=== PATIENT | male | born 1960 | race Caucasian/White ===

== ENCOUNTER 2020-03-14 10:24 | Emergency (ER) | payer OTHER, SELFPAY ==
[2020-03-14 12:03] VITALS: BP 132/67; PULSE 64; RESP 16; TEMP 36.6; O2SAT 97; BMI 23.5
--- NOTE | 2020-03-14 12:20 | XR_ITS ---
EXAMINATION: XR SHOULDER, LEFT CLINICAL INFORMATION: Shoulder pain COMPARISON: None TECHNIQUE: Left shoulder is imaged in 4 views. FINDINGS: There is no fracture or dislocation or destructive process. The acromioclavicular alignment is normal. The glenohumeral joint is unremarkable. There is borderline spurring at the inferior glenoid rim likely at the origin inferior glenohumeral ligament. There are no visible rotator cuff calcifications. Left lung apex is clear. No apical pneumothorax. XR/XR shoulder LT min 2V IMPRESSION: Unremarkable left shoulder.
--- NOTE | 2020-03-14 12:20 | ECG_ITS ---
Test Reason : LLEFT ARM PAIN Blood Pressure : / mmHG Vent. Rate : 063 BPM Atrial Rate : 063 BPM P-R Int : 158 ms QRS Dur : 090 ms QT Int : 404 ms P-R-T Axes : 000 121 140 degrees QTc Int : 413 ms Normal sinus rhythm Limb lead reversal When compared with ECG of 03-JUN-2019 20:18, Limb lead reversal present mimicking lateral infarct Referred By: Tiffany Aranda Electronically Signed By:Justice De La O
--- NOTE | 2020-03-14 13:28 | ED_ITS ---
HPI - Extremity Problem General Chief complaint: Extremity Injury, Upper Stated complaint: shoulder pain Time Seen by Provider: 03/14/20 12:20 Source: patient Mode of arrival: ambulatory History of Present Illness HPI Narrative: 59-year-old male with a past medical history of DVT on Xarelto presenting to the ED complaining of acute nontraumatic left shoulder pain x4 days. States pain prevents him from sleeping, worse with movement. Denies known injury/trauma, falls, or heavy lifting. Denies numbness, tingling, weakness, chest pain, shortness of breath, neck pain MD Complaint: joint paint Related Data Home Medications Medication Instructions Recorded Confirmed rivaroxaban [Xarelto] 20 mg PO DAILY 02/20/20 02/20/20 Previous Rx's Medication Instructions Recorded acetaminophen [Tylenol Extra 500 mg PO Q6H PRN #20 tab 03/14/20 Strength] cyclobenzaprine 5 mg PO Q8H PRN 5 Days #14 tab 03/14/20 lidocaine [Lidoderm] 1 patch TOPICAL DAILY PRN #30 ea 03/14/20 MDD remove after 12 hours Allergies Allergy/AdvReac Type Severity Reaction Status Date / Time No Known Allergies Allergy Verified 02/20/20 13:38 [No Known Allergies*] Review of Systems Review of Systems: Constitutional: No Weight loss, No Fever, No Chills Cardiovascular: No Chest Pain, No SOB Respiratory: No Cough, No Sputum, No Wheezing Musculoskeletal: + joint pain, No Myalgias, No Joint Swelling Skin: No Skin Lesions, No rash Neuro: No Weakness, No Numbness, No Paresthesias Yes all other systems are reviewed and are negative [facility] [place] Past Medical History Attestation statement: The following information was validated with the patient. Medical History (Updated 03/14/20 @ 13:29 by PACO Youssef) DVT (deep venous thrombosis) IDDM (insulin dependent diabetes mellitus) Poor short term memory Social History Social History Smoked in Last 30 Days: No Use of substances other than those prescribed or required for medical reasons: No Advance Directives: No Advance Directives Information Provided: Yes Physical Exam Vital Signs: Vital Signs: Last Vital Signs Temp 97.8 F 03/14/20 16:30 Pulse 64 03/14/20 16:30 Resp 14 03/14/20 16:30 BP 170/88 H 03/14/20 16:30 Pulse Ox 99 01/07/21 16:30 Body Mass Index 23.5 Const: General: cooperative and healthy appearing Orientation/consciousness: patient oriented x3 Limitations: no limitations HENMT: Head: Yes normal to inspection Ears: hearing grossly normal bilaterally General nose exam: Normal external nose present Face and sinus: Yes normal facial exam Eyes: General: appearance normal, both eyes and all related structures EOM: EOMs intact bilaterally Neck: Other: No midline cervical spinous tenderness Neck: Yes normal visual inspection, Yes full ROM and Yes no meningeal signs Resp: Effort & Inspection: normal respiratory effort Cardio: Rate: regular rate Back/Spine/Pelvis: Other: No midline thoracic/lumbar spinous tenderness Skin: Rashes: no rashes Wounds: no wounds Neuro: General: patient oriented x3 and no meningeal signs Gait exam (Neuro): Normal gait present Extrem: Other: + left-sided trapezius muscle tenderness. Left shoulder nontender, no deformity, full range of motion intact. Sensation intact to light touch. NV intact General: Yes normal to inspection, Yes full ROM and Yes capillary refill normal Left upper extremity: normal to inspection and full ROM; joint enlargement noted Course Course Course Narrative: * Shoulder x-ray unremarkable * 1340-EKG showing inverted T-waves in lead 1, and aVL. New from prior EKG in May, will obtain labs to rule out ACS * 1500-initial troponin 7.6 > will obtain 3 hour repeat * 1645-patient would like to sign out AMA prior to repeat troponin results. He is A&O x3, competent to make his own decisions, discussed risk of which he verbalized understanding and would like to still sign out AMA MDM - Extremity (Nontraumatic) MDM Narrative Medical decision making narrative: 59-year-old male with a past medical history of DVT on Xarelto presenting to the ED complaining of acute nontraumatic left shoulder pain x4 days. On exam VSS, NAD/nontoxic-appearing, left trapezius muscle tenderness elicited, full range of motion shoulder intact. Concern for MSK pain vs ACS Plan: EKG, x-ray, re-evaluate Lab Data Result diagrams: 03/14/20 14:16 03/14/20 14:16 Labs: Lab Results 03/14/20 03/14/20 03/14/20 Range/Units 14:16 14:16 14:16 WBC 6.6 (4.8-10.8) X10*3/uL RBC 4.61 (4.60-5.80) X10*6/uL Hgb 15.0 (14.0-18.0) g/dl Hct 44.0 (42-52) % MCV 95.4 (80-98) fL MCH 32.5 (27.0-33.0) pg MCHC 34.1 (31.0-36.0) g/dl RDW 12.0 (11.0-16.0) % Plt Count 171 (160-400) X10*3/uL MPV 10.7 (9.4-12.4) fL Immature Gran % (Auto) 0.2 (0.0-0.4) % Neut % (Auto) 54.8 (45-73) % Lymph % (Auto) 30.2 (20-40) % [place] % (Auto) 9.6 (2-11) % Eos % (Auto) 4.7 H (0-4) % Baso % (Auto) 0.5 (0-2) % Lymph # (Auto) 2.0 (1.2-4.9) X10*3/uL [place] # (Auto) 0.6 (0.1-1.2) X10*3/uL Eos # (Auto) 0.3 (0.0-0.4) X10*3/uL Baso # (Auto) 0.0 (0.0-0.2) X10*3/uL Abs Immat Gran (auto) 0.01 (0.00-0.03) X10*3/uL Absolute Neuts (auto) 3.6 (2.0-8.3) X10*3/uL Absolute Nucleated RBC 0.000 (0.0-0.012) X10*3/uL Nucleated RBC % (auto) 0.0 (0.0-0.2) /100WBC Hold Blue Top SEE NOTE Sodium 137 (135-145) mmol/L Potassium 4.3 (3.3-5.1) mmol/l Chloride 103 (96-108) mmol/L Carbon Dioxide 28 (22-29) mmol/L Anion Gap 10 L (12-20) BUN 14 (9-16) mg/dL Creatinine 0.66 (0.5-1.4) mg/dL Estim Creat Clear Calc 115.4 Estimated GFR > 60 Random Glucose 270 H (60-115) mg/dL Calcium 9.1 (8.4-10.2) mg/dL Troponin I High Sens (<3.5-35.0) ng/L 03/14/20 Range/Units 14:16 WBC (4.8-10.8) X10*3/uL RBC (4.60-5.80) X10*6/uL Hgb (14.0-18.0) g/dl Hct (42-52) % MCV (80-98) fL MCH (27.0-33.0) pg MCHC (31.0-36.0) g/dl RDW (11.0-16.0) % Plt Count (160-400) X10*3/uL MPV (9.4-12.4) fL Immature Gran % (Auto) (0.0-0.4) % Neut % (Auto) (45-73) % Lymph % (Auto) (20-40) % [place] % (Auto) (2-11) % Eos % (Auto) (0-4) % Baso % (Auto) (0-2) % Lymph # (Auto) (1.2-4.9) X10*3/uL [place] # (Auto) (0.1-1.2) X10*3/uL Eos # (Auto) (0.0-0.4) X10*3/uL Baso # (Auto) (0.0-0.2) X10*3/uL Abs Immat Gran (auto) (0.00-0.03) X10*3/uL Absolute Neuts (auto) (2.0-8.3) X10*3/uL Absolute Nucleated RBC (0.0-0.012) X10*3/uL Nucleated RBC % (auto) (0.0-0.2) /100WBC Hold Blue Top Sodium (135-145) mmol/L Potassium (3.3-5.1) mmol/l Chloride (96-108) mmol/L Carbon Dioxide (22-29) mmol/L Anion Gap (12-20) BUN (9-16) mg/dL Creatinine (0.5-1.4) mg/dL Estim Creat Clear Calc Estimated GFR Random Glucose (60-115) mg/dL Calcium (8.4-10.2) mg/dL Troponin I High Sens 7.6 (<3.5-35.0) ng/L Discharge Plan Discharge Clinical Impression: Acute shoulder pain Qualifiers: Laterality: left Qualified Code(s): M25.512 - Pain in left shoulder Patient Disposition: Left Against Medical Advice Instructions: Musculoskeletal Pain (ED) Additional Instructions: Your pain is likely musculoskeletal Flexeril is a muscle relaxer, take at night as it makes you drowsy, do not drive, drink alcohol, or operate machinery while taking it Lidoderm patches are numbing patches, apply to painful area In addition take Tylenol at home If symptoms persist or worsen, pain becomes unbearable, you developed urinary retention or incontinence, or weakness return to the ED Prescriptions: New acetaminophen [Tylenol Extra Strength] 500 mg tablet 500 mg PO Q6H PRN (Reason: pain or fever) Qty: 20 RF: 0 lidocaine [Lidoderm] 5 % adhesive patch,medicated 1 patch topical DAILY MDD remove after 12 hours PRN (Reason: pain) Qty: 30 RF: 0 cyclobenzaprine 5 mg tablet 5 mg PO Q8H PRN (Reason: pain (scale score 7-10)) 5 Days Qty: 14 RF: 0 No Action Xarelto 20 mg Tablet 20 mg PO DAILY RF: 0 Referrals: Kentrell Kitchen MD [Physician] - 1 week (As needed)
[2020-03-14] MEDS: Acetaminophen 325 MG TABLET 650 MG PO (13:48)
[2020-03-14 14:27] LABS: Basophils Percent Auto 0.5 % (0-2); Eosinophils Absolute Auto 0.3 X10*3/uL (0.0-0.4); Eosinophils Percent Auto 4.7 % (0-4); Imm Gran Abs Auto 0.01 X10*3/uL (0.00-0.03); Imm Gran Pct Auto 0.2 % (0.0-0.4); Lymphocytes Percent Auto 30.2 % (20-40); MANUAL DIFF FLAG NO; Mean Corpuscular HGB Conc 34.1 g/dl (31.0-36.0); Mean Corpuscular Hemoglobin 32.5 pg (27.0-33.0); Mean Corpuscular Volume 95.4 fL (80-98); Mean Platelet Volume 10.7 fL (9.4-12.4); Monocytes Absolute Auto 0.6 X10*3/uL (0.1-1.2); Monocytes Percent Auto 9.6 % (2-11); Neutrophils Absolute Auto 3.6 X10*3/uL (2.0-8.3); Neutrophils Percent Auto 54.8 % (45-73); Platelet Count 171 X10*3/uL (160-400); Red Blood Count 4.61 X10*6/uL (4.60-5.80); White Blood Count 6.6 X10*3/uL (4.8-10.8)
[2020-03-14 14:49] LABS: Anion Gap 10 (12-20); Blood Urea Nitrogen 14 mg/dL (9-16); Calcium 9.1 mg/dL (8.4-10.2); Carbon Dioxide 28 mmol/L (22-29); Chloride 103 mmol/L (96-108); Creatinine Clr Calc Pharmacy 115.4; Estimated Glomerular Filt Rate > 60; Glucose Random 270 mg/dL (60-115); Potassium 4.3 mmol/l (3.3-5.1); Sodium 137 mmol/L (135-145)
[2020-03-14 14:52] LABS: Troponin-I High Sensitivity 7.6 ng/L (<3.5-35.0)
[2020-03-14 15:34] VITALS: BP 147/84; PULSE 65; RESP 16; TEMP 36.6; O2SAT 99
[2020-03-14 16:30] VITALS: BP 170/88; PULSE 64; RESP 14; TEMP 36.6; O2SAT 99
--- NOTE | 2020-03-14 16:47 | PC.NURSE ---
PT REQUESTING DISCHARGE, PACO JUNG UPDATED, PA WILL PREPARE DC
[2020-03-14 17:17] LABS: Troponin-I High Sensitivity 7.2 ng/L (<3.5-35.0)
== END 2020-03-14 16:55 | disposition left against medical advice (07) ==
PROVIDERS: Physician Assistant; Emergency Provider Emergency Medicine Emergency Medical Services; PCP Internal Medicine
DX: M25.512 Pain in left shoulder (principal); Z86.718 Personal history of other venous thrombosis and embolism; Z79.01 Long term (current) use of anticoagulants
CPT/HCPCS: 36415; 73030; 80048; 84484; 85025; 93005; 99283; 99284

== ENCOUNTER 2020-04-30 06:38 | Emergency (ER) | payer OTHER, SELFPAY ==
--- NOTE | ~2020-04-30 | XR_ITS ---
EXAMINATION: XR ELBOW, RIGHT CLINICAL INFORMATION: Fall. Pain at radial head. COMPARISON: None TECHNIQUE: AP, lateral, and oblique views of the right elbow. FINDINGS: There is a moderate joint effusion. Subtle lucency in the radial head, suspicious for an intra-articular fracture. Alignment of the elbow joint is maintained. No additional discrete fracture is identified. XR/XR elbow RT min 3V IMPRESSION: Findings suspicious for an intra-articular undisplaced fracture of the radial head. Moderate joint effusion.
--- NOTE | 2020-04-30 07:14 | ED.FALL ---
HPI - Fall General Chief Complaint: Fall Stated Complaint: Fall Time Seen by Provider: 04/30/20 07:16 Source: patient Mode of arrival: ambulatory Limitations: no limitations History of Present Illness HPI Narrative: 59 yo male with hx of DVT was on xarelto but states he is not anymore, DM slipped and fell yesterday did not strike head has no headache, no LOC landed on his R elbow dom hand and c/o pain at elbow ever since MD complaint: fall Onset (ago): day(s) (1) Fall from: standing Fall witnessed: no Place fall occurred: home Loss of consciousness: none Prolonged down time: no Symptoms prior to fall: none Context: tripped/slipped Location of injury - extremities: right: elbow Severity: mild Quality: aching Associated symptoms (after fall): denies Related Data Home Medications Medication Instructions Recorded Confirmed rivaroxaban [Xarelto] 20 mg PO DAILY 02/20/20 02/20/20 Previous Rx's Medication Instructions Recorded acetaminophen [Tylenol Extra 500 mg PO Q6H PRN #20 tab 03/14/20 Strength] cyclobenzaprine 5 mg PO Q8H PRN 5 Days #14 tab 03/14/20 lidocaine [Lidoderm] 1 patch TOPICAL DAILY PRN #30 ea 03/14/20 MDD remove after 12 hours Allergies Allergy/AdvReac Type Severity Reaction Status Date / Time No Known Allergies Allergy Verified 02/20/20 13:38 [No Known Allergies*] Review of Systems Review of Systems: Constitutional : No Fever, No Chills ENT/Mouth : No Ear Pain, No Hoarseness Eyes: No Eye Pain, No Swelling, No Redness Cardiovascular : No Chest Pain, No SOB Respiratory : No Cough, No Dyspnea Gastrointestinal : No Nausea, No Vomiting, No Diarrhea, No abdominal Pain Genitourinary : No Dysuria, No Hematuria Musculoskeletal : positive joint pain, No Myalgias, No Joint Swelling Skin : No Skin lacerations, No rash Neuro : No Weakness, No Numbness, No Loss of Consciousness, No Dizziness, No Headache Psych : No Anxiety/Panic, No Depression [facility] Past Medical History Attestation statement: The following information was validated with the patient. Medical History DVT (deep venous thrombosis) IDDM (insulin dependent diabetes mellitus) Poor short term memory Social History Social History (Updated 04/30/20 @ 07:17 by Rupa Richmond DO) Smoking Status: Never smoker Advance Directives: No Advance Directives Information Provided: No Physical Exam Vital Signs: Vital Signs: Last Vital Signs Temp 97.8 F 04/30/20 07:18 Pulse 71 04/30/20 07:18 Resp 16 04/30/20 07:18 BP 135/72 04/30/20 07:18 Pulse Ox 100 04/30/20 07:18 Body Mass Index 23.5 Appearance: Alert. Oriented X3. No acute distress. Eyes: Pupils equal, round and reactive to light. ENT: Pharynx normal. no trauma Neck: Normal inspection. Neck supple. CVS: Normal heart rate and rhythm. Pulses normal. Respiratory: No respiratory distress. Breath sounds normal. Abdomen: Soft and nontender. Skin: Skin warm and dry. Normal skin color. Normal skin turgor. Extremities: No lower extremity edema. No calf ttp R elbow some pain at radial head, distal NV intact superficial abrasion at olecranon has no proximal or distal sites of pain Neuro: Oriented X 3. No motor deficit. No sensory deficit. Procedures Orthopedic Splinting/Casting Injury #1: Side: right Upper Extremity Injury Location: elbow Upper Extremity Immobilizer: sling/shoulder immobilizer MDM - Fall MDM Narrative Medical decision making narrative: 59 yo male with DVT and DM - fell yesterday did not strike head no LOC no headaches GCS 15 no vomiting doubt head injury states he is no longer on xarelto - c/o isolated R elbow pain post fall - NV intact some radial head ttp - xray ordered Discharge Plan Discharge Clinical Impression: Closed fracture of radial head Qualifiers: Encounter type: initial encounter Fracture alignment: nondisplaced Laterality: right Qualified Code(s): S52.124A - Nondisplaced fracture of head of right radius, initial encounter for closed fracture Patient Disposition: Home, Self-Care Instructions: Elbow Fracture (ED) Additional Instructions: return to ED for any worsening symptoms or concerns wear sling until released by your doctor or orthopedic doctor (likely next few weeks) Prescriptions: No Action Xarelto 20 mg Tablet 20 mg PO DAILY RF: 0 acetaminophen [Tylenol Extra Strength] 500 mg tablet 500 mg PO Q6H PRN (Reason: pain or fever) Qty: 20 RF: 0 lidocaine [Lidoderm] 5 % adhesive patch,medicated 1 patch topical DAILY MDD remove after 12 hours PRN (Reason: pain) Qty: 30 RF: 0 cyclobenzaprine 5 mg tablet 5 mg PO Q8H PRN (Reason: pain (scale score 7-10)) 5 Days Qty: 14 RF: 0 Referrals: Homer Aleman PA-C [Physician Retail Sales Representative] - 1 week Stand Alone Forms: Work/School Release
[2020-04-30 07:18] VITALS: BP 135/72; PULSE 71; RESP 16; TEMP 36.6; O2SAT 100; BMI 23.5
== END 2020-04-30 09:12 | disposition home or self-care (01) ==
PROVIDERS: Emergency Provider Emergency Medicine; PCP Internal Medicine
DX: S52.124A Nondisplaced fracture of head of right radius, initial encounter for closed fracture (principal); W01.0XXA Fall on same level from slipping, tripping and stumbling without subsequent striking against object, initial encounter; E11.9 Type 2 diabetes mellitus without complications; Z86.718 Personal history of other venous thrombosis and embolism; Z79.4 Long term (current) use of insulin; Z79.01 Long term (current) use of anticoagulants; Y93.9 Activity, unspecified; Y92.019 Unspecified place in single-family (private) house as the place of occurrence of the external cause; Y99.9 Unspecified external cause status
CPT/HCPCS: 73080; 99283

== ENCOUNTER 2020-05-09 07:32 | Outpatient (REF) | payer OTHER, SELFPAY ==
--- NOTE | ~2020-05-09 | XR_ITS ---
EXAMINATION: XR ELBOW, RIGHT CLINICAL INFORMATION: Pain COMPARISON: Previous x-ray April 2020 TECHNIQUE: AP, lateral, and oblique views of the right elbow. FINDINGS: Bone alignment is normal. No fracture or dislocation is seen. There is a small osteophyte projecting off the lateral humeral condyle. There is no joint effusion. There is evidence of atherosclerotic disease. XR/XR elbow RT min 3V IMPRESSION: No fracture seen.
== END 2020-05-09 07:33 | disposition home or self-care (01) ==
LOC: HO.HOSX 07:32
PROVIDERS: Visit Provider Physician Assistant
DX: S42.401D Unspecified fracture of lower end of right humerus, subsequent encounter for fracture with routine healing (principal)
CPT/HCPCS: 73080; 99202

== ENCOUNTER 2020-05-23 12:01 | Outpatient (REF) | payer OTHER, SELFPAY ==
[2020-05-23 13:17] LABS: MANUAL DIFF FLAG NO
[2020-05-23 13:23] LABS: Basophils Percent Auto 0.4 % (0-2); Eosinophils Absolute Auto 0.2 X10*3/uL (0.0-0.4); Eosinophils Percent Auto 2.3 % (0-4); Hematocrit 44.3 % (42-52); Hemoglobin 14.9 g/dl (14.0-18.0); Imm Gran Abs Auto 0.02 X10*3/uL (0.00-0.03); Imm Gran Pct Auto 0.2 % (0.0-0.4); Lymphocytes Absolute Auto 2.4 X10*3/uL (1.2-4.9); Lymphocytes Percent Auto 29.1 % (20-40); Mean Corpuscular HGB Conc 33.6 g/dl (31.0-36.0); Mean Corpuscular Hemoglobin 31.4 pg (27.0-33.0); Mean Corpuscular Volume 93.5 fL (80-98); Mean Platelet Volume 10.8 fL (9.4-12.4); Monocytes Absolute Auto 0.8 X10*3/uL (0.1-1.2); Monocytes Percent Auto 9.9 % (2-11); Neutrophils Absolute Auto 4.8 X10*3/uL (2.0-8.3); Neutrophils Percent Auto 58.1 % (45-73); Platelet Count 282 X10*3/uL (160-400); Red Blood Count 4.74 X10*6/uL (4.60-5.80); Red Cell Distribution Width 12.5 % (11.0-16.0); White Blood Count 8.2 X10*3/uL (4.8-10.8)
[2020-05-23 13:34] LABS: D Dimer < 200 NG/ML
[2020-05-23 13:57] LABS: Alanine Aminotransferase 55 U/L (0-40); Albumin Level 4.2 g/dL (3.5-5.0); Alkaline Phosphatase 114 U/L (39-117); Anion Gap 13 (12-20); Aspartate Amino Transferase 26 U/L (5-37); Bilirubin Total 0.6 mg/dL (0.0-1.0); Blood Urea Nitrogen 25 mg/dL (9-16); Calcium 9.6 mg/dL (8.4-10.2); Carbon Dioxide 29 mmol/L (22-29); Chloride 102 mmol/L (96-108); Estimated Glomerular Filt Rate > 60; Glucose Fasting 284 mg/dL (60-99); Potassium 4.7 mmol/L (3.3-5.1); Sodium 139 mmol/L (135-145)
[2020-05-23 14:06] LABS: Estimated Average Glucose 280 mg/dL; Hemoglobin A1c % 11.4 %
[2020-05-23 14:30] LABS: Microalbum/Creatinine Ratio Ur 8.4 ug/mg cr
[2020-05-23 14:49] LABS: Folate 12.6 ng/mL (> or = 4.0); Vitamin B12 519 pg/mL (200-900)
== END 2020-05-23 12:02 | disposition home or self-care (01) ==
LOC: HO.LAB 12:01
PROVIDERS: PCP Internal Medicine; Visit Provider Nurse Practitioner Family
DX: E11.9 Type 2 diabetes mellitus without complications (principal); I82.409 Acute embolism and thrombosis of unspecified deep veins of unspecified lower extremity
CPT/HCPCS: 36415; 80053; 82043; 82607; 82746; 83036; 85025; 85379

== ENCOUNTER 2020-10-23 09:05 | Outpatient (REF) | payer OTHER, SELFPAY ==
[2020-10-23 10:07] LABS: MANUAL DIFF FLAG NO
[2020-10-23 10:16] LABS: Basophils Percent Auto 0.4 % (0-2); Eosinophils Absolute Auto 0.3 X10*3/uL (0.0-0.4); Eosinophils Percent Auto 4.4 % (0-4); Hematocrit 42.9 % (42-52); Hemoglobin 14.5 g/dl (14.0-18.0); Imm Gran Abs Auto 0.01 X10*3/uL (0.00-0.03); Imm Gran Pct Auto 0.1 % (0.0-0.4); Lymphocytes Absolute Auto 1.8 X10*3/uL (1.2-4.9); Lymphocytes Percent Auto 22.5 % (20-40); Mean Corpuscular HGB Conc 33.8 g/dl (31.0-36.0); Mean Corpuscular Hemoglobin 32.5 pg (27.0-33.0); Mean Corpuscular Volume 96.2 fL (80-98); Mean Platelet Volume 10.9 fL (9.4-12.4); Monocytes Absolute Auto 0.8 X10*3/uL (0.1-1.2); Monocytes Percent Auto 10.7 % (2-11); Neutrophils Absolute Auto 4.8 X10*3/uL (2.0-8.3); Neutrophils Percent Auto 61.9 % (45-73); Platelet Count 202 X10*3/uL (160-400); Red Blood Count 4.46 X10*6/uL (4.60-5.80); Red Cell Distribution Width 12.2 % (11.0-16.0); White Blood Count 7.8 X10*3/uL (4.8-10.8)
[2020-10-23 11:02] LABS: Alanine Aminotransferase 57 U/L (0-40); Alkaline Phosphatase 88 U/L (39-117); Anion Gap 16 (12-20); Aspartate Amino Transferase 25 U/L (5-37); Bilirubin Total 0.5 mg/dL (0.0-1.0); Blood Urea Nitrogen 19 mg/dL (9-16); Calcium 9.6 mg/dL (8.4-10.2); Carbon Dioxide 25 mmol/L (22-29); Chloride 102 mmol/L (96-108); Cholesterol 248 mg/dL; Estimated Glomerular Filt Rate > 60; Glucose Random 300 mg/dL (60-115); HDL Cholesterol 54 mg/dL; LDL Cholesterol Calculated 177 mg/dl; Potassium 5.6 mmol/L (3.3-5.1); Sodium 137 mmol/L (135-145); Total Protein 6.7 g/dL (6.5-8.0); Triglycerides 86 mg/dL
[2020-10-23 11:09] LABS: Folate 12.2 ng/mL (> or = 4.0); Vitamin B12 422 pg/mL (200-900)
[2020-10-23 11:27] LABS: Free T4 (Free Thyroxine) 0.93 ng/dL (0.71-1.85); Thyroid Stimulating Hormone 0.45 uIU/mL (0.32-4.0)
[2020-10-23 12:45] LABS: Creatinine Urine 52.48 mg/dL; Microalbumin Urine < 5.0 mg/L
== END 2020-10-23 09:06 | disposition home or self-care (01) ==
LOC: HO.LAB 09:05
PROVIDERS: PCP Internal Medicine; Visit Provider Internal Medicine
DX: E11.65 Type 2 diabetes mellitus with hyperglycemia (principal); E78.00 Pure hypercholesterolemia, unspecified
CPT/HCPCS: 36415; 80053; 80061; 82043; 82607; 82746; 84439; 84443; 85025

== ENCOUNTER → 2020-11-15 12:02 | Outpatient (BNVA) | payer OTHER, SELFPAY | PROVIDERS: PCP Internal Medicine; Visit Provider Dietitian, Registered | DX: E11.65 Type 2 diabetes mellitus with hyperglycemia (principal) | CPT/HCPCS: 97802 ==

== ENCOUNTER → 2020-12-23 12:09 | Outpatient (BNVA) | payer OTHER, SELFPAY | PROVIDERS: PCP Internal Medicine; Visit Provider Dietitian, Registered | DX: E11.65 Type 2 diabetes mellitus with hyperglycemia (principal) | CPT/HCPCS: 97803 ==

== ENCOUNTER → 2021-02-25 11:34 | Outpatient (BNVA) | payer OTHER, SELFPAY | PROVIDERS: PCP Internal Medicine; Visit Provider Dietitian, Registered | DX: E11.65 Type 2 diabetes mellitus with hyperglycemia (principal) | CPT/HCPCS: 97803 ==

== ENCOUNTER 2021-03-05 08:42 | Outpatient (REF) | payer OTHER, SELFPAY ==
--- NOTE | 2021-03-05 08:45 | EMG_ITS ---
This is a 60-year-old man with a long history of diabetes and traumatic brain injury in 1980, who comes in with a 2 months history of left upper extremity pain and numbness and some pain in the shoulder. He denies any complaints in the right side. Neurological examination is nonfocal. PHYSICAL EXAMINATION: Rule out carpal tunnel syndrome. Rule out cervical radiculopathy. 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 EMG of the left C5-T1 innervated muscles consistent with mild cervical radiculopathy involving C5-C7 roots. MD MARTINEZ Dinh/EMILY / [id number]
== END 2021-03-05 08:43 | disposition home or self-care (01) ==
LOC: HO.NEURO 08:42
PROVIDERS: Visit Provider Internal Medicine
DX: G56.22 Lesion of ulnar nerve, left upper limb (principal)
CPT/HCPCS: 95885; 95911

== ENCOUNTER → 2021-03-11 09:19 | Outpatient (BNVA) | payer OTHER, SELFPAY | PROVIDERS: PCP Internal Medicine; Visit Provider Dietitian, Registered | DX: E11.65 Type 2 diabetes mellitus with hyperglycemia (principal) | CPT/HCPCS: 97803 ==

== ENCOUNTER → 2021-04-09 11:13 | Outpatient (BNVA) | payer OTHER, SELFPAY | PROVIDERS: PCP Internal Medicine; Visit Provider Dietitian, Registered | DX: E11.65 Type 2 diabetes mellitus with hyperglycemia (principal) | CPT/HCPCS: 97803 ==

== ENCOUNTER 2021-04-10 09:39 | Outpatient (REF) | payer OTHER, SELFPAY ==
[2021-04-10 10:34] LABS: Alanine Aminotransferase 33 U/L (0-40); Albumin Level 4.3 g/dL (3.5-5.0); Alkaline Phosphatase 95 U/L (39-117); Anion Gap 15 (12-20); Aspartate Amino Transferase 19 U/L (5-37); Bilirubin Total 0.6 mg/dL (0.0-1.0); Blood Urea Nitrogen 25 mg/dL (9-16); Carbon Dioxide 24 mmol/L (22-29); Chloride 104 mmol/L (96-108); Cholesterol 193 mg/dL; Estimated Glomerular Filt Rate > 60; Glucose Random 242 mg/dL (60-115); HDL Cholesterol 45 mg/dL; LDL Cholesterol Calculated 128 mg/dl; Potassium 5.2 mmol/L (3.3-5.1); Sodium 138 mmol/L (135-145); Total Protein 6.9 g/dL (6.5-8.0); Triglycerides 102 mg/dL
[2021-04-10 10:56] LABS: Prostate Specific Antigen Scr 0.73 ng/mL (<0.05-4.0)
== END 2021-04-10 09:40 | disposition home or self-care (01) ==
LOC: HO.LAB 09:39
PROVIDERS: PCP Internal Medicine; Visit Provider Internal Medicine
DX: Z12.5 Encounter for screening for malignant neoplasm of prostate (principal); E78.00 Pure hypercholesterolemia, unspecified
CPT/HCPCS: 36415; 80053; 80061; 84153

== ENCOUNTER 2021-04-13 08:37 | Emergency (ER) | payer OTHER, SELFPAY ==
--- NOTE | ~2021-04-13 | XR_ITS ---
EXAMINATION: XR KNEE, RIGHT CLINICAL INFORMATION: Right knee pain. COMPARISON: None TECHNIQUE: Two views, 3 images of the right knee. FINDINGS: Contour deformity of the visualized part of the mid right femur is seen, partially included within the [id number] showing features most consistent with old healed fracture. Otherwise, the bony alignments are intact. The cortices are intact. Articular margins, joint space at the right kidney appear unremarkable no evidence of any effusion. Review of the visualized soft tissues shows extensive calcific vasculopathy. XR/XR knee RT 2V IMPRESSION: Radiographically unremarkable right knee. Partially included visualized part of the right mid femur shows features consistent with old healed fracture. Extensive calcific vasculopathy.
[2021-04-13 08:40] VITALS: BP 177/97; PULSE 100; RESP 20; TEMP 36.9; O2SAT 100; BMI 22.8
--- NOTE | 2021-04-13 09:36 | ED_ITS ---
HPI - Extremity Injury (Lower) General Chief Complaint: Extremity Injury, Lower Stated Complaint: fell inj knee Time Seen by Provider: 04/13/21 08:53 Source: patient Mode of arrival: ambulatory Limitations: no limitations History of Present Illness HPI Narrative: 52-year-old male with a history of diabetes, DVT on Xarelto, and poor short-term memory presents with 3 days of right knee pain. He fell onto his right knee 3 days ago when he tripped on a curb. It was a mechanical fall, he was not dizzy, not lightheaded, no shortness of breath, no chest pain. He tripped on the curb and fell directly onto his anterior right knee. He did not hit his head. No headache, no neck pain. No numbness, tingling, or weakness. He has been walking, and is able to weight bear, but is limping. No current chest pain, SOB, abdominal pain, nausea or vomiting, dysuria, fevers. MD complaint: knee injury Onset (ago): day(s) (3) Type of Injury: blunt Place: street/outdoors Severity: moderate Severity scale (1-10): 7 Relieving factors: rest Exacerbating factors: movement and palpation Context: fall Associated symptoms: ambulatory Other symptoms: none Related Data Previous Rx's Medication Instructions Recorded blood sugar diagnostic (Freestyle #100 ea 05/24/20 In[employer] Test Strips) blood-glucose meter (FreeStyle #1 ea 05/24/20 Flash System) lancets 28 gauge (FreeStyle #100 ea 05/24/20 Lancets) flash glucose scanning reader #1 ea 10/14/20 (FreeStyle Brodie 14 Day Hildreth) flash glucose sensor (FreeStyle #6 kit 10/14/20 Brodie 14 Day Sensor) metformin 1,000 mg tablet 1,000 mg PO BID 90 Days #180 tab 10/14/20 atorvastatin 10 mg tablet 10 mg PO BEDTIME 30 Days #30 tab 02/24/21 rivaroxaban 10 mg tablet (Xarelto) 10 mg PO DAILY #90 tab 02/24/21 Allergies Allergy/AdvReac Type Severity Reaction Status Date / Time No Known Allergies Allergy Verified 04/07/21 15:35 [No Known Allergies*] Review of Systems Verdana 4l Constitutional: Verdana 4d Constitutional: Verdana 4d Verdana 4d Denies body ache(s), Denies chills, Denies fatigue, Denies fever(s), Denies headache(s), Denies malaise and Denies weakness Verdana 4l Eyes: Verdana 4d Verdana 4d Eyes: Verdana 4d Denies diplopia Verdana 4l ENT: Verdana 4d Denies vertigo, Denies dizziness, Denies otalgia, Denies headache(s), Denies neck pain and Denies sore throat Verdana 4l Cardiovascular: Verdana 4d Cardiovascular: Verdana 4d Verdana 4d Denies chest pain, Denies syncope, Denies leg edema, Denies lightheadedness, Denies Loss of Consciousness, Denies palpitations and Denies dyspnea Verdana 4l Respiratory: Verdana 4d Verdana 4d Respiratory: Verdana 4d Denies chest congestion, Denies cough and Denies dyspnea Verdana 4l Gastrointestinal: Verdana 4d Gastrointestinal: Verdana 4d Verdana 4d Denies diarrhea, Denies nausea and Denies vomiting Verdana 4l Musculoskeletal: Verdana 4d Musculoskeletal: Verdana 4d Verdana 4d Denies back pain, Denies deformity, Reports arthralgias (right knee), Reports limited range of motion, Denies muscle weakness, Denies neck pain, Denies numbness and Denies tingling Verdana 4l Neurologic: Verdana 4d Denies confusion, Denies vertigo, Denies dizziness, Denies syncope, Denies headache(s), Denies numbness, Denies Sensory deficit (Neuro), Denies tingling and Denies weakness Verdana 4l Psychiatric: Verdana 4d Verdana 4d Psychiatric: Verdana 4d Denies anxiety, Denies confusion and Denies depression Verdana 4l Endocrine: Verdana 4d Verdana 4d Endocrine: Verdana 4d Denies fatigue and Denies palpitations PMFSH Past Medical History Medical History DVT (deep venous thrombosis) Homeless Hypercholesterolemia IDDM (insulin dependent diabetes mellitus) Poor short term memory Presence of IVC filter Thyroid nodule Surgical History Femoral fracture History of vasectomy Mandibular fracture Family History Family History Mother No problems noted. Father Heart problem Social History Social History (Updated 02/20/21 @ 09:22 by Jose Quezada RN) Housing: Apartment Alcohol intake: current Alcohol intake frequency: 0-2 drinks per day Patient Tobacco Use Status: Never used Tobacco e-Cigarette/Vaping Use: Never Used Second Hand Smoke Exposure: No Substance Use Type: Marijuana Advance Directives: No Advance Directives Information Provided: Yes service: No Current occupational status: employed Current occupational exposures/hazards: No Physical Exam Verdana 4l Vital Signs: Verdana 4d Verdana 4d Vital Signs: Verdana 4d Verdana 4Bd Last Vital Signs Verdana 4d Paper Twister New 4d Paper Twister New 4d Temp 98.4 F 04/13/21 08:40 Paper Twister New 4d Pulse 100 04/13/21 08:40 Paper Twister New 4d Resp 20 04/13/21 08:40 BP 177/97 H 04/13/21 08:40 Pulse Ox 100 04/13/21 08:40 BMI result Body Mass Index 22.8 Const: General: well developed, alert and awake; No confusion Nutritional Appearance: well nourished Orientation/consciousness: patient oriented x3 and No confusion Limitations: no limitations HENMT: Head: Yes normocephalic and Yes atraumatic Ears: hearing grossly normal bilaterally General nose exam: Normal external nose present Face and sinus: Yes normal facial exam Eyes: Conjunctivae: conjunctivae normal Pupils: Equal, round and reactive pupils present EOM: EOMs intact bilaterally Neck: Neck: Yes full ROM, Yes no lymphadenopathy and Yes supple Resp: Effort & Inspection: normal respiratory effort and able to speak in complete sentences Auscultation: clear to auscultation bilaterally, no crackles, no rales, no rhonchi and no wheezes Cardio: Rate: regular rate Rhythm: regular rhythm Heart sounds: S1 normal heart sound present and S2 normal heart sound present : General: Yes no CVA tenderness Back/Spine/Pelvis: Back: no CVA tenderness Cervical Spine: cervical ROM normal, No Cervical spine tenderness, No step off deformity and No cervical ROM abnormal Thoracic/Lumbar Spine: No paraspinal muscle tenderness, No thoraco-lumbar spasm, No thoracic spinal tenderness and No lumbar spinal tenderness Skin: General skin exam: no rashes or lesions noted Neuro: General: patient oriented x3 and No confusion Cranial nerves: Yes Equal, round and reactive pupils present Sensory Exam: No Sensory deficit (Neuro) Deep tendon reflexes (DTR's): Right patellar reflex intensity grade: 1+ and Left patellar reflex intensity grade: 1+ Extrem: Right lower extremity: normal to inspection, full ROM, normal capillary refill and knee Details: normal to inspection, tenderness Location: of the patella Details: superiorly, of the lateral joint line and of the pre-patellar area; Negative for not of the tibial tuberosity, not of the popliteal fossa and not of the medial joint line, abnormal ROM Details: pain with active ROM during Details: in flexion; Negative for able to extend lower leg actively, knee ligament exam normal and Whitney's Test Details: negative medially and laterally; Negative for no swelling, no abrasions, no ecchymosis, no crepitus, no deformity and no unusual warmth; No no cyanosis, no edema and joint enlargement noted Psych: Appearance: grossly normal Affect: normal affect Attitude: cooperative Thought process: Normal thought process present Course Course Course Narrative: 60-year-old diabetic male on Xarelto with poor short-term memory presents with 3 days of right knee pain status post mechanical fall. On exam, patient has intact lower extremity sensation, distal pulses, deep tendon reflexes, and motor strength. Patient is able to ambulate although he has a limping gait. Patient is tender along the right lateral joint line, and on the superior aspect of his patella. X-ray is negative. No valgus or varus ligamentous laxity, anterior drawer test is negative. Knee immobilizer, follow up with Orthopedics, crutches as needed, Tylenol instructions given. Rest, ice, compress, elevate instructions given. XR/XR knee RT 2V IMPRESSION: Radiographically unremarkable right knee. Partially included visualized part of the right mid femur shows features consistent with old healed fracture. Extensive calcific vasculopathy. Discharge Plan Discharge Clinical Impression: Contusion of knee, right Patient Disposition: Home, Self-Care Instructions: Crutch Instructions (ED), Contusion in Adults (ED), R.I.C.E. Treatment (ED), Knee Immobilizer (ED) Additional Instructions: Please take tylenol for pain. You can take 1,000 mg every 8 hours, not to exceed 3,000 mg in 24 hours Please use your knee immobilizer and crutches until you are seen by orthopedics. Please rest and ice your knee, and elevate it. Please call orthopedics at [phone]. I have referred you, but they should be also calling you. Please return to the emergency room for any new or concerning symptoms Prescriptions: No Action (DME) Freestyle [employer] Test Strips Strip See Rx Instructions .ROUTE .MEDSUPPLY Qty: 100 0RF Rx Instructions: As directed (DME) blood-glucose meter [FreeStyle Flash System] Kit See Rx Instructions .ROUTE .MEDSUPPLY Qty: 1 0RF Rx Instructions: As directed (DME) lancets [FreeStyle Lancets] 28 gauge misc See Rx Instructions .ROUTE .MEDSUPPLY Qty: 100 0RF Rx Instructions: As directed metformin 1,000 mg tablet 1,000 mg PO BID 90 Days Qty: 180 1RF (DME) FreeStyle Brodie 14 Day Sensor Kit See Rx Instructions .ROUTE .MEDSUPPLY Qty: 6 3RF Rx Instructions: As directed (DME) FreeStyle Brodie 14 Day Hildreth Misc See Rx Instructions .ROUTE .MEDSUPPLY Qty: 1 0RF Rx Instructions: As directed atorvastatin 10 mg tablet 10 mg PO BEDTIME 30 Days Qty: 30 5RF Xarelto 10 mg tablet 10 mg PO DAILY Qty: 90 4RF Referrals: Matt Way MD [Physician] - 2 days
== END 2021-04-13 10:08 | disposition home or self-care (01) ==
PROVIDERS: Emergency Provider Emergency Medicine; PCP Internal Medicine
DX: S80.01XA Contusion of right knee, initial encounter (principal); M25.561 Pain in right knee; F12.90 Cannabis use, unspecified, uncomplicated; E11.9 Type 2 diabetes mellitus without complications; W01.0XXA Fall on same level from slipping, tripping and stumbling without subsequent striking against object, initial encounter; Y93.9 Activity, unspecified; Y92.410 Unspecified street and highway as the place of occurrence of the external cause; Y99.9 Unspecified external cause status; Z79.01 Long term (current) use of anticoagulants; Z86.718 Personal history of other venous thrombosis and embolism; Z79.899 Other long term (current) 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; Z79.4 Long term (current) use of insulin
CPT/HCPCS: 73560; 99283

== ENCOUNTER → 2021-04-23 13:07 | Outpatient (BNVA) | payer OTHER, SELFPAY | PROVIDERS: PCP Internal Medicine; Visit Provider Dietitian, Registered | DX: E11.65 Type 2 diabetes mellitus with hyperglycemia (principal) | CPT/HCPCS: 97803 ==

== ENCOUNTER 2021-05-13 07:55 | Day surgery (SDC) | payer OTHER, SELFPAY ==
[2021-05-07 15:04] VITALS: BMI 24.0
[2021-05-13 08:22] VITALS: BP 153/85; PULSE 84; RESP 16; TEMP 36.4; O2SAT 99
[2021-05-13 08:36] LABS: Glucose, Whole Blood 243 mg/dL (60-115)
--- NOTE | 2021-05-13 09:04 | MHC.SHP ---
Pre-Procedural Eval Section A Date of Service: 05/13/21 The patient is an INPATIENT: No Changes since office visit: No Cold of Flu in the past 2 weeks, No New Medical Problems, No Changes in Medication and No Patient answered all questions The History & Physical has been completed within 30 days and I have reviewed it.: Yes Section B Chief Complaint: screening Allergies: Allergies Allergy/AdvReac Type Severity Reaction Status Date / Time No Known Allergies Allergy Verified 05/13/21 08:34 [No Known Allergies*] Plan I have reviewed the history and physical and performed a pertinent physical examination on my patient. No changes have occurred unless specified.
--- NOTE | 2021-05-13 09:10 | HO.ANESPROP2 ---
HPI - Anesthesia Eval Consult details Narrative: 60 yo male patient for colonoscopy PMF Active Problems Active Problems: All Active Problems (Updated 05/12/21 @ 12:58 by Jazz Lomas RN) DVT (deep venous thrombosis) (Acute). On xarelto. Last dose 05/09/21 Contusion of right elbow (Acute) Occult fracture of right elbow (Acute) Type 2 diabetes mellitus with hyperglycemia (Acute) Hyperkalemia (Acute) Ulnar neuropathy at elbow of left upper extremity (Acute) Tubular adenoma of colon (Acute) Frequency of micturition (Acute) Cervical radiculopathy (Acute) Hypercholesterolemia (Acute) ? h/o closed head injury?? No documentation available in chart. Problems with short term memory Past Medical History Medical History DVT (deep venous thrombosis) History of non-insulin dependent diabetes mellitus Hypercholesterolemia IDDM (insulin dependent diabetes mellitus) Poor short term memory Presence of IVC filter Thyroid nodule Family History Family History Mother No problems noted. Father Heart problem Family history of problems with anesthesia: No Surgical History Surgical History Femoral fracture History of vasectomy Hx of colonoscopy Mandibular fracture History of Problems with Anesthesia: No Social History Social History Housing: Apartment Are you a primary chiropractic care to a significant other at home: No Do you presently have visiting nurse or other home services: No Alcohol intake: current Alcohol intake frequency: 0-2 drinks per day Patient Tobacco Use Status: Never used Tobacco e-Cigarette/Vaping Use: Never Used Second Hand Smoke Exposure: No Use of substances other than those prescribed or required for medical reasons: Yes Substance Use Type: Marijuana Substance Use Frequency: Daily Have you been hit, kicked, punched, or otherwise hurt by someone within the past year? If so, by whom?: No Are you DNR?: No Advance Directives: No Advance Directives Information Provided: No Advance Directives on File: No Recently lost weight without trying: No Eating poorly because of decreased appetite: No Nutrition Risks: No Nutritional Risk service: No Current occupational status: employed Current occupational exposures/hazards: No Meds Allergies Allergy/AdvReac Type Severity Reaction Status Date / Time No Known Allergies Allergy Verified 05/13/21 08:34 [No Known Allergies*] Exam Exam Date and Time: May 13, 2021 0910 Height,Weight and Vital Signs: Height 5 ft 4.75 in Weight 64.864 kg Last Vital Signs Temp 97.5 F 05/13/21 08:22 Pulse 84 05/13/21 08:22 Resp 16 05/13/21 08:22 BP 153/85 H 05/13/21 08:22 Pulse Ox 99 05/13/21 08:22 Pertinent Lab Results Pertinent Lab Results: Laboratory Tests 05/13/21 08:31 POC Glucose 243 H Airway Mallampati Class: II TM Dist: >3cm Neck ROM: Full Partial: Upper Heart: RRR Lungs: CTAB Assessment and Plan Assessment Anesthesia Assessment: Anesthesia Plan Discussed and Chart Reviewed Final Anesthetic Review Family History of Problems with Anesthesia: No History of Problems with Anesthesia: No NPO: Yes ASA Class: III Final Preanesthetic Review: No Changes in Pt Med Stat, Meds/Allgs Chart Reviewed, Consent Obtained/Reviewed and Anes Risks/Benef Reviewed Patient Risk: Low Procedure Risk: Low Assessment/Block/Sedation in SS: Assess/Block/Sedation-SS Anesthetic Plan Anesthetic Plan: MAC: Disposition: Standard PACU
--- NOTE | 2021-05-13 09:46 | P.BOP_ITS ---
Brief Operative Note Date of Service: 05/13/21 Pre-op diagnosis: screening Post-op diagnosis: same (colon polyps) Procedure: colonoscopy Surgeon: Gee Loya Anesthesia: MAC Was an Business Education Teacher used for this Procedure?: No Estimated blood loss (mL): 2 Pathology: other (rectal polyps) Condition: stable Disposition: PACU
[2021-05-13 09:49] VITALS: BP 116/60; PULSE 61; RESP 16; TEMP 36.6; O2SAT 98
--- NOTE | 2021-05-13 10:03 | OP_ITS ---
SURGEON: Gee Loya MD INDICATIONS: Colon cancer screening and prior history of adenomatous colon polyps. PREOPERATIVE DIAGNOSIS: POSTOPERATIVE DIAGNOSIS: PROCEDURE PERFORMED: ESTIMATED BLOOD LOSS: COMPLICATIONS: ANESTHESIA: ASSISTANTS: SPECIMENS: PROCEDURE: Colonoscopy to the terminal ileum with biopsy. MEDICATIONS: Monitored anesthesia care. DESCRIPTION OF PROCEDURE: History and physical performed. The risks and benefits of the procedure were explained to the patient. Informed consent was obtained. The patient was placed in the left lateral decubitus position. A digital rectal exam was performed and was found to be normal. The Olympus pediatric videocolonoscope was introduced into the rectum and advanced to the cecum without difficulty. The cecum was identified by transillumination, palpation, and identification of ileocecal valve. Examination was performed. The scope was removed. He tolerated the procedure well and was taken to Recovery in stable condition. FINDINGS: The terminal ileum was normal. The visualized colonic mucosa was normal. There was a 20-mm lipoma involving the ileocecal valve, which was biopsied. This showed a pillow sign and a fatty change on biopsy. In the rectum were 2 hyperplastic-appearing polyps, which were biopsied. A third possible adenomatous polyp measuring less than 5 mm was removed with biopsy forceps. There was scattered diverticulosis in the colon. There was some liquid stool coating the mucosa, which was washed and suctioned as best possible. IMPRESSION: Colon polyps. RECOMMENDATION: Follow up the biopsy results. MD TASHIA Ferguson/EMILY / [id number]
[2021-05-13 10:05] VITALS: BP 138/78; PULSE 61; RESP 17; TEMP 37.1; O2SAT 100
== END 2021-05-13 11:03 | disposition home or self-care (01) ==
PROVIDERS: PCP Internal Medicine; Visit Provider Internal Medicine Gastroenterology
PROC: 0DJD8ZZ Inspection of Lower Intestinal Tract, Via Natural or Artificial Opening Endoscopic (ICD-10-PCS; CPT 45378; principal; 2021-05-13 09:10)
DX: Z12.11 Encounter for screening for malignant neoplasm of colon (principal); Z86.010 Personal history of colon polyps; K62.1 Rectal polyp; K57.30 Diverticulosis of large intestine without perforation or abscess without bleeding; E78.00 Pure hypercholesterolemia, unspecified; R41.3 Other amnesia; E11.9 Type 2 diabetes mellitus without complications; Z79.84 Long term (current) use of oral hypoglycemic drugs; Z86.718 Personal history of other venous thrombosis and embolism; Z95.828 Presence of other vascular implants and grafts
CPT/HCPCS: 45380; 82947; 88305

== ENCOUNTER 2021-06-02 19:55 | Inpatient (IN) | payer OTHER, SELFPAY ==
--- NOTE | ~2021-06-02 | CT_ITS ---
EXAMINATION: CT ABDOMEN AND PELVIS WITHOUT CONTRAST CLINICAL INFORMATION: Rule out perforation or rectal foreign body COMPARISON: None TECHNIQUE: Multidetector volumetric imaging was performed from the superior aspect of the liver through the pubic symphysis. Sagittal and coronal reformatted images were obtained on the technologist's workstation. This CT examination was performed using dose optimization techniques as appropriate, variously including the following: *Automated exposure control *Adjustment of mA and/or kV according to patient size (this includes techniques or standardized protocols for targeted exams where dose is matched to indication/reason for exam; i.e. extremities or head) *Use of iterative reconstruction technique DLP: 398 mGy-cm FINDINGS: LUNG BASES: The visualized lung bases are unremarkable. PERITONEUM: Free intraperitoneal air is present beneath the right hemidiaphragm as well as in the mesentery and pelvis. No free intraperitoneal fluid is seen. LIVER, GALLBLADDER, AND BILIARY TREE: The liver is normal in size, shape, and attenuation. No focal hepatic lesion or biliary ductal dilatation is present. The gallbladder is unremarkable with no evidence of radiopaque gallstones, gallbladder wall thickening, or obvious pericholecystic inflammatory changes. PANCREAS: Unremarkable. SPLEEN: Unremarkable. ADRENAL GLANDS: Unremarkable. KIDNEYS AND URETERS: The kidneys are normal in size, shape, and attenuation. No hydronephrosis, hydroureter, or calculi seen. No perinephric stranding. BLADDER: The heart is type diverticulum is present on the right. The bladder is otherwise unremarkable. GASTROINTESTINAL TRACT: A small hiatal hernia is present. There is thickening of the rectum. A linear collection of air bubbles can be seen extending through the rectal wall with gas extraluminal at 11:00 (see viramontes imaging). The remainder of the colon appears unremarkable. The small bowel is unremarkable. The appendix is unremarkable. ABDOMINAL WALL: No significant hernia is appreciated. Small right inguinal hernia seen containing only fat. LYMPH NODES: No retroperitoneal lymphadenopathy. VASCULAR: A Reuben Nitinol filter is in the IVC just below the level of the renal veins. Calcified atherosclerotic changes present in the aorta and iliofemoral vessels without aneurysm. PELVIC VISCERA: There is mild BPH. OSSEOUS STRUCTURES: Degenerative changes are present most prominent at L5-S1. Some subchondral cysts are present in the femoral heads. Osseous fragments noted in the region just above the right hip, probably secondary to remote trauma. CT/CT abdomen pelvis wo con IMPRESSION: Probable rectal perforation with free intraperitoneal air . This critical result was discussed with Dr Martin at 10:15 PM on the day of the exam and it was ascertained that the content and urgency of the report was understood at the time of direct communication. Fleischner guidelines were followed.
[2021-06-02 20:35] VITALS: BP 122/75; PULSE 112; RESP 18; TEMP 37.4; O2SAT 97; BMI 21.1
--- NOTE | 2021-06-02 22:20 | ED_ITS ---
HPI - General Adult General Chief complaint: Abdominal Pain Stated complaint: fell down abd and back pain Time Seen by Provider: 06/02/21 21:31 Source: patient and old records reviewed Mode of arrival: ambulatory Limitations: no limitations History of Present Illness HPI narrative: 60-year-old male came in for evaluation of rectal/abdominal pain after he fell yesterday. Patient fell backward yesterday on a long paper towel spindle which lined into his rectum, patient was able to remove it with her hand, been having severe rectal and abdominal pain since yesterday. Patient come to the ED for increase diffuse abdominal pain. No fever, no chills, no nausea, no vomiting. Severe rectal pain with bright red blood per rectum. Past medical history is significant for hypertension, type 2 diabetes, high ch olesterol, blood clots with Damion filter. Reviewing patient's chart patient had colonoscopy 10 days ago but no abdominal pain after the fluoroscopy. Related Data Previous Rx's Medication Instructions Recorded lancets 28 gauge (FreeStyle #100 ea 05/24/20 Lancets) flash glucose scanning reader #1 ea 10/14/20 (FreeStyle Brodie 14 Day S[place]ord) flash glucose sensor (FreeStyle #6 kit 10/14/20 Brodie 14 Day Sensor) metformin 1,000 mg tablet 1,000 mg PO BID 90 Days #180 tab 10/14/20 rivaroxaban 10 mg tablet (Xarelto) 10 mg PO DAILY #90 tab 02/24/21 blood-glucose meter (FreeStyle #1 ea 04/15/21 Flash System) blood sugar diagnostic (Freestyle #100 ea 04/17/21 [employer] Test Strips) atorvastatin 20 mg tablet 20 mg PO BEDTIME 30 Days #30 tab 05/09/21 pioglitazone 15 mg tablet 15 mg PO DAILY 30 Days #30 tab 05/09/21 Allergies Allergy/AdvReac Type Severity Reaction Status Date / Time No Known Allergies Allergy Verified 05/13/21 08:34 [No Known Allergies*] Review of Systems Review of Systems: All other systems are reviewed and are negative Constitutional: Reports as per HPI and Reports no additional constitutional complaints Eyes: Reports as per HPI and Reports no additional eye complaints Reports system reviewed and no additional complaints, except as documented Cardiovascular: Reports as per HPI and Reports no additional cardiovascular complaints Respiratory: Reports as per HPI and Reports no additional respiratory complaints Gastrointestinal: Reports as per HPI and Reports no additional gastrointestinal complaints Genitourinary: Reports no additional female genitourinary complaints Musculoskeletal: Reports no additional musculoskeletal complaints Skin/Breast: Reports system reviewed and no additional complaints, except as docu Psychiatric: Reports no additional psychiatric complaints Endocrine: Reports no additional endocrine complaints Hematologic/Lymphatic: Reports no additional hematologic/lymphatic complaints Allergic/Immunologic: Reports no additional allergic/immunologic complaints Reports system reviewed and no additional complaints, except as documented and Reports Abnormal speech present [facility] Past Medical History Medical History (Updated 06/02/21 @ 23:11 by Cristian Kendrick MD) DVT (deep venous thrombosis) History of non-insulin dependent diabetes mellitus Hypercholesterolemia IDDM (insulin dependent diabetes mellitus) Poor short term memory Presence of IVC filter Rectal perforation Thyroid nodule Surgical History Femoral fracture History of vasectomy Hx of colonoscopy Mandibular fracture Family History Family History Mother No problems noted. Father Heart problem Social History Social History Housing: Apartment Are you a primary emergency care attendant to a significant other at home: No Do you presently have visiting nurse or other home services: No Alcohol intake: current Alcohol intake frequency: 0-2 drinks per day Patient Tobacco Use Status: Never used Tobacco e-Cigarette/Vaping Use: Never Used Second Hand Smoke Exposure: No Substance Use Type: Marijuana Advance Directives: No Advance Directives Information Provided: No service: No Current occupational status: employed Current occupational exposures/hazards: No Physical Exam ED Vital Signs: Vital Signs - 24 hr 06/02/21 20:35 Temperature 99.4 F Pulse Rate 112 H Respiratory Rate 18 Blood Pressure 122/75 Pulse Oximetry 97 BMI result Body Mass Index 21.1 vital signs have been reviewed as appeared to be correct. Blood pressure normal. Heart rate Elevated. Respiration rate normal. Temperature normal. Oxygen saturation normal. Appearance: Alert. Oriented X3. No acute distress. Head: Normal external exam. Normocephalic. Atraumatic. No Lawrence signs noted. No raccoon eyes noted Eyes: PERRLA. EOMI. Conjunctiva and sclera normal. Eyelids normal. ENT: TM's Normal. Pharynx normal. Uvula midline. Moist mucous membranes. No trismus noted. No drooling noted. No muffled voice noted. Neck: Normal inspection. Neck supple. FROM. No adenopathy. Thyroid Normal. No meningeal signs. No neck mass noted. CVS: Normal heart rate and rhythm. Heart sound normal. No murmurs noted. Pulses normal throughout. Respiratory: No respiratory distress. Painless inspiration. Breath sounds normal. No wheezes/rales/rhonchi noted. Chest nontender. No accessory muscle usage noted or decreased air movement noted. Abdomen: diffuse abdominal tenderness, with rebound tenderness, involuntary guarding. Bowel sounds normal in all 4 quadrants. No distention noted. No organomegaly noted. No visible injury noted. rectal exam: Diffuse tenderness, no blood to a saleem, no mass, no blood in the vault , no active bleeding. Back: No CVA tenderness. Full range of motion noted. Skin: Skin warm and dry. Normal skin color. Normal skin turgor. No rashes/lesions/lacerations noted. Extremities: No lower extremity edema. Extremities exhibit normal range of motion. Extremities nontender. Neuro: Oriented X 3. Cranial nerve exam: II-XII are grossly intact No motor deficit. No sensory deficit. Reflexes normal. Course Course Course Narrative: Assessment and plan. 60-year-old male who fell yesterday on a sharp paper towel casper , patient self removed it from his rectum, returned today for increased abdominal and rectal tenderness. Physical exam/ CT of the abdomen show free air in abdomen with evidence of perforated rectum. Case discussed with Dr. Kendrick at 22:20 who instructed to keep the patient NPO, get him ready for the OR tonight, no antibiotic until before the OR. However because the patient met SIRS criteria will start with IV fluids and Zosyn IV. Medical Decision Making Lab Data Lab results reviewed: Yes I reviewed the patient's lab results. Result diagrams: 06/02/21 23:01 06/02/21 23:01 Labs: Lab Results 06/02/21 06/02/21 06/02/21 Range/Units 23:01 23:01 23: WBC 20.9 H (4.8-10.8) X10*3/uL RBC 4.97 (4.60-5.80) X10*6/uL Hgb 15.8 (14.0-18.0) g/dl Hct 45.8 (42.0-52.0) % MCV 92.2 (80.0-98.0) fL MCH 31.8 (27.0-33.0) pg MCHC 34.5 (31.0-36.0) g/dl RDW 12.5 (11.0-16.0) % Plt Count 205 (160-400) X10*3/uL MPV 10.4 (9.4-12.4) fL Immature Gran % (Auto) 0.3 (0.0-0.4) % Neut % (Auto) 90.5 H (45-73) % Lymph % (Auto) 4.2 L (20-40) % Salem % (Auto) 4.9 (2-11) % Eos % (Auto) 0.0 (0-4) % Baso % (Auto) 0.1 (0-2) % Lymph # (Auto) 0.9 L (1.2-4.9) X10*3/uL Salem # (Auto) 1.0 (0.1-1.2) X10*3/uL Eos # (Auto) 0.0 (0.0-0.4) X10*3/uL Baso # (Auto) 0.0 (0.0-0.2) X10*3/uL Abs Immat Gran (auto) 0.07 H (0.00-0.03) X10*3/uL Absolute Neuts (auto) 18.9 H (2.0-8.3) x10*3/uL Absolute Nucleated RBC 0.000 (0.0-0.012) X10*3/uL Nucleated RBC % (auto) 0.0 (0.0-0.2) /100WBC Smear Tech's Comments VERIFIED PT (9.9-13.0) SEC INR (0.9-1.1) APTT (24.1-38.0) SEC Sodium 137 (135-145) mmol/L Potassium 4.2 (3.3-5.1) mmol/L Chloride 101 (96-108) mmol/L Carbon Dioxide 23 (22-29) mmol/L Anion Gap 17 (12-20) BUN 16 (9-16) mg/dL Creatinine 0.75 (0.5-1.4) mg/dL Estim Creat Clear Calc 92.7 Estimated GFR > 60 Random Glucose 287 H (60-115) mg/dL Lactic Acid (0.5-2.0) mmol/L Calcium 10.1 (8.4-10.2) mg/dL Total Bilirubin 1.0 (0.0-1.0) mg/dL Direct Bilirubin 0.4 (0.0-0.5) mg/dL AST 20 (5-37) U/L ALT 41 H (0-40) U/L Alkaline Phosphatase 96 (39-117) U/L Troponin I High Sens 9.8 (<3.5-35.0) ng/L Total Protein 7.3 (6.5-8.0) g/dL Albumin 4.5 (3.5-5.0) g/dL Lipase 4 L (8-78) U/L COVID-19 (CATY) (Negative) COVID-19 Clin Com 06/02/21 06/02/21 06/02/21 Range/Units 23:01 23:01 23:01 WBC (4.8-10.8) X10*3/uL RBC (4.60-5.80) X10*6/uL Hgb (14.0-18.0) g/dl Hct (42.0-52.0) % MCV (80.0-98.0) fL MCH (27.0-33.0) pg MCHC (31.0-36.0) g/dl RDW (11.0-16.0) % Plt Count (160-400) X10*3/uL MPV (9.4-12.4) fL Immature Gran % (Auto) (0.0-0.4) % Neut % (Auto) (45-73) % Lymph % (Auto) (20-40) % [place] % (Auto) (2-11) % Eos % (Auto) (0-4) % Baso % (Auto) (0-2) % Lymph # (Auto) (1.2-4.9) X10*3/uL Salem # (Auto) (0.1-1.2) X10*3/uL Eos # (Auto) (0.0-0.4) X10*3/uL Baso # (Auto) (0.0-0.2) X10*3/uL Abs Immat Gran (auto) (0.00-0.03) X10*3/uL Absolute Neuts (auto) (2.0-8.3) x10*3/uL Absolute Nucleated RBC (0.0-0.012) X10*3/uL Nucleated RBC % (auto) (0.0-0.2) /100WBC Smear Tech's Comments PT 12.7 (9.9-13.0) SEC INR 1.1 (0.9-1.1) APTT 36.8 (24.1-38.0) SEC Sodium (135-145) mmol/L Potassium (3.3-5.1) mmol/L Chloride (96-108) mmol/L Carbon Dioxide (22-29) mmol/L Anion Gap (12-20) BUN (9-16) mg/dL Creatinine (0.5-1.4) mg/dL Estim Creat Clear Calc Estimated GFR Random Glucose (60-115) mg/dL Lactic Acid 1.3 (0.5-2.0) mmol/L Calcium (8.4-10.2) mg/dL Total Bilirubin (0.0-1.0) mg/dL Direct Bilirubin (0.0-0.5) mg/dL AST (5-37) U/L ALT (0-40) U/L Alkaline Phosphatase (39-117) U/L Troponin I High Sens (<3.5-35.0) ng/L Total Protein (6.5-8.0) g/dL Albumin (3.5-5.0) g/dL Lipase (8-78) U/L COVID-19 (CATY) Negative (Negative) COVID-19 Clin Com See Note Imaging Data CT scan - abdomen: Attestation: I personally reviewed and interpreted this imaging study as follows: Radiologist's impression: free air in the abdomen with the Rectal perforation Discharge Plan Discharge Clinical Impression: Perforated abdominal viscus Patient Disposition: Admitted As Inpatient
--- NOTE | 2021-06-02 23:05 | PM.HPGS ---
History of Present Illness History of Present Illness Date of Service: 06/06/21 Chief complaint: rectal perforation Narrative: Jerry Zayas is a 60 year old male who came to the ED tonight for lower abdominal pain. He says he had fallen on a paper towel spindle yesterday and this had entered his rectum. He says he pulled this out without difficulty. However, he started to have lower abdominal pain all night last night, and this abdominal pain persisted throughout the day. He describes seeing small amounts of blood per rectum last night, but says he did not notice any today. He describes some nausea but no vomitting. He has a hx of a DVT and takes Xarelto. He is not certain whether he last took Xarelto yesterday or 2 days ago. The patient does not seem to be a very good historian. Review of Systems Constitutional: Constitutional: Denies chills and Denies fever(s) Cardiovascular: Cardiovascular: Denies chest pain, Denies dyspnea and Denies dyspnea on exertion Respiratory: Respiratory: Denies cough, Denies dyspnea and Denies dyspnea on exertion Gastrointestinal: Gastrointestinal: Denies hematochezia and Denies change in bowel habits Genitourinary: Genitourinary: Denies hematuria and Denies difficulty urinating Musculoskeletal: Musculoskeletal: Denies back pain and Denies limited range of motion Neurologic: Denies focal weakness and Denies convulsions Psychiatric: Psychiatric: Denies depression and Denies mood swings PMF Past Medical History Medical History (Updated 06/02/21 @ 23:11 by Cristian Kendrick MD) DVT (deep venous thrombosis) History of non-insulin dependent diabetes mellitus Hypercholesterolemia IDDM (insulin dependent diabetes mellitus) Poor short term memory Presence of IVC filter Rectal perforation Thyroid nodule Family History Family History Mother No problems noted. Father Heart problem Surgical History Surgical History Femoral fracture History of vasectomy Hx of colonoscopy Mandibular fracture Social History Social History Household Members: Significant Other Housing: Apartment Are you a primary health care aide to a significant other at home: No Do you presently have visiting nurse or other home services: No Alcohol intake: current Alcohol intake frequency: 0-2 drinks per day Patient Tobacco Use Status: Never used Tobacco e-Cigarette/Vaping Use: Never Used Second Hand Smoke Exposure: No Substance Use Type: Marijuana service: No Current occupational status: employed Current occupational exposures/hazards: No Meds Allergies Allergy/AdvReac Type Severity Reaction Status Date / Time No Known Allergies Allergy Verified 05/13/21 08:34 [No Known Allergies*] Active Medications: Current Medications Sodium Chloride (Ns) 1,000 mls @ 999 mls/hr IV .Q1H1M ONE Stop: 06/02/21 23:09 Home Medications Medication Instructions Recorded Confirmed Last Taken Type multivitamin 1 tab PO DAILY 06/03/21 06/03/21 06/01/21 History Physical Exam Vital Signs: Vital Signs: Last Vital Signs Temp 99.4 F 06/02/21 20:35 Pulse 112 H 06/02/21 20:35 Resp 18 06/02/21 20:35 BP 122/75 06/02/21 20:35 Pulse Ox 97 06/02/21 20:35 BMI result Body Mass Index 21.1 Const: General: comfortable and no acute distress Orientation/consciousness: patient oriented x3 Neck: Neck: Yes no lymphadenopathy Resp: Auscultation: clear to auscultation bilaterally Cardio: Rhythm: regular rhythm GI: Other: rectal exam - no obvious iinjury in the perianal area, no blood Palpation (GI): Soft to palpation, nontender and no guarding Neuro: General: patient oriented x3 Results Results Abdomen CT scan report/results: report reviewed and image reviewed CT scan - pelvis: report reviewed and image reviewed Assessment and Plan (1) Rectal perforation: Status: Acute He says a piece of paper towel spindle accidentally got into his rectum yesterday. He denied any problems yesterday but complained of lower abdominal pain all day. I have reviewed his CT scan and he does have some free air in the peritoneum, with thickening of his rectum consistent with a rectal perforation from instrumentation. I therefore explained to him the need to bring him to the OR for ex lap, repair of the perforation, colostomy and possible resection. I explained the risks including but not limioted to bleeding, infections, abscess formation, inherent risks of anesthesia, blood clots, as well as the benefits and alternatives. He is on Xarelto for a history fo DVTs but says his last dose may have been 2 days ago. He understands the risks of perioperative bleeding, but unfortunately, he has emergent indications in view of his free air and abdominal pain. He understands the risks of blood clots as well as we have to hold his Xarelto temporarily. Quality Stroke Does the patient have a stroke diagnosis?: No VTE Prior VTE?: No VTE Risk Level:: Medical - moderate - high VTE Device Contraindication: N/A - Device Ordered VTE Drug Contraindication: Treatment Not Indicated Procedures Date of Service Date of Service: 06/02/21
[2021-06-02 23:09] LABS: Basophils Percent Auto 0.1 % (0-2); Hematocrit 45.8 % (42.0-52.0); Hemoglobin 15.8 g/dl (14.0-18.0); Imm Gran Abs Auto 0.07 X10*3/uL (0.00-0.03); Imm Gran Pct Auto 0.3 % (0.0-0.4); Lymphocytes Absolute Auto 0.9 X10*3/uL (1.2-4.9); Lymphocytes Percent Auto 4.2 % (20-40); MANUAL DIFF FLAG SCAN; Mean Corpuscular HGB Conc 34.5 g/dl (31.0-36.0); Mean Corpuscular Hemoglobin 31.8 pg (27.0-33.0); Mean Corpuscular Volume 92.2 fL (80.0-98.0); Mean Platelet Volume 10.4 fL (9.4-12.4); Monocytes Percent Auto 4.9 % (2-11); Neutrophils Absolute Auto 18.9 x10*3/uL (2.0-8.3); Neutrophils Percent Auto 90.5 % (45-73); Platelet Count 205 X10*3/uL (160-400); Red Blood Count 4.97 X10*6/uL (4.60-5.80); Red Cell Distribution Width 12.5 % (11.0-16.0); SCAN SMEAR FLAG 1; White Blood Count 20.9 X10*3/uL (4.8-10.8)
[2021-06-02 23:10] LABS: SLIDE REVIEW VERIFIED
[2021-06-02 23:17] LABS: INTERNATIONAL NORM RATIO 1.1 (0.9-1.1); Prothrombin Time 12.7 SEC (9.9-13.0)
[2021-06-02 23:19] LABS: Partial Thromboplastin Time 36.8 SEC (24.1-38.0)
[2021-06-02 23:21] LABS: Lactic Acid 1.3 mmol/L (0.5-2.0)
[2021-06-02 23:26] LABS: COVID-19 Test Negative (Negative)
[2021-06-02 23:27] VITALS: BP 155/79; PULSE 105; RESP 24; TEMP 37.2; O2SAT 99
[2021-06-02 23:27] LABS: Alanine Aminotransferase 41 U/L (0-40); Albumin Level 4.5 g/dL (3.5-5.0); Alkaline Phosphatase 96 U/L (39-117); Anion Gap 17 (12-20); Aspartate Amino Transferase 20 U/L (5-37); Bilirubin Direct 0.4 mg/dL (0.0-0.5); Blood Urea Nitrogen 16 mg/dL (9-16); Calcium 10.1 mg/dL (8.4-10.2); Carbon Dioxide 23 mmol/L (22-29); Chloride 101 mmol/L (96-108); Creatinine Clr Calc Pharmacy 92.7; Estimated Glomerular Filt Rate > 60; Glucose Random 287 mg/dL (60-115); Lipase 4 U/L (8-78); Potassium 4.2 mmol/L (3.3-5.1); Sodium 137 mmol/L (135-145); Total Protein 7.3 g/dL (6.5-8.0)
[2021-06-02] MEDS: 0.9 % Sodium Chloride 1,000 ML 999 ML IV (23:27)
[2021-06-02 23:30] LABS: Troponin-I High Sensitivity 9.8 ng/L (<3.5-35.0)
[2021-06-02] MEDS: Piperacillin Sodium/Tazobactam 3.375 GM in 0.9 % Sodium Chloride 50 ML IV (23:40)
[2021-06-03] VITALS (17 sets, daily range): BP systolic 130–194; BP diastolic 47–99; PULSE 78–97; RESP 15–20; TEMP 36.8–37.9; O2SAT 94–99; BMI 21.6
--- NOTE | 2021-06-03 00:02 | HO.ANESPROP2 ---
HPI - Anesthesia Eval Consult details Narrative: perforated rectum PMFSH Active Problems Active Problems: All Active Problems (Updated 06/02/21 @ 23:11 by Cristian Kendrick MD) Rectal perforation (Acute) DVT (deep venous thrombosis) (Acute) Contusion of right elbow (Acute) Occult fracture of right elbow (Acute) Type 2 diabetes mellitus with hyperglycemia (Acute) Hyperkalemia (Acute) Ulnar neuropathy at elbow of left upper extremity (Acute) Tubular adenoma of colon (Acute) Frequency of micturition (Acute) Cervical radiculopathy (Acute) Perforated abdominal viscus (Acute) Hypercholesterolemia (Acute) Past Medical History Medical History (Updated 06/02/21 @ 23:11 by Cristian Kendrick MD) DVT (deep venous thrombosis) History of non-insulin dependent diabetes mellitus Hypercholesterolemia IDDM (insulin dependent diabetes mellitus) Poor short term memory Presence of IVC filter Rectal perforation Thyroid nodule Family History Family History Mother No problems noted. Father Heart problem Family history of problems with anesthesia: No Surgical History Surgical History Femoral fracture History of vasectomy Hx of colonoscopy Mandibular fracture History of Problems with Anesthesia: No Social History Social History Housing: Apartment Are you a primary rn critical care to a significant other at home: No Do you presently have visiting nurse or other home services: No Alcohol intake: current Alcohol intake frequency: 0-2 drinks per day Patient Tobacco Use Status: Never used Tobacco e-Cigarette/Vaping Use: Never Used Second Hand Smoke Exposure: No Substance Use Type: Marijuana Advance Directives: No Advance Directives Information Provided: No service: No Current occupational status: employed Current occupational exposures/hazards: No Meds Allergies Allergy/AdvReac Type Severity Reaction Status Date / Time No Known Allergies Allergy Verified 05/13/21 08:34 [No Known Allergies*] Active Medications: Current Medications Sodium Chloride (Ns) 1,833 mls @ 1,833 mls/hr 30 ml/kg infuse over 1 hr (1833 ml) IV .Q1H STA Stop: 06/03/21 00:20 Sodium Chloride (0.9 % Sodium Chloride Flush 3 Ml Syringe) [address] [facility] Exam Exam Date and Time: June 03, 2021 0002 Height,Weight and Vital Signs: Height 5 ft 7 in Weight 61.1 kg Last Vital Signs Temp 99.0 F 06/02/21 23:27 Pulse 105 H 06/02/21 23:27 Resp 24 H 06/02/21 23:27 BP 155/79 H 06/02/21 23:27 Pulse Ox 99 06/02/21 23:27 Pertinent Lab Results Pertinent Lab Results: Laboratory Tests 06/02/21 06/02/21 06/02/21 23:01 23:01 23:01 WBC 20.9 H RBC 4.97 Hgb 15.8 Hct 45.8 MCV 92.2 MCH 31.8 MCHC 34.5 RDW 12.5 Plt Count 205 MPV 10.4 Immature Gran % (Auto) 0.3 Neut % (Auto) 90.5 H Lymph % (Auto) 4.2 L Kaufman % (Auto) 4.9 Eos % (Auto) 0.0 Baso % (Auto) 0.1 Lymph # (Auto) 0.9 L [place] # (Auto) 1.0 Eos # (Auto) 0.0 Baso # (Auto) 0.0 Abs Immat Gran (auto) 0.07 H Absolute Neuts (auto) 18.9 H Absolute Nucleated RBC 0.000 Nucleated RBC % (auto) 0.0 Smear Tech's Comments VERIFIED PT INR APTT Sodium 137 Potassium 4.2 Chloride 101 Carbon Dioxide 23 Anion Gap 17 BUN 16 Creatinine 0.75 Estim Creat Clear Calc 92.7 Estimated GFR > 60 Random Glucose 287 H Lactic Acid Calcium 10.1 Total Bilirubin 1.0 Direct Bilirubin 0.4 AST 20 ALT 41 H Alkaline Phosphatase 96 Troponin I High Sens 9.8 Total Protein 7.3 Albumin 4.5 Lipase 4 L COVID-19 (CATY) COVID-19 Clin Com Blood Type Antibody Screen 06/02/21 06/02/21 06/02/21 23:01 23:01 23:01 WBC RBC Hgb Hct MCV MCH MCHC RDW Plt Count MPV Immature Gran % (Auto) Neut % (Auto) Lymph % (Auto) [place] % (Auto) Eos % (Auto) Baso % (Auto) Lymph # (Auto) [place] # (Auto) Eos # (Auto) Baso # (Auto) Abs Immat Gran (auto) Absolute Neuts (auto) Absolute Nucleated RBC Nucleated RBC % (auto) Smear Tech's Comments PT 12.7 INR 1.1 APTT 36.8 Sodium Potassium Chloride Carbon Dioxide Anion Gap BUN Creatinine Estim Creat Clear Calc Estimated GFR Random Glucose Lactic Acid 1.3 Calcium Total Bilirubin Direct Bilirubin AST ALT Alkaline Phosphatase Troponin I High Sens Total Protein Albumin Lipase COVID-19 (CATY) Negative COVID-19 Clin Com See Note Blood Type Antibody Screen 06/02/21 23:10 WBC RBC Hgb Hct MCV MCH MCHC RDW Plt Count MPV Immature Gran % (Auto) Neut % (Auto) Lymph % (Auto) [place] % (Auto) Eos % (Auto) Baso % (Auto) Lymph # (Auto) [place] # (Auto) Eos # (Auto) Baso # (Auto) Abs Immat Gran (auto) Absolute Neuts (auto) Absolute Nucleated RBC Nucleated RBC % (auto) Smear Tech's Comments PT INR APTT Sodium Potassium Chloride Carbon Dioxide Anion Gap BUN Creatinine Estim Creat Clear Calc Estimated GFR Random Glucose Lactic Acid Calcium Total Bilirubin Direct Bilirubin AST ALT Alkaline Phosphatase Troponin I High Sens Total Protein Albumin Lipase COVID-19 (CATY) COVID-19 Clin Com Blood Type A Positive Antibody Screen POSITIVE Airway Mallampati Class: II TM Dist: >3cm Neck ROM: Full Heart: RRR Lungs: CTA Assessment and Plan Final Anesthetic Review Family History of Problems with Anesthesia: No History of Problems with Anesthesia: No ASA Class: II and Emergency Final Preanesthetic Review: No Changes in Pt Med Stat, Consent Obtained/Reviewed and Anes Risks/Benef Reviewed Patient Risk: Intermediate Procedure Risk: High Anesthetic Plan Anesthetic Plan: GA Disposition: Standard PACU
[2021-06-03] MEDS: SODIUM CHLORIDE 1833 ML IV (00:29)
[2021-06-03 00:57] LABS: Glucose, Whole Blood 244 mg/dL (60-115)
[2021-06-03] MEDS: cefoTEtan disodium 2 GM in 0.9 % Sodium Chloride 50 ML IV (01:10)
--- NOTE | 2021-06-03 03:01 | W.PM.OPN ---
Operative Note Operative Note Date of Service: 06/03/21 Narrative: Preop diagnosis: Rectal perforation, with pneumoperitoneum Postop diagnosis: The same Procedure: Laparotomy, repair of of rectal perforation, diverting loop sigmoid colostomy Surgeon: Cristian Kendrick MD The patient is a 60-year-old male who came to the emergency room earlier tonight because of lower abdominal pain for about 24 hours. He says this started after he had a paper towel spindle accidentally getting into his rectum. He had a CAT scan showing free air in the peritoneum, as well as rectal thickening consistent with rectal perforation. In view of this, I had recommended proceeding with laparotomy, repair of the perforation, and colostomy. He understood the technique of the procedure. He was aware of the risks, benefits, and alternatives. This was also discussed with his significant other the phone. He was placed in modified lithotomy position under general anesthesia via endotracheal tube. Examination of the anal orifice was done. There was no significant bleeding seen. There was no induration or any cellulitic changes. The abdomen and perineum were prepped and draped in the usual sterile fashion. A surgical time-out was done. The patient received Cefotan 2 g IV preoperatively. I made a low midline incision using blade 10. This was carried down with electrocautery through the full-thickness of the skin and subcutaneous fat down to the fascia. The fascia was incised. The peritoneum was entered. I then applied Bookwalter retractors to retract the abdominal wall. The patient was placed in a head-down position to reflect the bowel loops away from the pelvis. There was no fecal spillage noted. There is no significant free fluid. I proceeded to define the sigmoid. This was markedly adherent to the pelvic sidewall. I had to mobilize this by dividing the attachments of the sigmoid to the pelvic sidewall using Metzenbaum scissors as well as electrocautery. Eventually I was able to release the sigmoid from the sidewall. I was able to clearly define the sigmoid and followed this all the way to the rectum. I examined the rectum and initially, I did not identify any perforation. There was no evidence of any fecal spillage. I retracted the cul-de-sac with a narrow malleable to expose this and I was able to see a tear in the peritoneum just to the right of the rectum near the cul-de-sac that represented the rectal perforation. This was above 1.5 cm long, and was clean with healthy edges. I closed this with a running Dexon 3-0 stitch. I copiously irrigated. There was really no significant bleeding a this area nor any fecal spillage There were no other evidence of any injury. There is no induration, bleeding or any other pathology. I then proceeded to continue to mobilize the sigmoid by dividing the ligamentous attachments along the white line of Toldt all the way to the left colon with electrocautery and Metzenbaum scissors. I then tested this for length and this seemed to reach past the abdominal wall on the left side. I created a mesenteric defect and passed a Paco drain through this defect I then excised a discoid piece of skin on the left lower quadrant medial to the edge of the rectus. This was done using blade 10. I cauterized the subcutaneous layer down to the anterior rectus and incised the right anterior rectus. I did muscle-splitting of the rectus muscle and carried down the incision through the posterior rectus sheath. I enlarged this stoma opening with 3 of my fingers. I was able to pull up the loop of sigmoid easily using the Dorena drain. I applied a stoma bridge through the mesenteric defect and removed the Dorena drain I then proceeded to copiously irrigate the pelvis. I examined the rest of the distal sigmoid and rectum and there was no other there injury noted. There was note of some oozing on the raw areas of the opened retroperitoneum on the left side and the pelvis but there was no brisk bleeding. I observed for hemostasis. Once hemostasis was ensured, I proceeded to then position a VNINY drain at the pelvis alongside the rectal perforation. This was brought out through an exit site on the right lower quadrant. This VINNY drain was secured to skin with nylon 3-0 stitch. I closed the fascia with a running Maxon 1 stitch. Skin closure was achieved with skin omar. I matured the stoma by incising the anterior wall. I secured the edge of the bowel wall to the subdermal layer with a circumferential row of Dexon 3-0 sutures. I infiltrated all incisions with an 0.5% for postop analgesia. The stoma appliance was placed. Dressings were applied. The procedure was then completed The patient tolerated procedure well. There were no complication noted. Initial and final counts of sponges and instruments were correct. Estimated blood loss about 75 cc . The patient was extubated without difficulty and transferred to the recovery room with stable vital signs.
[2021-06-03] MEDS: HYDROmorphone HCl 0.5 MG/0.5 ML SYRINGE IVPUSH ×2 (03:15→06:17)
[2021-06-03 03:30] LABS: Glucose, Whole Blood 216 mg/dL (60-115)
[2021-06-03] MEDS: Lactated Ringers 1,000 ML 100 ML IVCONT ×3 (04:00→20:22)
[2021-06-03] MEDS: Piperacillin Sodium/Tazobactam 3.375 GM in 0.9 % Sodium Chloride 50 ML IV ×3 (06:17→17:35)
--- NOTE | 2021-06-03 07:57 | MHC.CM.PN ---
PATIENT IS SOUND ASLEEP AND DOES NOT AWAKE TO VERBAL ATTEMPTS. PER REVIEW OF EXPANSE, HCP IS ON FILE AND VERIFIED. PATIENT LIVES WITH HCP/SIGNIFICANT OTHER HE AMBULATES INDEPENDENTLY AND IS COVID (MODERNA) VACCINATED. CASE MANAGEMENT NAME WRITTEN ON WHITE BOARD AND CONTACT CARD LEFT BEDSIDE FOR ANY DISCHARGE NEEDS
--- NOTE | 2021-06-03 08:43 | PHA.MEDREC ---
Pharmacy Consult ? Medication Reconciliation Pharmacy has completed the medication reconciliation. Spoke to Elzbieta who confirmed med list, stated it's been about two days since pt last took meds. Marcy Gamino, VaughnD
[2021-06-03 09:06] LABS: Hematocrit 41.1 % (42.0-52.0); Hemoglobin 14.1 g/dl (14.0-18.0); Mean Corpuscular HGB Conc 34.3 g/dl (31.0-36.0); Mean Corpuscular Hemoglobin 32.9 pg (27.0-33.0); Mean Corpuscular Volume 95.8 fL (80.0-98.0); Mean Platelet Volume 10.7 fL (9.4-12.4); Platelet Count 186 X10*3/uL (160-400); Red Blood Count 4.29 X10*6/uL (4.60-5.80); Red Cell Distribution Width 12.9 % (11.0-16.0); White Blood Count 19.5 X10*3/uL (4.8-10.8)
[2021-06-03 09:22] LABS: Anion Gap 13 (12-20); Blood Urea Nitrogen 12 mg/dL (9-16); Calcium 8.8 mg/dL (8.4-10.2); Carbon Dioxide 25 mmol/L (22-29); Chloride 104 mmol/L (96-108); Creatinine Clr Calc Pharmacy 93.9; Estimated Glomerular Filt Rate > 60; Glucose Random 237 mg/dL (60-115); Potassium 4.2 mmol/L (3.3-5.1); Sodium 138 mmol/L (135-145)
--- NOTE | 2021-06-03 09:58 | HO.PM.IMPN ---
Subjective Subjective Date of Service: 06/03/21 Review of Systems Follow up consultation rectal perforation pain is controlled at this time resting in bed Physical Exam Vital Signs: Vital Signs: Last Vital Signs Temp 98.4 F 06/03/21 07:15 Pulse 78 06/03/21 07:15 Resp 17 06/03/21 07:15 BP 153/68 H 06/03/21 07:15 Pulse Ox 99 06/03/21 07:15 BMI result Body Mass Index 21.6 Appearing in no acute distress lung sounds are clear to auscultation heart regular rate rhythm, clear S1, S2 positive bowel sounds, abdomen is soft, nontender neuro patient is alert x3, no focal deficits Objective Data Active Medications Fentanyl (Fentanyl Citrate/Pf 100 Mcg/2 Ml Vial) 50 mcg IVPUSH Q5M PRN; Protocol PRN Reason: Pain, Severe (Pain Scale 7-10) Hydromorphone HCl (Hydromorphone Hcl 0.5 Mg/0.5 Ml Syringe) 0.5 mg IVPUSH Q5M PRN; Protocol PRN Reason: Pain, Severe (Pain Scale 7-10) Last Admin: 06/03/21 06:17 Dose: 0.5 mg Documented by: CHRISTIANO Lactated Ringer's (Lr) 1,000 mls @ 100 mls/hr IVCONT .Q10H [facility] Last Admin: 06/03/21 04:00 Dose: 100 mls/hr Documented by: CHRISTIANO Promethazine HCl 12.5 mg/ (Sodium Chloride) 50.5 mls @ 202 mls/hr IV ONCE PRN PRN Reason: Nausea and Vomiting Acetaminophen (Ofirmev) 1,000 mg in 100 mls @ 400 mls/hr IV Q6H [facility] Last Infusion: 06/03/21 09:10 Dose: 0 mls/hr Documented by: RUBY Piperacillin Sod/Tazobactam (Sod 3.375 gm/ Sodium Chloride) 50 mls @ 100 mls/hr IV Q6H [facility] Last Infusion: 06/03/21 06:55 Dose: 0 mls/hr Documented by: CHRISTIANO Morphine Sulfate (Morphine Sulfate 4 Mg/Ml Cartridge) 3 mg IVPUSH Q3H PRN; Protocol PRN Reason: Pain, Severe (Pain Scale 7-10) Ondansetron HCl (Ondansetron Hcl 4 Mg/2 Ml Vial) 4 mg IVPUSH ONCE PRN PRN Reason: Nausea and Vomiting Ondansetron HCl (Ondansetron Hcl 4 Mg/2 Ml Vial) 4 mg IVPUSH Q8H PRN PRN Reason: Nausea Oxycodone HCl (Oxycodone Hcl Immed Release 5 Mg Tablet) 10 mg PO ONCE PRN PRN Reason: Pain, Severe (Pain Scale 7-10) Oxycodone HCl (Oxycodone Hcl Immed Release 5 Mg Tablet) 10 mg PO Q4H PRN PRN Reason: Pain, Moderate (Pain Scale 4-6 Pharmacy Consult (Consult Rx Perform Med Rec) 1 each MISCELLANE ONCE PRN PRN Reason: Consult order Sodium Chloride (0.9 % Sodium Chloride Flush 3 Ml Syringe) 3 ml IVFLUSH QSHIFT [facility] Last Admin: 06/03/21 08:50 Dose: Not Given Documented by: RUBY Non-Admin Reason: IV Running Labs CBC & Chem 7: 06/03/21 08:43 06/03/21 08:43 Labs: Laboratory Results - last 24 hr 06/02/21 06/02/21 06/02/21 23:01 23:01 23:01 MCV 92.2 MCH 31.8 MCHC 34.5 RDW 12.5 Plt Count 205 MPV 10.4 Immature Gran % (Auto) 0.3 Neut % (Auto) 90.5 H Lymph % (Auto) 4.2 L [place] % (Auto) 4.9 Eos % (Auto) 0.0 Baso % (Auto) 0.1 Lymph # (Auto) 0.9 L [place] # (Auto) 1.0 Eos # (Auto) 0.0 Baso # (Auto) 0.0 Abs Immat Gran (auto) 0.07 H Absolute Neuts (auto) 18.9 H Absolute Nucleated RBC 0.000 Nucleated RBC % (auto) 0.0 Smear Tech's Comments VERIFIED PT INR APTT Anion Gap 17 Estim Creat Clear Calc 92.7 Estimated GFR > 60 POC Glucose Random Glucose 287 H Lactic Acid Calcium 10.1 Total Bilirubin 1.0 Direct Bilirubin 0.4 AST 20 ALT 41 H Alkaline Phosphatase 96 Troponin I High Sens 9.8 Total Protein 7.3 Albumin 4.5 Lipase 4 L COVID-19 ([facility]) COVID-19 Clin Com Blood Type Antibody Screen Antibody Identification Antigen Identification Crossmatch Crossmatch ([facility]) 06/02/21 06/02/21 06/02/21 23:01 23:01 23:01 MCV MCH MCHC RDW Plt Count MPV Immature Gran % (Auto) Neut % (Auto) Lymph % (Auto) [place] % (Auto) Eos % (Auto) Baso % (Auto) Lymph # (Auto) [place] # (Auto) Eos # (Auto) Baso # (Auto) Abs Immat Gran (auto) Absolute Neuts (auto) Absolute Nucleated RBC Nucleated RBC % (auto) Smear Tech's Comments PT 12.7 INR 1.1 APTT 36.8 Anion Gap Estim Creat Clear Calc Estimated GFR POC Glucose Random Glucose Lactic Acid 1.3 Calcium Total Bilirubin Direct Bilirubin AST ALT Alkaline Phosphatase Troponin I High Sens Total Protein Albumin Lipase COVID-19 ([facility]) Negative COVID-19 Clin Com See Note Blood Type Antibody Screen Antibody Identification Antigen Identification Crossmatch Crossmatch ([facility]) 06/02/21 06/03/21 06/03/21 23:10 00:53 03:20 MCV MCH MCHC RDW Plt Count MPV Immature Gran % (Auto) Neut % (Auto) Lymph % (Auto) [place] % (Auto) Eos % (Auto) Baso % (Auto) Lymph # (Auto) [place] # (Auto) Eos # (Auto) Baso # (Auto) Abs Immat Gran (auto) Absolute Neuts (auto) Absolute Nucleated RBC Nucleated RBC % (auto) Smear Tech's Comments PT INR APTT Anion Gap Estim Creat Clear Calc Estimated GFR POC Glucose 244 H 216 H Random Glucose Lactic Acid Calcium Total Bilirubin Direct Bilirubin AST ALT Alkaline Phosphatase Troponin I High Sens Total Protein Albumin Lipase COVID-19 ([facility]) COVID-19 Clin Com Blood Type A Positive Antibody Screen POSITIVE Antibody Identification Anti-K Antigen Identification K Antigen - NEGATIVE Crossmatch See Detail Crossmatch ([facility]) See Detail 06/03/21 06/03/21 08:43 08:43 MCV 95.8 MCH 32.9 MCHC 34.3 RDW 12.9 Plt Count 186 MPV 10.7 Immature Gran % (Auto) Neut % (Auto) Lymph % (Auto) [place] % (Auto) Eos % (Auto) Baso % (Auto) Lymph # (Auto) [place] # (Auto) Eos # (Auto) Baso # (Auto) Abs Immat Gran (auto) Absolute Neuts (auto) Absolute Nucleated RBC 0.000 Nucleated RBC % (auto) 0.0 Smear Tech's Comments PT INR APTT Anion Gap 13 Estim Creat Clear Calc 93.9 Estimated GFR > 60 POC Glucose Random Glucose 237 H Lactic Acid Calcium 8.8 D Total Bilirubin Direct Bilirubin AST ALT Alkaline Phosphatase Troponin I High Sens Total Protein Albumin Lipase COVID-19 ([facility]) COVID-19 Clin Com Blood Type Antibody Screen Antibody Identification Antigen Identification Crossmatch Crossmatch ([facility]) Assessment and Plan (1) Rectal perforation: Status: Acute Plan 60 year old man admitted by general surgery team and is s/p laparotomy with diverting loop colostomy rectal perforation s/p laparotomy and colostomy management as per surgical team pain managament Leukocytosis Postoperative Follow On Zosyn History DVT On Xarelto, held as patient is postoperative Diabetes mellitus Sliding scale Dr. Burgess DVT prophylaxis as per surgical team Quality Stroke Does the patient have a stroke diagnosis?: No VTE Prior VTE?: No VTE Risk Level:: Medical - moderate - high VTE Device Contraindication: N/A - Device Ordered VTE Drug Contraindication: Treatment Not Indicated
[2021-06-03] MEDS: oxyCODONE HCl Immed Release 5 MG TABLET 10 MG PO ×3 (11:24→20:21)
[2021-06-03] MEDS: Morphine Sulfate 4 MG/ML CARTRIDGE 3 MG IVPUSH (13:40)
--- NOTE | 2021-06-03 14:12 | MHC.MBSS ---
pal to stay in today per Dr. Kendrick,dr. Kendrick will decide tommorrow
--- NOTE | 2021-06-03 14:41 | PM.PNGS ---
Subjective Subjective Date of Service: 06/03/21 Interval history: Sore on incision Pain seems better control than earlier Able to take naps Physical Exam Vital Signs: Vital Signs: Last Vital Signs Temp 99.2 F 06/03/21 10:59 Pulse 93 06/03/21 13:46 Resp 17 06/03/21 10:59 BP 167/79 H 06/03/21 13:46 Pulse Ox 98 06/03/21 10:59 BMI result Body Mass Index 21.6 Const: General: comfortable and no acute distress Resp: Effort & Inspection: normal respiratory effort Cardio: Rate: regular rate GI: Other: Stoma viable, no significant output yet, dressings dry, VINNY drain serosanguineous, scanty Palpation (GI): Soft to palpation : Other: Good urine output Objective Data Active Medications Fentanyl (Fentanyl Citrate/Pf 100 Mcg/2 Ml Vial) 50 mcg IVPUSH Q5M PRN; Protocol PRN Reason: Pain, Severe (Pain Scale 7-10) Hydromorphone HCl (Hydromorphone Hcl 0.5 Mg/0.5 Ml Syringe) 0.5 mg IVPUSH Q5M PRN; Protocol PRN Reason: Pain, Severe (Pain Scale 7-10) Last Admin: 06/03/21 06:17 Dose: 0.5 mg Documented by: CHRISTIANO Lactated Ringer's (Lr) 1,000 mls @ 100 mls/hr IVCONT .Q10H [facility] Last Admin: 06/03/21 11:29 Dose: 100 mls/hr Documented by: VIKA Promethazine HCl 12.5 mg/ (Sodium Chloride) 50.5 mls @ 202 mls/hr IV ONCE PRN PRN Reason: Nausea and Vomiting Acetaminophen (Ofirmev) 1,000 mg in 100 mls @ 400 mls/hr IV Q6H [facility] Last Infusion: 06/03/21 09:10 Dose: 0 mls/hr Documented by: RUBY Piperacillin Sod/Tazobactam (Sod 3.375 gm/ Sodium Chloride) 50 mls @ 100 mls/hr IV Q6H [facility] Last Infusion: 06/03/21 11:47 Dose: 0 mls/hr Documented by: VIKA Morphine Sulfate (Morphine Sulfate 4 Mg/Ml Cartridge) 3 mg IVPUSH Q3H PRN; Protocol PRN Reason: Pain, Severe (Pain Scale 7-10) Last Admin: 06/03/21 13:40 Dose: 3 mg Documented by: VIKA Ondansetron HCl (Ondansetron Hcl 4 Mg/2 Ml Vial) 4 mg IVPUSH ONCE PRN PRN Reason: Nausea and Vomiting Ondansetron HCl (Ondansetron Hcl 4 Mg/2 Ml Vial) 4 mg IVPUSH Q8H PRN PRN Reason: Nausea Oxycodone HCl (Oxycodone Hcl Immed Release 5 Mg Tablet) 10 mg PO ONCE PRN PRN Reason: Pain, Severe (Pain Scale 7-10) Oxycodone HCl (Oxycodone Hcl Immed Release 5 Mg Tablet) 10 mg PO Q4H PRN PRN Reason: Pain, Moderate (Pain Scale 4-6 Last Admin: 06/03/21 11:24 Dose: 10 mg Documented by: VIKA Pharmacy Consult (Consult Rx Perform Med Rec) 1 each MISCELLANE ONCE PRN PRN Reason: Consult order Sodium Chloride (0.9 % Sodium Chloride Flush 3 Ml Syringe) [facility] Last Admin: 06/03/21 08:50 Dose: Not Given Documented by: RUBY Non-Admin Reason: IV Running Labs CBC & Chem 7: 06/03/21 08:43 06/03/21 08:43 Labs: Laboratory Results - last 24 hr 06/02/21 06/02/21 06/02/21 23:01 23:01 23:01 MCV 92.2 MCH 31.8 MCHC 34.5 RDW 12.5 Plt Count 205 MPV 10.4 Immature Gran % (Auto) 0.3 Neut % (Auto) 90.5 H Lymph % (Auto) 4.2 L [place] % (Auto) 4.9 Eos % (Auto) 0.0 Baso % (Auto) 0.1 Lymph # (Auto) 0.9 L [place] # (Auto) 1.0 Eos # (Auto) 0.0 Baso # (Auto) 0.0 Abs Immat Gran (auto) 0.07 H Absolute Neuts (auto) 18.9 H Absolute Nucleated RBC 0.000 Nucleated RBC % (auto) 0.0 Smear Tech's Comments VERIFIED PT INR APTT Anion Gap 17 Estim Creat Clear Calc 92.7 Estimated GFR > 60 POC Glucose Random Glucose 287 H Lactic Acid Calcium 10.1 Total Bilirubin 1.0 Direct Bilirubin 0.4 AST 20 ALT 41 H Alkaline Phosphatase 96 Troponin I High Sens 9.8 Total Protein 7.3 Albumin 4.5 Lipase 4 L COVID-19 ([facility]) COVID-19 Clin Com Blood Type Antibody Screen Antibody Identification Antigen Identification Crossmatch Crossmatch ([facility]) 06/02/21 06/02/21 06/02/21 23:01 23:01 23:01 MCV MCH MCHC RDW Plt Count MPV Immature Gran % (Auto) Neut % (Auto) Lymph % (Auto) [place] % (Auto) Eos % (Auto) Baso % (Auto) Lymph # (Auto) [place] # (Auto) Eos # (Auto) Baso # (Auto) Abs Immat Gran (auto) Absolute Neuts (auto) Absolute Nucleated RBC Nucleated RBC % (auto) Smear Tech's Comments PT 12.7 INR 1.1 APTT 36.8 Anion Gap Estim Creat Clear Calc Estimated GFR POC Glucose Random Glucose Lactic Acid 1.3 Calcium Total Bilirubin Direct Bilirubin AST ALT Alkaline Phosphatase Troponin I High Sens Total Protein Albumin Lipase COVID-19 ([facility]) Negative COVID-[employer] Clin Com See Note Blood Type Antibody Screen Antibody Identification Antigen Identification Crossmatch Crossmatch ([facility]) 06/02/21 06/03/21 06/03/21 23:10 00:53 03:20 MCV MCH MCHC RDW Plt Count MPV Immature Gran % (Auto) Neut % (Auto) Lymph % (Auto) [place] % (Auto) Eos % (Auto) Baso % (Auto) Lymph # (Auto) [place] # (Auto) Eos # (Auto) Baso # (Auto) Abs Immat Gran (auto) Absolute Neuts (auto) Absolute Nucleated RBC Nucleated RBC % (auto) Smear Tech's Comments PT INR APTT Anion Gap Estim Creat Clear Calc Estimated GFR POC Glucose 244 H 216 H Random Glucose Lactic Acid Calcium Total Bilirubin Direct Bilirubin AST ALT Alkaline Phosphatase Troponin I High Sens Total Protein Albumin Lipase COVID-19 ([facility]) COVID-[employer] Clin Com Blood Type A Positive Antibody Screen POSITIVE Antibody Identification Anti-K Antigen Identification K Antigen - NEGATIVE Crossmatch See Detail Crossmatch ([facility]) See Detail 06/03/21 06/03/21 08:43 08:43 MCV 95.8 MCH 32.9 MCHC 34.3 RDW 12.9 Plt Count 186 MPV 10.7 Immature Gran % (Auto) Neut % (Auto) Lymph % (Auto) [place] % (Auto) Eos % (Auto) Baso % (Auto) Lymph # (Auto) [place] # (Auto) Eos # (Auto) Baso # (Auto) Abs Immat Gran (auto) Absolute Neuts (auto) Absolute Nucleated RBC 0.000 Nucleated RBC % (auto) 0.0 Smear Tech's Comments PT INR APTT Anion Gap 13 Estim Creat Clear Calc 93.9 Estimated GFR > 60 POC Glucose Random Glucose 237 H Lactic Acid Calcium 8.8 D Total Bilirubin Direct Bilirubin AST ALT Alkaline Phosphatase Troponin I High Sens Total Protein Albumin Lipase COVID-19 ([facility]) COVID-19 Clin Com Blood Type Antibody Screen Antibody Identification Antigen Identification Crossmatch Crossmatch ([facility]) Procedures Date of Service Date of Service: 06/03/21 Progress Note: A&P Assessment and plan (1) Rectal perforation: Status: Acute Assessment and Plan: Status post repair, with diverting loop colostomy Pain management Await stoma function Pain management Out of bed Incentive spirometry Hospitalist follow-up Plan to start heparin subcu tomorrow Significant other Elzbieta was with him in room Fall Risk Details Current Medications: Current Medications Fentanyl (Fentanyl Citrate/Pf 100 Mcg/2 Ml Vial) 50 mcg IVPUSH Q5M PRN; Protocol PRN Reason: Pain, Severe (Pain Scale 7-10) Hydromorphone HCl (Hydromorphone Hcl 0.5 Mg/0.5 Ml Syringe) 0.5 mg IVPUSH Q5M PRN; Protocol PRN Reason: Pain, Severe (Pain Scale 7-10) Last Admin: 06/03/21 06:17 Dose: 0.5 mg Documented by: Lactated Ringer's (Lr) 1,000 mls @ 100 mls/hr IVCONT .Q10H [facility] Last Admin: 06/03/21 11:29 Dose: 100 mls/hr Documented by: Promethazine HCl 12.5 mg/ (Sodium Chloride) 50.5 mls @ 202 mls/hr IV ONCE PRN PRN Reason: Nausea and Vomiting Acetaminophen (Ofirmev) 1,000 mg in 100 mls @ 400 mls/hr IV Q6H [facility] Last Infusion: 06/03/21 09:10 Dose: Infused Documented by: Piperacillin Sod/Tazobactam (Sod 3.375 gm/ Sodium Chloride) 50 mls @ 100 mls/hr IV Q6H [facility] Last Infusion: 06/03/21 11:47 Dose: Infused Documented by: Morphine Sulfate (Morphine Sulfate 4 Mg/Ml Cartridge) 3 mg IVPUSH Q3H PRN; Protocol PRN Reason: Pain, Severe (Pain Scale 7-10) Last Admin: 06/03/21 13:40 Dose: 3 mg Documented by: Ondansetron HCl (Ondansetron Hcl 4 Mg/2 Ml Vial) 4 mg IVPUSH ONCE PRN PRN Reason: Nausea and Vomiting Ondansetron HCl (Ondansetron Hcl 4 Mg/2 Ml Vial) 4 mg IVPUSH Q8H PRN PRN Reason: Nausea Oxycodone HCl (Oxycodone Hcl Immed Release 5 Mg Tablet) 10 mg PO ONCE PRN PRN Reason: Pain, Severe (Pain Scale 7-10) Oxycodone HCl (Oxycodone Hcl Immed Release 5 Mg Tablet) 10 mg PO Q4H PRN PRN Reason: Pain, Moderate (Pain Scale 4-6 Last Admin: 06/03/21 11:24 Dose: 10 mg Documented by: Pharmacy Consult (Consult Rx Perform Med Rec) 1 each MISCELLANE ONCE PRN PRN Reason: Consult order Sodium Chloride (0.9 % Sodium Chloride Flush 3 Ml Syringe) 3 ml IVFLUSH QSHIFT [facility] Last Admin: 06/03/21 08:50 Dose: Not Given Documented by: Time Spent With Patient Time: Total time spent is greater than 50% in coordination of care (as documented) at patient's floor/unit and/or counseling patient: Quality Stroke Does the patient have a stroke diagnosis?: No VTE Prior VTE?: No VTE Risk Level:: Medical - moderate - high VTE Device Contraindication: N/A - Device Ordered VTE Drug Contraindication: Treatment Not Indicated
[2021-06-03] MEDS: 0.9 % Sodium Chloride Flush 3 ML SYRINGE IVFLUSH (15:55)
[2021-06-04] VITALS (8 sets, daily range): BP systolic 155–171; BP diastolic 76–89; PULSE 78–112; RESP 16–20; TEMP 36.7–37.5; O2SAT 95–98
[2021-06-04] MEDS: 0.9 % Sodium Chloride Flush 3 ML SYRINGE IVFLUSH (00:03)
[2021-06-04] MEDS: Piperacillin Sodium/Tazobactam 3.375 GM in 0.9 % Sodium Chloride 50 ML IV ×4 (00:03→19:53)
[2021-06-04] MEDS: HYDROmorphone HCl 0.5 MG/0.5 ML SYRINGE IVPUSH (00:16)
[2021-06-04] MEDS: Lactated Ringers 1,000 ML 100 ML IVCONT (06:15)
--- NOTE | 2021-06-04 07:47 | PC.NURSE ---
Dr. Kendrick notified of BP 155/81. No new orders.
[2021-06-04] MEDS: Morphine Sulfate 4 MG/ML CARTRIDGE 3 MG IVPUSH (07:59)
--- NOTE | 2021-06-04 10:52 | HO.PM.IMPN ---
Subjective Subjective Date of Service: 06/04/21 Review of Systems Follow up consultation rectal perforation pain is worse to incision site and abdomen resting in bed Physical Exam Vital Signs: Vital Signs: Last Vital Signs Temp 98.4 F 06/04/21 07:24 Pulse 94 06/04/21 07:24 Resp 18 06/04/21 07:24 BP 155/81 H 06/04/21 07:24 Pulse Ox 98 06/04/21 07:24 BMI result Body Mass Index 21.6 Appearing in no acute distress lung sounds are clear to auscultation heart regular rate rhythm, clear S1, S2 positive bowel sounds, abdomen is soft, nontender, beefy red stoma neuro patient is alert x3, no focal deficits Objective Data Active Medications Fentanyl (Fentanyl Citrate/Pf 100 Mcg/2 Ml Vial) 50 mcg IVPUSH Q5M PRN; Protocol PRN Reason: Pain, Severe (Pain Scale 7-10) Hydromorphone HCl (Hydromorphone Hcl 0.5 Mg/0.5 Ml Syringe) 0.5 mg IVPUSH Q5M PRN; Protocol PRN Reason: Pain, Severe (Pain Scale 7-10) Last Admin: 06/04/21 00:16 Dose: 0.5 mg Documented by: CHRISTIANO Lactated Ringer's (Lr) 1,000 mls @ 100 mls/hr IVCONT .Q10H [facility] Last Admin: 06/04/21 06:15 Dose: 100 mls/hr Documented by: CHRISTIANO Promethazine HCl 12.5 mg/ (Sodium Chloride) 50.5 mls @ 202 mls/hr IV ONCE PRN PRN Reason: Nausea and Vomiting Acetaminophen (Ofirmev) 1,000 mg in 100 mls @ 400 mls/hr IV Q6H [facility] Last Infusion: 06/04/21 03:47 Dose: 0 mls/hr Documented by: CHRISTIANO Piperacillin Sod/Tazobactam (Sod 3.375 gm/ Sodium Chloride) 50 mls @ 100 mls/hr IV Q6H [facility] Last Infusion: 06/04/21 06:11 Dose: 0 mls/hr Documented by: CHRISTIANO Morphine Sulfate (Morphine Sulfate 4 Mg/Ml Cartridge) 3 mg IVPUSH Q3H PRN; Protocol PRN Reason: Pain, Severe (Pain Scale 7-10) Last Admin: 06/04/21 07:59 Dose: 3 mg Documented by: ROSA Ondansetron HCl (Ondansetron Hcl 4 Mg/2 Ml Vial) 4 mg IVPUSH ONCE PRN PRN Reason: Nausea and Vomiting Ondansetron HCl (Ondansetron Hcl 4 Mg/2 Ml Vial) 4 mg IVPUSH Q8H PRN PRN Reason: Nausea Oxycodone HCl (Oxycodone Hcl Immed Release 5 Mg Tablet) 10 mg PO ONCE PRN PRN Reason: Pain, Severe (Pain Scale 7-10) Oxycodone HCl (Oxycodone Hcl Immed Release 5 Mg Tablet) 10 mg PO Q4H PRN PRN Reason: Pain, Moderate (Pain Scale 4-6 Last Admin: 06/03/21 20:21 Dose: 10 mg Documented by: VIKA Pharmacy Consult (Consult Rx Perform Med Rec) 1 each MISCELLANE ONCE PRN PRN Reason: Consult order Sodium Chloride (0.9 % Sodium Chloride Flush 3 Ml Syringe) [facility] Last Admin: 06/04/21 10:35 Dose: Not Given Documented by: ROSA Non-Admin Reason: IV Running Labs CBC & Chem 7: 06/03/21 08:43 06/03/21 08:43 Microbiology Microbiology Results: Microbiology 06/02/21 23:10 Blood Culture - Preliminary Blood - Venous No growth after 24 hours. 06/02/21 23:01 Blood Culture - Preliminary Blood - Venous No growth after 24 hours. Assessment and Plan (1) Rectal perforation: Status: Acute Plan 60 year old man admitted by general surgery team and is s/p laparotomy with diverting loop colostomy rectal perforation s/p laparotomy and colostomy management as per surgical team pain managment Leukocytosis Postoperative Follow On Zosyn History DVT On Xarelto, held as patient is postoperative Diabetes mellitus Sliding scale Dr. Burgess DVT prophylaxis as per surgical team Quality Stroke Does the patient have a stroke diagnosis?: No VTE Prior VTE?: No VTE Risk Level:: Medical - moderate - high VTE Device Contraindication: N/A - Device Ordered VTE Drug Contraindication: Treatment Not Indicated
--- NOTE | 2021-06-04 11:20 | PM.PNGS ---
Subjective Subjective Date of Service: 06/05/21 Physical Exam Vital Signs: Vital Signs: Last Vital Signs Temp 99.5 F 06/04/21 11:06 Pulse 112 H 06/04/21 11:06 Resp 20 06/04/21 11:06 BP 170/89 H 06/04/21 11:06 Pulse Ox 98 06/04/21 11:06 BMI result Body Mass Index 21.6 Objective Data Active Medications Fentanyl (Fentanyl Citrate/Pf 100 Mcg/2 Ml Vial) 50 mcg IVPUSH Q5M PRN; Protocol PRN Reason: Pain, Severe (Pain Scale 7-10) Hydromorphone HCl (Hydromorphone Hcl 0.5 Mg/0.5 Ml Syringe) 0.5 mg IVPUSH Q5M PRN; Protocol PRN Reason: Pain, Severe (Pain Scale 7-10) Last Admin: 06/04/21 00:16 Dose: 0.5 mg Documented by: CHRISTIANO Lactated Ringer's (Lr) 1,000 mls @ 100 mls/hr IVCONT .Q10H [facility] Last Admin: 06/04/21 06:15 Dose: 100 mls/hr Documented by: CHRISTIANO Promethazine HCl 12.5 mg/ (Sodium Chloride) 50.5 mls @ 202 mls/hr IV ONCE PRN PRN Reason: Nausea and Vomiting Acetaminophen (Ofirmev) 1,000 mg in 100 mls @ 400 mls/hr IV Q6H [facility] Last Admin: 06/04/21 11:16 Dose: 400 mls/hr Documented by: ROSA Piperacillin Sod/Tazobactam (Sod 3.375 gm/ Sodium Chloride) 50 mls @ 100 mls/hr IV Q6H [facility] Last Admin: 06/04/21 11:17 Dose: 100 mls/hr Documented by: ROSA Morphine Sulfate (Morphine Sulfate 4 Mg/Ml Cartridge) 3 mg IVPUSH Q3H PRN; Protocol PRN Reason: Pain, Severe (Pain Scale 7-10) Last Admin: 06/04/21 07:59 Dose: 3 mg Documented by: ROSA Ondansetron HCl (Ondansetron Hcl 4 Mg/2 Ml Vial) 4 mg IVPUSH ONCE PRN PRN Reason: Nausea and Vomiting Ondansetron HCl (Ondansetron Hcl 4 Mg/2 Ml Vial) 4 mg IVPUSH Q8H PRN PRN Reason: Nausea Oxycodone HCl (Oxycodone Hcl Immed Release 5 Mg Tablet) 10 mg PO ONCE PRN PRN Reason: Pain, Severe (Pain Scale 7-10) Oxycodone HCl (Oxycodone Hcl Immed Release 5 Mg Tablet) 10 mg PO Q4H PRN PRN Reason: Pain, Moderate (Pain Scale 4-6 Last Admin: 06/03/21 20:21 Dose: 10 mg Documented by: VIKA Pharmacy Consult (Consult Rx Perform Med Rec) 1 each MISCELLANE ONCE PRN PRN Reason: Consult order Sodium Chloride (0.9 % Sodium Chloride Flush 3 Ml Syringe) 3 ml IVFLUSH QSHIFT [facility] Last Admin: 06/04/21 10:35 Dose: Not Given Documented by: ROSA Non-Admin Reason: IV Running Labs CBC & Chem 7: 06/05/21 05:27 06/03/21 08:43 Microbiology Microbiology Results: Microbiology 06/02/21 23:10 Blood Culture - Preliminary Blood - Venous No growth after 24 hours. 06/02/21 23:01 Blood Culture - Preliminary Blood - Venous No growth after 24 hours. Progress Note: A&P Fall Risk Details Current Medications: Current Medications Fentanyl (Fentanyl Citrate/Pf 100 Mcg/2 Ml Vial) 50 mcg IVPUSH Q5M PRN; Protocol PRN Reason: Pain, Severe (Pain Scale 7-10) Hydromorphone HCl (Hydromorphone Hcl 0.5 Mg/0.5 Ml Syringe) 0.5 mg IVPUSH Q5M PRN; Protocol PRN Reason: Pain, Severe (Pain Scale 7-10) Last Admin: 06/04/21 00:16 Dose: 0.5 mg Documented by: Lactated Ringer's (Lr) 1,000 mls @ 100 mls/hr IVCONT .Q10H [facility] Last Admin: 06/04/21 06:15 Dose: 100 mls/hr Documented by: Promethazine HCl 12.5 mg/ (Sodium Chloride) 50.5 mls @ 202 mls/hr IV ONCE PRN PRN Reason: Nausea and Vomiting Acetaminophen (Ofirmev) 1,000 mg in 100 mls @ 400 mls/hr IV Q6H [facility] Last Admin: 06/04/21 11:16 Dose: 400 mls/hr Documented by: Piperacillin Sod/Tazobactam (Sod 3.375 gm/ Sodium Chloride) 50 mls @ 100 mls/hr IV Q6H [facility] Last Admin: 06/04/21 11:17 Dose: 100 mls/hr Documented by: Morphine Sulfate (Morphine Sulfate 4 Mg/Ml Cartridge) 3 mg IVPUSH Q3H PRN; Protocol PRN Reason: Pain, Severe (Pain Scale 7-10) Last Admin: 06/04/21 07:59 Dose: 3 mg Documented by: Ondansetron HCl (Ondansetron Hcl 4 Mg/2 Ml Vial) 4 mg IVPUSH ONCE PRN PRN Reason: Nausea and Vomiting Ondansetron HCl (Ondansetron Hcl 4 Mg/2 Ml Vial) 4 mg IVPUSH Q8H PRN PRN Reason: Nausea Oxycodone HCl (Oxycodone Hcl Immed Release 5 Mg Tablet) 10 mg PO ONCE PRN PRN Reason: Pain, Severe (Pain Scale 7-10) Oxycodone HCl (Oxycodone Hcl Immed Release 5 Mg Tablet) 10 mg PO Q4H PRN PRN Reason: Pain, Moderate (Pain Scale 4-6 Last Admin: 06/03/21 20:21 Dose: 10 mg Documented by: Pharmacy Consult (Consult Rx Perform Med Rec) 1 each MISCELLANE ONCE PRN PRN Reason: Consult order Sodium Chloride (0.9 % Sodium Chloride Flush 3 Ml Syringe) 3 ml IVFLUSH QSHIFT [facility] Last Admin: 06/04/21 10:35 Dose: Not Given Documented by: Time Spent With Patient Time: Total time spent is greater than 50% in coordination of care (as documented) at patient's floor/unit and/or counseling patient: Quality Stroke Does the patient have a stroke diagnosis?: No VTE Prior VTE?: No VTE Risk Level:: Medical - moderate - high VTE Device Contraindication: N/A - Device Ordered VTE Drug Contraindication: Treatment Not Indicated
--- NOTE | 2021-06-04 11:44 | PM.PNGS ---
Subjective Subjective Date of Service: 06/04/21 <Charlotte Paige PA-C - Last Filed: 06/04/21 11:50> 06/04/21 <Cristian Kendrick MD - Last Filed: 06/04/21 13:15> Interval history: Apparently was yelling fire and throwing tray around this morning due to pain. Sleeping in bed when food writer entered room. Reports severe pain at incision and back. Denies nausea. <Charlotte Paige PA-C - Last Filed: 06/04/21 11:50> Physical Exam Vital Signs: Vital Signs: Last Vital Signs Temp 99.5 F 06/04/21 11:06 Pulse 112 H 06/04/21 11:06 Resp 20 06/04/21 11:06 BP 170/89 H 06/04/21 11:06 Pulse Ox 98 06/04/21 11:06 BMI result Body Mass Index 21.6 <Charlotte Paige PA-C - Last Filed: 06/04/21 11:50> Const: General: comfortable, no acute distress and alert <Charlotte Paige PA-C - Last Filed: 06/04/21 11:50> Orientation/consciousness: patient oriented x3 <Charlotte Paige PA-C - Last Filed: 06/04/21 11:50> Resp: Effort & Inspection: normal respiratory effort <Charlotte Paige PA-C - Last Filed: 06/04/21 11:50> GI: Other: ostomy edematous, no gas or output in appliance, bridge in place <Charlotte Paige PA-C - Last Filed: 06/04/21 11:50> Inspection: No distended and Yes incision (dressing clean) <Charlotte Paige PA-C - Last Filed: 06/04/21 11:50> Palpation (GI): Soft to palpation, Tenderness to palpation present (GI) (incisional), no guarding and not rigid <KAEL Blanco Last Filed: 06/04/21 11:50> Percussion: Yes normal to percussion <KAEL Blanco Last Filed: 06/04/21 11:50> Skin: General skin exam: no rashes or lesions noted <Charlotte Paige PA-C - Last Filed: 06/04/21 11:50> Neuro: General: patient oriented x3 <Charlotte Paige PA-C - Last Filed: 06/04/21 11:50> Extrem: General: Yes no clubbing, cyanosis or edema <Charlotte Paige PA-C - Last Filed: 06/04/21 11:50> Objective Data Active Medications Lactated Ringer's (Lr) 1,000 mls @ 100 mls/hr IVCONT .Q10H [facility] Last Admin: 06/04/21 06:15 Dose: 100 mls/hr Documented by: CHRISTIANO Acetaminophen (Ofirmev) 1,000 mg in 100 mls @ 400 mls/hr IV Q6H [facility] Last Admin: 06/04/21 11:16 Dose: 400 mls/hr Documented by: ROSA Piperacillin Sod/Tazobactam (Sod 3.375 gm/ Sodium Chloride) 50 mls @ 100 mls/hr IV Q6H [facility] Last Admin: 06/04/21 11:17 Dose: 100 mls/hr Documented by: ROSA Ketorolac Tromethamine (Ketorolac Tromethamine 30 Mg/Ml Vial) 30 mg IVPUSH Q6H [facility] Morphine Sulfate (Morphine Sulfate 4 Mg/Ml Cartridge) 4 mg IVPUSH Q3H PRN; Protocol PRN Reason: Pain, Severe (Pain Scale 7-10) Ondansetron HCl (Ondansetron Hcl 4 Mg/2 Ml Vial) 4 mg IVPUSH ONCE PRN PRN Reason: Nausea and Vomiting Ondansetron HCl (Ondansetron Hcl 4 Mg/2 Ml Vial) 4 mg IVPUSH Q8H PRN PRN Reason: Nausea Oxycodone HCl (Oxycodone Hcl Immed Release 5 Mg Tablet) 10 mg PO Q4H PRN PRN Reason: Pain, Moderate (Pain Scale 4-6 Last Admin: 06/03/21 20:21 Dose: 10 mg Documented by: VIKA Pharmacy Consult (Consult Rx Perform Med Rec) 1 each MISCELLANE ONCE PRN PRN Reason: Consult order Sodium Chloride (0.9 % Sodium Chloride Flush 3 Ml Syringe) 3 ml IVFLUSH QSHIFT [facility] Last Admin: 06/04/21 10:35 Dose: Not Given Documented by: ROSA Non-Admin Reason: IV Running <Charlotte Paige PA-C - Last Filed: 06/04/21 11:50> Labs CBC & Chem 7: : 06/03/21 08:43 06/03/21 08:43 <Charlotte Paige PA-C - Last Filed: 06/04/21 11:50> Microbiology Microbiology Results: Microbiology 06/02/21 23:10 Blood Culture - Preliminary Blood - Venous No growth after 24 hours. 06/02/21 23:01 Blood Culture - Preliminary Blood - Venous No growth after 24 hours. <Charlotte Paige PA-C - Last Filed: 06/04/21 11:50> Procedures Date of Service Date of Service: 06/04/21 <Charlotte Paige PA-C - Last Filed: 06/04/21 11:50> Progress Note: A&P Assessment and plan (1) Rectal perforation: Status: Acute <Charlotte Paige PA-C - Last Filed: 06/04/21 11:50> Assessment and Plan: Patient was complaining of severe incisional pain earlier Re-examined now - says he feels much better, pain well controlled Looks comfortable Good urine output keep on clear liquids Abdomen soft, VINNY scanty Encouraged to get out of bed Incentive spirometry Seen and examined independently <Cristian Kendrick MD - Last Filed: 06/04/21 13:15> Plan 60 year old male who presented with rectal perforation now POD #1 s/p laparotomy, repair of of rectal perforation, diverting loop sigmoid colostomy. C/o severe pain at incision and back but was sleeping upon entering room. Denies nausea. VSS. Abd exam benign with appropriate post op tenderness. Dressing intact. Ostomy without any output but viable appearing. Will continue clear liquids until evidence of ostomy function. Added ketorolac and increased morphine to 4mg IV. ?Tachy due to pain. Repeat CBC tomorrow as WBC still high. D/c aguillon. Kpad for back pain. Encouraged OOB/ambulation and IS use. <Charlotte Paige PA-C - Last Filed: 06/04/21 11:50> Fall Risk Details Current Medications: Current Medications Lactated Ringer's (Lr) 1,000 mls @ 100 mls/hr IVCONT .Q10H [facility] Last Admin: 06/04/21 06:15 Dose: 100 mls/hr Documented by: Acetaminophen (Ofirmev) 1,000 mg in 100 mls @ 400 mls/hr IV Q6H [facility] Last Admin: 06/04/21 11:16 Dose: 400 mls/hr Documented by: Piperacillin Sod/Tazobactam (Sod 3.375 gm/ Sodium Chloride) 50 mls @ 100 mls/hr IV Q6H [facility] Last Admin: 06/04/21 11:17 Dose: 100 mls/hr Documented by: Ketorolac Tromethamine (Ketorolac Tromethamine 30 Mg/Ml Vial) 30 mg IVPUSH Q6H [facility] Morphine Sulfate (Morphine Sulfate 4 Mg/Ml Cartridge) 4 mg IVPUSH Q3H PRN; Protocol PRN Reason: Pain, Severe (Pain Scale 7-10) Ondansetron HCl (Ondansetron Hcl 4 Mg/2 Ml Vial) 4 mg IVPUSH ONCE PRN PRN Reason: Nausea and Vomiting Ondansetron HCl (Ondansetron Hcl 4 Mg/2 Ml Vial) 4 mg IVPUSH Q8H PRN PRN Reason: Nausea Oxycodone HCl (Oxycodone Hcl Immed Release 5 Mg Tablet) 10 mg PO Q4H PRN PRN Reason: Pain, Moderate (Pain Scale 4-6 Last Admin: 06/03/21 20:21 Dose: 10 mg Documented by: Pharmacy Consult (Consult Rx Perform Med Rec) 1 each MISCELLANE ONCE PRN PRN Reason: Consult order Sodium Chloride (0.9 % Sodium Chloride Flush 3 Ml Syringe) 3 ml IVFLUSH QSHIFT [facility] Last Admin: 06/04/21 10:35 Dose: Not Given Documented by: <Charlotte Paige PA-C - Last Filed: 06/04/21 11:50> Time Spent With Patient Time: Total time spent is greater than 50% in coordination of care (as documented) at patient's floor/unit and/or counseling patient: <Charlotte Paige PA-C - Last Filed: 06/04/21 11:50> Quality Stroke Does the patient have a stroke diagnosis?: No <Charlotte Paige PA-C - Last Filed: 06/04/21 11:50> VTE Prior VTE?: No <Charlotte Paige PA-C - Last Filed: 06/04/21 11:50> VTE Risk Level:: Medical - moderate - high <Charlotte Paige PA-C - Last Filed: 06/04/21 11:50> VTE Device Contraindication: N/A - Device Ordered <Charlotte Paige PA-C - Last Filed: 06/04/21 11:50> VTE Drug Contraindication: Treatment Not Indicated <Charlotte Paige PA-C - Last Filed: 06/04/21 11:50>
--- NOTE | 2021-06-04 13:05 | HO.POSTANES ---
Post Anesthesia Evaluation Post Anesthesia Evaluation Vital Signs: Vital Signs Temp Pulse Resp BP Pulse Ox 06/04/21 11:06 99.5 F 112 H 20 170/89 H 98 06/04/21 07:24 98.4 F 94 18 155/81 H 98 06/04/21 03:42 98.8 F 93 18 171/84 H 97 06/04/21 01:19 18 Anesthesia: General Endotracheal-GETA Mental Status: Awake Pain Control: Satisfactory Nausea/Vomiting: None Hydration: Adequate Anesthesia-Related Issues: No Anes. Related Issues
--- NOTE | 2021-06-04 15:20 | MHC.CM.PN ---
NEW OSTOMY PLACED PLAN IS 1-2 MORE DAYS IF STAY REFERRAL TO [facility] FOR NEW OSTOMOY CARE, TEACH, AND MONITORING
[2021-06-04 16:43] LABS: Glucose, Whole Blood 163 mg/dL (60-115)
[2021-06-04] MEDS: oxyCODONE HCl Immed Release 5 MG TABLET 10 MG PO ×2 (17:11→17:21)
[2021-06-04] MEDS: Ketorolac Tromethamine 30 MG/ML VIAL IVPUSH (17:11)
[2021-06-04 20:10] LABS: Glucose, Whole Blood 193 mg/dL (60-115)
[2021-06-04] MEDS: Insulin Lispro 100 UNIT/ML 3 ML VIAL SUBCUT (21:00)
[2021-06-05] VITALS (7 sets, daily range): BP systolic 152–163; BP diastolic 81–90; PULSE 74–104; RESP 17–18; TEMP 36–37.3; O2SAT 91–96
[2021-06-05] MEDS: Ketorolac Tromethamine 30 MG/ML VIAL IVPUSH ×5 (00:28→23:57)
[2021-06-05] MEDS: Lactated Ringers 1,000 ML 100 ML IVCONT ×3 (00:28→20:59)
[2021-06-05] MEDS: Piperacillin Sodium/Tazobactam 3.375 GM in 0.9 % Sodium Chloride 50 ML IV ×5 (00:29→23:57)
[2021-06-05] MEDS: 0.9 % Sodium Chloride Flush 3 ML SYRINGE IVFLUSH ×3 (00:34→23:58)
[2021-06-05 06:07] LABS: MANUAL DIFF FLAG NO
[2021-06-05 06:14] LABS: Basophils Percent Auto 0.2 % (0-2); Eosinophils Absolute Auto 0.5 X10*3/uL (0.0-0.4); Eosinophils Percent Auto 4.8 % (0-4); Hemoglobin 12.8 g/dl (14.0-18.0); Imm Gran Abs Auto 0.04 X10*3/uL (0.00-0.03); Imm Gran Pct Auto 0.4 % (0.0-0.4); Lymphocytes Percent Auto 10.6 % (20-40); Mean Corpuscular HGB Conc 34.6 g/dl (31.0-36.0); Mean Corpuscular Hemoglobin 32.4 pg (27.0-33.0); Mean Corpuscular Volume 93.7 fL (80.0-98.0); Mean Platelet Volume 10.5 fL (9.4-12.4); Monocytes Absolute Auto 0.9 X10*3/uL (0.1-1.2); Monocytes Percent Auto 8.7 % (2-11); Neutrophils Absolute Auto 7.4 x10*3/uL (2.0-8.3); Neutrophils Percent Auto 75.3 % (45-73); Platelet Count 172 X10*3/uL (160-400); Red Blood Count 3.95 X10*6/uL (4.60-5.80); Red Cell Distribution Width 12.5 % (11.0-16.0); White Blood Count 9.9 X10*3/uL (4.8-10.8)
[2021-06-05 07:12] LABS: Glucose, Whole Blood 193 mg/dL (60-115)
[2021-06-05] MEDS: Insulin Lispro 100 UNIT/ML 3 ML VIAL SUBCUT ×4 (08:27→20:58)
--- NOTE | 2021-06-05 11:16 | PM.PNGS ---
Subjective Subjective Date of Service: 06/05/21 <Charlotte Paige PA-C - Last Filed: 06/05/21 11:22> 06/05/21 <Cristian Kendrick MD - Last Filed: 06/05/21 11:54> Interval history: Feels better today. Pain still present but improved and in better spirits today . Passing flatus from stoma. Wants to eat. <Charlotte Paige PA-C - Last Filed: 06/05/21 11:22> Physical Exam Vital Signs: Vital Signs: Last Vital Signs Temp 96.8 F 06/05/21 11:03 Pulse 104 H 06/05/21 06:52 Resp 18 06/05/21 11:03 BP 158/82 H 06/05/21 11:03 Pulse Ox 96 06/05/21 11:03 BMI result Body Mass Index 21.6 <Charlotte Paige PA-C - Last Filed: 06/05/21 11:22> Const: General: comfortable, no acute distress and alert <Charlotte Paige PA-C - Last Filed: 06/05/21 11:22> Orientation/consciousness: patient oriented x3 <Charlotte Paige PA-C - Last Filed: 06/05/21 11:22> Resp: Effort & Inspection: normal respiratory effort <Charlotte Paige PA-C - Last Filed: 06/05/21 11:22> GI: Other: stoma edematous, slightly dusky but pink centrally, gas in appliance, bridge in place VINNY with scanty serosanguineous <Charlotte Paige PA-C - Last Filed: 06/05/21 11:22> Inspection: Yes incision (clean, no erythema) <KAEL Blanco Last Filed: 06/05/21 11:22> Palpation (GI): Soft to palpation, Tenderness to palpation present (GI) (mild, incisional), no guarding and not rigid <KAEL Blanco Last Filed: 06/05/21 11:22> Skin: General skin exam: no rashes or lesions noted <Charlotte Paige PA-C - Last Filed: 06/05/21 11:22> Neuro: General: patient oriented x3 <Charlotte Paige PA-C - Last Filed: 06/05/21 11:22> Extrem: General: Yes no clubbing, cyanosis or edema <Charlotte Paige PA-C - Last Filed: 06/05/21 11:22> Objective Data Active Medications Lactated Ringer's (Lr) 1,000 mls @ 100 mls/hr IVCONT .Q10H [facility] Last Infusion: 06/05/21 06:32 Dose: 100 mls/hr Documented by: CHRISTIANO Acetaminophen (Ofirmev) 1,000 mg in 100 mls @ 400 mls/hr IV Q6H [facility] Last Infusion: 06/05/21 05:32 Dose: 0 mls/hr Documented by: CHRISTIANO Piperacillin Sod/Tazobactam (Sod 3.375 gm/ Sodium Chloride) 50 mls @ 100 mls/hr IV Q6H [facility] Last Infusion: 06/05/21 06:32 Dose: 0 mls/hr Documented by: CHRISTIANO Insulin Human Lispro (Insulin Lispro 100 Unit/Ml 3 Ml Vial) 0 unit SUBCUT QIDACHS [facility]; Protocol Last Admin: 06/05/21 08:27 Dose: 2 unit Documented by: CLARISSA Ketorolac Tromethamine (Ketorolac Tromethamine 30 Mg/Ml Vial) 30 mg IVPUSH Q6H [facility] Last Admin: 06/05/21 05:54 Dose: 30 mg Documented by: CHRISTIANO Morphine Sulfate (Morphine Sulfate 4 Mg/Ml Cartridge) 4 mg IVPUSH Q3H PRN; Protocol PRN Reason: Pain, Severe (Pain Scale 7-10) Ondansetron HCl (Ondansetron Hcl 4 Mg/2 Ml Vial) 4 mg IVPUSH ONCE PRN PRN Reason: Nausea and Vomiting Ondansetron HCl (Ondansetron Hcl 4 Mg/2 Ml Vial) 4 mg IVPUSH Q8H PRN PRN Reason: Nausea Oxycodone HCl (Oxycodone Hcl Immed Release 5 Mg Tablet) 10 mg PO Q4H PRN PRN Reason: Pain, Moderate (Pain Scale 4-6 Last Admin: 06/04/21 17:21 Dose: 5 mg Documented by: MORALES Pharmacy Consult (Consult Rx Perform Med Rec) 1 each MISCELLANE ONCE PRN PRN Reason: Consult order Sodium Chloride (0.9 % Sodium Chloride Flush 3 Ml Syringe) [facility] Last Admin: 06/05/21 08:27 Dose: 3 ml Documented by: CLARISSA <Charlotte Paige PA-C - Last Filed: 06/05/21 11:22> Labs CBC & Chem 7: : 06/05/21 05:27 06/03/21 08:43 <Charlotte Paige PA-C - Last Filed: 06/05/21 11:22> Labs: Laboratory Results - last 24 hr 06/04/21 06/04/21 06/05/21 16:39 19:48 05:27 MCV 93.7 MCH 32.4 MCHC 34.6 RDW 12.5 Plt Count 172 MPV 10.5 Immature Gran % (Auto) 0.4 Neut % (Auto) 75.3 H Lymph % (Auto) 10.6 L [place] % (Auto) 8.7 Eos % (Auto) 4.8 H Baso % (Auto) 0.2 Lymph # (Auto) 1.0 L [place] # (Auto) 0.9 Eos # (Auto) 0.5 H Baso # (Auto) 0.0 Abs Immat Gran (auto) 0.04 H Absolute Neuts (auto) 7.4 Absolute Nucleated RBC 0.000 Nucleated RBC % (auto) 0.0 POC Glucose 163 H 193 H 06/05/21 07:08 MCV MCH MCHC RDW Plt Count MPV Immature Gran % (Auto) Neut % (Auto) Lymph % (Auto) [place] % (Auto) Eos % (Auto) Baso % (Auto) Lymph # (Auto) [place] # (Auto) Eos # (Auto) Baso # (Auto) Abs Immat Gran (auto) Absolute Neuts (auto) Absolute Nucleated RBC Nucleated RBC % (auto) POC Glucose 193 H <Charlotte Paige PA-C - Last Filed: 06/05/21 11:22> Microbiology Microbiology Results: Microbiology 06/02/21 23:10 Blood Culture - Preliminary Blood - Venous No growth after 48 hours. 06/02/21 23:01 Blood Culture - Preliminary Blood - Venous No growth after 48 hours. <Charlotte Paige PA-C - Last Filed: 06/05/21 11:22> Procedures Date of Service Date of Service: 06/05/21 <Charlotte Paige PA-C - Last Filed: 06/05/21 11:22> Progress Note: A&P Assessment and plan (1) Rectal perforation: Status: Acute <Charlotte Paige PA-C - Last Filed: 06/05/21 11:22> Assessment and Plan: Pain much better controlled Looks well Abdomen soft Stoma with output Voiding freely Pain control Advance diet Seen and examined independently - agree with PACO Paige <Cristian Kendrick MD - Last Filed: 06/05/21 11:54> Plan 60 year old male who presented with rectal perforation now POD #2 s/p laparotomy, repair of of rectal perforation, diverting loop sigmoid colostomy. More comfortable this morning. Ostomy passing flatus. VSS. Abd- incision clean, ostomy with gas in appliance, viable appearing. WBC normal. Doing well. Will advance to solid diet. Encouraged OOB/ambulation and IS use. Cont IV zosyn. Begin ostomy educAtion. <Charlotte Paige PA-C - Last Filed: 06/05/21 11:22> Fall Risk Details Current Medications: Current Medications Lactated Ringer's (Lr) 1,000 mls @ 100 mls/hr IVCONT .Q10H [facility] Last Infusion: 06/05/21 06:32 Dose: 100 mls/hr Documented by: Acetaminophen (Ofirmev) 1,000 mg in 100 mls @ 400 mls/hr IV Q6H [facility] Last Infusion: 06/05/21 05:32 Dose: Infused Documented by: Piperacillin Sod/Tazobactam (Sod 3.375 gm/ Sodium Chloride) 50 mls @ 100 mls/hr IV Q6H [facility] Last Infusion: 06/05/21 06:32 Dose: Infused Documented by: Insulin Human Lispro (Insulin Lispro 100 Unit/Ml 3 Ml Vial) 0 unit SUBCUT QIDACHS [facility]; Protocol Last Admin: 06/05/21 08:27 Dose: 2 unit Documented by: Ketorolac Tromethamine (Ketorolac Tromethamine 30 Mg/Ml Vial) 30 mg IVPUSH Q6H [facility] Last Admin: 06/05/21 05:54 Dose: 30 mg Documented by: Morphine Sulfate (Morphine Sulfate 4 Mg/Ml Cartridge) 4 mg IVPUSH Q3H PRN; Protocol PRN Reason: Pain, Severe (Pain Scale 7-10) Ondansetron HCl (Ondansetron Hcl 4 Mg/2 Ml Vial) 4 mg IVPUSH ONCE PRN PRN Reason: Nausea and Vomiting Ondansetron HCl (Ondansetron Hcl 4 Mg/2 Ml Vial) 4 mg IVPUSH Q8H PRN PRN Reason: Nausea Oxycodone HCl (Oxycodone Hcl Immed Release 5 Mg Tablet) 10 mg PO Q4H PRN PRN Reason: Pain, Moderate (Pain Scale 4-6 Last Admin: 06/04/21 17:21 Dose: 5 mg Documented by: Pharmacy Consult (Consult Rx Perform Med Rec) 1 each MISCELLANE ONCE PRN PRN Reason: Consult order Sodium Chloride (0.9 % Sodium Chloride Flush 3 Ml Syringe) [facility] Last Admin: 06/05/21 08:27 Dose: 3 ml Documented by: <Charlotte Paige PA-C - Last Filed: 06/05/21 11:22> Time Spent With Patient Time: Total time spent is greater than 50% in coordination of care (as documented) at patient's floor/unit and/or counseling patient: <Charlotte Paige PA-C - Last Filed: 06/05/21 11:22> Quality Stroke Does the patient have a stroke diagnosis?: No <Charlotte Paige PA-C - Last Filed: 06/05/21 11:22> VTE Prior VTE?: No <Charlotte Paige PA-C - Last Filed: 06/05/21 11:22> VTE Risk Level:: Medical - moderate - high <Charlotte Paige PA-C - Last Filed: 06/05/21 11:22> VTE Device Contraindication: N/A - Device Ordered <Charlotte Paige PA-C - Last Filed: 06/05/21 11:22> VTE Drug Contraindication: Treatment Not Indicated <Charlotte Paige PA-C - Last Filed: 06/05/21 11:22>
[2021-06-05 11:17] LABS: Glucose, Whole Blood 228 mg/dL (60-115)
[2021-06-05] MEDS: oxyCODONE HCl Immed Release 5 MG TABLET 10 MG PO (12:23)
--- NOTE | 2021-06-05 15:37 | MHC.CM.PN ---
nurse ed case manager note electronic medical record reviewed along with case disucssed with staff nurse and hospitlasit , met with patient he is anticip[ating to be discharged in a few days and understands he will need vna for j-p drain and ostomy teaching , requesting nursing to start this now, s/p rectal perforation-- s/p laarotomy, repair of a rectal perforation , divertimng loop sigmoid colostomy, presently advancimng diet , transitioning margo oral analgeics, encouraging oob and ambulation, iv abx discharge plan home with daughter hvna for nrusing for ostomy reinforcement teaching and post op asessement and diagnosis sign stymptom management transportation family pcp dr connor thompson follow up with surgeons per discharge instructiokns staff nurses to provide ostomy reaching
[2021-06-05 15:52] LABS: Glucose, Whole Blood 245 mg/dL (60-115)
[2021-06-05 19:54] LABS: Glucose, Whole Blood 246 mg/dL (60-115)
[2021-06-06 04:00] VITALS: BP 165/82; PULSE 72; RESP 16; TEMP 36; O2SAT 96
[2021-06-06] MEDS: Piperacillin Sodium/Tazobactam 3.375 GM in 0.9 % Sodium Chloride 50 ML IV ×4 (05:56→23:34)
[2021-06-06] MEDS: Ketorolac Tromethamine 30 MG/ML VIAL IVPUSH ×4 (05:56→23:34)
[2021-06-06 06:58] VITALS: BP 156/79; PULSE 76; RESP 19; TEMP 36.1; O2SAT 95
[2021-06-06 07:04] VITALS: O2SAT 98
[2021-06-06 07:05] LABS: Glucose, Whole Blood 229 mg/dL (60-115)
[2021-06-06] MEDS: Insulin Lispro 100 UNIT/ML 3 ML VIAL SUBCUT ×4 (07:44→20:34)
--- NOTE | 2021-06-06 10:36 | PM.PNGS ---
Subjective Subjective Date of Service: 06/06/21 Interval history: Says he feels well Incisional pain much improved Stoma functioning well No events reported Physical Exam Vital Signs: Vital Signs: Last Vital Signs Temp 97 F 06/06/21 06:58 Pulse 76 06/06/21 06:58 Resp 19 06/06/21 06:58 BP 156/79 H 06/06/21 06:58 Pulse Ox 98 06/06/21 07:04 BMI result Body Mass Index 21.6 Const: General: comfortable and no acute distress Resp: Effort & Inspection: normal respiratory effort GI: Other: Soft, and distended, stoma functioning well, incision clean Objective Data Active Medications Piperacillin Sod/Tazobactam (Sod 3.375 gm/ Sodium Chloride) 50 mls @ 100 mls/hr IV Q6H [facility] Last Infusion: 06/06/21 06:32 Dose: 0 mls/hr Documented by: CHRISTIANO Insulin Human Lispro (Insulin Lispro 100 Unit/Ml 3 Ml Vial) 0 unit SUBCUT QIDACHS [facility]; Protocol Last Admin: 06/06/21 07:44 Dose: 4 unit Documented by: CLARISSA Ketorolac Tromethamine (Ketorolac Tromethamine 30 Mg/Ml Vial) 30 mg IVPUSH Q6H [facility] Last Admin: 06/06/21 05:56 Dose: 30 mg Documented by: CHRISTIANO Morphine Sulfate (Morphine Sulfate 4 Mg/Ml Cartridge) 4 mg IVPUSH Q3H PRN; Protocol PRN Reason: Pain, Severe (Pain Scale 7-10) Ondansetron HCl (Ondansetron Hcl 4 Mg/2 Ml Vial) 4 mg IVPUSH ONCE PRN PRN Reason: Nausea and Vomiting Ondansetron HCl (Ondansetron Hcl 4 Mg/2 Ml Vial) 4 mg IVPUSH Q8H PRN PRN Reason: Nausea Oxycodone HCl (Oxycodone Hcl Immed Release 5 Mg Tablet) 10 mg PO Q4H PRN PRN Reason: Pain, Moderate (Pain Scale 4-6 Last Admin: 06/05/21 12:23 Dose: 10 mg Documented by: CLARISSA Pharmacy Consult (Consult Rx Perform Med Rec) 1 each MISCELLANE ONCE PRN PRN Reason: Consult order Sodium Chloride (0.9 % Sodium Chloride Flush 3 Ml Syringe) 3 ml IVFLUSH QSHIFT [facility] Last Admin: 06/06/21 07:52 Dose: Not Given Documented by: CLARISSA Non-Admin Reason: IV Running Labs CBC & Chem 7: 06/05/21 05:27 06/03/21 08:43 Labs: Laboratory Results - last 24 hr 06/05/21 06/05/21 06/05/21 11:14 15:31 19:33 POC Glucose 228 H 245 H 246 H 06/06/21 06:58 POC Glucose 229 H Procedures Date of Service Date of Service: 06/06/21 Progress Note: A&P Assessment and plan (1) Rectal perforation: Status: Acute Plan Status post repair perforation, with diverting loop colostomy from the sigmoid Good pain control Diet as tolerated Possible DC home tomorrow Remove stoma bridge today Will piano case maker see patient Fall Risk Details Current Medications: Current Medications Piperacillin Sod/Tazobactam (Sod 3.375 gm/ Sodium Chloride) 50 mls @ 100 mls/hr IV Q6H [facility] Last Infusion: 06/06/21 06:32 Dose: Infused Documented by: Insulin Human Lispro (Insulin Lispro 100 Unit/Ml 3 Ml Vial) 0 unit SUBCUT QIDACHS [facility]; Protocol Last Admin: 06/06/21 07:44 Dose: 4 unit Documented by: Ketorolac Tromethamine (Ketorolac Tromethamine 30 Mg/Ml Vial) 30 mg IVPUSH Q6H [facility] Last Admin: 06/06/21 05:56 Dose: 30 mg Documented by: Morphine Sulfate (Morphine Sulfate 4 Mg/Ml Cartridge) 4 mg IVPUSH Q3H PRN; Protocol PRN Reason: Pain, Severe (Pain Scale 7-10) Ondansetron HCl (Ondansetron Hcl 4 Mg/2 Ml Vial) 4 mg IVPUSH ONCE PRN PRN Reason: Nausea and Vomiting Ondansetron HCl (Ondansetron Hcl 4 Mg/2 Ml Vial) 4 mg IVPUSH Q8H PRN PRN Reason: Nausea Oxycodone HCl (Oxycodone Hcl Immed Release 5 Mg Tablet) 10 mg PO Q4H PRN PRN Reason: Pain, Moderate (Pain Scale 4-6 Last Admin: 06/05/21 12:23 Dose: 10 mg Documented by: Pharmacy Consult (Consult Rx Perform Med Rec) 1 each MISCELLANE ONCE PRN PRN Reason: Consult order Sodium Chloride (0.9 % Sodium Chloride Flush 3 Ml Syringe) 3 ml IVFLUSH QSHIFT [facility] Last Admin: 06/06/21 07:52 Dose: Not Given Documented by: Time Spent With Patient Time: Total time spent is greater than 50% in coordination of care (as documented) at patient's floor/unit and/or counseling patient: Quality Stroke Does the patient have a stroke diagnosis?: No VTE Prior VTE?: No VTE Risk Level:: Medical - moderate - high VTE Device Contraindication: N/A - Device Ordered VTE Drug Contraindication: Treatment Not Indicated
[2021-06-06 11:21] VITALS: BP 168/82; PULSE 82; RESP 18; TEMP 36.1; O2SAT 96
[2021-06-06 11:26] LABS: Glucose, Whole Blood 293 mg/dL (60-115)
--- NOTE | 2021-06-06 12:40 | MHC.CM.PN ---
PATIENT TO RETURN HOME TODAY WITH [facility] FOR OSTOMY CARE AND TEACH. SUPPLIES REQUESTED FOR START OF CARE RX TO GO WITH PATIENT, WELL. RN AWARE OF PLAN
--- NOTE | 2021-06-06 13:18 | W.MHC.F2F ---
Service Date Service Date: 06/06/21 Encounter Date of encounter: 06/06/21 Reasons for Services Signs and symptoms assessed: Has colostomy after rectal perforation Overseeing Care: Cristian Kendrick Homebound: Leaving the home is medically contraindicated at this time without the asist of a device and/or another person due th the listed conditions above and below. Reason homebound: pain with transfers Homebound supporting statement: postop from laparotomy, sigmoid colostomy Certification: Based on the above findings, I certify that this patient is confined to the home and needs intermittent custodial care, physical therapy and/or speech therapy, or continues to need occupational therapy. The patient is under my care, and I have initiated the establishment of the plan of care. The patient will be followed by a physician who will periodically review the plan of care.
[2021-06-06 15:22] VITALS: BP 177/89; PULSE 96; RESP 18; TEMP 37.1; O2SAT 99
[2021-06-06] MEDS: 0.9 % Sodium Chloride Flush 3 ML SYRINGE IVFLUSH ×2 (16:03→23:34)
[2021-06-06 16:38] LABS: Glucose, Whole Blood 251 mg/dL (60-115)
[2021-06-06 19:16] VITALS: BP 176/72; PULSE 92; RESP 18; TEMP 36.9; O2SAT 94
[2021-06-06 20:27] LABS: Glucose, Whole Blood 236 mg/dL (60-115)
[2021-06-07] VITALS: BP 153/85; PULSE 77; RESP 18; TEMP 36.8; O2SAT 96
[2021-06-07 03:44] VITALS: BP 134/67; PULSE 70; RESP 18; TEMP 37.1; O2SAT 97
[2021-06-07] MEDS: Piperacillin Sodium/Tazobactam 3.375 GM in 0.9 % Sodium Chloride 50 ML IV ×2 (05:37→13:14)
[2021-06-07] MEDS: Ketorolac Tromethamine 30 MG/ML VIAL IVPUSH ×2 (05:38→13:13)
[2021-06-07 07:53] VITALS: BP 172/90; PULSE 90; RESP 18; TEMP 37.2; O2SAT 99
[2021-06-07 09:19] LABS: Glucose, Whole Blood 337 mg/dL (60-115)
[2021-06-07] MEDS: Insulin Lispro 100 UNIT/ML 3 ML VIAL SUBCUT ×2 (09:28→12:41)
[2021-06-07] MEDS: 0.9 % Sodium Chloride Flush 3 ML SYRINGE IVFLUSH (09:29)
--- NOTE | 2021-06-07 10:07 | PM.PNGS ---
Subjective Subjective Date of Service: 06/07/21 Interval history: good oral intake feels well no complaints Physical Exam Vital Signs: Vital Signs: Last Vital Signs Temp 98.9 F 06/07/21 07:53 Pulse 90 06/07/21 07:53 Resp 18 06/07/21 07:53 BP 172/90 H 06/07/21 07:53 Pulse Ox 99 06/07/21 07:53 BMI result Body Mass Index 21.6 Const: General: comfortable and no acute distress Resp: Effort & Inspection: normal respiratory effort Cardio: Rate: regular rate GI: Other: soft, incision clean and dry, stoma functioning well Objective Data Active Medications Piperacillin Sod/Tazobactam (Sod 3.375 gm/ Sodium Chloride) 50 mls @ 100 mls/hr IV Q6H [facility] Last Infusion: 06/07/21 06:13 Dose: 0 mls/hr Documented by: ROSALBA Insulin Human Lispro (Insulin Lispro 100 Unit/Ml 3 Ml Vial) 0 unit SUBCUT QIDACHS [facility]; Protocol Last Admin: 06/07/21 09:28 Dose: 8 unit Documented by: TIFFANY Ketorolac Tromethamine (Ketorolac Tromethamine 30 Mg/Ml Vial) 30 mg IVPUSH Q6H [facility] Last Admin: 06/07/21 05:38 Dose: 30 mg Documented by: ROSALBA Morphine Sulfate (Morphine Sulfate 4 Mg/Ml Cartridge) 4 mg IVPUSH Q3H PRN; Protocol PRN Reason: Pain, Severe (Pain Scale 7-10) Ondansetron HCl (Ondansetron Hcl 4 Mg/2 Ml Vial) 4 mg IVPUSH ONCE PRN PRN Reason: Nausea and Vomiting Ondansetron HCl (Ondansetron Hcl 4 Mg/2 Ml Vial) 4 mg IVPUSH Q8H PRN PRN Reason: Nausea Oxycodone HCl (Oxycodone Hcl Immed Release 5 Mg Tablet) 10 mg PO Q4H PRN PRN Reason: Pain, Moderate (Pain Scale 4-6 Last Admin: 06/05/21 12:23 Dose: 10 mg Documented by: CLARISSA Pharmacy Consult (Consult Rx Perform Med Rec) 1 each MISCELLANE ONCE PRN PRN Reason: Consult order Sodium Chloride (0.9 % Sodium Chloride Flush 3 Ml Syringe) 3 ml IVFLUSH QSHIFT [facility] Last Admin: 06/07/21 09:29 Dose: 3 ml Documented by: TIFFANY Labs CBC & Chem 7: 06/05/21 05:27 06/03/21 08:43 Labs: Laboratory Results - last 24 hr 06/06/21 06/06/21 06/06/21 11:21 16:33 19:18 POC Glucose 293 H 251 H 236 H 06/07/21 09:10 POC Glucose 337 H Procedures Date of Service Date of Service: 06/07/21 Progress Note: A&P Assessment and plan (1) Rectal perforation: Status: Acute Assessment and Plan: doing well postop good stoma function looks well ok to dc home ffup in office to remove omar [facility]NA arranged Fall Risk Details Current Medications: Current Medications Piperacillin Sod/Tazobactam (Sod 3.375 gm/ Sodium Chloride) 50 mls @ 100 mls/hr IV Q6H [facility] Last Infusion: 06/07/21 06:13 Dose: Infused Documented by: Insulin Human Lispro (Insulin Lispro 100 Unit/Ml 3 Ml Vial) 0 unit SUBCUT QIDACHS [facility]; Protocol Last Admin: 06/07/21 09:28 Dose: 8 unit Documented by: Ketorolac Tromethamine (Ketorolac Tromethamine 30 Mg/Ml Vial) 30 mg IVPUSH Q6H [facility] Last Admin: 06/07/21 05:38 Dose: 30 mg Documented by: Morphine Sulfate (Morphine Sulfate 4 Mg/Ml Cartridge) 4 mg IVPUSH Q3H PRN; Protocol PRN Reason: Pain, Severe (Pain Scale 7-10) Ondansetron HCl (Ondansetron Hcl 4 Mg/2 Ml Vial) 4 mg IVPUSH ONCE PRN PRN Reason: Nausea and Vomiting Ondansetron HCl (Ondansetron Hcl 4 Mg/2 Ml Vial) 4 mg IVPUSH Q8H PRN PRN Reason: Nausea Oxycodone HCl (Oxycodone Hcl Immed Release 5 Mg Tablet) 10 mg PO Q4H PRN PRN Reason: Pain, Moderate (Pain Scale 4-6 Last Admin: 06/05/21 12:23 Dose: 10 mg Documented by: Pharmacy Consult (Consult Rx Perform Med Rec) 1 each MISCELLANE ONCE PRN PRN Reason: Consult order Sodium Chloride (0.9 % Sodium Chloride Flush 3 Ml Syringe) 3 ml IVFLUSH QSHIFT [facility] Last Admin: 06/07/21 09:29 Dose: 3 ml Documented by: Time Spent With Patient Time: Total time spent is greater than 50% in coordination of care (as documented) at patient's floor/unit and/or counseling patient: Quality Stroke Does the patient have a stroke diagnosis?: No VTE Prior VTE?: No VTE Risk Level:: Medical - moderate - high VTE Device Contraindication: N/A - Device Ordered VTE Drug Contraindication: Treatment Not Indicated
[2021-06-07 12:00] VITALS: BP 147/95; PULSE 92; RESP 18; TEMP 36.8; O2SAT 98
[2021-06-07 12:27] LABS: Glucose, Whole Blood 247 mg/dL (60-115)
--- NOTE | 2021-06-07 13:08 | HE.PHANOTE ---
Mian Pt to be discharged today
--- NOTE | 2021-06-07 14:19 | P.DS_ITS ---
DS: Providers Provider Date of Service: 06/07/21 Date of admission: 06/02/21 23:03 Primary care physician: Bri Roger MD Attending physician on admission: Cristian Kendrick Consults: 06/03/21 03:00 Consult to Hospitalist Routine Consulting Provider: Hospitalist Reason For Exam: DM, on anticoagulant for hx of DVTs Attending physician on discharge: Cristian Kendrick DS: Diagnosis Discharge Diagnosis (1) Rectal perforation: Status: Acute DS: Summary Hospital Course Hospital Course: BRIEF HPI: Jerry Zayas is a 60 year old male who came to the ED tonight for lower abdominal pain. He says he had fallen on a paper towel spindle yesterday and this had entered his rectum. He says he pulled this out without difficulty. However, he started to have lower abdominal pain all night last night, and this abdominal pain persisted throughout the day. He describes seeing small amounts of blood per rectum last night, but says he did not notice any today. He describes some nausea but no vomiting. He has a hx of a DVT and takes Xarelto. He is not certain whether he last took Xarelto yesterday or [address] scan showed some free air in the peritoneum, with thickening of his rectum consistent with a rectal perforation from instrumentation. HOSPITAL COURSE: It was recommended to proceed to OR for ex lap, repair of the perforation, colostomy and possible resection. He is on Xarelto for a history fo DVTs but says his last dose may have been 2 days ago. He understood the risks of perioperative bleeding given his xarelto use, but unfortunately, he had emergent indications in view of his free air and abdominal pain. He was added on emergently to the operating room schedule. On 06/03/21, a laparotomy, repair of of rectal perforation, diverting loop sigmoid colostomy was performed by Dr. Kendrick without complication. The patient tolerated the procedure well and was admitted to the medical/surgical floor for observation. A hospitalist consult was obtained given his prior DVT and diabetes mellitus. He was kept on IV zosyn, IVF, and clear liquids. The patient had an uncomplicated recovery course. He initially struggled with in cisional pain post operatively but this improved with adjustment in analgesics. His aguillon was discontinued on POD #1. He was ambulated. He was kept on clear liquids until his ostomy began passing flatus on POD #2. He was then advanced to a solid, diabetic diet. His ostomy began to have stool output. The colostomy bridge was removed on POD #3 and colostomy education was performed. His VINNY drain had scanty serosanguineous output and was removed. On POD #4, he felt well and was tolerating a solid diet. His pain was well controlled. His ostomy had good output. His abdomen was benign with clean incision. He felt ready for discharge. He was discharged to home on 4// with VNA services. All of his home medications were resumed upon discharge, including xarelto. He is to follow up with Dr. Kendrick in office in 2 weeks. Status at Discharge Functional status at discharge: independent ambulation Overall status at discharge: patient is progressing back to baseline Time Spent with Patient Time attestation: Total time spent providing and/or coordinating discharge services: Discharge coordination time: Greater than 30 minutes Quality: Safe Use of Opioids Does Pt have an Active Cancer Diagnosis on the Problem List?: No Quality: Stroke Does the patient have a stroke diagnosis?: No Physical Exam Vital Signs: Vital Signs: Last Vital Signs Temp 98.3 F 04/02/ 12:00 Pulse 92 04/02/ 12:00 Resp 18 06/07/ 12:00 BP 147/95 H 06/07/ 12:00 Pulse Ox 98 // 12:00 BMI result Body Mass Index 21.6 Const: General: comfortable, no acute distress and alert Orientation/consciousness: patient oriented x3 Resp: Effort & Inspection: normal respiratory effort GI: Other: ostomy pink, edematous, stool in appliance Inspection: No distended and Yes incision (clean) Palpation (GI): Soft to palpation, Tenderness to palpation present (GI) (mild, incisional), no guarding and not rigid Neuro: General: patient oriented x3 Extrem: General: Yes no clubbing, cyanosis or edema Discharge Plan Discharge Patient Disposition: Home Health Service Discharge Diagnosis: rectal perforation s/p repair with diverting loop sigmoid colostomy Referrals: Reilly GUALLPAA [Outside] - 1 Week Cristian Kendrick MD [Physician] - 2 Weeks Po,Bri Turner MD [Primary Care Provider] - 1 Week Discharge Medications: New oxycodone-acetaminophen [Percocet] 5-325 mg tablet 1 tab PO Q4-6H PRN (Reason: pain, severe) Qty: 30 0RF Continued (DME) lancets [FreeStyle Lancets] 28 gauge misc See Rx Instructions .ROUTE .MEDSUPPLY Qty: 100 0RF Rx Instructions: As directed (DME) blood-glucose meter [FreeStyle Flash System] Kit See Rx Instructions .ROUTE .MEDSUPPLY Qty: 1 0RF Rx Instructions: As directed (DME) Freestyle InsuLinx Test Strips Strip See Rx Instructions .ROUTE .MEDSUPPLY Qty: 100 3RF Rx Instructions: As directed multivitamin Tablet 1 tab PO DAILY 0RF metformin 1,000 mg tablet 1,000 mg PO BID 90 Days Qty: 180 1RF (DME) FreeStyle Brodie 14 Day Sensor Kit See Rx Instructions .ROUTE .MEDSUPPLY Qty: 6 3RF Rx Instructions: As directed (DME) FreeStyle Brodie 14 Day Haugen Misc See Rx Instructions .ROUTE .MEDSUPPLY Qty: 1 0RF Rx Instructions: As directed Xarelto 10 mg tablet 10 mg PO DAILY Qty: 90 4RF atorvastatin 20 mg tablet 20 mg PO BEDTIME 30 Days Qty: 30 5RF Discharge Orders: Discharge Order (Routine); Ordered 06/07/21 Ordered By: Cristian Kendrick Diet: advance to usual diet and diabetic diet Activity on Discharge: No heavy lifting Stand Alone Forms: Patient Portal Discharge page Activity Restrictions/Additional Instructions: If the incision area is tender, you may apply an ice pack for short intervals (No more than 20 minutes on, followed by at least 20 minutes off). Do not apply heat. Do not use creams, lotions, or topical antibiotics unless instructed to do so by your surgeon. These can cause infection or allergic reaction. Ok to shower. You have omar closing your incision and these will be removed approximately 10-14 days after surgery. NO HEAVY LIFTING (>10lbs) or strenuous activity. COLOSTOMY: Coloplast #[id number], apply to colostomy q3-4 days and PRN. Follow up in office with Dr. Kendrick. ([phone]) Call Your Doctor If: -Your temperature exceeds 101.5? F -You experience excessive pain or swelling -You have an unexpected reaction to medication -You have excessive bleeding -You experience continued vomiting/nausea -Your incision begins to separate -Your incision shows signs of infection such as increased redness, swelling, excessive pain, drainage (light blood or clear fluid is normal) or heat Care Plan Goals: Return to baseline health and gradual return to activity following recovery period. Eventual colostomy reversal. Health Concerns: rectal perforation Plan of Treatment: S/p repair of rectal perforation, diverting loop sigmoid colostomy F/u in office Assessment: Doing well post op. Discharge Date/Time: 06/07/21 15:00
== END 2021-06-07 15:00 | disposition home health service (06) | DRG 231 ==
LOC: HO.ED 22:34 → HO.EDOVER 23:32 → HO.S3 06-03 00:25
PROVIDERS: Physician Assistant Surgical; Admitting Provider Surgery; Emergency Provider Emergency Medicine; PCP Internal Medicine; Visit Provider Surgery
PROC: 0D1N0Z4 Bypass Sigmoid Colon to Cutaneous, Open Approach (ICD-10-PCS; CPT 49000; principal; 2021-06-03)
DX: S36.63XA Laceration of rectum, initial encounter (principal); K66.8 Other specified disorders of peritoneum; D72.829 Elevated white blood cell count, unspecified; E11.9 Type 2 diabetes mellitus without complications; I10 Essential (primary) hypertension; E78.00 Pure hypercholesterolemia, unspecified; Z20.822 Contact with and (suspected) exposure to COVID-19; X58.XXXA Exposure to other specified factors, initial encounter; Z95.828 Presence of other vascular implants and grafts; Z79.01 Long term (current) use of anticoagulants; Z79.84 Long term (current) use of oral hypoglycemic drugs; Z79.899 Other long term (current) 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
CPT/HCPCS: 36415; 36430; 74176; 80048; 80076; 82947; 83605; 83690; 84484; 85025; 85027; 85610; 85730; 86850; 86870; 86900; 86901; 86902; 86905; 86920; 86922; 87040; 87635; 96361; 96374; 99024; 99285; C1758; J0131; J1170; J1885; J2270; J2405; J2543; J3010

== ENCOUNTER → 2021-06-18 13:51 | Outpatient (BNVA) | payer OTHER, SELFPAY | PROVIDERS: PCP Internal Medicine; Referring Provider Internal Medicine; Visit Provider Surgery | DX: Z48.815 Encounter for surgical aftercare following surgery on the digestive system (principal); Z93.3 Colostomy status | CPT/HCPCS: 99212 ==

== ENCOUNTER 2021-06-30 06:07 | Outpatient (REF) | payer OTHER, SELFPAY ==
[2021-06-30 06:32] LABS: MANUAL DIFF FLAG NO
[2021-06-30 07:55] LABS: Basophils Percent Auto 0.4 % (0-2); Eosinophils Absolute Auto 0.9 X10*3/uL (0.0-0.4); Eosinophils Percent Auto 9.2 % (0-4); Hematocrit 40.9 % (42.0-52.0); Imm Gran Abs Auto 0.03 X10*3/uL (0.00-0.03); Imm Gran Pct Auto 0.3 % (0.0-0.4); Immature Retic Fraction 10.9 % (2.3-13.4); Lymphocytes Absolute Auto 2.8 X10*3/uL (1.2-4.9); Lymphocytes Percent Auto 26.9 % (20-40); Mean Corpuscular HGB Conc 34.2 g/dl (31.0-36.0); Mean Corpuscular Hemoglobin 32.2 pg (27.0-33.0); Mean Platelet Volume 11.4 fL (9.4-12.4); Monocytes Absolute Auto 1.1 X10*3/uL (0.1-1.2); Monocytes Percent Auto 10.4 % (2-11); Neutrophils Absolute Auto 5.4 x10*3/uL (2.0-8.3); Neutrophils Percent Auto 52.8 % (45-73); Platelet Count 223 X10*3/uL (160-400); Red Blood Count 4.35 X10*6/uL (4.60-5.80); Red Cell Distribution Width 12.1 % (11.0-16.0); Retic HGB Equivalent 35.9 pg (30.0-35.0); Reticulocyte Percent 1.2 % (0.5-1.8); Reticulocytes Absolute 0.054 X10*6/uL (0.026-0.095); White Blood Count 10.2 X10*3/uL (4.8-10.8)
[2021-06-30 08:06] LABS: Alanine Aminotransferase 21 U/L (0-40); Albumin Level 4.4 g/dL (3.5-5.0); Alkaline Phosphatase 84 U/L (39-117); Anion Gap 13 (12-20); Aspartate Amino Transferase 18 U/L (5-37); Bilirubin Total 0.6 mg/dL (0.0-1.0); Blood Urea Nitrogen 20 mg/dL (9-16); Calcium 10.3 mg/dL (8.4-10.2); Carbon Dioxide 27 mmol/L (22-29); Chloride 100 mmol/L (96-108); Cholesterol 156 mg/dL; Estimated Glomerular Filt Rate > 60; Glucose Random 304 mg/dL (60-115); HDL Cholesterol 46 mg/dL; Iron 95 mcg/dL (45-160); LDL Cholesterol Calculated 78 mg/dl; Percent Iron Saturation 22 % (15-50); Potassium 4.3 mmol/L (3.3-5.1); Sodium 136 mmol/L (135-145); Total Iron Binding Capacity 424 mcg/dL (228-428); Total Protein 7.4 g/dL (6.5-8.0); Triglycerides 163 mg/dL; Unsaturated Iron Binding 329 ug/dL
[2021-06-30 08:28] LABS: Ferritin 259 ng/mL (20-250)
[2021-06-30 08:39] LABS: Folate 14.3 ng/mL (> or = 4.0); Vitamin B12 385 pg/mL (200-900)
[2021-06-30 09:01] LABS: Appearance Urine CLEAR; Color Urine YELLOW; Glucose Urine UA 500 MG/DL (NEG); Leukocyte Esterase Urine NEG (NEG); Nitrite Urine NEG (NEG); Specific Gravity - Urine 1.015 (1.005-1.025); Urine Blood NEG (NEG); Urine Ketones NEG (NEG); Urine Protein NEG (NEG-TRACE)
[2021-06-30 09:26] LABS: Creatinine Urine 39.62 mg/dL
== END 2021-06-30 06:08 | disposition home or self-care (01) ==
LOC: HO.LAB 06:07
PROVIDERS: PCP Internal Medicine; Visit Provider Internal Medicine
DX: E11.65 Type 2 diabetes mellitus with hyperglycemia (principal); R30.0 Dysuria; E78.00 Pure hypercholesterolemia, unspecified
CPT/HCPCS: 36415; 80053; 80061; 81003; 82607; 82728; 82746; 83540; 85025; 85045

== ENCOUNTER → 2021-07-08 09:59 | Outpatient (BNVA) | payer OTHER, SELFPAY | PROVIDERS: PCP Internal Medicine; Referring Provider Internal Medicine; Visit Provider Surgery | DX: Z93.2 Ileostomy status (principal) | CPT/HCPCS: 99211 ==

== ENCOUNTER 2021-07-10 10:28 | Outpatient (REF) | payer OTHER, SELFPAY ==
--- NOTE | ~2021-07-10 | XR_ITS ---
EXAMINATION: XR KNEE, RIGHT CLINICAL INFORMATION: Right knee pain status post fall one week ago. COMPARISON: None TECHNIQUE: Four views of the right knee. FINDINGS: No significant tricompartmental degenerative joint changes are seen. There is no acute fracture or dislocation. There is no overt joint effusion. Moderate prepatellar soft tissue swelling is seen. Moderate to severe atherosclerosis is seen. XR/XR knee RT 4V IMPRESSION: 1. No acute fracture or significant degenerative changes. 2. Moderate prepatellar swelling in the posttraumatic or secondary to bursal enlargement. Correlate with physical exam.
== END 2021-07-10 10:29 | disposition home or self-care (01) ==
LOC: HO.XRAY 10:28
PROVIDERS: PCP Internal Medicine; Visit Provider Nurse Practitioner Family
DX: M25.461 Effusion, right knee (principal); M25.462 Effusion, left knee
CPT/HCPCS: 73564

== ENCOUNTER → 2021-07-16 14:53 | Outpatient (BNVA) | payer OTHER, SELFPAY | PROVIDERS: PCP Internal Medicine; Referring Provider Internal Medicine; Visit Provider Surgery | DX: K63.1 Perforation of intestine (nontraumatic) (principal) | CPT/HCPCS: 99212 ==

== ENCOUNTER → 2021-07-18 12:34 | Outpatient (BNVA) | payer OTHER, SELFPAY | PROVIDERS: PCP Internal Medicine; Visit Provider Dietitian, Registered | DX: E11.65 Type 2 diabetes mellitus with hyperglycemia (principal) | CPT/HCPCS: 97803 ==

== ENCOUNTER 2021-08-14 07:21 | Outpatient (REF) | payer OTHER, SELFPAY ==
--- NOTE | ~2021-08-14 | XR_ITS ---
EXAMINATION: XR KNEE AP STANDING CLINICAL INFORMATION: Pain COMPARISON: 07/10/2021 TECHNIQUE: AP bilateral standing view of the knees was obtained. FINDINGS: Right knee: No fracture or subluxation. Medial and lateral compartmental joint spaces are maintained. Vascular calcifications noted. Soft tissues are otherwise unremarkable. Left knee: No fracture or subluxation. Medial and lateral compartmental joint spaces are maintained. Vascular calcifications noted. Soft tissues are otherwise unremarkable. XR/XR knee standing BI IMPRESSION: No suspicious osseous finding of either knee on this single view.
== END 2021-08-14 07:22 | disposition home or self-care (01) ==
LOC: HO.HOSX 07:21
PROVIDERS: Visit Provider Physician Assistant
DX: M25.561 Pain in right knee (principal); M25.461 Effusion, right knee; S80.01XA Contusion of right knee, initial encounter; X58.XXXA Exposure to other specified factors, initial encounter; Y93.9 Activity, unspecified; Y92.9 Unspecified place or not applicable; Y99.9 Unspecified external cause status
CPT/HCPCS: 73565; 99202

== ENCOUNTER → 2021-09-04 09:09 | Outpatient (BNVA) | payer OTHER, SELFPAY | PROVIDERS: PCP Internal Medicine; Visit Provider Surgery | DX: Z93.3 Colostomy status (principal) | CPT/HCPCS: 99211 ==

== ENCOUNTER 2021-09-09 10:25 | Outpatient (REF) | payer OTHER, SELFPAY ==
--- NOTE | ~2021-09-09 | FL_ITS ---
EXAMINATION: XR BARIUM ENEMA CLINICAL INFORMATION: Perforation of intestine post colostomy COMPARISON: Previous CT of the abdomen and pelvis May 2021 TECHNIQUE: Initially limited single contrast barium enema was performed via the rectum. Subsequently, using a Tavarez catheter, the remainder of the colon was filled with barium and single contrast enema completed. FINDINGS: No perforation or leak is seen. There is mild diverticulosis of the colon. There is a left lower quadrant distal left colon colostomy. The rectum is normal. The appendix is normal. FLUOROSCOPY TIME: 2 minutes DOSE AREA PRODUCT: 18 CGY per centimeter squared. 31 fluoroscopic images and 8 overhead images. FL/FL barium enema IMPRESSION: No perforation/leak seen.
== END 2021-09-09 10:26 | disposition home or self-care (01) ==
LOC: HO.XRAY 10:25
PROVIDERS: PCP Internal Medicine; Visit Provider Surgery
DX: K63.1 Perforation of intestine (nontraumatic) (principal)
CPT/HCPCS: 74270

== ENCOUNTER 2021-09-10 11:01 | Outpatient (REF) | payer OTHER, SELFPAY ==
--- NOTE | ~2021-09-10 | MR_ITS ---
EXAMINATION: MRI BRAIN WITHOUT CONTRAST. CLINICAL INFORMATION: 61-year-old with hemiparesis; self-reported unsteady gait. COMPARISON: 02/26/2018 CT brain. TECHNIQUE: Multiplanar multisequence MR imaging of the brain was done without IV contrast. FINDINGS: BRAIN VOLUME: There is moderate diffuse, generalized brain parenchymal volume loss, which appears somewhat progressed from the previous exam within the limitations of the comparison. STRUCTURAL: No malformations. BRAIN AND MENINGES: DWI sequence demonstrates no restricted diffusion to suggest acute or subacute cerebral ischemia. There are confluent zones of FLAIR/T2 signal hyperintensity within the subcortical white matter and deeper periventricular white matter of both cerebral hemispheres, extending into the temporal lobe white matter on the right which are nonspecific findings and are somewhat T1 hypointense likely reflecting chronic ischemic microangiopathy. There is a right parietal chronic cortical infarct with focal parenchymal gliosis and volume loss. Note is made of a 3.8 x 2.0 cm extra-axial soft tissue mass overlying the anterior right frontal convexity. On retrospective review of the previous study, the mass is relatively inconspicuous and measured 1.8 cm on the prior exam. This would be consistent with an increase in size. There are some foci of susceptibility-weighted signal loss within this mass suggesting some dystrophic calcification on current study. This most likely represents a meningioma resulting in mild indentation of the right superior frontal gyrus without adjacent brain edema. Recommend follow up study with contrast material to further assess. Some patchy T2 hyperintensity in the olesya to the right of midline likely reflects chronic ischemic microangiopathy. VENTRICLES AND SUBARACHNOID SPACES: The ventricular system is diffusely dilated. The 3rd ventricle measures 1.3 cm maximum cross-sectional diameter which is stable. The 4th ventricle is also dilated similar to the previous study and there is dilatation of the lateral ventricles, perhaps slightly increased in size from the previous CT. ORBITAL STRUCTURES: The visualized orbital structures are grossly unremarkable within the limitations of the study. VASCULAR: Signal voids are noted in the visualized major intracranial vessels. OSSEOUS STRUCTURES, SINUSES/MASTOIDS, EXTRACRANIAL SOFT TISSUES: Minor mucosal thickening in the ethmoid complex and maxillary sinuses is noted, with anterior nasal septal deviation to the left. Bony structures appear grossly intact. MR/MR head/brain wo con IMPRESSION: 1. Probable chronic ischemic microangiopathy in the white matter of both cerebral hemispheres and chronic ischemic microangiopathy in the olesya. There is also evidence of a remote right parietal cortical infarct with adjacent parenchymal gliosis and volume loss. 2. 3.8 cm extra-axial mass overlying the anterior right frontal convexity increased in size from previous CT, likely reflecting a meningioma. Recommend follow up study with contrast to further assess. 3. Diffuse ventriculomegaly possibly mildly progressed, involving the lateral ventricles as described above. This could be secondary to volume loss, but it would be difficult to exclude a component of hydrocephalus. 4. Moderate diffuse generalized brain parenchymal volume loss somewhat progressed from previous study, within the limitations of the comparison with midbrain, pontine and a cerebellar volume loss as well. The [facility] staff will call to confirm receipt of this report with acknowledgement of the findings and any recommendations.
== END 2021-09-10 11:02 | disposition home or self-care (01) ==
LOC: HO.MRI 11:01
PROVIDERS: Visit Provider Psychiatry & Neurology Neurology
DX: G81.90 Hemiplegia, unspecified affecting unspecified side (principal)
CPT/HCPCS: 70551

== ENCOUNTER → 2021-09-18 10:52 | Outpatient (BNVA) | payer OTHER, SELFPAY | PROVIDERS: PCP Internal Medicine; Visit Provider Surgery | DX: Z93.3 Colostomy status (principal) | CPT/HCPCS: 99212 ==

== ENCOUNTER → 2021-09-19 11:22 | Outpatient (BNVA) | payer OTHER, SELFPAY | PROVIDERS: PCP Internal Medicine; Visit Provider Dietitian, Registered | DX: E11.65 Type 2 diabetes mellitus with hyperglycemia (principal); Z79.4 Long term (current) use of insulin; Z71.3 Dietary counseling and surveillance | CPT/HCPCS: 97803 ==

== ENCOUNTER 2021-10-02 07:52 | Outpatient (REF) | payer OTHER, SELFPAY ==
--- NOTE | 2021-10-02 07:54 | EMG_ITS ---
Left median and ulnar motor and sensory studies were performed. Left radial sensory study was performed and paraspinal muscles were tested with a needle. IMPRESSION: 1. [id number] left median neuropathy across carpal tunnel. 2. Underlying axonal sensory motor peripheral neuropathy. MD MARISELA Shafer/EMILY / [id number]
== END 2021-10-02 07:53 | disposition home or self-care (01) ==
LOC: HO.NEURO 07:52
PROVIDERS: Visit Provider Internal Medicine
DX: R20.0 Anesthesia of skin (principal)
CPT/HCPCS: 95886; 95909

== ENCOUNTER 2021-10-17 06:18 | Day surgery (SDC) | payer OTHER, SELFPAY ==
--- NOTE | 2021-10-16 08:37 | HO.ANESPROP2 ---
Documented by User: Clover Ni NP 10/16/21 08:42 HPI - Anesthesia Eval Consult details Narrative: 61yo M for Colonoscopy with Poss Polypectomy via Stoma and Rectum s/p ex lap/colostomy 05/2021 with GA-ETT 7.5 Xarelto for DVT, IVC filter in situ Dementia/meningioma/chronic infarct [facility] Active Problems Active Problems: All Active Problems (Updated 10/10/21 @ 10:00 by Bri Roger MD) DVT (deep venous thrombosis) (Acute) Contusion of right elbow (Acute) Occult fracture of right elbow (Acute) Type 2 diabetes mellitus with hyperglycemia (Acute) Hyperkalemia (Acute) Ulnar neuropathy at elbow of left upper extremity (Acute) Tubular adenoma of colon (Acute) Frequency of micturition (Acute) Cervical radiculopathy (Acute) Post-operative pain (Acute) Insomnia (Acute) Gait instability (Acute) Dysuria (Acute) Swelling of left knee joint (Acute) Swelling of right knee joint (Acute) Impacted cerumen of both ears (Acute) Impacted cerumen of both ears (Acute) Contusion of right knee (Acute) Carpal tunnel syndrome, left (Acute) Peripheral neuropathy (Acute) Urine incontinence (Acute) Cognitive and behavioral changes (Acute) Colostomy in place (Acute) Rectal perforation (Acute) Hypercholesterolemia (Acute) Past Medical History Medical History (Updated 10/10/21 @ 10:00 by Bri Roger MD) Colostomy in place DVT (deep venous thrombosis) History of non-insulin dependent diabetes mellitus Hypercholesterolemia IDDM (insulin dependent diabetes mellitus) Poor short term memory Presence of IVC filter Rectal perforation Thyroid nodule Family History Family History Mother No problems noted. Father Heart problem Family history of problems with anesthesia: No Surgical History Surgical History (Updated 10/10/21 @ 12:02 by Michelle Wood RN) Femoral fracture History of laparotomy History of vasectomy Hx of colonoscopy Mandibular fracture History of Problems with Anesthesia: No Social History Social History Household Members: Significant Other Housing: Apartment Are you a primary healthcare market consultant to a significant other at home: No Do you presently have visiting nurse or other home services: No Alcohol intake: current Alcohol intake frequency: a few times a week Patient Tobacco Use Status: Never used Tobacco e-Cigarette/Vaping Use: Never Used Second Hand Smoke Exposure: No Substance Use Type: Marijuana service: No Current occupational status: employed Current occupational exposures/hazards: No Cognitive needs: No Hearing needs: No Vision needs: No Meds Allergies Allergy/AdvReac Type Severity Reaction Status Date / Time NSAIDS (Non-Steroidal AdvReac Intermediate Gastrointestinal Verified 10/10/21 09:10 Anti-Inflamma Upset Home Medications Medication Instructions Recorded Confirmed Last Taken Type multivitamin 1 tab PO DAILY 06/03/21 10/10/21 06/01/21 History Exam Exam Date and Time: October 16, 2021 0837 Pertinent Lab Results Pertinent Lab Results: Laboratory Tests 06/30/21 06/30/21 06:30 06:30 WBC 10.2 Hgb 14.0 Hct 40.9 L Plt Count 223 D Sodium 136 Potassium 4.3 Chloride 100 Carbon Dioxide 27 BUN 20 H D Creatinine 0.70 Assessment and Plan Assessment Anesthesia Assessment: Chart Reviewed Final Anesthetic Review Family History of Problems with Anesthesia: No History of Problems with Anesthesia: No Documented by User: Watson Delgado MD 10/17/21 12:30 [facility] Past Medical History Medical History (Updated 10/10/21 @ 10:00 by Bri Roger MD) Colostomy in place DVT (deep venous thrombosis) History of non-insulin dependent diabetes mellitus Hypercholesterolemia IDDM (insulin dependent diabetes mellitus) Poor short term memory Presence of IVC filter Rectal perforation Thyroid nodule Family History Family History Mother No problems noted. Father Heart problem Surgical History Surgical History (Updated 10/10/21 @ 12:02 by Michelle Wood RN) Femoral fracture History of laparotomy History of vasectomy Hx of colonoscopy Mandibular fracture Social History Social History Household Members: Significant Other Housing: Apartment Are you a primary healthcare market consultant to a significant other at home: No Do you presently have visiting nurse or other home services: No Alcohol intake: current Alcohol intake frequency: a few times a week Patient Tobacco Use Status: Never used Tobacco e-Cigarette/Vaping Use: Never Used Second Hand Smoke Exposure: No Substance Use Type: Marijuana service: No Current occupational status: employed Current occupational exposures/hazards: No Cognitive needs: No Hearing needs: No Vision needs: No Meds Allergies Allergy/AdvReac Type Severity Reaction Status Date / Time NSAIDS (Non-Steroidal AdvReac Intermediate Gastrointestinal Verified 10/10/21 09:10 Anti-Inflamma Upset Home Medications Medication Instructions Recorded Confirmed Last Taken Type multivitamin 1 tab PO DAILY 06/03/21 10/10/21 06/01/21 History Exam Airway Mallampati Class: III TM Dist: >3cm Neck ROM: Full Partial: Upper Loose/Missing/Broken Teeth: Yes Heart: S1,S2 Lungs: b/l breath sounds Assessment and Plan Assessment Anesthesia Assessment: Anesthesia Plan Discussed Final Anesthetic Review NPO: Yes ASA Class: III Final Preanesthetic Review: Meds/Allgs Chart Reviewed, Consent Obtained/Reviewed and Anes Risks/Benef Reviewed Patient Risk: Intermediate Procedure Risk: Intermediate Anesthetic Plan Anesthetic Plan: MAC: Disposition: Standard PACU
[2021-10-17 06:32] VITALS: BMI 21.7
[2021-10-17 06:35] VITALS: BP 162/85; PULSE 68; RESP 16; TEMP 36.2; O2SAT 100
[2021-10-17] MEDS: Lactated Ringers 1,000 ML 100 ML IVCONT (06:53)
[2021-10-17 06:56] LABS: Glucose, Whole Blood 198 mg/dL (60-115)
--- NOTE | 2021-10-17 07:54 | P.OP_ITS ---
Operative Note Operative Note Date of Service: 10/17/21 Narrative: Preop diagnosis: loop colostomy in place, awaiting reversal Postop diagnosis: Occasional diverticuli in the transverse colon otherwise normal colonoscopy findings Procedure: colonoscopy via the rectum and the stoma Surgeon: Cristian Kendrick MD The patient is a 61-year-old male had undergone repair of rectal perforation along with diverting loop sigmoid colostomy and is here for colonoscopy via the stoma and rectum prior to bursal. He understood the technique of the procedure. He was aware of the risks, benefits, and alternatives. He was brought to the operating room. He was placed in left lateral decubitus position under monitored anesthesia care. A surgical time-out was done. A full digital rectal exam was done. There were no palpable anal canal lesions. The tip of the Olympus colonoscope was gently introduced through the anal orifice and advanced with insufflation until we reached the distal stomal opening. We proceeded to withdraw the scope with careful examination of the entire distal sigmoid and rectal mucosa done with scope withdrawal. I did not see any lesions. I did not see any residual perforation. There was no obvious leak. The distal limb was at least 30 cm long. The anal canal and the anal shelf were unremarkable. The scope was then withdrawn completely . We then turned the patient supine. I intubated the proximal stoma opening. I advanced the scope gently with insufflation until I reached the cecum. The cecum was intubated. The cecum was identified via visualization of the ileocecal valve as well as the appendiceal orifice. The cecal mucosa was unre markable. Scope was then gradually withdrawn with careful examination of the colonic mucosa being done with scope withdrawal. Patient had good prep so it was unlikely that any lesion may have been missed. There was note of occasional diverticuli in the transverse colon and the left colon. The scope was then withdrawn completely with desufflation. The patient tolerated the procedure well. There were no complications noted. He will be seen in the office for follow-up and to schedule for reversal.
[2021-10-17 08:01] VITALS: BP 94/54; PULSE 63; RESP 15; TEMP 36.3; O2SAT 100
--- NOTE | 2021-10-17 08:01 | P.HPSUR_ITS ---
Pre-Procedural Eval Section A Date of Service: 10/17/21 Section B Chief Complaint: Colostomy status Details of Present Illness: has history of repair of rectal perforation and diverting loop colostomy, Relevant Family History (Specify if Yes): No Relevant Social History: None Present Medications: see Short Stay Collaborative assessment Medical History: Significant History ( diverting loop colostomy, repair of rectal perforation; has dementia, gait instability) History of Previous Operations: Relevant previous surgery/procedure and date(s) ( diverting loop colostomy and repair of rectal perforation) Allergies: Allergies Allergy/AdvReac Type Severity Reaction Status Date / Time NSAIDS (Non-Steroidal AdvReac Intermediate Gastrointestinal Verified 10/10/21 09:10 Anti-Inflamma Upset Review of Systems Sugical H&P ROS: Negative: Constitution, Cardiovascular, Respiratory, Neurological, Psychiatric, Hem-Onc, Allergic/Immunologic, Gastrointestinal, Genitourinary, Musculoskeletal, Integumentary, Endocrine and Eyes/Ears/Nose/Th roat Exam Surgical H&P Exam: Normal: HEENT, Normal: Heart, Normal: Lungs, Normal: Extremities, Normal: Skin and Normal: Neurological and Significant Findings: Abdomen ( colostomy in place) Plan Diagnosis/Plan: Unchanged I have reviewed the history and physical and performed a pertinent physical examination on my patient. No changes have occurred unless specified.
[2021-10-17 08:16] VITALS: BP 128/72; PULSE 67; RESP 17; TEMP 36.3; O2SAT 100
== END 2021-10-17 08:53 | disposition home or self-care (01) ==
PROVIDERS: PCP Internal Medicine; Visit Provider Surgery
PROC: 0DBE8ZZ Excision of Large Intestine, Via Natural or Artificial Opening Endoscopic (ICD-10-PCS; CPT 45330; principal; 2021-10-17 07:30)
DX: Z93.3 Colostomy status (principal); K57.30 Diverticulosis of large intestine without perforation or abscess without bleeding; F03.90 Unspecified dementia, unspecified severity, without behavioral disturbance, psychotic disturbance, mood disturbance, and anxiety; R41.3 Other amnesia; R26.89 Other abnormalities of gait and mobility; E78.00 Pure hypercholesterolemia, unspecified; E11.9 Type 2 diabetes mellitus without complications; Z79.84 Long term (current) use of oral hypoglycemic drugs; Z86.718 Personal history of other venous thrombosis and embolism; Z79.02 Long term (current) use of antithrombotics/antiplatelets; Z79.899 Other long term (current) 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; Z88.8 Allergy status to other drugs, medicaments and biological substances; Z95.828 Presence of other vascular implants and grafts; Z98.52 Vasectomy status; F12.90 Cannabis use, unspecified, uncomplicated
CPT/HCPCS: 45330; 44388; 82947

== ENCOUNTER 2021-10-20 09:00 | Outpatient (RCR) | payer OTHER, SELFPAY ==
--- NOTE | 2021-10-20 09:50 | MHC.PT.DC ---
[facility] [place] Office [place] Office [place] Office [address] Frankie Dietrich [address] [phone] F: [phone] F: [phone] F: [phone] F: [phone] Physical Therapy Discharge Report Diagnosis: unsteadiness of gait. Date of Surgery: Date of Evaluation: 09/11/21 Date of Discharge: 10/20/21 Treatments to Date: 11 Cancellations to Date: No Shows to Date: Discharge Status: Achieved Goals Improved Function Independent with HEP Discharge Summary: Jerry has been an active participant in his therapy in the clinic with inconsistent home program compliance. He has met his therapeutic goals, is improved of his function and has a home program he is familiar with. Electronically signed by: Ag Pena PT. Please sign and return to therapist. Thank you for your referral.
== END 2021-10-20 09:48 | disposition home or self-care (01) ==
LOC: HO.PTCHIC 09:00
PROVIDERS: PCP Internal Medicine; Visit Provider Internal Medicine
DX: R26.81 Unsteadiness on feet (principal)
CPT/HCPCS: 97110; 97112; 97162

== ENCOUNTER → 2021-10-30 10:09 | Outpatient (BNVA) | payer OTHER, SELFPAY | PROVIDERS: PCP Internal Medicine; Visit Provider Surgery | DX: Z93.3 Colostomy status (principal); Z98.890 Other specified postprocedural states | CPT/HCPCS: 99212 ==

== ENCOUNTER 2021-11-26 09:55 | Outpatient (REF) | payer OTHER, SELFPAY ==
[2021-11-26 10:13] LABS: MANUAL DIFF FLAG NO
[2021-11-26 10:53] LABS: Basophils Percent Auto 0.4 % (0-2); Eosinophils Absolute Auto 0.3 X10*3/uL (0.0-0.4); Eosinophils Percent Auto 4.1 % (0-4); Hematocrit 46.8 % (42.0-52.0); Imm Gran Abs Auto 0.03 X10*3/uL (0.00-0.03); Imm Gran Pct Auto 0.4 % (0.0-0.4); Lymphocytes Absolute Auto 2.5 X10*3/uL (1.2-4.9); Lymphocytes Percent Auto 29.3 % (20-40); Mean Corpuscular HGB Conc 34.2 g/dl (31.0-36.0); Mean Corpuscular Hemoglobin 31.9 pg (27.0-33.0); Mean Corpuscular Volume 93.4 fL (80.0-98.0); Mean Platelet Volume 11.5 fL (9.4-12.4); Monocytes Absolute Auto 0.8 X10*3/uL (0.1-1.2); Monocytes Percent Auto 9.8 % (2-11); Neutrophils Absolute Auto 4.7 x10*3/uL (2.0-8.3); Platelet Count 180 X10*3/uL (160-400); Red Blood Count 5.01 X10*6/uL (4.60-5.80); Red Cell Distribution Width 12.6 % (11.0-16.0); White Blood Count 8.4 X10*3/uL (4.8-10.8)
[2021-11-26 11:29] LABS: Alanine Aminotransferase 36 U/L (0-40); Albumin Level 4.6 g/dL (3.5-5.0); Alkaline Phosphatase 85 U/L (39-117); Anion Gap 18 (12-20); Aspartate Amino Transferase 25 U/L (5-37); Bilirubin Total 0.8 mg/dL (0.0-1.0); Blood Urea Nitrogen 22 mg/dL (9-16); Calcium 10.2 mg/dL (8.4-10.2); Carbon Dioxide 22 mmol/L (22-29); Chloride 102 mmol/L (96-108); Estimated Glomerular Filt Rate > 60; Glucose Random 296 mg/dL (60-115); Magnesium 1.6 mg/dL (1.6-2.6); Phosphorus 3.2 mg/dL (2.7-4.5); Sodium 138 mmol/L (135-145); Total Protein 7.3 g/dL (6.5-8.0)
[2021-11-26 11:34] LABS: Free T4 (Free Thyroxine) 1.23 ng/dL (0.71-1.85); Thyroid Stimulating Hormone 0.76 uIU/mL (0.32-4.0)
[2021-11-26 19:45] LABS: Appearance Urine Hazy; Color Urine Yellow; Glucose Urine UA 500 mg/dL (Negative); Leukocyte Esterase Urine Negative (Negative); Nitrite Urine Negative (Negative); PH 5.5 (5.0-9.0); Urine Blood Negative (Negative); Urine Ketones Trace mg/dL (Negative); Urine Protein Negative (Neg-Trace)
[2021-11-26 20:04] LABS: Bacteria Urine None Seen (None Seen); Calcium Oxalate Crystals Urine Present; Hyaline Casts Urine 0-2 /LPF (0-2); RBC Urine 0-2 /HPF (0-2); Squamous Epithelial Cell Urine 0-2 /HPF (0-2); WBC Urine 0-5 /HPF (0-5)
== END 2021-11-26 09:56 | disposition home or self-care (01) ==
LOC: HO.LAB 09:55
PROVIDERS: PCP Internal Medicine; Visit Provider Internal Medicine
DX: R26.81 Unsteadiness on feet (principal); R42 Dizziness and giddiness
CPT/HCPCS: 36415; 80053; 81001; 83735; 84100; 84439; 84443; 85025

== ENCOUNTER 2021-11-27 04:53 | Emergency (ER) | payer OTHER, SELFPAY ==
--- NOTE | ~2021-11-27 | CT_ITS ---
EXAMINATION: CT CHEST WITHOUT CONTRAST CLINICAL INFORMATION: Fall with left posterior rib pain. COMPARISON: 11/02/2013 TECHNIQUE: Multidetector volumetric CT imaging of the chest was done. Axial MIP volume rendering provided. Sagittal and coronal reformatted images were obtained. This CT examination was performed using dose optimization techniques as appropriate, variously including the following: *Automated exposure control *Adjustment of mA and/or kV according to patient size (this includes techniques or standardized protocols for targeted exams where dose is matched to indication/reason for exam; i.e. extremities or head) *Use of iterative reconstruction technique DLP: 357 mGy-cm FINDINGS: GRANULATING MACHINE OPERATOR: Unremarkable. LUNGS: Secretions noted in the right mainstem bronchus. Bibasilar atelectasis. No consolidation. No pneumothorax. MEDIASTINUM: Normal heart size. No pericardial effusion. No mediastinal lymphadenopathy. Aortic calcification. CORONARY ARTERY CALCIFICATION: Moderate coronary artery calcification . PLEURA: There is no pleural effusion. No pleural mass or thickening. AXILLA: No lymphadenopathy. UPPER ABDOMEN: No acute abnormality. IVC filter noted. OSSEOUS STRUCTURES: Vertebral body height and alignment maintained. Mild degenerative change throughout the spine with endplate osteophytes. The sternum is intact. The ribs are intact. CT/CT chest wo IV con IMPRESSION: No acute traumatic finding. The ribs are intact. Fleischner guidelines were followed.
--- NOTE | ~2021-11-27 | CT_ITS ---
EXAMINATION: HEAD CT WITHOUT CONTRAST CERVICAL SPINE CT WITHOUT CONTRAST CLINICAL INFORMATION: Fall. Injury. COMPARISON: CT dated 02/26/2018. MRI brain dated 09/10/2021 TECHNIQUE: Contiguous axial imaging of the head was performed without the administration of IV contrast. Axial multidetector volumetric images were also performed through the cervical spine without intravenous contrast. Multiplanar reconstructed images in coronal and sagittal orientations were submitted. This CT examination was performed using dose optimization techniques as appropriate, variously including the following: *Automated exposure control *Adjustment of mA and/or kV according to patient size (this includes techniques or standardized protocols for targeted exams where dose is matched to indication/reason for exam; i.e. extremities or head) *Use of iterative reconstruction technique DOSE: 1253 mGy-cm FINDINGS: HEAD: There is no evidence of acute intracranial hemorrhage or territorial infarction. No midline shift. The 3.9 cm extra-axial lesion along the inner table of the right posterior frontal calvarium produces mild mass effect upon the underlying frontal lobe and is unchanged as compared to prior. No additional mass effect. No extra-axial fluid collections. Jones to white matter differentiation is well preserved. Focal encephalomalacia is again seen in the right parietal region. Mild to moderate diffuse ventriculomegaly appears unchanged as compared to the prior MRI. This appears slightly disproportionate relative to the extra-axial CSF spaces. The callosal angle measures 90 degrees, within normal limits. Calcific atherosclerosis is present within the cavernous segments of the internal carotid arteries. A few foci of hypoattenuation in the subcortical and periventricular white matter are most consistent with chronic microangiopathic changes. Relative atrophy of the olesya and midbrain are again noted. The soft tissues and osseous structures are normal. The sinuses and mastoid air cells are clear. CERVICAL SPINE: Vertebral body heights are normal. No fractures of the vertebral bodies or posterior elements. Vertebral alignment is normal. No subluxation. The craniocervical and atlantoaxial articulations are normal. Focal degenerative disc disease at C5-C6 is moderate to severe with marked loss of intervertebral disc height, endplate osteophytes, supplemented cystic change, and uncovertebral osteophytes. More minimal degenerative disc disease is present at other levels. Multilevel facet arthropathy is most notable on the left at C2-C3 and C7-T1. More mild to moderate facet arthropathy on the right at C3-C4 and C4-C5. Mild central canal narrowing at C5-C6 due to posterior disc osteophyte complex. Mild multilevel neural foraminal narrowing, most notably at C5-C6 due to uncovertebral osteophytes. No significant paravertebral soft tissue swelling. Atherosclerotic calcifications are present in the carotid arteries. A 1.5 cm hypoattenuating left thyroid nodule is noted. Imaged portions of the lung apices are clear. CT/CT cervical spine wo IV con IMPRESSION: HEAD CT: 1. No acute intracranial abnormality. 2. Unchanged 3.9 cm extra-axial lesion along the inner table of the right posterior frontal calvarium, likely a meningioma. 3. Unchanged mild to moderate diffuse ventriculomegaly that is slightly disproportionate relative to the extra-axial CSF spaces. This may be secondary to central atrophy versus normal pressure hydrocephalus. 4. Unchanged focal encephalomalacia in the right parietal region, likely from prior infarct. CERVICAL SPINE: 1. No acute cervical spine fracture or subluxation. 2. Moderate to severe focal degenerative disc disease at C5-C6. A 1.5 cm hypoattenuating left thyroid nodule. Based on the recommendations of the ACR Incidental Thyroid Findings Committee (JACR 2015 Apr; 12(2):143-50), further evaluation by thyroid ultrasound is recommended for solitary incidental thyroid nodules greater than or equal to 1.5 cm in largest axial dimension in patients age 35 years and older who do not have limited life expectancy or significant morbidities, unless clinically warranted.
[2021-11-27 05:15] VITALS: BP 155/83; PULSE 99; RESP 13; TEMP 37; O2SAT 99; BMI 21.9
[2021-11-27 05:24] VITALS: BP 139/74; PULSE 84; RESP 14; TEMP 37.1; O2SAT 95
[2021-11-27 05:25] VITALS: BP 159/83; PULSE 86; O2SAT 99
[2021-11-27 05:26] LABS: Basophils Percent Auto 0.4 % (0-2); Eosinophils Absolute Auto 0.4 X10*3/uL (0.0-0.4); Eosinophils Percent Auto 3.8 % (0-4); Hematocrit 44.4 % (42.0-52.0); Hemoglobin 15.3 g/dl (14.0-18.0); Imm Gran Abs Auto 0.03 X10*3/uL (0.00-0.03); Imm Gran Pct Auto 0.3 % (0.0-0.4); Lymphocytes Absolute Auto 2.5 X10*3/uL (1.2-4.9); MANUAL DIFF FLAG NO; Mean Corpuscular HGB Conc 34.5 g/dl (31.0-36.0); Mean Corpuscular Hemoglobin 31.8 pg (27.0-33.0); Mean Corpuscular Volume 92.3 fL (80.0-98.0); Mean Platelet Volume 10.5 fL (9.4-12.4); Monocytes Absolute Auto 0.9 X10*3/uL (0.1-1.2); Monocytes Percent Auto 8.9 % (2-11); Neutrophils Absolute Auto 6.4 x10*3/uL (2.0-8.3); Neutrophils Percent Auto 62.6 % (45-73); Platelet Count 213 X10*3/uL (160-400); Red Blood Count 4.81 X10*6/uL (4.60-5.80); Red Cell Distribution Width 12.5 % (11.0-16.0); White Blood Count 10.3 X10*3/uL (4.8-10.8)
[2021-11-27 05:32] LABS: Prothrombin Time 10.9 SEC (10.0-13.1)
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
[2021-11-27 05:47] LABS: Anion Gap 16 (12-20); Blood Urea Nitrogen 27 mg/dL (9-16); Calcium 10.4 mg/dL (8.4-10.2); Carbon Dioxide 25 mmol/L (22-29); Chloride 100 mmol/L (96-108); Creatinine Clr Calc Pharmacy 75.2; Estimated Glomerular Filt Rate > 60; Glucose Random 265 mg/dL (60-115); Sodium 136 mmol/L (135-145)
== END 2021-11-27 07:13 | disposition home or self-care (01) ==
PROVIDERS: Emergency Provider Emergency Medicine Emergency Medical Services; PCP Internal Medicine
DX: S20.213A Contusion of bilateral front wall of thorax, initial encounter (principal); R51.9 Headache, unspecified; M54.2 Cervicalgia; M54.6 Pain in thoracic spine; W01.0XXA Fall on same level from slipping, tripping and stumbling without subsequent striking against object, initial encounter; Y93.9 Activity, unspecified; Y92.9 Unspecified place or not applicable; Y99.9 Unspecified external cause status; Z79.01 Long term (current) use of anticoagulants; Z79.899 Other long term (current) 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; Z86.718 Personal history of other venous thrombosis and embolism
CPT/HCPCS: 36415; 70450; 71250; 72125; 80048; 85025; 85610; 99284

== ENCOUNTER 2021-12-05 13:53 | Inpatient (IN) | payer OTHER, SELFPAY ==
[2021-11-19 10:30] VITALS: BMI 20.3
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
[2021-12-05] VITALS (28 sets, daily range): BP systolic 114–182; BP diastolic 64–96; PULSE 76–109; RESP 8–20; TEMP 36.7–37.2; O2SAT 94–99
[2021-12-05] MEDS: Lactated Ringers 1,000 ML 100 ML IVCONT (07:49)
[2021-12-05 07:50] LABS: COVID-19 Test Negative (Negative); IDNOW Serial# 16C4AD1C
--- NOTE | 2021-12-05 09:46 | P.HPSUR_ITS ---
Pre-Procedural Eval Section A Date of Service: 12/05/21 Section B Chief Complaint: colostomy status Details of Present Illness: had perforation of rectum from foreign body (paper towel casper) last May 2021, requiring laparotomy, repair of perforation, diverting loop colostomy BE study reviewed with radiologist - no leak, colonoscopy shows no obvious perf Relevant Family History (Specify if Yes): No Relevant Social History: None Present Medications: see Short Stay Collaborative assessment Medical History: Significant History (early dementia, DM, hx of DVT) Allergies: Allergies Allergy/AdvReac Type Severity Reaction Status Date / Time NSAIDS (Non-Steroidal AdvReac Intermediate Gastrointestinal Verified 11/26/21 0 8:45 Anti-Inflamma Upset Review of Systems Sugical H&P ROS: Negative: Constitution, Cardiovascular, Respiratory, Neurological, Psychiatric, Hem-Onc, Allergic/Immunologic, Gastrointestinal, Genitourinary, Musculoskeletal, Integumentary, Endocrine and Eyes/Ears/Nose/Throat Exam Surgical H&P Exam: Normal: HEENT, Normal: Heart, Normal: Lungs, Normal: Extremities, Normal: Skin and Normal: Neurological and Significant Findings: Abdomen (loop colostomy) Plan Diagnosis/Plan: Unchanged I have reviewed the history and physical and performed a pertinent physical examination on my patient. No changes have occurred unless specified.
--- NOTE | 2021-12-05 13:59 | W.PM.OPN ---
Operative Note Operative Note Date of Service: 12/05/21 Narrative: Preop diagnosis: Status post diverting loop colostomy the sigmoid, for rectal perforation Postop diagnosis: the same Procedure: Hand assisted laparoscopic reversal of a sigmoid loop colostomy, with extensive lysis of adhesions, intraop flexible sigmoidoscopy Surgeon: Cristian Kendrick MD Auto Body Technician: PACO Joyner student The patient is a 61-year-old male, who had gone emergency repair of rectal perforation and sigmoid loop colostomy last May,. He is here for reversal of his loop colostomy. He has had workup including colonoscopy as well as barium enema test showing no residual perforation in the rectum. He was brought to the operating room. Was placed in modified lithotomy position under general anesthesia via endotracheal tube. A Tavarez catheter was inserted. The colostomy was closed with a running 2-0 stitch to prevent leakage during the procedure . The abdomen and the perianal area were prepped and draped in the usual sterile fashion. A surgical time-out was done. The patient received Cefotan 2 g IV preoperatively. I made an elliptical incision on the skin around the colostomy using blade 15. And this was carried down with electrocautery through the full-thickness of the skin and subcutaneous fat. I continued to dissect down to the fascia. I look for the interface between the fascia and the bowel with careful dissection with Metzenbaum scissors. I then proceeded to do sharp dissection to open up the peritoneum along this interface. I followed this interface and carefully divided the peritoneal attachments of the colostomy to the fascia. This part of the procedure took an extended period of time because of extensive adhesions in areas of the colostomy. We had to proceed slowly avoid any injury to the mesentery as well as the bowel loop itself. Eventually I was able to completely free up the adhesions surrounding the stoma and tethering this with the fascial edge and I was able to reduce this through the stoma opening. There was note of foreshortening of both efferent and afferent limbs and I felt that we had to do a lot of mobilization to allow me to do a toyh-[id number]-cmdc anastomosis. This would have been impossible through the very small colostomy opening. I therefore proceeded to make a short midline incision along the previous incision using blade 15 and this was carried down through the full-thickness of the skin and subcutaneous fat. I opened up the fascia. I entered the peritoneum. There was note of adhesions on the left side and the pelvis. I had to do a lot of careful dissection with Metzenbaum scissors as well as electrocautery to divide adherent omentum as well as bowel loops until this was carefully released. This allowed us to position the Georges wound retractor. Attached the GelPort to the wound retractor. I used a 5/12 mm port through the GelPort to proceed with insufflation. We were using a 30 degree 10 mm scope at this point. With insufflation I was able to visualize the epigastric area well. I made a short incision in this area and proceeded to insert the 5/12 mm port. I removed the port from the GelPort and used the gastric port for our camera. With laparoscopic visualization, I proceeded to then placed my hand through the GelPort. The patient was placed in a steep head-down [id number]-wr position. I placed a 5 mm port in the right lower quadrant through a small stab incision. I then proceeded to reflect the sigmoid from the left side. I then continued to mobilize this along the left colon by dividing the peritoneal attachments along the white line of Toldt with the LigaSure. This allowed me more length on this limb. There was note of a lot of adhesions on the distal sigmoid tethering this to the pelvis on the left side. We therefore had to proceed with a lot of extensive lysis of these adhesions carefully dividing this with the LigaSure to make sure we were able to achieve more length in the distal limb. This part of this procedure took an extended period time as well Eventually, I felt that we had enough length to do a side to side anastomosis through the midline incision. I then proceeded to desufflate. I removed the GelPort. I pulled up both limbs into the field. I dissected both limbs to create a mesenteric window. I used the RADHA 60 mm stapler on both limbs to transect this stoma. I used the LigaSure to divide the remaining mesenteric attachments I then proceeded to clear up the different and febrile limbs in preparation for a xxga-di-crwm anastomosis. I removed a lot of appendices epiploicae .. I opened up the apex of each staple line to enter the lumen. I positioned each arm of the RADHA 60 mm stapler into the lumen at the anti mesenteric border. This together and made sure that there was no bowel loop caught between the omar. The stapler was fired to create our dour-yo-sxen anastomosis. I removed the omar and examined the lumen. The staple line appeared intact from within the lumen. I aligned the enterotomy and closed this with a TA 60 mm stapler. I examined all staple lines and this appeared to be intact. I however reinforced the staple lines with Dexon 3-0 seromuscular Lembert-type sutures. I then proceeded to a flexible sigmoidoscopy. I went down to the perineum. I advanced the colonoscope through the anal orifice and advanced this gently with insufflation past the anastomotic line. The anastomotic line was examined and this appeared to be intact. This was immersed in irrigation fluid within the peritoneal cavity. There was no bubbling seen. I then proceeded to withdraw the scope completely with desufflation. I then further irrigated the peritoneal cavity and suctioned out the irrigant fluid. I closed the fascial incisions Maxon 1 running sutures. I reexamined the closure with the laparoscope at the end and both fascial closures appeared to be intact and there was no bowel caught by the sutures . I desufflated and removed the the epigastric port as well as the right lower quadrant port. All skin incisions were closed with skin omar. I positioned iodophorm packings in the colostomy incision. I infiltrated all incisions with Marcaine 0.5% for postop analgesia. Dressings were applied. The procedure was then completed. The patient tolerated the procedure well. There were no immediate complications. Initial and final counts of sponges and instruments were correct. Estimated blood loss was about 200 cc. The patient was extubated without difficulty and transferred to the recovery room with stable vital signs.
[2021-12-05 14:04] LABS: Glucose, Whole Blood 233 mg/dL (60-115)
[2021-12-05 14:18] LABS: Glucose, Whole Blood 298 mg/dL (60-115)
[2021-12-05] MEDS: HYDROmorphone HCl 0.5 MG/0.5 ML SYRINGE 0.25 MG IVPUSH ×4 (14:22→14:52)
[2021-12-05] MEDS: Insulin Lispro 100 UNIT/ML 3 ML VIAL 8 UNIT SUBCUT (15:01)
[2021-12-05] MEDS: oxyCODONE HCl Immed Release 5 MG TABLET 10 MG PO ×2 (15:10→21:26)
--- NOTE | 2021-12-05 15:43 | PM.EVENT ---
Event Note Date of Service: 12/05/21 Event Note: Seen postop Underwent reversal of loop colostomy from the sigmoid, extensive lysis of adhesions Complains of incisional pain Stable vital signs Good urine output Pain management On clear liquids Ordered to restart Eliquis on Wednesday subq heparin starting tomorrow Hospitalist consult Yessica javier, brought in to see patient at bedside
[2021-12-05] MEDS: fentaNYL citrate/PF 100 MCG/2 ML VIAL 25 MCG IVPUSH ×2 (16:38→16:50)
[2021-12-05 17:02] LABS: Glucose, Whole Blood 232 mg/dL (60-115)
[2021-12-05] MEDS: Lactated Ringers 1,000 ML 80 ML IVCONT (17:32)
[2021-12-05] MEDS: Morphine Sulfate 4 MG/ML CARTRIDGE 3 MG IVPUSH ×2 (18:49→22:40)
[2021-12-05 21:56] LABS: Glucose, Whole Blood 152 mg/dL (60-115)
[2021-12-06 01:52] VITALS: BMI 20.3
[2021-12-06] MEDS: Morphine Sulfate 4 MG/ML CARTRIDGE 3 MG IVPUSH (03:38)
[2021-12-06 03:41] VITALS: BP 161/85; PULSE 87; RESP 17; TEMP 36; O2SAT 100
[2021-12-06] MEDS: Lactated Ringers 1,000 ML 80 ML IVCONT ×2 (03:44→15:55)
[2021-12-06 05:52] LABS: Hemoglobin 12.1 g/dl (14.0-18.0); Mean Corpuscular HGB Conc 33.6 g/dl (31.0-36.0); Mean Corpuscular Hemoglobin 31.8 pg (27.0-33.0); Mean Corpuscular Volume 94.7 fL (80.0-98.0); Mean Platelet Volume 10.4 fL (9.4-12.4); Platelet Count 182 X10*3/uL (160-400); Red Cell Distribution Width 13.1 % (11.0-16.0); White Blood Count 8.4 X10*3/uL (4.8-10.8)
[2021-12-06 06:10] LABS: Anion Gap 11 (12-20); Blood Urea Nitrogen 10 mg/dL (9-16); Calcium 8.4 mg/dL (8.4-10.2); Carbon Dioxide 26 mmol/L (22-29); Chloride 104 mmol/L (96-108); Creatinine Clr Calc Pharmacy 103.6; Estimated Glomerular Filt Rate > 60; Glucose Random 203 mg/dL (60-115); Sodium 137 mmol/L (135-145)
[2021-12-06 07:31] VITALS: BP 139/71; PULSE 77; RESP 18; TEMP 37.1; O2SAT 97
[2021-12-06 07:43] LABS: Glucose, Whole Blood 182 mg/dL (60-115)
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
[2021-12-06] MEDS: Insulin Lispro 100 UNIT/ML 3 ML VIAL SUBCUT ×3 (09:00→20:26)
[2021-12-06] MEDS: Multivitamin TABLET 1 TAB PO (09:01)
[2021-12-06] MEDS: oxyCODONE HCl Immed Release 5 MG TABLET 10 MG PO ×3 (09:02→20:25)
--- NOTE | 2021-12-06 09:31 | P.PNGS_ITS ---
Subjective Subjective Date of Service: 12/06/21 Interval history: Patient reports incisional pain otherwise feels well. Denies nausea or vomiting. Has not started clear liquids yet. Physical Exam Vital Signs: Vital Signs: Last Vital Signs Temp 98.8 F 12/06/21 07:31 Pulse 77 12/06/21 07:31 Resp 18 12/06/21 07:31 BP 139/71 12/06/21 07:31 Pulse Ox 97 12/06/21 07:31 O2 Del Method 12/06/21 07:31 O2 Flow Rate 2 12/06/21 03:41 BMI result Body Mass Index 20.3 Const: General: no acute distress Nutritional Appearance: well nourished Orientation/consciousness: patient oriented x3 Limitations: no limitations HEENT: Teeth and gingiva: poor dentition Resp: Effort & Inspection: normal respiratory effort, no audible wheezes, no cough and no respiratory distress GI: Inspection: Yes normal to inspection and Yes incision (Hand port, ostomy and trocar incisions are clean. Dressings changed) Palpation (GI): Soft to palpation and Tenderness to palpation present (GI) Skin: Other: Warm, dry, no rash Neuro: General: patient oriented x3 Extrem: Other: No edema Objective Data Active Medications Atorvastatin Calcium (Atorvastatin Calcium 20 Mg Tablet) 20 mg PO BEDTIME [facility] Dextrose (Dextrose 50 % 25 Gm/50 Ml Syringe) 25 gm IVPUSH Q15M PRN; Protocol PRN Reason: per Hypoglycemia Standing Ord. Fentanyl (Fentanyl Citrate/Pf 100 Mcg/2 Ml Vial) 25 mcg IVPUSH Q5M PRN; Protocol PRN Reason: Pain, Moderate (Pain Scale 4-6 Last Admin: 12/05/21 16:50 Dose: 25 mcg Documented By: JH Glucose (Glucose Gel 15 Gm Gel..Gram.) 15 gm PO Q15M PRN; Protocol PRN Reason: per Hypoglycemia Standing Ord. Lactated Ringer's (Lr) 1,000 mls @ 80 mls/hr IVCONT .[id number] [facility] Last Admin: 12/06/21 03:44 Dose: 80 mls/hr Documented By: ANGELO Acetaminophen (Ofirmev) 1,000 mg in 100 mls @ 400 mls/hr IV Q6H [facility] Last Admin: 12/06/21 09:00 Dose: 400 mls/hr Documented By: KERVIN Insulin Human Lispro (Insulin Lispro 100 Unit/Ml 3 Ml Vial) 0 unit SUBCUT QIDACHS [facility]; Protocol Last Admin: 12/06/21 09:00 Dose: 2 unit Documented By: KERVIN Mirtazapine (Mirtazapine 7.5 Mg Tablet) 7.5 mg PO BEDTIME [facility] Morphine Sulfate (Morphine Sulfate 4 Mg/Ml Cartridge) 3 mg IVPUSH Q3H PRN; Protocol PRN Reason: Pain, Severe (Pain Scale 7-10) Last Admin: 12/06/21 03:38 Dose: 3 mg Documented By: ANGELO Multivitamins/Vitamin C (Multivitamin Tablet) 1 tab PO DAILY [facility] Last Admin: 12/06/21 09:01 Dose: 1 tab Documented By: KERVIN Ondansetron HCl (Ondansetron Hcl 4 Mg/2 Ml Vial) 4 mg IVPUSH ONCE PRN PRN Reason: Nausea and Vomiting Ondansetron HCl (Ondansetron Hcl 4 Mg/2 Ml Vial) 4 mg IVPUSH Q8H PRN PRN Reason: Nausea Oxycodone HCl (Oxycodone Hcl Immed Release 5 Mg Tablet) 10 mg PO Q4H PRN PRN Reason: Pain, Moderate (Pain Scale 4-6 Last Admin: 12/06/21 09:02 Dose: 10 mg Documented By: KERVIN Rivaroxaban (Rivaroxaban 10 Mg Tablet) 10 mg PO DAILY [facility] Sodium Chloride (0.9 % Sodium Chloride Flush 3 Ml Syringe) 3 ml IVFLUSH QSHIFT [facility] Last Admin: 12/06/21 09:01 Dose: Not Given Documented By: KERVIN Non-Admin Reason: IV Running Labs CBC & Chem 7: 12/06/21 05:08 12/06/21 05:08 Labs: Laboratory Results - last 24 hr 12/05/21 12/05/21 12/05/21 07:39 14:13 16:34 MCV MCH MCHC RDW Plt Count MPV Absolute Nucleated RBC Nucleated RBC % (auto) Anion Gap Estim Creat Clear Calc Estimated GFR POC Glucose 233 H 298 H 232 H Random Glucose Calcium 12/05/21 12/06/21 12/06/21 21:51 05:08 05:08 MCV 94.7 MCH 31.8 MCHC 33.6 RDW 13.1 Plt Count 182 MPV 10.4 Absolute Nucleated RBC 0.000 Nucleated RBC % (auto) 0.0 Anion Gap 11 L Estim Creat Clear Calc 103.6 Estimated GFR > 60 POC Glucose 152 H Random Glucose 203 H Calcium 8.4 D 12/06/21 07:37 MCV MCH MCHC RDW Plt Count MPV Absolute Nucleated RBC Nucleated RBC % (auto) Anion Gap Estim Creat Clear Calc Estimated GFR POC Glucose 182 H Random Glucose Calcium Procedures Date of Service Date of Service: 12/06/21 Progress Note: A&P Assessment and plan (1) Colostomy in place: Status: Acute Plan Pod 1 following reversal of colostomy. Wounds are clean and intact. Patient will start clear liquids today. Encouraged out of bed and ambulation. Tavarez catheter out today. Time Spent With Patient Time: Total time spent is greater than 50% in coordination of care (as documented) at patient's floor/unit and/or counseling patient: Quality Stroke Does the patient have a stroke diagnosis?: No VTE Prior VTE?: No VTE Risk Level:: Medical - moderate - high VTE Device Contraindication: N/A - Device Ordered VTE Drug Contraindication: N/A - Med Ordered
[2021-12-06 11:09] VITALS: BP 125/71; PULSE 86; RESP 18; TEMP 36.8; O2SAT 96
[2021-12-06 11:17] LABS: Glucose, Whole Blood 143 mg/dL (60-115)
[2021-12-06 15:07] VITALS: BP 151/69; PULSE 88; RESP 18; TEMP 37; O2SAT 96
[2021-12-06 15:32] LABS: Glucose, Whole Blood 166 mg/dL (60-115)
[2021-12-06 19:37] VITALS: BP 135/78; PULSE 112; RESP 18; TEMP 36.9; O2SAT 95
--- NOTE | 2021-12-06 19:47 | PC.NURSE ---
Aguillon catheter removed at 1200 per MD. Patient due to void at 1800. Bladder scan at 1730 revealed 247ml in bladder. Small void in toilet, partially unmeasurable, at least 60ml at 1730. MD aware, gave some additional time. Pt voided again at 1630, again partially unmeasurable but at least 60ml. Pt voided again in urinal about 100ml at 1900. Per MD no aguillon.
[2021-12-06 19:48] LABS: Glucose, Whole Blood 177 mg/dL (60-115)
[2021-12-06] MEDS: Mirtazapine 7.5 MG TABLET PO (20:25)
[2021-12-06] MEDS: Atorvastatin Calcium 20 MG TABLET PO (20:26)
--- NOTE | 2021-12-06 23:56 | PC.NURSE ---
pt F/C removed by morning shift.
[2021-12-07] VITALS: BP 135/75; PULSE 94; RESP 17; TEMP 36.6; O2SAT 96
[2021-12-07] MEDS: 0.9 % Sodium Chloride Flush 3 ML SYRINGE IVFLUSH ×2 (01:22→20:37)
[2021-12-07 04:00] VITALS: BP 133/74; PULSE 95; RESP 17; TEMP 36.3; O2SAT 95
[2021-12-07] MEDS: Lactated Ringers 1,000 ML 80 ML IVCONT ×2 (05:46→16:14)
[2021-12-07 07:41] VITALS: BP 112/68; PULSE 100; RESP 18; TEMP 36.9; O2SAT 98
[2021-12-07] MEDS: Multivitamin TABLET 1 TAB PO (07:50)
[2021-12-07] MEDS: Insulin Lispro 100 UNIT/ML 3 ML VIAL SUBCUT ×4 (07:50→20:37)
[2021-12-07 08:12] LABS: Glucose, Whole Blood 177 mg/dL (60-115)
--- NOTE | 2021-12-07 08:39 | P.PNIM_ITS ---
Subjective Subjective Date of Service: 12/07/21 Interval History: cc: elective ostomy reversal interval history: surgical site pain manageable Cardiovascular Cardiovascular: Reports no additional cardiovascular complaints Gastrointestinal Gastrointestinal: Reports no additional gastrointestinal complaints Physical Exam Vital Signs: Vital Signs: Last Vital Signs Temp 98.5 F 12/07/21 07:41 Pulse 100 12/07/21 07:41 Resp 18 12/07/21 07:41 BP 112/68 12/07/21 07:41 Pulse Ox 98 12/07/21 07:41 O2 Del Method 12/07/21 07:41 O2 Flow Rate 2 12/06/21 03:41 BMI result Body Mass Index 20.3 General: AO X 3, no acute distress Resp: CTA bilateral, no accessory muscles used CVS: S1,S2,RRR Neuro: motor grossly intact, alert Psych: appropriate affect, appropriate insight Objective Data Active Medications Atorvastatin Calcium (Atorvastatin Calcium 20 Mg Tablet) 20 mg PO BEDTIME [facility] Last Admin: 12/06/21 20:26 Dose: 20 mg Documented By: ANGELO Dextrose (Dextrose 50 % 25 Gm/50 Ml Syringe) 25 gm IVPUSH Q15M PRN; Protocol PRN Reason: per Hypoglycemia Standing Ord. Fentanyl (Fentanyl Citrate/Pf 100 Mcg/2 Ml Vial) 25 mcg IVPUSH Q5M PRN; Protocol PRN Reason: Pain, Moderate (Pain Scale 4-6 Last Admin: 12/05/21 16:50 Dose: 25 mcg Documented By: JH Glucose (Glucose Gel 15 Gm Gel..Gram.) 15 gm PO Q15M PRN; Protocol PRN Reason: per Hypoglycemia Standing Ord. Lactated Ringer's (Lr) 1,000 mls @ 80 mls/hr IVCONT .[id number] [facility] Last Admin: 12/07/21 05:46 Dose: 80 mls/hr Documented By: ANGELO Acetaminophen (Ofirmev) 1,000 mg in 100 mls @ 400 mls/hr IV Q6H [facility] Last Infusion: 12/07/21 06:42 Dose: 0 mls/hr Documented By: ANGELO Insulin Human Lispro (Insulin Lispro 100 Unit/Ml 3 Ml Vial) 0 unit SUBCUT QIDACHS [facility]; Protocol Last Admin: 12/07/21 07:50 Dose: 2 unit Documented By: COOPER Mirtazapine (Mirtazapine 7.5 Mg Tablet) 7.5 mg PO BEDTIME [facility] Last Admin: 12/06/21 20:25 Dose: 7.5 mg Documented By: ANGELO Morphine Sulfate (Morphine Sulfate 4 Mg/Ml Cartridge) 3 mg IVPUSH Q3H PRN; Protocol PRN Reason: Pain, Severe (Pain Scale 7-10) Last Admin: 12/06/21 03:38 Dose: 3 mg Documented By: ANGELO Multivitamins/Vitamin C (Multivitamin Tablet) 1 tab PO DAILY [facility] Last Admin: 12/07/21 07:50 Dose: 1 tab Documented By: COOPER Ondansetron HCl (Ondansetron Hcl 4 Mg/2 Ml Vial) 4 mg IVPUSH ONCE PRN PRN Reason: Nausea and Vomiting Ondansetron HCl (Ondansetron Hcl 4 Mg/2 Ml Vial) 4 mg IVPUSH Q8H PRN PRN Reason: Nausea Oxycodone HCl (Oxycodone Hcl Immed Release 5 Mg Tablet) 10 mg PO Q4H PRN PRN Reason: Pain, Moderate (Pain Scale 4-6 Last Admin: 12/06/21 20:25 Dose: 10 mg Documented By: ANGELO Rivaroxaban (Rivaroxaban 10 Mg Tablet) 10 mg PO DAILY [facility] Sodium Chloride (0.9 % Sodium Chloride Flush 3 Ml Syringe) 3 ml IVFLUSH QSHIFT [facility] Last Admin: 12/07/21 07:53 Dose: Not Given Documented By: COOPER Non-Admin Reason: IV Running Labs CBC & Chem 7: 12/06/21 05:08 12/06/21 05:08 Labs: Laboratory Results - last 24 hr 12/06/21 12/06/21 12/06/21 11:11 15:11 19:40 POC Glucose 143 H 166 H 177 H 12/07/21 07:44 POC Glucose 177 H Assessment and Plan (1) DVT (deep venous thrombosis): Status: Acute Plan 61M PMH HLD, DM, DVT admitted for reversal of ostomy DM holding orals covering with insulin sliding scale, monitor poc - well controlled hld statin history of DVT continue prophylactic xarelto 10mg daily will sign off for now, please recall if needed Quality Stroke Does the patient have a stroke diagnosis?: No VTE Prior VTE?: No VTE Risk Level:: Medical - moderate - high VTE Device Contraindication: N/A - Device Ordered VTE Drug Contraindication: N/A - Med Ordered
--- NOTE | 2021-12-07 09:28 | P.PNGS_ITS ---
Subjective Subjective Date of Service: 12/07/21 Interval history: Patient feels much improved today and was able to void. Denies any flatus or BM yet. Abdominal pain much improved however. Physical Exam Vital Signs: Vital Signs: Last Vital Signs Temp 98.5 F 12/07/21 07:41 Pulse 100 12/07/21 07:41 Resp 18 12/07/21 07:41 BP 112/68 12/07/21 07:41 Pulse Ox 98 12/07/21 07:41 O2 Del Method 12/07/21 07:41 O2 Flow Rate 2 12/06/21 03:41 BMI result Body Mass Index 20.3 Const: General: no acute distress Nutritional Appearance: well nourished Orientation/consciousness: patient oriented x3 Limitations: no limitations HEENT: Teeth and gingiva: poor dentition Resp: Effort & Inspection: normal respiratory effort, no audible wheezes, no cough and no respiratory distress GI: Inspection: Yes normal to inspection and Yes incision (Wounds clean, dress ings changed, damon advanced.) Palpation (GI): Soft to palpation and Tend erness to palpation present (GI) Skin: Other: Warm, dry, no rash Neuro: General: patient oriented x3 Extrem: Other: No edema Objective Data Active Medications Atorvastatin Calcium (Atorvastatin Calcium 20 Mg Tablet) 20 mg PO BEDTIME [facility] Last Admin: 12/06/21 20:26 Dose: 20 mg Documented By: ANGELO Dextrose (Dextrose 50 % 25 Gm/50 Ml Syringe) 25 gm IVPUSH Q15M PRN; Protocol PRN Reason: per Hypoglycemia Standing Ord. Fentanyl (Fentanyl Citrate/Pf 100 Mcg/2 Ml Vial) 25 mcg IVPUSH Q5M PRN; Yoanna col PRN Reason: Pain, Moderate (Pain Scale 4-6 Last Admin: 12/05/21 16:50 Dose: 25 mcg Documented By: SHELBYILM Glucose (Glucose Gel 15 Gm Gel..Gram.) 15 gm PO Q15M PRN; Protocol PRN Reason: per Hypoglycemia Standing Ord. Lactated Ringer's (Lr) 1,000 mls @ 80 mls/hr IVCONT .[id number] [facility] Last Admin: 12/07/21 05:46 Dose: 80 mls/hr Documented By: ANGELO Acetaminophen (Ofirmev) 1,000 mg in 100 mls @ 400 mls/hr IV Q6H [facility] Last Infusion: 12/07/21 06:42 Dose: 0 mls/hr Documented By: ANGELO Insulin Human Lispro (Insulin Lispro 100 Unit/Ml 3 Ml Vial) 0 unit SUBCUT QIDACHS [facility]; Protocol Last Admin: 12/07/21 07:50 Dose: 2 unit Documented By: COOPER Mirtazapine (Mirtazapine 7.5 Mg Tablet) 7.5 mg PO BEDTIME [facility] Last Admin: 12/06/21 20:25 Dose: 7.5 mg Documented By: ANGELO Morphine Sulfate (Morphine Sulfate 4 Mg/Ml Cartridge) 3 mg IVPUSH Q3H PRN; Protocol PRN Reason: Pain, Severe (Pain Scale 7-10) Last Admin: 12/06/21 03:38 Dose: 3 mg Documented By: ANGELO Multivitamins/Vitamin C (Multivitamin Tablet) 1 tab PO DAILY [facility] Last Admin: 12/07/21 07:50 Dose: 1 tab Documented By: COOPER Ondansetron HCl (Ondansetron Hcl 4 Mg/2 Ml Vial) 4 mg IVPUSH ONCE PRN PRN Reason: Nausea and Vomiting Ondansetron HCl (Ondansetron Hcl 4 Mg/2 Ml Vial) 4 mg IVPUSH Q8H PRN PRN Reason: Nausea Oxycodone HCl (Oxycodone Hcl Immed Release 5 Mg Tablet) 10 mg PO Q4H PRN PRN Reason: Pain, Moderate (Pain Scale 4-6 Last Admin: 12/06/21 20:25 Dose: 10 mg Documented By: ANGELO Rivaroxaban (Rivaroxaban 10 Mg Tablet) 10 mg PO DAILY [facility] Sodium Chloride (0.9 % Sodium Chloride Flush 3 Ml Syringe) 3 ml IVFLUSH QSHIFT [facility] Last Admin: 12/07/21 07:53 Dose: Not Given Documented By: COOPER Non-Admin Reason: IV Running Labs CBC & Chem 7: 12/06/21 05:08 12/06/21 05:08 Labs: Laboratory Results - last 24 hr 12/06/21 12/06/21 12/06/21 11:11 15:11 19:40 POC Glucose 143 H 166 H 177 H 12/07/21 07:44 POC Glucose 177 H Procedures Date of Service Date of Service: 12/07/21 Progress Note: A&P Assessment and plan (1) Colostomy in place: Status: Acute Plan POD#2 following reversal of colostomy. Wounds are clean and intact. Small amount of serous discharge from damon. Tolerated clear liquids, will advance to regular soft diet. Encouraged out of bed and ambulation, incentive spirometry. Time Spent With Patient Time: Total time spent is greater than 50% in coordination of care (as documented) at patient's floor/unit and/or counseling patient: Quality Stroke Does the patient have a stroke diagnosis?: No VTE Prior VTE?: No VTE Risk Level:: Medical - moderate - high VTE Device Contraindication: N/A - Device Ordered VTE Drug Contraindication: N/A - Med Ordered
[2021-12-07] MEDS: Rivaroxaban 10 MG TABLET PO (10:01)
[2021-12-07 11:28] VITALS: BP 134/80; PULSE 93; RESP 18; TEMP 36.8; O2SAT 99
--- NOTE | 2021-12-07 11:28 | HO.POSTANES ---
Post Anesthesia Evaluation Post Anesthesia Evaluation Vital Signs: Vital Signs Temp Pulse Resp BP Pulse Ox O2 Del Method 12/07/21 07:41 98.5 F 100 18 112/68 98 Room Air 12/07/21 04:00 97.3 F 95 17 133/74 95 Room Air 12/07/21 00:00 97.8 F 94 17 135/75 96 Room Air Anesthesia: General Endotracheal-GETA Mental Status: Awake Pain Control: Satisfactory Nausea/Vomiting: None Hydration: Adequate Anesthesia-Related Issues: No Anes. Related Issues
--- NOTE | 2021-12-07 11:35 | MHC.CM.PN ---
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
[2021-12-07 12:00] LABS: Glucose, Whole Blood 154 mg/dL (60-115)
[2021-12-07] MEDS: Mirtazapine 7.5 MG TABLET PO ×2 (14:02→20:35)
[2021-12-07 16:00] VITALS: BP 135/71; PULSE 97; RESP 16; TEMP 36.9; O2SAT 95
[2021-12-07 16:05] LABS: Glucose, Whole Blood 242 mg/dL (60-115)
[2021-12-07 19:56] LABS: Glucose, Whole Blood 289 mg/dL (60-115)
[2021-12-07 19:58] VITALS: BP 146/71; PULSE 102; RESP 15; TEMP 36.8; O2SAT 94
[2021-12-07] MEDS: Atorvastatin Calcium 20 MG TABLET PO (20:35)
[2021-12-07] MEDS: oxyCODONE HCl Immed Release 5 MG TABLET 10 MG PO (20:36)
[2021-12-08] VITALS: BP 133/76; PULSE 95; RESP 16; TEMP 37.1; O2SAT 97
[2021-12-08 03:34] VITALS: BP 134/79; PULSE 88; RESP 16; TEMP 36.8; O2SAT 96
[2021-12-08] MEDS: Lactated Ringers 1,000 ML 80 ML IVCONT ×2 (05:01→21:18)
[2021-12-08 07:33] VITALS: BP 172/81; PULSE 101; RESP 18; TEMP 36.8; O2SAT 94
[2021-12-08 07:35] LABS: Glucose, Whole Blood 215 mg/dL (60-115)
[2021-12-08] MEDS: Mirtazapine 7.5 MG TABLET PO ×2 (07:48→20:06)
[2021-12-08] MEDS: Morphine Sulfate 4 MG/ML CARTRIDGE 3 MG IVPUSH ×2 (07:48→20:11)
[2021-12-08] MEDS: Rivaroxaban 10 MG TABLET PO (07:49)
[2021-12-08] MEDS: Multivitamin TABLET 1 TAB PO (07:49)
--- NOTE | 2021-12-08 07:58 | PM.PNGS ---
Subjective Subjective Date of Service: 12/09/21 Interval history: says he is ok passing flatus on regular diet incisional pain, appropriate to postop Physical Exam Vital Signs: Vital Signs: Last Vital Signs Temp 98.2 F 12/08/21 07:33 Pulse 101 H 12/08/21 07:33 Resp 18 12/08/21 07:33 BP 172/81 H 12/08/21 07:33 Pulse Ox 94 12/08/21 07:33 O2 Del Method 12/08/21 07:33 O2 Flow Rate 2 12/06/21 03:41 BMI result Body Mass Index 20.3 Const: General: comfortable and no acute distress Resp: Effort & Inspection: normal respiratory effort Cardio: Rate: regular rate GI: Other: soft, incisions clean, no pus, iodophorm packing in place Objective Data Active Medications Atorvastatin Calcium (Atorvastatin Calcium 20 Mg Tablet) 20 mg PO BEDTIME [facility] Last Admin: 12/07/21 20:35 Dose: 20 mg Documented By: JAMES Dextrose (Dextrose 50 % 25 Gm/50 Ml Syringe) 25 gm IVPUSH Q15M PRN; Protocol PRN Reason: per Hypoglycemia Standing Ord. Fentanyl (Fentanyl Citrate/Pf 100 Mcg/2 Ml Vial) 25 mcg IVPUSH Q5M PRN; Protocol PRN Reason: Pain, Moderate (Pain Scale 4-6 Last Admin: 12/05/21 16:50 Dose: 25 mcg Documented By: JH Glucose (Glucose Gel 15 Gm Gel..Gram.) 15 gm PO Q15M PRN; Protocol PRN Reason: per Hypoglycemia Standing Ord. Lactated Ringer's (Lr) 1,000 mls @ 80 mls/hr IVCONT .[id number] [facility] Last Admin: 12/08/21 05:01 Dose: 80 mls/hr Documented By: JAMES Acetaminophen (Ofirmev) 1,000 mg in 100 mls @ 400 mls/hr IV Q6H [facility] Last Infusion: 12/08/21 06:19 Dose: 0 mls/hr Documented By: JAMES Insulin Human Lispro (Insulin Lispro 100 Unit/Ml 3 Ml Vial) 0 unit SUBCUT QIDACHS [facility]; Protocol Last Admin: 12/07/21 20:37 Dose: 6 unit Documented By: JAMES Mirtazapine (Mirtazapine 7.5 Mg Tablet) 7.5 mg PO BID [facility] Last Admin: 12/08/21 07:48 Dose: 7.5 mg Documented By: TOVA Morphine Sulfate (Morphine Sulfate 4 Mg/Ml Cartridge) 3 mg IVPUSH Q3H PRN; Protocol PRN Reason: Pain, Severe (Pain Scale 7-10) Last Admin: 12/08/21 07:48 Dose: 3 mg Documented By: TOVA Multivitamins/Vitamin C (Multivitamin Tablet) 1 tab PO DAILY [facility] Last Admin: 12/08/21 07:49 Dose: 1 tab Documented By: TOVA Ondansetron HCl (Ondansetron Hcl 4 Mg/2 Ml Vial) 4 mg IVPUSH ONCE PRN PRN Reason: Nausea and Vomiting Ondansetron HCl (Ondansetron Hcl 4 Mg/2 Ml Vial) 4 mg IVPUSH Q8H PRN PRN Reason: Nausea Oxycodone HCl (Oxycodone Hcl Immed Release 5 Mg Tablet) 10 mg PO Q4H PRN PRN Reason: Pain, Moderate (Pain Scale 4-6 Last Admin: 12/07/21 20:36 Dose: 10 mg Documented By: JAMES Rivaroxaban (Rivaroxaban 10 Mg Tablet) 10 mg PO DAILY [facility] Last Admin: 12/08/21 07:49 Dose: 10 mg Documented By: TOVA Sodium Chloride (0.9 % Sodium Chloride Flush 3 Ml Syringe) 3 ml IVFLUSH QSHIFT [facility] Last Admin: 12/08/21 07:49 Dose: Not Given Documented By: TOVA Non-Admin Reason: IV Running Labs CBC & Chem 7: 12/06/21 05:08 12/06/21 05:08 Labs: Laboratory Results - last 24 hr 12/07/21 12/07/21 12/07/21 07:44 11:35 15:36 POC Glucose 177 H 154 H 242 H 12/07/21 12/08/21 19:29 07:31 POC Glucose 289 H 215 H Procedures Date of Service Date of Service: 12/08/21 Progress Note: A&P Assessment and plan (1) Colostomy in place: Status: Acute Assessment and Plan: s/p reversal of colostomy seems to have good GI function out of bed on diet will start discharge planning packings removed Time Spent With Patient Time: Total time spent is greater than 50% in coordination of care (as documented) at patient's floor/unit and/or counseling patient: Quality Stroke Does the patient have a stroke diagnosis?: No VTE Prior VTE?: No VTE Risk Level:: Medical - moderate - high VTE Device Contraindication: N/A - Device Ordered VTE Drug Contraindication: N/A - Med Ordered
[2021-12-08] MEDS: Insulin Lispro 100 UNIT/ML 3 ML VIAL SUBCUT ×4 (08:44→20:05)
[2021-12-08 11:06] VITALS: BP 114/69; PULSE 90; RESP 15; TEMP 36.4; O2SAT 94
[2021-12-08 11:21] VITALS: BMI 20.3
[2021-12-08 11:22] LABS: Glucose, Whole Blood 291 mg/dL (60-115)
--- NOTE | 2021-12-08 12:18 | MHC.CM.PN ---
Home is the goal for dc. POC Glucose at 291. CM will follow for dc planning.
--- NOTE | 2021-12-08 13:16 | P.DS_ITS ---
DS: Providers Provider Date of Service: 12/10/21 Date of admission: 12/05/21 13:53 Primary care physician: Bri Roger MD Attending physician on admission: Cristian Kendrick Consults: 12/05/21 13:57 Consult to Hospitalist Routine Consulting Provider: Hospitalist Reason For Exam: DM, hx of DVT Attending physician on discharge: Cristian Kendrick DS: Diagnosis Discharge Diagnosis (1) Colostomy in place: Status: Acute DS: Summary Hospital Course Hospital Course: BRIEF HPI: The patient is a 61-year-old male, who had gone emergency repair of rectal perforation and sigmoid loop colostomy May 2021. He is here for reversal of his loop colostomy. He had workup including colonoscopy as well as barium enema test showing no residual perforation in the rectum. HOSPITAL COURSE: On 12/05/21, a hand assisted laparoscopic reversal of a sigmoid loop colostomy, with extensive lysis of adhesions, intraop flexible sigmoidoscopy was performed by Dr. Kendrick without complication. The patient tolerated the procedure well and was admitted post operatively for observation. A hospitalist consult was obtained for management of the patient's diabetes me llitus and hx of DVT. The patient had an uncomplicated recovery course. He was started on clear liquids post op. On POD #1, he was doing well with adequate pain control. His abdomen was benign. His aguillon was removed. He was ambulated. He was tolerating clear liquids and was started on a low residue diet on POD #2. His xarelto was restarted. He began to pass flatus on POD #3. His wound damon were removed. Over the next two post operative days, he was tolerating a solid diet and felt overall improved. He was started on a bowel regimen of colace and miralax. His abdomen remained benign with clean incisions. He had not had a BM but was passing continuous flatus. He was discharged to home on 12/10/21 in stable condition with VNA services. Status at Discharge Functional status at discharge: independent ambulation Time Spent with Patient Time attestation: Total time spent providing and/or coordinating discharge services: Discharge coordination time: Greater than 30 minutes Quality: Safe Use of Opioids Does Pt have an Active Cancer Diagnosis on the Problem List?: No Quality: Stroke Does the patient have a stroke diagnosis?: No Physical Exam Vital Signs: Vital Signs: Last Vital Signs Temp 97.6 F 12/08/21 11:06 Pulse 90 12/08/21 11:06 Resp 15 12/08/21 11:06 BP 114/69 12/08/21 11:06 Pulse Ox 94 12/08/21 11:06 O2 Del Method 12/08/21 11:06 O2 Flow Rate 2 12/06/21 03:41 BMI result Body Mass Index 20.3 Const: Orientation/consciousness: patient oriented x3 Resp: Effort & Inspection: normal respiratory effort GI: Inspection: No distended and Yes incision (clean) Palpation (GI): Soft to palpation, nontender, no guarding and not rigid Skin: General skin exam: no rashes or lesions noted Neuro: General: patient oriented x3 DS: Data Data Completed and Pending Completed studies during hospitalization [Text1]: Procedures Bypass Sigmoid Colon to Cutaneous, Open Approach (06/02/21) Repair Rectum, Open Approach (06/02/21) Pending studies at discharge: Pending at discharge 12/05/21 12:48 Surgical [PTH] Routine Labs on day of discharge: Laboratory Results - last 24 hr 12/07/21 12/07/21 12/08/21 15:36 19:29 07:31 POC Glucose 242 H 289 H 215 H 12/08/21 11:09 POC Glucose 291 H Discharge Plan Discharge Anticipated Discharge Date/Time: 12/09/21 08:01 Patient Disposition: Home Health Service Discharge Diagnosis: reversal of colostomy Referrals: [facility] RE[facility] [Outside] - 1 Week Cristian Knedrick MD [Physician] - 1 Week Po,Bri Turner MD [Primary Care Provider] - 1 Week Discharge Medications: New oxycodone 5 mg tablet 5 mg PO Q4H PRN (Reason: pain) Qty: 30 0RF Rx Instructions: Partial Fill upon patient request. docusate sodium [Colace] 100 mg capsule 100 mg PO BID PRN (Reason: constipation) Qty: 30 0RF Continued (DME) lancets [FreeStyle Lancets] 28 gauge misc See Rx Instructions .ROUTE .MEDSUPPLY Qty: 100 0RF Rx Instructions: As directed (DME) blood-glucose meter [FreeStyle Flash System] Kit See Rx Instructions .ROUTE .MEDSUPPLY Qty: 1 0RF Rx Instructions: As directed (DME) Freestyle [employer] Test Strips Strip See Rx Instructions .ROUTE .MEDSUPPLY Qty: 100 3RF Rx Instructions: As directed (DME) Shower Chair Misc See Rx Instructions .Route Qty: 1 0RF Rx Instructions: As directed 5' 7 , 129 lb pioglitazone 30 mg tablet 30 mg PO DAILY Qty: 90 3RF metformin 1,000 mg tablet 1,000 mg PO BID 90 Days Qty: 180 2RF acetaminophen 500 mg tablet 500 mg PO Q4H PRN (Reason: pain) Qty: 60 2RF atorvastatin 20 mg tablet 1 tab PO BEDTIME Xarelto 10 mg tablet 10 mg PO DAILY Qty: 90 4RF (DME) DEPENDS BRIEFS SMALL See Rx Instructions .Route .MEDSUPPLY Qty: 180 11RF Rx Instructions: As directed mirtazapine 15 mg tablet 7.5 mg PO BEDTIME Farxiga 5 mg tablet 5 mg PO DAILY Qty: 90 1RF multivitamin Tablet 1 tab PO DAILY Qty: 90 1RF Discharge Orders: Discharge Order (Routine); Ordered 12/10/21 Ordered By: Charlotte Paige Diet: Diabetic diet Activity on Discharge: No heavy lifting Stand Alone Forms: Patient Portal Discharge page Activity Restrictions/Additional Instructions: If the incision area is tender, you may apply an ice pack for short intervals (No more than 20 minutes on, followed by at least 20 minutes off). Do not apply heat. Do not use creams, lotions, or topical antibiotics unless instructed to do so by your surgeon. These can cause infection or allergic reaction. OK to shower No lifting more than 20 lbs No strenuous activities Call the office for follow-up in 2 weeks - with Dr. Kendrick Call Your Doctor If: -Your temperature exceeds 101.5? F -You experience excessive pain or swelling -You have an unexpected reaction to medication -You have excessive bleeding -You experience continued vomiting/nausea -Your incision begins to separate -Your incision shows signs of infection such as increased redness, swelling, excessive pain, drainage (light blood or clear fluid is normal) or heat Care Plan Goals: control pain monitor cognitive decline Health Concerns: dementia pain postop Plan of Treatment: oral pain meds office ffup Assessment: doing well
[2021-12-08 15:27] VITALS: BP 124/74; PULSE 84; RESP 18; TEMP 37.2; O2SAT 97
[2021-12-08 15:35] LABS: Glucose, Whole Blood 181 mg/dL (60-115)
[2021-12-08 19:32] VITALS: BP 132/80; PULSE 93; RESP 18; TEMP 37.2; O2SAT 96
[2021-12-08 19:58] LABS: Glucose, Whole Blood 259 mg/dL (60-115)
[2021-12-08] MEDS: Atorvastatin Calcium 20 MG TABLET PO (20:06)
[2021-12-09] VITALS (8 sets, daily range): BP systolic 116–170; BP diastolic 67–88; PULSE 73–101; RESP 14–17; TEMP 36.2–37.1; O2SAT 93–97
[2021-12-09 07:26] LABS: Glucose, Whole Blood 227 mg/dL (60-115)
[2021-12-09] MEDS: Mirtazapine 7.5 MG TABLET PO ×2 (08:19→21:30)
[2021-12-09] MEDS: Rivaroxaban 10 MG TABLET PO (08:19)
[2021-12-09] MEDS: Multivitamin TABLET 1 TAB PO (08:19)
[2021-12-09] MEDS: Insulin Lispro 100 UNIT/ML 3 ML VIAL SUBCUT ×4 (08:19→21:29)
[2021-12-09] MEDS: oxyCODONE HCl Immed Release 5 MG TABLET 10 MG PO (08:23)
--- NOTE | 2021-12-09 08:33 | PM.PNGS ---
Subjective Subjective Date of Service: 12/10/21 Interval history: feels well had a good night passing a lot of flatus tolerating diet Physical Exam Vital Signs: Vital Signs: Last Vital Signs Temp 97.2 F 12/09/21 07:20 Pulse 80 12/09/21 07:20 Resp 16 12/09/21 07:20 BP 137/81 12/09/21 07:20 Pulse Ox 95 12/09/21 07:20 O2 Del Method 12/09/21 07:20 O2 Flow Rate 2 12/06/21 03:41 BMI result Body Mass Index 20.3 Const: General: comfortable and no acute distress Resp: Effort & Inspection: normal respiratory effort Cardio: Rate: regular rate GI: Other: soft, incisions clean and dry, no guarding or rebound, tenderness appropriate to postop Objective Data Active Medications Atorvastatin Calcium (Atorvastatin Calcium 20 Mg Tablet) 20 mg PO BEDTIME [facility] Last Admin: 12/08/21 20:06 Dose: 20 mg Documented By: ROSALBA Dextrose (Dextrose 50 % 25 Gm/50 Ml Syringe) 25 gm IVPUSH Q15M PRN; Protocol PRN Reason: per Hypoglycemia Standing Ord. Fentanyl (Fentanyl Citrate/Pf 100 Mcg/2 Ml Vial) 25 mcg IVPUSH Q5M PRN; Protocol PRN Reason: Pain, Moderate (Pain Scale 4-6 Last Admin: 12/05/21 16:50 Dose: 25 mcg Documented By: JH Glucose (Glucose Gel 15 Gm Gel..Gram.) 15 gm PO Q15M PRN; Protocol PRN Reason: per Hypoglycemia Standing Ord. Lactated Ringer's (Lr) 1,000 mls @ 80 mls/hr IVCONT .[id number] [facility] Last Admin: 12/09/21 08:20 Dose: Not Given Documented By: CLARISSA Non-Admin Reason: Medication Discontinued Acetaminophen (Ofirmev) 1,000 mg in 100 mls @ 400 mls/hr IV Q6H [facility] Last Infusion: 12/09/21 04:09 Dose: 400 mls/hr Documented By: LEEANNE Insulin Human Lispro (Insulin Lispro 100 Unit/Ml 3 Ml Vial) 0 unit SUBCUT QIDACHS [facility]; Protocol Last Admin: 12/09/21 08:19 Dose: 4 unit Documented By: CLARISSA Mirtazapine (Mirtazapine 7.5 Mg Tablet) 7.5 mg PO BID [facility] Last Admin: 12/09/21 08:19 Dose: 7.5 mg Documented By: CLARISSA Morphine Sulfate (Morphine Sulfate 4 Mg/Ml Cartridge) 3 mg IVPUSH Q3H PRN; Protocol PRN Reason: Pain, Severe (Pain Scale 7-10) Last Admin: 12/08/21 20:11 Dose: 3 mg Documented By: ROSALBA Multivitamins/Vitamin C (Multivitamin Tablet) 1 tab PO DAILY [facility] Last Admin: 12/09/21 08:19 Dose: 1 tab Documented By: CLARISSA Ondansetron HCl (Ondansetron Hcl 4 Mg/2 Ml Vial) 4 mg IVPUSH ONCE PRN PRN Reason: Nausea and Vomiting Ondansetron HCl (Ondansetron Hcl 4 Mg/2 Ml Vial) 4 mg IVPUSH Q8H PRN PRN Reason: Nausea Oxycodone HCl (Oxycodone Hcl Immed Release 5 Mg Tablet) 10 mg PO Q4H PRN PRN Reason: Pain, Moderate (Pain Scale 4-6 Last Admin: 12/09/21 08:23 Dose: 10 mg Documented By: CLARISSA Rivaroxaban (Rivaroxaban 10 Mg Tablet) 10 mg PO DAILY [facility] Last Admin: 12/09/21 08:19 Dose: 10 mg Documented By: CLARISSA Sodium Chloride (0.9 % Sodium Chloride Flush 3 Ml Syringe) 3 ml IVFLUSH QSHIFT [facility] Last Admin: 12/09/21 08:20 Dose: Not Given Documented By: CLARISSA Non-Admin Reason: IV Running Labs CBC & Chem 7: 12/06/21 05:08 12/06/21 05:08 Labs: Laboratory Results - last 24 hr 12/08/21 12/08/21 12/08/21 11:09 15:31 19:35 POC Glucose 291 H 181 H 259 H 12/09/21 06:58 POC Glucose 227 H Procedures Date of Service Date of Service: 12/09/21 Progress Note: A&P Assessment and plan (1) Colostomy in place: Status: Acute Assessment and Plan: s/p reversal doing well good flatus denies BMs looks well lkely home later today Time Spent With Patient Time: Total time spent is greater than 50% in coordination of care (as documented) at patient's floor/unit and/or counseling patient: Quality Stroke Does the patient have a stroke diagnosis?: No VTE Prior VTE?: No VTE Risk Level:: Medical - moderate - high VTE Device Contraindication: N/A - Device Ordered VTE Drug Contraindication: N/A - Med Ordered
--- NOTE | 2021-12-09 08:48 | P.PNGS_ITS ---
Subjective Subjective Date of Service: 12/09/21 <Charlotte Paige PA-C - Last Filed: 12/09/21 08:52> 12/09/21 <Cristian Kendrick MD - Last Filed: 12/09/21 15:09> Interval history: Feeling much better. Passing flatus but still no BM. Feels as if he has to go. Pain is tolerable. OOB and ambulating in halls. Wants to go home. Would like VNA to check incisions at home. <Charlotte Paige PA-C - Last Filed: 12/09/21 08:52> Physical Exam Vital Signs: Vital Signs: Last Vital Signs Temp 97.2 F 12/09/21 07:20 Pulse 80 12/09/21 07:20 Resp 16 12/09/21 07:20 BP 137/81 12/09/21 07:20 Pulse Ox 95 12/09/21 07:20 O2 Del Method 12/09/21 07:20 O2 Flow Rate 2 12/06/21 03:41 BMI result Body Mass Index 20.3 <Charlotte Paige PA-C - Last Filed: 12/09/21 08:52> Const: General: comfortable, no acute distress and alert <KAEL Blanco Last Filed: 12/09/21 08:52> Resp: Effort & Inspection: normal respiratory effort <Charlotte Paige PA-C - Last Filed: 12/09/21 08:52> GI: Inspection: Yes distended and Yes incision (clean, some erythema surrounding omar, serous drainage at old colostomy ) <Charlotte Paige PA-C - Last Filed: 12/09/21 08:52> Palpation (GI): Soft to palpation, nontender, no guarding and not rigid <KAEL lBanco Last Filed: 12/09/21 08:52> Skin: General skin exam: no rashes or lesions noted <KAEL Blanco Last Filed: 12/09/21 08:52> Extrem: General: Yes no clubbing, cyanosis or edema <KAEL Blanco Last Filed: 12/09/21 08:52> Objective Data Active Medications Atorvastatin Calcium (Atorvastatin Calcium 20 Mg Tablet) 20 mg PO BEDTIME [facility] Last Admin: 12/08/21 20:06 Dose: 20 mg Documented By: ROSALBA Dextrose (Dextrose 50 % 25 Gm/50 Ml Syringe) 25 gm IVPUSH Q15M PRN; Protocol PRN Reason: per Hypoglycemia Standing Ord. Fentanyl (Fentanyl Citrate/Pf 100 Mcg/2 Ml Vial) 25 mcg IVPUSH Q5M PRN; Protocol PRN Reason: Pain, Moderate (Pain Scale 4-6 Last Admin: 12/05/21 16:50 Dose: 25 mcg Documented By: JH Glucose (Glucose Gel 15 Gm Gel..Gram.) 15 gm PO Q15M PRN; Protocol PRN Reason: per Hypoglycemia Standing Ord. Lactated Ringer's (Lr) 1,000 mls @ 80 mls/hr IVCONT .[id number] [facility] Last Admin: 12/09/21 08:20 Dose: Not Given Documented By: CLARISSA Non-Admin Reason: Medication Discontinued Acetaminophen (Ofirmev) 1,000 mg in 100 mls @ 400 mls/hr IV Q6H [facility] Last Infusion: 12/09/21 04:09 Dose: 400 mls/hr Documented By: LEEANNE Insulin Human Lispro (Insulin Lispro 100 Unit/Ml 3 Ml Vial) 0 unit SUBCUT QIDACHS [facility]; Protocol Last Admin: 12/09/21 08:19 Dose: 4 unit Documented By: CLARISSA Mirtazapine (Mirtazapine 7.5 Mg Tablet) 7.5 mg PO BID [facility] Last Admin: 12/09/21 08:19 Dose: 7.5 mg Documented By: CLARISSA Morphine Sulfate (Morphine Sulfate 4 Mg/Ml Cartridge) 3 mg IVPUSH Q3H PRN; Protocol PRN Reason: Pain, Severe (Pain Scale 7-10) Last Admin: 12/08/21 20:11 Dose: 3 mg Documented By: ROSALBA Multivitamins/Vitamin C (Multivitamin Tablet) 1 tab PO DAILY [facility] Last Admin: 12/09/21 08:19 Dose: 1 tab Documented By: CLARISSA Ondansetron HCl (Ondansetron Hcl 4 Mg/2 Ml Vial) 4 mg IVPUSH ONCE PRN PRN Reason: Nausea and Vomiting Ondansetron HCl (Ondansetron Hcl 4 Mg/2 Ml Vial) 4 mg IVPUSH Q8H PRN PRN Reason: Nausea Oxycodone HCl (Oxycodone Hcl Immed Release 5 Mg Tablet) 10 mg PO Q4H PRN PRN Reason: Pain, Moderate (Pain Scale 4-6 Last Admin: 12/09/21 08:23 Dose: 10 mg Documented By: CLARISSA Rivaroxaban (Rivaroxaban 10 Mg Tablet) 10 mg PO DAILY [facility] Last Admin: 12/09/21 08:19 Dose: 10 mg Documented By: CLARISSA Sodium Chloride (0.9 % Sodium Chloride Flush 3 Ml Syringe) 3 ml IVFLUSH QSHIFT [facility] Last Admin: 12/09/21 08:20 Dose: Not Given Documented By: CLARISSA Non-Admin Reason: IV Running <Charlotte Paige PA-C - Last Filed: 12/09/21 08:52> Labs CBC & Chem 7: : 12/06/21 05:08 12/06/21 05:08 <Charlotte Paige PA-C - Last Filed: 12/09/21 08:52> Labs: Laboratory Results - last 24 hr 12/08/21 12/08/21 12/08/21 11:09 15:31 19:35 POC Glucose 291 H 181 H 259 H 12/09/21 06:58 POC Glucose 227 H <Charlotte aPige PA-C - Last Filed: 12/09/21 08:52> Procedures Date of Service Date of Service: 12/09/21 <Charlotte Paige PA-C - Last Filed: 12/09/21 08:52> Progress Note: A&P Assessment and plan (1) History of colostomy reversal: Status: Acute <KAEL Blanco Last Filed: 12/09/21 08:52> Assessment and Plan: 61 year old male with hx of rectal perforation requiring diverting loop colostomy now s/p DINA colostomy reversal. He is doing well post operatively and is awaiting bowel movement. VSS. Abd exam benign but is slightly distended. Will add colace, miralax. Will reassess later today, if continues to do well, stable for discharge to home. Requesting VNA for home. Will discuss with case management. <KAEL Blanco Last Manny ed: 12/09/21 08:52> Time Spent With Patient Time: Total time spent is greater than 50% in coordination of care (as documented) at patient's floor/unit and/or counseling patient: <Charlotte Paige PA-C - Last Filed: 12/09/21 08:52> Quality Stroke Does the patient have a stroke diagnosis?: No <Charlotte Paige PA-C - Last Filed: 12/09/21 08:52> VTE Prior VTE?: No <Charlotte Paige PA-C - Last Filed: 12/09/21 08:52> VTE Risk Level:: Medical - moderate - high <Charlotte Paige PA-C - Last Filed: 12/09/21 08:52> VTE Device Contraindication: N/A - Device Ordered <KAEL Blanco Last Filed: 12/09/21 08:52> VTE Drug Contraindication: N/A - Med Ordered <Charlotte Paige PA-C - Last Filed: 12/09/21 08:52>
[2021-12-09] MEDS: polyethylene glycoL 3350 17 GM POWD.PACK PO (10:44)
[2021-12-09] MEDS: Docusate Sodium 100 MG CAPSULE PO ×2 (10:44→21:30)
[2021-12-09 12:05] LABS: Glucose, Whole Blood 280 mg/dL (60-115)
--- NOTE | 2021-12-09 15:09 | PM.EVENT ---
Event Note Date of Service: 12/09/21 Event Note: continues to feel well good flatus has been ambulating looks comfortable abdomen soft he has not passed movement he is anxious about going home without a bowel movement will keep overnight Colace started looks good clinically
[2021-12-09 15:49] LABS: Glucose, Whole Blood 286 mg/dL (60-115)
[2021-12-09] MEDS: 0.9 % Sodium Chloride Flush 3 ML SYRINGE IVFLUSH (16:55)
[2021-12-09] MEDS: Lactated Ringers 1,000 ML 80 ML IVCONT (19:43)
[2021-12-09 20:02] LABS: Glucose, Whole Blood 261 mg/dL (60-115)
[2021-12-09] MEDS: Atorvastatin Calcium 20 MG TABLET PO (21:30)
[2021-12-10] MEDS: Morphine Sulfate 4 MG/ML CARTRIDGE 3 MG IVPUSH (03:49)
[2021-12-10 03:51] VITALS: BP 168/90; PULSE 91; RESP 16; TEMP 36.6; O2SAT 96
[2021-12-10] MEDS: Lactated Ringers 1,000 ML 80 ML IVCONT (06:01)
[2021-12-10 07:24] LABS: Glucose, Whole Blood 227 mg/dL (60-115)
[2021-12-10 07:44] VITALS: BP 184/59; PULSE 80; RESP 14; TEMP 35.7; O2SAT 97
[2021-12-10] MEDS: Insulin Lispro 100 UNIT/ML 3 ML VIAL SUBCUT ×2 (07:58→12:14)
--- NOTE | 2021-12-10 08:42 | PM.PNGS ---
Subjective Subjective Date of Service: 12/10/21 <Charlotte Paige PA-C - Last Filed: 12/10/21 08:50> 12/10/21 <Cristian Kendrick MD - Last Filed: 12/10/21 09:37> Interval history: Feeling well this morning. No BM yet but passing continuous flatus. More mobile and has been ambulating the halls. <Charlotte Paige PA-C - Last Filed: 12/10/21 08:50> Physical Exam Vital Signs: Vital Signs: Last Vital Signs Temp 96.3 F L 12/10/21 07:44 Pulse 80 12/10/21 07:44 Resp 14 12/10/21 07:44 BP 184/59 H 12/10/21 07:44 Pulse Ox 97 12/10/21 07:44 O2 Del Method 12/10/21 07:44 O2 Flow Rate 2 12/06/21 03:41 BMI result Body Mass Index 20.3 <KAEL Blanco Last Filed: 12/10/21 08:50> Const: General: comfortable, no acute distress and alert <Charlotte Paige PA-C - Last Filed: 12/10/21 08:50> Resp: Effort & Inspection: normal respiratory effort <KAEL Blanco Last Filed: 12/10/21 08:50> GI: Inspection: Yes distended (slightly) <Charlotte Paige PA-C - Last Filed: 12/10/21 08:50> Palpation (GI): Soft to palpation, nontender, no guarding and not rigid <Charlotte Paige PA-C - Last Filed: 12/10/21 08:50> Percussion: Yes normal to percussion <KAEL Blanco Last Filed: 12/10/21 08:50> Skin: General skin exam: no rashes or lesions noted <KAEL Blanco Last Filed: 12/10/21 08:50> Extrem: General: Yes no clubbing, cyanosis or edema <KAEL Blanco Last Filed: 12/10/21 08:50> Objective Data Active Medications Atorvastatin Calcium (Atorvastatin Calcium 20 Mg Tablet) 20 mg PO BEDTIME [facility] Last Admin: 12/09/21 21:30 Dose: 20 mg Documented By: TOM Dextrose (Dextrose 50 % 25 Gm/50 Ml Syringe) 25 gm IVPUSH Q15M PRN; Protocol PRN Reason: per Hypoglycemia Standing Ord. Docusate Sodium (Docusate Sodium 100 Mg Capsule) 100 mg PO BID [facility] Last Admin: 12/09/21 21:30 Dose: 100 mg Documented By: TOM Fentanyl (Fentanyl Citrate/Pf 100 Mcg/2 Ml Vial) 25 mcg IVPUSH Q5M PRN; Protocol PRN Reason: Pain, Moderate (Pain Scale 4-6 Last Admin: 12/05/21 16:50 Dose: 25 mcg Documented By: JH Glucose (Glucose Gel 15 Gm Gel..Gram.) 15 gm PO Q15M PRN; Protocol PRN Reason: per Hypoglycemia Standing Ord. Lactated Ringer's (Lr) 1,000 mls @ 80 mls/hr IVCONT .[id number] [facility] Last Admin: 12/10/21 06:01 Dose: 80 mls/hr Documented By: JAMIE Acetaminophen (Ofirmev) 1,000 mg in 100 mls @ 400 mls/hr IV Q6H [facility] Last Infusion: 12/10/21 04:21 Dose: 0 mls/hr Documented By: JAMIE Insulin Human Lispro (Insulin Lispro 100 Unit/Ml 3 Ml Vial) 0 unit SUBCUT QIDACHS [facility]; Protocol Last Admin: 12/10/21 07:58 Dose: 4 unit Documented By: EDGAR Mirtazapine (Mirtazapine 7.5 Mg Tablet) 7.5 mg PO BID [facility] Last Admin: 12/09/21 21:30 Dose: 7.5 mg Documented By: TOM Morphine Sulfate (Morphine Sulfate 4 Mg/Ml Cartridge) 3 mg IVPUSH Q3H PRN; Protocol PRN Reason: Pain, Severe (Pain Scale 7-10) Last Admin: 12/10/21 03:49 Dose: 3 mg Documented By: JAMIE Multivitamins/Vitamin C (Multivitamin Tablet) 1 tab PO DAILY [facility] Last Admin: 12/09/21 08:19 Dose: 1 tab Documented By: CLARISSA Ondansetron HCl (Ondansetron Hcl 4 Mg/2 Ml Vial) 4 mg IVPUSH ONCE PRN PRN Reason: Nausea and Vomiting Ondansetron HCl (Ondansetron Hcl 4 Mg/2 Ml Vial) 4 mg IVPUSH Q8H PRN PRN Reason: Nausea Oxycodone HCl (Oxycodone Hcl Immed Release 5 Mg Tablet) 10 mg PO Q4H PRN PRN Reason: Pain, Moderate (Pain Scale 4-6 Last Admin: 12/09/21 08:23 Dose: 10 mg Documented By: CLARISSA Rivaroxaban (Rivaroxaban 10 Mg Tablet) 10 mg PO DAILY [facility] Last Admin: 12/09/21 08:19 Dose: 10 mg Documented By: CLARISSA Sodium Chloride (0.9 % Sodium Chloride Flush 3 Ml Syringe) 3 ml IVFLUSH QSHIFT [facility] Last Admin: 12/10/21 07:59 Dose: Not Given Documented By: EDGAR Non-Admin Reason: IV Running <Charlotte Paige PA-C - Last Filed: 12/10/21 08:50> Labs CBC & Chem 7: : 12/06/21 05:08 12/06/21 05:08 <Charlotte Paige PA-C - Last Filed: 12/10/21 08:50> Labs: Laboratory Results - last 24 hr 12/09/21 12/09/21 12/09/21 12:00 15:28 19:45 POC Glucose 280 H 286 H 261 H 12/10/21 07:19 POC Glucose 227 H <Charlotte Paige PA-C - Last Filed: 12/10/21 08:50> Procedures Date of Service Date of Service: 12/10/21 <KAEL Blanco Last Filed: 12/10/21 08:50> Progress Note: A&P Assessment and plan (1) History of colostomy reversal: Status: Acute <KAEL Blanco Last Filed: 12/10/21 08:50> Assessment and Plan: Passing good flatus consistently No stools Abdomen remained soft nondistended He has had good oral intake Good pain control Looks well Okay to DC home with stool softeners Follow-up in the office Seen and examined independently - agree with PACO Paige <Cristian Kendrick MD - Last Filed: 12/10/21 09:37> Assessment and Plan: 61 year old male with hx of rectal perforation requiring diverting loop colostomy now s/p DINA colostomy reversal. Doing well post op. Feels well and wants to go home. Incisions clean. No BM yet but passing continuous flatus and is on bowel regimen. Will d/c on colace BID as well. Stable for discharge to home today with VNA services. F/u in office with Dr. Kendrick. <Charlotte Paige PA-C - Last Filed: 12/10/21 08:50> Time Spent With Patient Time: Total time spent is greater than 50% in coordination of care (as documented) at patient's floor/unit and/or counseling patient: <Charlotte Paige PA-C - Last Filed: 12/10/21 08:50> Quality Stroke Does the patient have a stroke diagnosis?: No <Charlotte Paige PA-C - Last Filed: 12/10/21 08:50> VTE Prior VTE?: No <Charlotte Paige PA-C - Last Filed: 12/10/21 08:50> VTE Risk Level:: Medical - moderate - high <KAEL Blanco Last Filed: 12/10/21 08:50> VTE Device Contraindication: N/A - Device Ordered <KAEL Blanco Last Filed: 12/10/21 08:50> VTE Drug Contraindication: N/A - Med Ordered <KAEL Blanco Last Filed: 12/10/21 08:50>
--- NOTE | 2021-12-10 09:38 | P.F2F_ITS ---
Service Date Service Date: 12/10/21 Encounter Date of encounter: 12/10/21 Reasons for Services Signs and symptoms assessed: Abdominal pain, GI function, incision appearance Reason for prison: wound care and postoperative assessment and/or care Homebound: Leaving the home is medically contraindicated at this time without the asist of a device and/or another person due th the listed conditions above and below. Reason homebound: weakness related to hospital stay and unable to drive (while on narcotics) Homebound supporting statement: Mr. Zayas is s/p colostomy reversal. He will need VNA services for wound checks and post op assessment. Certification: Based on the above findings, I certify that this patient is confined to the home and needs intermittent prison care, physical therapy and/or speech therapy, or continues to need occupational therapy. The patient is under my care, and I have initiated the establishment of the plan of care. The patient will be followed by a physician who will periodically review the plan of care.
[2021-12-10] MEDS: Rivaroxaban 10 MG TABLET PO (10:17)
[2021-12-10] MEDS: Mirtazapine 7.5 MG TABLET PO (10:17)
[2021-12-10] MEDS: Docusate Sodium 100 MG CAPSULE PO (10:17)
[2021-12-10] MEDS: Multivitamin TABLET 1 TAB PO (10:17)
[2021-12-10 11:13] VITALS: BP 147/83; PULSE 92; RESP 17; TEMP 36.3; O2SAT 96
[2021-12-10 11:20] LABS: Glucose, Whole Blood 223 mg/dL (60-115)
--- NOTE | 2021-12-10 12:11 | MHC.CM.PN ---
[facility] TO TRANSCRIPT CLERK AWARE OF PLAN
[2021-12-10 15:06] VITALS: BP 172/92; PULSE 93; RESP 18; TEMP 36.6; O2SAT 96
== END 2021-12-10 16:20 | disposition home health service (06) | DRG 223 ==
LOC: HO.SSSA 14:20 → HO.S3 15:44
PROVIDERS: Admitting Provider Surgery; PCP Internal Medicine; Visit Provider Surgery
PROC: 0DBE4ZZ Excision of Large Intestine, Percutaneous Endoscopic Approach (ICD-10-PCS; CPT 44227; principal; 2021-12-05 09:10)
DX: Z43.3 Encounter for attention to colostomy (principal); E11.9 Type 2 diabetes mellitus without complications; E78.5 Hyperlipidemia, unspecified; K66.0 Peritoneal adhesions (postprocedural) (postinfection); Z20.822 Contact with and (suspected) exposure to COVID-19; Z79.01 Long term (current) use of anticoagulants; Z86.718 Personal history of other venous thrombosis and embolism; Z79.84 Long term (current) use of oral hypoglycemic drugs; Z79.899 Other long term (current) 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
CPT/HCPCS: 36415; 80048; 82947; 85027; 86850; 86870; 86900; 86901; 86902; 86920; 86922; 87635; 88304; C1758; J0131; J1170; J2250; J2270; J2370; J2405; J2795; J3010

== ENCOUNTER → 2022-01-06 15:00 | Outpatient (BNVA) | payer OTHER, SELFPAY | PROVIDERS: PCP Internal Medicine; Visit Provider Orthopaedic Surgery | DX: G56.02 Carpal tunnel syndrome, left upper limb (principal); R29.898 Other symptoms and signs involving the musculoskeletal system | CPT/HCPCS: 99202 ==

== ENCOUNTER 2022-02-02 08:05 | Outpatient (REF) | payer OTHER, SELFPAY ==
[2022-02-03 08:18] LABS: Appearance Urine Clear; Color Urine Yellow; Glucose Urine UA >=1000 mg/dL (Negative); Leukocyte Esterase Urine Negative (Negative); Nitrite Urine Negative (Negative); Specific Gravity - Urine >= 1.030 (1.005-1.025); UMIC TRIGGER UA YES; Urine Blood Negative (Negative); Urine Ketones Negative (Negative); Urine Protein Negative (Neg-Trace)
[2022-02-03 08:25] LABS: Bacteria Urine None Seen (None Seen); Hyaline Casts Urine 0-2 /LPF (0-2); RBC Urine 0-2 /HPF (0-2); Squamous Epithelial Cell Urine 0-2 /HPF (0-2); WBC Urine 0-5 /HPF (0-5)
== END 2022-02-02 08:06 | disposition home or self-care (01) ==
LOC: HO.LNP 08:05
PROVIDERS: Visit Provider Internal Medicine
DX: R35.0 Frequency of micturition (principal)
CPT/HCPCS: 81001

== ENCOUNTER 2022-02-02 14:20 | Outpatient (REF) | payer OTHER, SELFPAY ==
--- NOTE | ~2022-02-02 | US_ITS ---
EXAMINATION: US THYROID CLINICAL INFORMATION: Nontoxic single thyroid nodule. COMPARISON: None TECHNIQUE: Linear transducer grayscale and color Doppler examination with attention to the region of the thyroid. FINDINGS: SIZE: Measurements of the thyroid lobes and nodules are given in sagittal, anteroposterior and transverse dimensions respectively. Right Thyroid Lobe: 5.2 x 1.3 x 2.0 cm, volume 7.1 mL. Parenchyma: The gland echotexture is heterogeneous. Thyroid vascularity is normal. Left Thyroid Lobe: 4.2 x 1.4 x 1.6 cm, volume 4.9 mL. Parenchyma: The gland echotexture is heterogeneous. Thyroid vascularity is normal. Isthmus: 0.4 cm in maximum AP dimension. Estimated total number of nodules greater than or equal to 1 cm: 2. [employer] nodules are described as follows: 1. Location: Right lower pole. Size: 0.5 x 0.4 x 0.7 cm, volume 0.07 mL. Nodule characteristics: Composition: Solid (2). Echogenicity: Isoechoic (1). Shape: Not taller than wide (0). Margins: Smooth (0). Echogenic Foci: None (0). ACR TI-RADS total points: 3 ACR TI-RADS category: 3 2. Location: Right lower pole. Size: 0.5 x 0.3 x 0.6 cm, volume 0.04 mL. Nodule characteristics: Composition: Mixed cystic and solid (1). Echogenicity: Cannot be determined (1). Shape: Not taller than wide (0). Margins: Smooth (0). Echogenic Foci: None (0). ACR TI-RADS total points: 2 ACR TI-RADS category: 2 3. Location: Left mid pole. Size: 0.3 x 0.4 x 0.3 cm, volume 0.02 mL. Nodule characteristics: Composition: Solid (2). Echogenicity: Isoechoic (1). Shape: Taller than wide (3). Margins: Ill-defined (0). Echogenic Foci: Macrocalcifications (1). ACR TI-RADS total points: 7 ACR TI-RADS category: 5 4. Location: Left lower pole. Size: 1.1 x 0.4 x 1.0 cm, volume 0.2 mL. Nodule characteristics: Composition: Solid (2). Echogenicity: Hypoechoic (2). Shape: Not taller than wide (0). Margins: Ill-defined (0). Echogenic Foci: None (0). ACR TI-RADS total points: 4 ACR TI-RADS category: 4 5. Location: Left lower pole. Size: 2.0 x 1.2 x 1.8 cm, volume 2.2 mL. Nodule characteristics: Composition: Solid/almost completely solid (2). Echogenicity: Isoechoic (1). Shape: Not taller than wide (0). Margins: Smooth (0). Echogenic Foci: None (0). ACR TI-RADS total points: 3 ACR TI-RADS category: 3 NODES: No lymphadenopathy is seen in the tissue surrounding the thyroid gland. US/US thyroid IMPRESSION: Heterogeneous thyroid gland. Bilateral thyroid nodules. Ultrasound follow-up recommended according to TI RADS criteria at one, 2, 3 and 5 years as described below. ACR TI-RADS RECOMMENDATION REFERENCE: Ultrasound-guided fine-needle aspiration, followup ultrasound, no further follow up. * TR1 (0 point) and TR 2 (2 points): No FNA or follow up. * TR3 (3 points): FNA if more than or equal to 2.5 cm in maximum dimension, followup ultrasound in 1, 3 and 5 years if 1.5 to 2.4 cm in maximum dimension. * TR4 (4-6 points): FNA if more than or equal to 1.5 cm in maximum dimension, followup ultrasound in 1, 2, 3 and 5 years if 1 to 1.4 cm in maximum dimension. * TR5 (more than or equal to 7 points): FNA if more than or equal to 1 cm in maximum dimension, followup ultrasound every year for 5 years if 0.5 to 0.9 cm in maximum dimension. * TR3, TR4 or TR5 nodules that are below the size threshold for followup receive no follow up.
[2022-02-05 01:19] LABS: TS Negative Control Passed; TS Panel A 0; TS Panel B 0; TS Positive Control Passed; TSpotTB Negative (Negative)
== END 2022-02-02 14:21 | disposition home or self-care (01) ==
LOC: HO.US 14:20
PROVIDERS: Visit Provider Internal Medicine
DX: E04.1 Nontoxic single thyroid nodule (principal); R42 Dizziness and giddiness
CPT/HCPCS: 36415; 76536; 86481

== ENCOUNTER 2022-04-11 19:52 | Emergency (ER) | payer OTHER, SELFPAY ==
--- NOTE | ~2022-04-11 | XR_ITS ---
EXAMINATION: XR TIBIA AND FIBULA, RIGHT CLINICAL INFORMATION: Wound. COMPARISON: Right knee radiographs dated 07/10/2021. TECHNIQUE: AP and lateral views of the right tibia and fibula were obtained. FINDINGS: No acute fracture or dislocation. No periosteal reaction or cortical erosion. Atherosclerotic calcifications. No radiopaque foreign body. XR/XR tibia fibula RT 2V IMPRESSION: 1. No acute osseous abnormality. 2. No radiopaque foreign body.
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
[2022-04-11 20:40] VITALS: BP 132/76; PULSE 84; O2SAT 97; BMI 23.5
[2022-04-11 20:44] VITALS: BP 125/74; PULSE 78; RESP 18; TEMP 36.6; O2SAT 96
--- NOTE | 2022-04-11 20:54 | PC.NURSE ---
pt med list xarelto farxiga atorvastatin plogitazone daily multivitamin metformin mirtazapine
[2022-04-11 21:37] LABS: Basophils Percent Auto 0.4 % (0-2); Eosinophils Absolute Auto 0.4 X10*3/uL (0.0-0.4); Eosinophils Percent Auto 4.3 % (0-4); Hematocrit 42.4 % (42.0-52.0); Hemoglobin 14.3 g/dl (14.0-18.0); Imm Gran Abs Auto 0.02 X10*3/uL (0.00-0.03); Imm Gran Pct Auto 0.2 % (0.0-0.4); Lymphocytes Absolute Auto 2.4 X10*3/uL (1.2-4.9); Lymphocytes Percent Auto 28.5 % (20-40); MANUAL DIFF FLAG NO; Mean Corpuscular HGB Conc 33.7 g/dl (31.0-36.0); Mean Corpuscular Hemoglobin 31.2 pg (27.0-33.0); Mean Corpuscular Volume 92.4 fL (80.0-98.0); Monocytes Absolute Auto 0.9 X10*3/uL (0.1-1.2); Monocytes Percent Auto 10.2 % (2-11); Neutrophils Absolute Auto 4.7 x10*3/uL (2.0-8.3); Neutrophils Percent Auto 56.4 % (45-73); Platelet Count 178 X10*3/uL (160-400); Red Blood Count 4.59 X10*6/uL (4.60-5.80); Red Cell Distribution Width 12.7 % (11.0-16.0); White Blood Count 8.4 X10*3/uL (4.8-10.8)
--- NOTE | 2022-04-11 21:41 | PC.NURSE ---
pt arrived via EMS, visitor at bedside
[2022-04-11 21:52] LABS: Glucose, Whole Blood 186 mg/dL (60-115)
[2022-04-11 21:58] LABS: Anion Gap 13 (12-20); Blood Urea Nitrogen 22 mg/dL (9-16); Calcium 9.2 mg/dL (8.4-10.2); Carbon Dioxide 27 mmol/L (22-29); Chloride 104 mmol/L (96-108); Creatinine Clr Calc Pharmacy 96.5; Estimated Glomerular Filt Rate > 60; Glucose Random 205 mg/dL (60-115); Potassium 4.1 mmol/L (3.3-5.1); Sodium 140 mmol/L (135-145)
[2022-04-11] MEDS: cefTRIAXone sodium 1 GM in 0.9 % Sodium Chloride 50 ML IV (22:20)
[2022-04-11] MEDS: 0.9 % Sodium Chloride 1,000 ML 999 ML IVCONT (22:28)
[2022-04-11] MEDS: Doxycycline Monohydrate 100 MG CAPSULE PO (23:13)
--- NOTE | 2022-04-11 23:52 | PC.NURSE ---
discharge instructions given/explained, steady gait, no apparent distress, all questions answered, pt left with visitor, IV cath tip intact upon removal
== END 2022-04-11 23:54 | disposition home or self-care (01) ==
PROVIDERS: Nurse Practitioner Family; Emergency Provider Internal Medicine; PCP Internal Medicine
DX: L02.415 Cutaneous abscess of right lower limb (principal); I10 Essential (primary) hypertension; E11.9 Type 2 diabetes mellitus without complications; E78.00 Pure hypercholesterolemia, unspecified; F12.90 Cannabis use, unspecified, uncomplicated; Z79.02 Long term (current) use of antithrombotics/antiplatelets; Z79.84 Long term (current) use of oral hypoglycemic drugs
CPT/HCPCS: 36415; 73590; 80048; 82947; 85025; 96374; 99284; J0696

== ENCOUNTER 2022-06-03 16:32 | Outpatient (REF) | payer OTHER, SELFPAY ==
--- NOTE | ~2022-06-03 | XR_ITS ---
EXAMINATION: XR ANKLE, LEFT CLINICAL INFORMATION: Left ankle pain and swelling. COMPARISON: None available. TECHNIQUE: AP, lateral, and mortise views of the left ankle. FINDINGS: The bones and soft tissues are normal. No fracture. Alignment is anatomic. Joint spaces are maintained. No joint effusion. Moderate to severe small vessel arteriosclerosis. XR/XR ankle LT 2V IMPRESSION: Unremarkable left ankle.
== END 2022-06-03 16:33 | disposition home or self-care (01) ==
LOC: HO.HMGCX 16:32
PROVIDERS: Visit Provider Internal Medicine
DX: M25.572 Pain in left ankle and joints of left foot (principal)
CPT/HCPCS: 73600

== ENCOUNTER 2022-06-03 19:12 | Emergency (ER) | payer OTHER, SELFPAY ==
--- NOTE | ~2022-06-03 | CT_ITS ---
EXAMINATION: CT HEAD WITHOUT CONTRAST CLINICAL INFORMATION: Trauma COMPARISON: 11/27/2021 TECHNIQUE: Contiguous axial imaging was performed from the skull base to vertex without intravenous contrast. This CT examination was performed using dose optimization techniques as appropriate, variously including the following: * Automated exposure control * Adjustment of mA and/or kV according to patient size (this includes techniques or standardized protocols for targeted exams where dose is matched to indication/reason for exam; i.e. extremities or head) Use of iterative reconstruction technique DLP: 764 mGy-cm. FINDINGS: Redemonstration of the extra-axial mass along the anterior right frontal inner table measuring 2.9 x 1.6 cm on coronal imaging. This is similar to prior. There is no evidence of acute intracranial hemorrhage or territorial infarction. No abnormal mass effect or midline shift is seen. Jones to white matter differentiation is well preserved. No extra-axial fluid collections are identified. No hydrocephalus. Proportional prominence of the ventricles and sulcal spaces is consistent with moderate volume loss. Patchy periventricular and deep white matter hypoattenuation is consistent with mild small vessel ischemic changes. The osseous structures and soft tissues are normal. The mastoid air cells and visualized portions of the paranasal sinuses are well aerated. CT/CT head/brain wo IV con IMPRESSION: 1. No acute intracranial pathology. Chronic volume loss with small vessel ischemic change. 2. Redemonstration of the extra-axial mass along the anterior right frontal inner table, likely representing a meningioma.
[2022-06-03 19:22] VITALS: BP 143/80; BP 155/89; PULSE 71; PULSE 76; RESP 18; TEMP 36.6; O2SAT 96; O2SAT 99; BMI 21.9
[2022-06-03 19:38] LABS: MANUAL DIFF FLAG NO
[2022-06-03 19:40] LABS: Basophils Percent Auto 0.5 % (0-2); Eosinophils Absolute Auto 0.5 X10*3/uL (0.0-0.4); Eosinophils Percent Auto 6.1 % (0-4); Hematocrit 45.6 % (42.0-52.0); Hemoglobin 15.4 g/dl (14.0-18.0); Imm Gran Abs Auto 0.02 X10*3/uL (0.00-0.03); Imm Gran Pct Auto 0.2 % (0.0-0.4); Lymphocytes Percent Auto 36.2 % (20-40); Mean Corpuscular HGB Conc 33.8 g/dl (31.0-36.0); Mean Corpuscular Hemoglobin 31.5 pg (27.0-33.0); Mean Corpuscular Volume 93.3 fL (80.0-98.0); Mean Platelet Volume 10.2 fL (9.4-12.4); Monocytes Absolute Auto 0.9 X10*3/uL (0.1-1.2); Monocytes Percent Auto 11.4 % (2-11); Neutrophils Absolute Auto 3.7 x10*3/uL (2.0-8.3); Neutrophils Percent Auto 45.6 % (45-73); Platelet Count 210 X10*3/uL (160-400); Red Blood Count 4.89 X10*6/uL (4.60-5.80); Red Cell Distribution Width 13.6 % (11.0-16.0); White Blood Count 8.2 X10*3/uL (4.8-10.8)
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
[2022-06-03 19:45] LABS: INTERNATIONAL NORM RATIO 1.1 (0.9-1.1); Prothrombin Time 12.2 SEC (10.0-13.1)
[2022-06-03 20:00] VITALS: BP 119/64; PULSE 72; RESP 16; TEMP 36.4; O2SAT 97
[2022-06-03 20:06] LABS: Alanine Aminotransferase 33 U/L (0-40); Albumin Level 4.2 g/dL (3.5-5.0); Alkaline Phosphatase 83 U/L (39-117); Anion Gap 19 (12-20); Aspartate Amino Transferase 37 U/L (5-37); Bilirubin Total 0.5 mg/dL (0.0-1.0); Blood Urea Nitrogen 21 mg/dL (9-16); Calcium 9.8 mg/dL (8.4-10.2); Carbon Dioxide 21 mmol/L (22-29); Chloride 103 mmol/L (96-108); Creatinine Clr Calc Pharmacy 103.5; Estimated Glomerular Filt Rate > 60; Glucose Random 130 mg/dL (60-115); Potassium 4.8 mmol/L (3.3-5.1); Sodium 138 mmol/L (135-145); Total Protein 7.1 g/dL (6.5-8.0)
[2022-06-03] MEDS: Lidocaine HCl 1 % MPF 5 ML VIAL 10 ML INFILTRATI (20:38)
== END 2022-06-03 21:11 | disposition home or self-care (01) ==
PROVIDERS: Emergency Provider Emergency Medicine; PCP Internal Medicine
DX: S01.112A Laceration without foreign body of left eyelid and periocular area, initial encounter (principal); R51.9 Headache, unspecified; W01.0XXA Fall on same level from slipping, tripping and stumbling without subsequent striking against object, initial encounter; Y93.9 Activity, unspecified; Y92.480 Sidewalk as the place of occurrence of the external cause; Y99.9 Unspecified external cause status; Z79.899 Other long term (current) 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
CPT/HCPCS: 12051; 36415; 70450; 80053; 85025; 85610; 99283; 99284

== ENCOUNTER 2022-07-04 09:19 | Outpatient (REF) | payer OTHER, SELFPAY ==
[2022-07-04 09:29] LABS: MANUAL DIFF FLAG NO
[2022-07-04 09:33] LABS: Basophils Percent Auto 0.3 % (0-2); Eosinophils Absolute Auto 0.4 X10*3/uL (0.0-0.4); Eosinophils Percent Auto 2.9 % (0-4); Hematocrit 47.2 % (42.0-52.0); Hemoglobin 15.8 g/dl (14.0-18.0); Imm Gran Abs Auto 0.07 X10*3/uL (0.00-0.03); Imm Gran Pct Auto 0.6 % (0.0-0.4); Lymphocytes Absolute Auto 2.9 X10*3/uL (1.2-4.9); Mean Corpuscular HGB Conc 33.5 g/dl (31.0-36.0); Mean Corpuscular Hemoglobin 32.1 pg (27.0-33.0); Mean Corpuscular Volume 95.9 fL (80.0-98.0); Mean Platelet Volume 10.3 fL (9.4-12.4); Monocytes Absolute Auto 1.1 X10*3/uL (0.1-1.2); Monocytes Percent Auto 9.3 % (2-11); Neutrophils Absolute Auto 7.7 x10*3/uL (2.0-8.3); Neutrophils Percent Auto 62.9 % (45-73); Platelet Count 194 X10*3/uL (160-400); Red Blood Count 4.92 X10*6/uL (4.60-5.80); Red Cell Distribution Width 13.8 % (11.0-16.0); White Blood Count 12.2 X10*3/uL (4.8-10.8)
[2022-07-04 10:34] LABS: Alanine Aminotransferase 27 U/L (0-40); Albumin Level 4.3 g/dL (3.5-5.0); Alkaline Phosphatase 89 U/L (39-117); Anion Gap 14 (12-20); Aspartate Amino Transferase 19 U/L (5-37); Bilirubin Total 0.7 mg/dL (0.0-1.0); Blood Urea Nitrogen 21 mg/dL (9-16); Calcium 9.8 mg/dL (8.4-10.2); Carbon Dioxide 25 mmol/L (22-29); Chloride 102 mmol/L (96-108); Cholesterol 166 mg/dL; Estimated Glomerular Filt Rate > 60; Glucose Random 170 mg/dL (60-115); HDL Cholesterol 37 mg/dL; LDL Cholesterol Calculated 101 mg/dl; Potassium 4.1 mmol/L (3.3-5.1); Sodium 137 mmol/L (135-145); Total Protein 6.7 g/dL (6.5-8.0); Triglycerides 141 mg/dL
[2022-07-04 11:02] LABS: Folate 15.4 ng/mL (> or = 4.0); Free T4 (Free Thyroxine) 1.03 ng/dL (0.71-1.85); Prostate Specific Antigen Scr 1.07 ng/mL (<0.05-4.0); Thyroid Stimulating Hormone 1.05 uIU/mL (0.32-4.0); Vitamin B12 265 pg/mL (200-900)
== END 2022-07-04 09:20 | disposition home or self-care (01) ==
LOC: HO.LAB 09:19
PROVIDERS: PCP Internal Medicine; Visit Provider Internal Medicine
DX: Z12.5 Encounter for screening for malignant neoplasm of prostate (principal); E11.65 Type 2 diabetes mellitus with hyperglycemia; E78.00 Pure hypercholesterolemia, unspecified
CPT/HCPCS: 36415; 80053; 80061; 82607; 82746; 84153; 84439; 84443; 85025

== ENCOUNTER → 2022-07-16 13:49 | Outpatient (BNVA) | payer OTHER, SELFPAY | PROVIDERS: PCP Internal Medicine; Visit Provider Dietitian, Registered | DX: E11.65 Type 2 diabetes mellitus with hyperglycemia (principal); E04.1 Nontoxic single thyroid nodule; E78.00 Pure hypercholesterolemia, unspecified; Z93.3 Colostomy status; Z95.828 Presence of other vascular implants and grafts; Z71.3 Dietary counseling and surveillance | CPT/HCPCS: 97803 ==

== ENCOUNTER → 2022-09-07 15:35 | Outpatient (REF) | payer OTHER, SELFPAY | LOC: HO.CARD 15:35 | PROVIDERS: PCP Internal Medicine; Visit Provider Internal Medicine | DX: Z01.818 Encounter for other preprocedural examination (principal) | CPT/HCPCS: 36415; 80048; 83036; 85025; 93005 ==

== ENCOUNTER 2022-11-18 07:15 | Outpatient (AMB) | payer OTHER, SELFPAY ==
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
== END 2022-11-18 07:34 | disposition home or self-care (01) ==
LOC: HO.HMGH 07:15
PROVIDERS: PCP Internal Medicine; Visit Provider Nurse Practitioner Family
DX: R51.9 Headache, unspecified (principal)
CPT/HCPCS: 99213

== ENCOUNTER 2022-12-09 14:43 | Outpatient (AMB) | payer OTHER, SELFPAY ==
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
[2022-12-09 15:05] VITALS: BP 116/70; PULSE 82; O2SAT 97
== END 2022-12-09 15:39 | disposition home or self-care (01) ==
PROVIDERS: PCP Internal Medicine; Visit Provider Physician Assistant
DX: H61.23 Impacted cerumen, bilateral (principal)
CPT/HCPCS: 99213

== ENCOUNTER 2022-12-24 14:11 | Outpatient (AMB) | payer OTHER, SELFPAY ==
[2022-12-24 14:15] VITALS: BP 134/68; PULSE 85; O2SAT 97; BMI 23.3
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
== END 2022-12-24 14:56 | disposition home or self-care (01) ==
PROVIDERS: PCP Internal Medicine; Visit Provider Internal Medicine
DX: E11.65 Type 2 diabetes mellitus with hyperglycemia (principal); E78.00 Pure hypercholesterolemia, unspecified; R41.89 Other symptoms and signs involving cognitive functions and awareness; R46.89 Other symptoms and signs involving appearance and behavior; G62.9 Polyneuropathy, unspecified; R26.81 Unsteadiness on feet; Z23 Encounter for immunization; R30.0 Dysuria; R35.0 Frequency of micturition; Z86.010 Personal history of colon polyps
CPT/HCPCS: 83036; 90471; 90686; 99214

== ENCOUNTER 2023-01-01 15:51 | Outpatient (AMB) | payer OTHER, SELFPAY ==
--- NOTE | 2023-01-01 15:54 | AM.OFFVISNUR ---
Intake Intake Visit Reasons: Trulicity teaching Allergies NSAIDS (Non-Steroidal Anti-Inflamma Adverse Reaction (Intermediate, Verified 12/24/22 14:15) Gastrointestinal Upset Office Meds Trulicity 0.75 mg/0.5 mL subcutaneous pen injector Performing Provider: Bri Roger MD Performing Location: [facility] Administered by: Cheryl Hernandez RN on 01/01/23 16:00 Dose Route Admin Location Dispensed Lot Number Expiration Date [employer] 0.75 mg subcut 0.5 mL [id number] 07/31/24 [id number] [employer] Coding Assessment & Plan Assessment & Plan Orders: Orders AMB Dulaglutide Injection Patient Supplied Today E11.65 - Type 2 diabetes mellitus with hyperglycemia Medications: Discontinued blood-glucose meter (FreeStyle Flash System kit) Discontinued Reason: No Longer Medically Relevant As directed 1 ea 0RF blood sugar diagnostic (FreeStyle Lite Strips) Discontinued Reason: Duplicate As directed check the BS TID 300 ea 3RF E11.65 - Type 2 diabetes mellitus with hyperglycemia, E11.9 - Type 2 diabetes mellitus without complications
== END 2023-01-01 16:03 | disposition home or self-care (01) ==
PROVIDERS: PCP Internal Medicine; Visit Provider Internal Medicine
DX: E11.65 Type 2 diabetes mellitus with hyperglycemia (principal)
CPT/HCPCS: 96372; J3590

== ENCOUNTER 2023-01-14 15:14 | Outpatient (REF) | payer OTHER, SELFPAY ==
--- NOTE | ~2023-01-14 | US_ITS ---
EXAMINATION: US PELVIS LIMITED (BLADDER) CLINICAL INFORMATION: Frequency of micturition. COMPARISON: CT abdomen and pelvis 06/02/2021. TECHNIQUE: Real-time imaging of the bladder. FINDINGS: BLADDER: Partially distended, limiting evaluation. Diffuse thickening, irregularity and trabeculation of the bladder wall. Bilateral ureteral jets are demonstrated. Prevoid bladder volume is 151 mL. Postvoid bladder volume is 48 mL. Prostate volume 24 mL. Echogenic foci within the prostate are characteristic of coarse calcifications. US/US bladder IMPRESSION: Bladder is partially distended, limiting evaluation. Diffuse thickening, irregularity and trabeculation of the bladder wall. Prostate volume 24 mL. Postvoid bladder volume is 48 mL.
== END 2023-01-14 15:15 | disposition home or self-care (01) ==
LOC: HO.HMGCX 15:14
PROVIDERS: PCP Internal Medicine; Visit Provider Internal Medicine
DX: R35.0 Frequency of micturition (principal)
CPT/HCPCS: 76857

== ENCOUNTER 2023-02-08 16:53 | Outpatient (REF) | payer OTHER, SELFPAY ==
[2023-02-08 18:13] LABS: Cholesterol 165 mg/dL (<200); HDL Cholesterol 40 mg/dL (>40); LDL Cholesterol Calculated 100 mg/dL (<100); Triglycerides 125 mg/dL (<150)
[2023-02-08 18:27] LABS: Thyroid Stimulating Hormone 1.94 uIU/mL (0.32-4.0)
[2023-02-08 18:38] LABS: Folate 9.1 ng/mL (> or = 4.0); Prostate Specific Antigen Scr 0.93 ng/mL (<0.05-4.0); Vitamin B12 453 pg/mL (200-900)
[2023-02-09 10:52] LABS: Creatinine Urine 59.46 mg/dL; Microalbum/Creatinine Ratio Ur 23.5 ug/mg cr (<30)
== END 2023-02-08 16:54 | disposition home or self-care (01) ==
LOC: HO.LAB 16:53
PROVIDERS: PCP Internal Medicine; Visit Provider Internal Medicine
DX: E11.65 Type 2 diabetes mellitus with hyperglycemia (principal); E78.00 Pure hypercholesterolemia, unspecified
CPT/HCPCS: 36415; 80061; 82043; 82570; 82607; 82746; 84153; 84439; 84443

== ENCOUNTER 2023-03-02 15:00 | Outpatient (RCR) | payer OTHER, SELFPAY ==
--- NOTE | 2023-01-13 13:57 | MHC.PT.EP ---
[facility] [place] Office [place] Office [place] Office [address] Zhanna Dietrich [address] [phone] F: [phone] F: [phone] F: [phone] F: [phone] Physical Therapy Plan of Care Date of Evaluation: 01/13/23 Date of Surgery: n/a Diagnosis: unsteadiness on feet Assessment: Patient is a 62 year old male presenting to PT with complaints of unsteadiness on feet. Pt reports issues have been ongoing due to multiple comorbidities including stroke, dementia. He presents today with impairments in LE strength, balance, gait mechanics. Pt's current occupation is disabled, with baseline physical activities including ambulating, ADLs, stair negotiation. 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 Clinical presentation today is most consistent with signs and sx associated with unsteadiness on feet and pt will benefit from skilled PT 2 week x 4 weeks to address the following problems and impairments noted upon evaluation: LE strength, balance, gait mechanics. These problems limit the patient with the following functional activities: ambulating, ADLs, stair negotiation. The prescribed treatment plan of care is medically necessary. Co-morbidities of [place], dementia, IVC filter, hx DVT, meningioma were identified and taken into considerations of plan of care. Pt was educated on HEP, role of PT, prognosis, POC. Frequency and Duration: The patient will be seen 2 x week x 4 weeks Short Term Goals: Pt will demonstrate ability to perform tandem stance x 30 sec with min sway in 2 weeks. Pt will demonstrate improved LE strength by 1/3 grade in 2 weeks. 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 Pt will demonstrate improved TUG score by 3 seconds in 4 weeks for decreased risk of falls. Treatment Plan: Modalities to reduce pain, spasms and effusion. Manual therapy to restore motion and function. Therapeutic exercise to improve strength and flexibility. Neuromuscular re-education for posture and balance. Therapeutic activities to return to functional activities of daily living. Electronically signed by: Gardenia Hamm, PT, DPT, ATC Please sign and return to therapist. Thank you for your referral.
--- NOTE | 2023-03-02 15:53 | MHC.PT.DC ---
[facility] [place] Office [place] Office [place] Office [address] Frankie Dietrich [address] [phone] F: [phone] F: [phone] F: [phone] F: [phone] Physical Therapy Discharge Report Diagnosis: unsteadiness on feet Date of Surgery: n/a Date of Evaluation: 01/13/23 Date of Discharge: 03/02/23 Treatments to Date: 5 Cancellations to Date: 0 No Shows to Date: 0 Discharge Status: Discharge Summary: 03/02/2023: Pt has made little to no progress since start of care. He continues to have severely dysfunctional gait and severe unsteadiness. He also continues to experience frequent falls. Highly recommend he stops doing activities that put him at risk of falling. At this point his current functional status is likely his new baseline and therefore it is not appropriate to continue with skilled PT. Pt to be d/c at this time and encouraged him to continue his strengthening at home. Electronically signed by: Gardenia Hamm, PT, DPT, ATC Please sign and return to therapist. Thank you for your referral.
== END 2023-03-02 15:54 | disposition home or self-care (01) ==
LOC: HO.PTCHIC 15:00
PROVIDERS: PCP Internal Medicine; Visit Provider Internal Medicine
DX: R26.81 Unsteadiness on feet (principal)
CPT/HCPCS: 97110; 97112; 97162

== ENCOUNTER 2023-03-18 14:22 | Outpatient (AMB) | payer OTHER, SELFPAY ==
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
== END 2023-03-18 15:13 | disposition home or self-care (01) ==
PROVIDERS: PCP Internal Medicine; Visit Provider Urology
DX: R35.0 Frequency of micturition (principal); N31.8 Other neuromuscular dysfunction of bladder; Z86.73 Personal history of transient ischemic attack (TIA), and cerebral infarction without residual deficits; E11.9 Type 2 diabetes mellitus without complications; Z13.9 Encounter for screening, unspecified
CPT/HCPCS: 99204

== ENCOUNTER → 2023-03-18 14:22 | Outpatient (BNVA) | payer OTHER, SELFPAY | PROVIDERS: PCP Internal Medicine; Visit Provider Urology | DX: R35.0 Frequency of micturition (principal); N31.8 Other neuromuscular dysfunction of bladder; E11.9 Type 2 diabetes mellitus without complications; Z86.73 Personal history of transient ischemic attack (TIA), and cerebral infarction without residual deficits | CPT/HCPCS: 51798; 81003; 99202 ==

== ENCOUNTER 2023-04-15 13:53 | Outpatient (REF) | payer OTHER, SELFPAY ==
--- NOTE | ~2023-04-15 | US_ITS ---
EXAMINATION: US RETROPERITONEAL COMPLETE (RENAL) CLINICAL INFORMATION: Frequency of micturition. COMPARISON: Ultrasound bladder 01/14/2023. CT abdomen and pelvis 06/02/2021. TECHNIQUE: Real-time imaging of the kidneys and bladder. FINDINGS: RIGHT KIDNEY: 10.3 x 5.3 x 5.9 cm (SAG x AP x TRV). The kidney is normal in size, contour, and echogenicity. Renal cortical thickness is normal. No calculi or focal parenchymal lesions. No hydronephrosis. LEFT KIDNEY: 11.0 x 4.9 x 4.2 cm (SAG x AP x TRV). The kidney is normal in size, contour, and echogenicity. Renal cortical thickness is normal. No calculi or focal parenchymal lesions. No hydronephrosis. BLADDER: Well-distended with a 2.7 cm left posterior diverticulum and mild diffuse wall thickening with trabeculations. Bilateral ureteral jets are demonstrated. Prevoid bladder volume is 164 mL. Postvoid bladder volume is 34 mL. ADDITIONAL FINDINGS: Prostatic volume is 22 mL with nonspecific central coarse calcifications. US/US retroperitoneal comp IMPRESSION: 1. No nephrolithiasis or hydronephrosis. 2. Increased post void bladder volume with a left posterior diverticulum and mild diffuse wall thickening with trabeculations suggesting chronic outlet obstruction.
== END 2023-04-15 13:54 | disposition home or self-care (01) ==
LOC: HO.HMGCX 13:53
PROVIDERS: PCP Internal Medicine; Visit Provider Urology
DX: R35.0 Frequency of micturition (principal)
CPT/HCPCS: 76770

== ENCOUNTER 2023-04-21 19:09 | Emergency (ER) | payer OTHER, SELFPAY ==
--- NOTE | ~2023-04-21 | CT_ITS ---
EXAMINATION: CT HEAD WITHOUT CONTRAST CLINICAL INFORMATION: Fall. COMPARISON: Head CT dated 06/03/2022. TECHNIQUE: Contiguous axial imaging was performed from the skullbase to vertex without intravenous administration of contrast. This CT examination was performed using dose optimization techniques as appropriate, variously including the following: *Automated exposure control *Adjustment of mA and/or kV according to patient size (this includes techniques or standardized protocols for targeted exams where dose is matched to indication/reason for exam; i.e. extremities or head) *Use of iterative reconstruction technique DLP: 831 mGy-cm. FINDINGS: A previously described high right frontal convexity mass suspected to represent a meningioma has further increase in size, now measuring 2.4 x 2.2 x 5 cm, previously measuring 2 x 1.9 x 4.5 cm. No edema is seen in the underlying parenchyma. There is no midline shift of structures. There is no evidence of acute intracranial hemorrhage or territorial infarction. Encephalomalacia again visible in the high right parietal lobe. Moderate chronic white matter microangiopathy is stable. No extra-axial fluid collections are identified. Small chronic-appearing lacunar infarct noted in the right internal capsule. Significant ventriculomegaly again evident with thinning and superior bowing of the corpus callosum. There is stable narrowing of the medial frontoparietal sulci superior to the lateral ventricles along the interhemispheric fissure. The osseous structures and soft tissues are normal. The mastoid air cells are well aerated. Mild ethmoid sinus mucosal thickening visible. CT/CT head/brain wo IV con IMPRESSION: Mild further interval increase in size of a known high right frontal extra-axial mass suspected to represent a meningioma, measuring 2.4 x 2.2 x 5 cm. No new parenchymal edema or midline shift of structures. No acute intracranial hemorrhage or territorial infarction. Chronic encephalomalacia in the high right parietal lobe and moderate chronic white matter microangiopathy with diffuse brain parenchymal volume loss. Significant ventriculomegaly, as seen on prior imaging, which may signify underlying normal pressure hydrocephalus; clinically correlate.
[2023-04-21 19:31] VITALS: BP 140/82; BP 177/84; PULSE 76; PULSE 82; RESP 16; TEMP 36.6; O2SAT 90; O2SAT 96; BMI 22.4
--- NOTE | 2023-04-21 19:52 | ECG_ITS ---
Test Reason : FALL Blood Pressure : / mmHG Vent. Rate : 072 BPM Atrial Rate : 072 BPM P-R Int : 190 ms QRS Dur : 096 ms QT Int : 404 ms P-R-T Axes : 063 041 060 degrees QTc Int : 442 ms Normal sinus rhythm Normal ECG When compared with ECG of 07-SEP-2022 15:39, No significant change was found Referred By: Jesi Richmond Electronically Signed By:Justice De La O
[2023-04-21 20:11] LABS: MANUAL DIFF FLAG NO
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
[2023-04-21 20:13] LABS: Basophils Percent Auto 0.5 % (0-2); Eosinophils Absolute Auto 0.3 X10*3/uL (0.0-0.4); Eosinophils Percent Auto 4.3 % (0-4); Hematocrit 39.2 % (42.0-52.0); Hemoglobin 13.5 g/dl (14.0-18.0); Imm Gran Abs Auto 0.01 X10*3/uL (0.00-0.03); Imm Gran Pct Auto 0.2 % (0.0-0.4); Lymphocytes Absolute Auto 1.5 X10*3/uL (1.2-4.9); Lymphocytes Percent Auto 23.3 % (20-40); Mean Corpuscular HGB Conc 34.4 g/dl (31.0-36.0); Mean Corpuscular Hemoglobin 32.6 pg (27.0-33.0); Mean Corpuscular Volume 94.7 fL (80.0-98.0); Mean Platelet Volume 10.3 fL (9.4-12.4); Monocytes Absolute Auto 0.6 X10*3/uL (0.1-1.2); Neutrophils Absolute Auto 3.8 x10*3/uL (2.0-8.3); Neutrophils Percent Auto 61.7 % (45-73); Platelet Count 147 X10*3/uL (160-400); Red Blood Count 4.14 X10*6/uL (4.60-5.80); Red Cell Distribution Width 13.3 % (11.0-16.0); White Blood Count 6.2 X10*3/uL (4.8-10.8)
[2023-04-21 20:26] LABS: Alanine Aminotransferase 25 U/L (0-40); Albumin Level 3.8 g/dL (3.5-5.0); Alkaline Phosphatase 77 U/L (39-117); Anion Gap 10 (12-20); Aspartate Amino Transferase 18 U/L (5-37); Bilirubin Direct 0.2 mg/dL (0.0-0.5); Bilirubin Total 0.4 mg/dL (0.0-1.0); Blood Urea Nitrogen 31 mg/dL (9-16); Calcium 9.4 mg/dL (8.4-10.2); Carbon Dioxide 23 mmol/L (22-29); Chloride 109 mmol/L (96-108); Creatinine Clr Calc Pharmacy 97.4; Estimated Glomerular Filt Rate > 60; Glucose Random 120 mg/dL (60-115); Magnesium 1.7 mg/dL (1.6-2.6); Potassium 3.7 mmol/L (3.3-5.1); Sodium 138 mmol/L (135-145); Total Protein 6.3 g/dL (6.5-8.0)
[2023-04-21 20:38] LABS: COVID-19 Test Negative (Negative); IDNOW Serial# 6674DD1D
--- NOTE | 2023-04-21 22:31 | PC.NURSE ---
Pt ambulated in hallway with walker. Shuffled walk but steady on with walker. at pt side. Discussed comfort with taking him home with how he ambulates and ability to go upstairs. reports she feels ok taking him home. Pt
== END 2023-04-21 22:55 | disposition home or self-care (01) ==
PROVIDERS: Emergency Provider Emergency Medicine; PCP Internal Medicine
DX: R29.6 Repeated falls (principal); Z91.81 History of falling; R26.89 Other abnormalities of gait and mobility; E11.9 Type 2 diabetes mellitus without complications; E78.00 Pure hypercholesterolemia, unspecified; I69.354 Hemiplegia and hemiparesis following cerebral infarction affecting left non-dominant side; F03.90 Unspecified dementia, unspecified severity, without behavioral disturbance, psychotic disturbance, mood disturbance, and anxiety; Z86.718 Personal history of other venous thrombosis and embolism; Z79.01 Long term (current) use of anticoagulants
CPT/HCPCS: 70450; 80048; 80076; 83735; 85025; 87635; 93005; 99284

== ENCOUNTER → 2023-04-21 19:52 | Outpatient (BNV) | payer OTHER, SELFPAY | PROVIDERS: Emergency Provider Emergency Medicine; PCP Internal Medicine; Visit Provider Internal Medicine Cardiovascular Disease | DX: R27.0 Ataxia, unspecified (principal) | CPT/HCPCS: 93010 ==

== ENCOUNTER 2023-04-30 08:35 | Outpatient (AMB) | payer OTHER, SELFPAY ==
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
== END 2023-04-30 10:16 | disposition home or self-care (01) ==
PROVIDERS: PCP Internal Medicine; Visit Provider Urology
DX: R35.0 Frequency of micturition (principal); N31.8 Other neuromuscular dysfunction of bladder; Z86.73 Personal history of transient ischemic attack (TIA), and cerebral infarction without residual deficits; E11.9 Type 2 diabetes mellitus without complications
CPT/HCPCS: 52000; 99214

== ENCOUNTER → 2023-04-30 08:35 | Outpatient (BNVA) | payer OTHER, SELFPAY | PROVIDERS: PCP Internal Medicine; Visit Provider Urology | DX: R35.0 Frequency of micturition (principal); N31.8 Other neuromuscular dysfunction of bladder; E11.9 Type 2 diabetes mellitus without complications; Z86.73 Personal history of transient ischemic attack (TIA), and cerebral infarction without residual deficits | CPT/HCPCS: 51798; 52000; 81003; 99212 ==

== ENCOUNTER 2023-05-27 16:01 | Emergency (ER) | payer OTHER, SELFPAY ==
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
--- NOTE | ~2023-05-27 | XR_ITS ---
EXAMINATION: XR RIBS, LEFT CLINICAL INFORMATION: Left anterior rib pain, status post fall. Pain.. COMPARISON: None available. TECHNIQUE: 3 views of the left ribs were obtained. FINDINGS: Lungs are clear. No consolidation, pneumothorax, or pleural effusion. The cardiomediastinal silhouette and pulmonary vasculature are normal. Multiple views of left ribs reveal there is a minimally displaced left lateral fifth and nondisplaced left lateral third and fourth rib fractures. No gross bony abnormality seen. The soft tissues are normal. XR/XR ribs LT min 3V w CXR1V IMPRESSION: Minimally displaced left lateral fifth and nondisplaced left lateral third and fourth rib fractures. The lungs are clear. There is no visible pneumothorax.
--- NOTE | 2023-05-27 16:52 | PC.NURSE ---
Called to triage, in Xray at this time.
[2023-05-27 17:00] VITALS: BP 135/77; PULSE 85; RESP 16; TEMP 37.2; O2SAT 98; BMI 23.2
--- NOTE | 2023-05-27 18:59 | ECG_ITS ---
Test Reason : FALL Blood Pressure : / mmHG Vent. Rate : 077 BPM Atrial Rate : 077 BPM P-R Int : 170 ms QRS Dur : 086 ms QT Int : 398 ms P-R-T Axes : 056 046 068 degrees QTc Int : 450 ms Normal sinus rhythm Normal ECG When compared with ECG of 21-APR-2023 20:25, No significant change was found Referred By: Ryan Sparks Electronically Signed By:RASHEL TRACY
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
[2023-05-27] MEDS: oxyCODONE HCl Immed Release 5 MG TABLET PO (19:29)
[2023-05-27 20:06] LABS: MANUAL DIFF FLAG NO
[2023-05-27 20:09] LABS: Basophils Percent Auto 0.4 % (0-2); Eosinophils Absolute Auto 0.4 X10*3/uL (0.0-0.4); Eosinophils Percent Auto 4.8 % (0-4); Hematocrit 44.2 % (42.0-52.0); Hemoglobin 14.6 g/dl (14.0-18.0); Imm Gran Abs Auto 0.01 X10*3/uL (0.00-0.03); Imm Gran Pct Auto 0.1 % (0.0-0.4); Lymphocytes Absolute Auto 1.8 X10*3/uL (1.2-4.9); Lymphocytes Percent Auto 23.5 % (20-40); Mean Corpuscular Hemoglobin 31.8 pg (27.0-33.0); Mean Corpuscular Volume 96.3 fL (80.0-98.0); Mean Platelet Volume 10.2 fL (9.4-12.4); Monocytes Absolute Auto 0.7 X10*3/uL (0.1-1.2); Monocytes Percent Auto 9.3 % (2-11); Neutrophils Absolute Auto 4.6 x10*3/uL (2.0-8.3); Neutrophils Percent Auto 61.9 % (45-73); Platelet Count 192 X10*3/uL (160-400); Red Blood Count 4.59 X10*6/uL (4.60-5.80); Red Cell Distribution Width 13.7 % (11.0-16.0); White Blood Count 7.5 X10*3/uL (4.8-10.8)
[2023-05-27 20:22] LABS: Alanine Aminotransferase 23 U/L (0-40); Albumin Level 4.2 g/dL (3.5-5.0); Alkaline Phosphatase 96 U/L (39-117); Anion Gap 14 (12-20); Aspartate Amino Transferase 17 U/L (5-37); Bilirubin Total 0.3 mg/dL (0.0-1.0); Blood Urea Nitrogen 33 mg/dL (9-16); Calcium 10.1 mg/dL (8.4-10.2); Carbon Dioxide 25 mmol/L (22-29); Chloride 108 mmol/L (96-108); Creatinine Clr Calc Pharmacy 103.4; Estimated Glomerular Filt Rate > 60; Glucose Random 161 mg/dL (60-115); Potassium 4.3 mmol/L (3.3-5.1); Sodium 143 mmol/L (135-145); Total Protein 7.4 g/dL (6.5-8.0)
[2023-05-27] MEDS: iohexoL 350 MG/ML 100 ML INFUS..BTL 65 ML IV (20:45)
[2023-05-27 21:25] VITALS: BP 121/74; PULSE 74; RESP 18; TEMP 36.8; O2SAT 97
[2023-05-27 23:25] VITALS: BP 112/72; PULSE 76; RESP 18; TEMP 36.6; O2SAT 98
== END 2023-05-27 23:26 | disposition home or self-care (01) ==
PROVIDERS: Physician Assistant; Emergency Provider Internal Medicine; PCP Internal Medicine
DX: S22.42XA Multiple fractures of ribs, left side, initial encounter for closed fracture (principal); R07.81 Pleurodynia; R07.89 Other chest pain; M54.6 Pain in thoracic spine; W01.10XA Fall on same level from slipping, tripping and stumbling with subsequent striking against unspecified object, initial encounter; Y93.9 Activity, unspecified; Y92.9 Unspecified place or not applicable; Y99.8 Other external cause status
CPT/HCPCS: 36415; 71101; 71260; 80053; 85025; 93005; 99284; Q9967

== ENCOUNTER → 2023-05-27 18:59 | Outpatient (BNV) | payer OTHER, SELFPAY | PROVIDERS: Emergency Provider Internal Medicine; PCP Internal Medicine; Visit Provider Internal Medicine | DX: R94.31 Abnormal electrocardiogram [ECG] [EKG] (principal) | CPT/HCPCS: 93010 ==

== ENCOUNTER 2023-05-31 23:20 | Emergency (ER) | payer OTHER, SELFPAY ==
--- NOTE | ~2023-05-31 | CT_ITS ---
EXAMINATION: CT ABDOMEN AND PELVIS WITHOUT CONTRAST CLINICAL INFORMATION: Vomiting, abdominal distention, question partial small bowel obstruction COMPARISON: 06/02/2021 TECHNIQUE: Multidetector volumetric imaging was performed from the superior aspect of the liver through the pubic symphysis. Sagittal and coronal reformatted images were obtained on the technologist's workstation. This CT examination was performed using dose optimization techniques as appropriate, variously including the following: *Automated exposure control *Adjustment of mA and/or kV according to patient size (this includes techniques or standardized protocols for targeted exams where dose is matched to indication/reason for exam; i.e. extremities or head) *Use of iterative reconstruction technique DLP: 499 mGy-cm FINDINGS: LUNG BASES: Mild bibasilar atelectasis. Trace left pleural effusion. Coronary artery calcifications are present. LIVER, GALLBLADDER, AND BILIARY TREE: The liver is normal in size, shape, and attenuation. No focal hepatic lesion or biliary ductal dilatation is identified on this noncontrast exam. The gallbladder is unremarkable. PANCREAS: Unremarkable. SPLEEN: Unremarkable. ADRENAL GLANDS: Unremarkable. KIDNEYS AND URETERS: No hydronephrosis or obstructing calculus bilaterally. Mild nonspecific bilateral perinephric stranding. BLADDER: Partially distended and grossly unremarkable. GASTROINTESTINAL TRACT: There is prominent distention of the stomach with gas and debris. Small bowel is nondilated, without evidence for obstruction. There is moderate stool throughout the colon without significant wall thickening. The appendix is unremarkable. No free fluid or free air is seen. ABDOMINAL WALL: Small fat-containing left inguinal hernia. LYMPH NODES: Normal. VASCULAR: Infrarenal IVC filter is present. There is atherosclerotic calcification along the aorta and iliac arteries. PELVIC VISCERA: Unremarkable. OSSEOUS STRUCTURES: Degenerative changes are noted in the spine. CT/CT abdomen pelvis wo IV con IMPRESSION: 1. No evidence of small bowel obstruction. Prominent distention of the stomach with gas and debris; a degree of gastric outlet obstruction cannot be excluded. 2. Trace left pleural effusion. 3. Coronary artery calcifications. Correlation with cardiac risk factors is recommended.
[2023-05-31 23:39] VITALS: BP 136/85; BP 158/92; PULSE 94; PULSE 96; RESP 16; TEMP 36.9; O2SAT 94; O2SAT 97; BMI 23.0
[2023-05-31 23:49] LABS: Glucose, Whole Blood 167 mg/dL (60-115)
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
[2023-06-01 00:33] LABS: MANUAL DIFF FLAG NO
[2023-06-01 00:34] LABS: Basophils Percent Auto 0.2 % (0-2); Eosinophils Absolute Auto 0.3 X10*3/uL (0.0-0.4); Eosinophils Percent Auto 2.8 % (0-4); Hematocrit 41.8 % (42.0-52.0); Hemoglobin 13.7 g/dl (14.0-18.0); Imm Gran Abs Auto 0.02 X10*3/uL (0.00-0.03); Imm Gran Pct Auto 0.2 % (0.0-0.4); Lymphocytes Absolute Auto 1.3 X10*3/uL (1.2-4.9); Mean Corpuscular HGB Conc 32.8 g/dl (31.0-36.0); Mean Corpuscular Volume 97.7 fL (80.0-98.0); Mean Platelet Volume 10.3 fL (9.4-12.4); Monocytes Absolute Auto 0.6 X10*3/uL (0.1-1.2); Neutrophils Absolute Auto 7.3 x10*3/uL (2.0-8.3); Neutrophils Percent Auto 76.8 % (45-73); Platelet Count 193 X10*3/uL (160-400); Red Blood Count 4.28 X10*6/uL (4.60-5.80); Red Cell Distribution Width 13.5 % (11.0-16.0); White Blood Count 9.5 X10*3/uL (4.8-10.8)
[2023-06-01 01:12] LABS: Alanine Aminotransferase 10 U/L (0-40); Albumin Level 3.9 g/dL (3.5-5.0); Alkaline Phosphatase 103 U/L (39-117); Anion Gap 15 (12-20); Aspartate Amino Transferase 15 U/L (5-37); Bilirubin Total 0.2 mg/dL (0.0-1.0); Blood Urea Nitrogen 36 mg/dL (9-16); Calcium 9.7 mg/dL (8.4-10.2); Carbon Dioxide 22 mmol/L (22-29); Chloride 109 mmol/L (96-108); Creatinine Clr Calc Pharmacy 90.6; Estimated Glomerular Filt Rate > 60; Glucose Random 166 mg/dL (60-115); Lipase 18 U/L (8-78); Potassium 4.7 mmol/L (3.3-5.1); Sodium 141 mmol/L (135-145); Total Protein 6.7 g/dL (6.5-8.0)
[2023-06-01 02:45] VITALS: BP 119/70; PULSE 80; RESP 16; TEMP 36.9; O2SAT 96
[2023-06-01] MEDS: Milk of Magnesia 30 ML ORAL.SUSP PO (02:45)
[2023-06-01 02:46] VITALS: BP 119/70; PULSE 80; RESP 16; TEMP 36.9; O2SAT 96
== END 2023-06-01 02:58 | disposition home or self-care (01) ==
PROVIDERS: Emergency Provider Internal Medicine
DX: R11.10 Vomiting, unspecified (principal); K59.00 Constipation, unspecified; E11.9 Type 2 diabetes mellitus without complications; G31.09 Other frontotemporal neurocognitive disorder; F02.80 Dementia in other diseases classified elsewhere, unspecified severity, without behavioral disturbance, psychotic disturbance, mood disturbance, and anxiety; Z86.718 Personal history of other venous thrombosis and embolism; Z79.01 Long term (current) use of anticoagulants
CPT/HCPCS: 36415; 74176; 80053; 82947; 83690; 85025; 99284

== ENCOUNTER 2023-06-21 15:17 | Outpatient (AMB) | payer OTHER, SELFPAY ==
[2023-06-21 15:25] VITALS: BP 118/66; PULSE 112; O2SAT 95; BMI 22.8
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
== END 2023-06-21 16:37 | disposition home or self-care (01) ==
PROVIDERS: PCP Internal Medicine; Visit Provider Internal Medicine
DX: E11.65 Type 2 diabetes mellitus with hyperglycemia (principal); I82.409 Acute embolism and thrombosis of unspecified deep veins of unspecified lower extremity; E78.00 Pure hypercholesterolemia, unspecified; S22.42XA Multiple fractures of ribs, left side, initial encounter for closed fracture; R27.0 Ataxia, unspecified
CPT/HCPCS: 83036; 99214

== ENCOUNTER 2023-07-15 11:32 | Emergency (ER) | payer OTHER, SELFPAY ==
--- NOTE | ~2023-07-15 | CT_ITS ---
EXAMINATION: CT HEAD WITHOUT CONTRAST CLINICAL INFORMATION: Vomiting. Question mass or seizure. COMPARISON: 06/03/2022 TECHNIQUE: Contiguous axial imaging was performed from the skull base to vertex without intravenous administration of contrast. This CT examination was performed using dose optimization techniques as appropriate, variously including the following: *Automated exposure control *Adjustment of mA and/or kV according to patient size (this includes techniques or standardized protocols for targeted exams where dose is matched to indication/reason for exam; i.e. extremities or head) *Use of iterative reconstruction technique DLP: 687 mGy-cm FINDINGS: Redemonstrated is an extra-axial mass along the anterior right frontal inner table, which measures approximately 27 x 15 mm best seen on coronal imaging. This is unchanged. There is prominence to the sulci and ventricles with periventricular gliosis noted. No intra-axial mass and no hemorrhage, or mass effect or change from the prior study. Calvarium is intact. CT/CT head/brain wo IV con IMPRESSION: No acute intracranial pathology. Chronic volume loss. Stable right frontal extra-axial mass likely meningioma.
--- NOTE | ~2023-07-15 | CT_ITS ---
EXAMINATION: CT CHEST, ABDOMEN AND PELVIS withCONTRAST CLINICAL INFORMATION: Aspiration pneumonia. Vomiting. Diarrhea. COMPARISON: CT of chest abdomen pelvis May 27, 2023, June 01, 2023 TECHNIQUE: Multidetector volumetric CT imaging of the chest, abdomen and pelvis was obtained . 85 mL of Omnipaque 350 injected intravenously. Coronal, Sagittal reformatted images preformed at the CT scanner. [This CT examination was performed using dose optimization techniques as appropriate, variously including the following: *Automated exposure control *Adjustment of mA and/or kV according to patient size (this includes techniques or standardized protocols for targeted exams where dose is matched to indication/reason for exam; i.e. extremities or head) *Use of iterative reconstruction technique] DLP: 206.03+360.41+7.31+7.31 mGy-cm. FINDINGS: CT CHEST: Lungs: The lungs are clear with no evidence of inflammation or nodules. Mediastinum: Heart size is normal. No pericardial effusion. No mediastinal mass or significant lymphadenopathy. No aneurysm of aorta. Small volume of calcifications of thoracic aortic arch. Coronary arteries: Moderate volume of coronary calcification. Pleura: There is no pleural effusion. No pleural mass or thickening. Axilla: No lymphadenopathy. CT ABDOMEN AND PELVIS: Liver, Gallbladder and Biliary Tree: The liver is normal in size, shape, and attenuation. No focal hepatic lesion or biliary ductal dilatation is present. The gallbladder is unremarkable with no evidence of radiopaque gallstones, gallbladder wall thickening, or obvious pericholecystic inflammatory changes. Pancreas: No acute change of the pancreas. No mass. No pancreatic duct dilatation. Spleen: Spleen normal in size and contour. No focal lesion. Adrenal Glands: Adrenal glands are normal in size. No focal mass. Kidneys and Ureters: The kidneys are normal in size, shape, and attenuation. No hydronephrosis, hydroureter, or calculi seen. No perinephric stranding. Bladder: Posterior lateral bladder diverticulum measuring 2.5 cm. Mild diffuse thickening of the wall of bladder possibly due to underdistention. No bladder calculus. No edema around the bladder. Gastrointestinal Tract: Status post partial sigmoid resection. Anastomosis at the descending colon and sigmoid is intact. There are scattered diverticula of the descending colon and residual sigmoid colon . No evidence of acute diverticulitis. Moderate volume of stool in the colon. Very little stool seen in the residual sigmoid colon which are slightly thickened probably due to underdistention. No surrounding inflammation. The appendix is normal. Small bowel loops and stomach are unremarkable. Mesentery: No focal inflammation. No free fluid. No free air. Abdominal Wall: No ventral wall hernia. Small fat-containing right inguinal hernia. Lymph Nodes: Normal. Vascular: Vascular wall calcifications of aorta and iliac arteries. No aneurysm. IVC filter present. Pelvic Viscera: Unremarkable. Osseous Structures: Multilevel sided rib fractures: Left third rib: There are 3 healing fractures. These fractures have ossified callus. There is a fracture anteriorly , anterior mid and a posterior lateral rib fracture. Posterior lateral rib fracture is mildly displaced. Left fourth rib: There are 3 healing fractures. These fractures have ossified callus. There is an anterior fracture, and anterior mid fracture and a posterior lateral rib fracture. Left fifth rib: There are 3 healing fractures. These fractures have ossified callus. There is anterior fracture, a lateral rib fracture and the posterior rib fracture. Left sixth rib: There is a healing fracture of the lateral sixth rib with ossified callus. Left seventh rib. Nondisplaced subtle cortical fracture of the anterior left seventh rib There are no acute rib fractures. Multilevel degenerative spondylosis spine. CT/CT abdomen pelvis w IV con IMPRESSION: 1. No acute abnormality of the chest abdomen or pelvis. 2. Multiple healing left-sided rib fractures. No acute rib fractures. 3. Status post partial sigmoid resection. Diverticulosis of colon. No acute abnormality of the bowel. 4. Bladder diverticulum. Mild diffuse thickening of the wall of bladder possibly due to underdistention. No edema around the bladder. 5. IVC filter present.
[2023-07-15 11:34] VITALS: BP 106/67; PULSE 90; RESP 19; TEMP 36.6; O2SAT 98; BMI 22.2
--- NOTE | 2023-07-15 11:41 | ECG_ITS ---
Test Reason : VOMIT Blood Pressure : / mmHG Vent. Rate : 078 BPM Atrial Rate : 078 BPM P-R Int : 166 ms QRS Dur : 080 ms QT Int : 376 ms P-R-T Axes : 052 032 051 degrees QTc Int : 428 ms Normal sinus rhythm Possible Left atrial enlargement T wave abnormality, consider lateral ischemia Abnormal ECG When compared with ECG of 27-MAY-2023 19:40, Nonspecific T wave abnormality now evident in Inferior leads T wave inversion now evident in Lateral leads Referred By: Holden Oliveira Electronically Signed By:Justice De La O
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
[2023-07-15 12:13] LABS: MANUAL DIFF FLAG NO
[2023-07-15 12:17] LABS: Basophils Percent Auto 0.5 % (0-2); Eosinophils Absolute Auto 0.2 X10*3/uL (0.0-0.4); Hematocrit 46.1 % (42.0-52.0); Hemoglobin 15.5 g/dl (14.0-18.0); Imm Gran Abs Auto 0.04 X10*3/uL (0.00-0.03); Imm Gran Pct Auto 0.5 % (0.0-0.4); Lymphocytes Absolute Auto 1.5 X10*3/uL (1.2-4.9); Lymphocytes Percent Auto 17.8 % (20-40); Mean Corpuscular HGB Conc 33.6 g/dl (31.0-36.0); Mean Corpuscular Hemoglobin 32.6 pg (27.0-33.0); Mean Corpuscular Volume 96.8 fL (80.0-98.0); Mean Platelet Volume 10.3 fL (9.4-12.4); Monocytes Absolute Auto 0.7 X10*3/uL (0.1-1.2); Monocytes Percent Auto 8.5 % (2-11); Neutrophils Absolute Auto 5.7 x10*3/uL (2.0-8.3); Neutrophils Percent Auto 69.7 % (45-73); Platelet Count 176 X10*3/uL (160-400); Red Blood Count 4.76 X10*6/uL (4.60-5.80); White Blood Count 8.1 X10*3/uL (4.8-10.8)
[2023-07-15 12:23] VITALS: BP 117/68; PULSE 74; RESP 16; TEMP 37; O2SAT 96
[2023-07-15 12:28] LABS: Alanine Aminotransferase 9 U/L (0-40); Albumin Level 4.3 g/dL (3.5-5.0); Alkaline Phosphatase 103 U/L (39-117); Anion Gap 16 (12-20); Aspartate Amino Transferase 22 U/L (5-37); Bilirubin Total 0.5 mg/dL (0.0-1.0); Blood Urea Nitrogen 25 mg/dL (9-16); Calcium 10.1 mg/dL (8.4-10.2); Carbon Dioxide 22 mmol/L (22-29); Chloride 108 mmol/L (96-108); Creatinine Clr Calc Pharmacy 87.5; Estimated Glomerular Filt Rate > 60; Glucose Random 159 mg/dL (60-115); Lipase 14 U/L (8-78); Magnesium 1.9 mg/dL (1.6-2.6); Sodium 141 mmol/L (135-145); Total Protein 7.6 g/dL (6.5-8.0)
[2023-07-15 12:31] LABS: Glucose, Whole Blood 135 mg/dL (60-115)
[2023-07-15 12:37] LABS: Troponin-I High Sensitivity 28.1 ng/L (<3.5-35.0)
[2023-07-15 12:58] LABS: Influenza A PCR NEGATIVE (Negative); Influenza B PCR NEGATIVE (Negative); Resp Syncy Virus RNA Qual PCR NEGATIVE (Negative); SARS COV2 PCR INHOUSE NEGATIVE (Negative)
[2023-07-15 13:45] LABS: C Reactive Protein < 0.10 mg/dL (< or = 0.50)
[2023-07-15] MEDS: iohexoL 350 MG/ML 100 ML INFUS..BTL 85 ML IV (14:21)
[2023-07-15 16:35] VITALS: BP 137/76; PULSE 70; RESP 12; TEMP 37; O2SAT 100
== END 2023-07-15 16:36 | disposition home or self-care (01) ==
PROVIDERS: Physician Assistant; Emergency Provider Emergency Medicine; PCP Internal Medicine
DX: J69.0 Pneumonitis due to inhalation of food and vomit (principal); R11.2 Nausea with vomiting, unspecified; R19.7 Diarrhea, unspecified; R94.31 Abnormal electrocardiogram [ECG] [EKG]; R51.9 Headache, unspecified; Z20.822 Contact with and (suspected) exposure to COVID-19; Z11.52 Encounter for screening for COVID-19; Z79.899 Other long term (current) 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
CPT/HCPCS: 0241U; 36415; 70450; 71260; 74177; 80053; 82947; 83690; 83735; 84484; 85025; 86140; 93005; 99284; 99285; Q9967

== ENCOUNTER → 2023-07-15 11:41 | Outpatient (BNV) | payer OTHER, SELFPAY | PROVIDERS: Emergency Provider Emergency Medicine; PCP Internal Medicine; Visit Provider Internal Medicine Cardiovascular Disease | DX: R94.31 Abnormal electrocardiogram [ECG] [EKG] (principal) | CPT/HCPCS: 93010 ==

== ENCOUNTER 2023-07-29 15:12 | Outpatient (AMB) | payer OTHER, SELFPAY ==
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
== END 2023-07-29 15:55 | disposition home or self-care (01) ==
PROVIDERS: PCP Internal Medicine; Visit Provider Urology
DX: R35.0 Frequency of micturition (principal); N31.8 Other neuromuscular dysfunction of bladder; Z86.73 Personal history of transient ischemic attack (TIA), and cerebral infarction without residual deficits; E11.9 Type 2 diabetes mellitus without complications; Z12.5 Encounter for screening for malignant neoplasm of prostate
CPT/HCPCS: 99214

== ENCOUNTER → 2023-07-29 15:12 | Outpatient (BNVA) | payer OTHER, SELFPAY | PROVIDERS: PCP Internal Medicine; Visit Provider Urology | DX: R35.0 Frequency of micturition (principal); Z12.5 Encounter for screening for malignant neoplasm of prostate; N31.8 Other neuromuscular dysfunction of bladder; E11.9 Type 2 diabetes mellitus without complications; Z86.73 Personal history of transient ischemic attack (TIA), and cerebral infarction without residual deficits | CPT/HCPCS: 51798; 99212 ==

== ENCOUNTER 2023-08-25 08:03 | Outpatient (AMB) | payer OTHER, SELFPAY ==
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
[2023-08-25 08:07] VITALS: BP 108/70; PULSE 60; O2SAT 98
== END 2023-08-25 09:23 | disposition home or self-care (01) ==
PROVIDERS: PCP Internal Medicine; Visit Provider Physician Assistant
DX: M25.561 Pain in right knee (principal); W19.XXXA Unspecified fall, initial encounter
CPT/HCPCS: 99213

== ENCOUNTER 2023-08-25 08:17 | Outpatient (REF) | payer OTHER, SELFPAY ==
--- NOTE | ~2023-08-25 | XR_ITS ---
EXAMINATION: XR KNEE, RIGHT CLINICAL INFORMATION: Pain after fall COMPARISON: 04/11/2022 TECHNIQUE: Three views of the right knee. FINDINGS: Old healed fracture of the mid diaphysis of the femur is partially included in the [id number]. Bones have normal alignment at the knee. The joint spaces are maintained. No acute fracture, subluxation or joint effusion. Minimal osteophyte formation at the upper pole the patella. Overall, no significant degenerative changes. There appears to be an old lucency from removed fixation hardware in the proximal tibia. Soft tissue swelling in the prepatellar area remains significantly improved compared to 07/10/2021 and grossly unchanged compared to 04/11/2022. Query if there are any current symptoms in the prepatellar area. Peripheral vascular calcifications are noted. XR/XR knee RT 3V IMPRESSION: * No acute findings. No fracture or malalignment at the right knee. * Mild soft tissue swelling in the prepatellar region is similar in appearance compared to 04/11/2022 (improved compared to 07/10/2021). Correlate for any symptoms of a prepatellar bursitis.
== END 2023-08-25 08:18 | disposition home or self-care (01) ==
LOC: HO.HMGCX 08:17
PROVIDERS: PCP Internal Medicine; Visit Provider Physician Assistant
DX: M25.561 Pain in right knee (principal); Z91.81 History of falling
CPT/HCPCS: 73562

== ENCOUNTER 2023-10-23 10:49 | Outpatient (REF) | payer OTHER, SELFPAY ==
[2023-10-23 12:59] LABS: Estimated Average Glucose 120 mg/dL; Hemoglobin A1c % 5.8 % (<6.0)
[2023-10-23 13:14] LABS: Alanine Aminotransferase 18 U/L (0-40); Albumin Level 3.8 g/dL (3.5-5.0); Alkaline Phosphatase 81 U/L (39-117); Anion Gap 14 (12-20); Aspartate Amino Transferase 16 U/L (5-37); Bilirubin Total 0.5 mg/dL (0.0-1.0); Blood Urea Nitrogen 24 mg/dL (9-16); Calcium 9.9 mg/dL (8.4-10.2); Carbon Dioxide 25 mmol/L (22-29); Chloride 108 mmol/L (96-108); Cholesterol 132 mg/dL (<200); Estimated Glomerular Filt Rate > 60; Glucose Random 113 mg/dL (60-115); HDL Cholesterol 44 mg/dL (>40); LDL Cholesterol Calculated 69 mg/dL (<100); Potassium 4.3 mmol/L (3.3-5.1); Sodium 143 mmol/L (135-145); Total Protein 6.5 g/dL (6.5-8.0); Triglycerides 96 mg/dL (<150)
[2023-10-23 13:30] LABS: Free T4 (Free Thyroxine) 0.89 ng/dL (0.71-1.85)
== END 2023-10-23 10:50 | disposition home or self-care (01) ==
LOC: HO.HMGCLDS 10:49
PROVIDERS: PCP Internal Medicine; Visit Provider Internal Medicine
DX: E11.65 Type 2 diabetes mellitus with hyperglycemia (principal); E78.00 Pure hypercholesterolemia, unspecified
CPT/HCPCS: 36415; 80053; 80061; 83036; 84439

== ENCOUNTER 2023-11-04 14:14 | Outpatient (AMB) | payer OTHER, SELFPAY ==
[2023-11-04 14:20] VITALS: BP 138/86; PULSE 85; O2SAT 98; BMI 21.7
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
== END 2023-11-04 15:20 | disposition home or self-care (01) ==
PROVIDERS: PCP Internal Medicine; Visit Provider Internal Medicine
DX: R26.9 Unspecified abnormalities of gait and mobility (principal); E11.65 Type 2 diabetes mellitus with hyperglycemia; E78.00 Pure hypercholesterolemia, unspecified; R41.89 Other symptoms and signs involving cognitive functions and awareness; R46.89 Other symptoms and signs involving appearance and behavior; Z86.73 Personal history of transient ischemic attack (TIA), and cerebral infarction without residual deficits
CPT/HCPCS: 99214

== ENCOUNTER 2023-11-15 15:07 | Outpatient (AMB) | payer OTHER, SELFPAY ==
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
== END 2023-11-15 16:22 | disposition home or self-care (01) ==
PROVIDERS: PCP Internal Medicine; Visit Provider Urology
DX: R35.0 Frequency of micturition (principal); N31.8 Other neuromuscular dysfunction of bladder; Z86.73 Personal history of transient ischemic attack (TIA), and cerebral infarction without residual deficits; Z12.5 Encounter for screening for malignant neoplasm of prostate
CPT/HCPCS: 99213

== ENCOUNTER → 2023-11-15 15:07 | Outpatient (BNVA) | payer OTHER, SELFPAY | PROVIDERS: PCP Internal Medicine; Visit Provider Urology | DX: N40.1 Benign prostatic hyperplasia with lower urinary tract symptoms (principal); R35.0 Frequency of micturition; N31.8 Other neuromuscular dysfunction of bladder | CPT/HCPCS: 99212 ==

== ENCOUNTER 2023-12-21 10:51 | Outpatient (AMB) | payer OTHER, SELFPAY ==
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
[2023-12-21 11:04] VITALS: BP 110/72; PULSE 76; O2SAT 98; BMI 22.4
== END 2023-12-21 11:51 | disposition home or self-care (01) ==
PROVIDERS: PCP Internal Medicine; Visit Provider Internal Medicine
DX: E11.65 Type 2 diabetes mellitus with hyperglycemia (principal); F03.90 Unspecified dementia, unspecified severity, without behavioral disturbance, psychotic disturbance, mood disturbance, and anxiety; I82.409 Acute embolism and thrombosis of unspecified deep veins of unspecified lower extremity; D32.9 Benign neoplasm of meninges, unspecified; R26.9 Unspecified abnormalities of gait and mobility; N31.8 Other neuromuscular dysfunction of bladder; E78.00 Pure hypercholesterolemia, unspecified; R53.1 Weakness

== ENCOUNTER → 2023-12-21 10:51 | Outpatient (BNVA) | payer OTHER, SELFPAY | PROVIDERS: PCP Internal Medicine; Visit Provider Internal Medicine | DX: Z23 Encounter for immunization (principal); R26.9 Unspecified abnormalities of gait and mobility; N31.8 Other neuromuscular dysfunction of bladder; D32.9 Benign neoplasm of meninges, unspecified; E11.65 Type 2 diabetes mellitus with hyperglycemia; E78.00 Pure hypercholesterolemia, unspecified; F03.90 Unspecified dementia, unspecified severity, without behavioral disturbance, psychotic disturbance, mood disturbance, and anxiety; R53.1 Weakness; Z86.718 Personal history of other venous thrombosis and embolism | CPT/HCPCS: 90471; 90656; 99212 ==

== ENCOUNTER → 2024-01-19 16:26 | Outpatient (BNV) | payer OTHER, SELFPAY | PROVIDERS: PCP Internal Medicine; Visit Provider Radiology Diagnostic Radiology | DX: R53.1 Weakness (principal) | CPT/HCPCS: 70551 ==

== ENCOUNTER 2024-01-19 16:27 | Outpatient (REF) | payer OTHER, SELFPAY ==
--- NOTE | ~2024-01-19 | MR_ITS ---
EXAMINATION: MR BRAIN WITHOUT CONTRAST CLINICAL INFORMATION: Weakness COMPARISON: MRI dated September 10, 2021. Correlated to CT dated July 15, 2023. TECHNIQUE: MRI of the brain was obtained using routine sequences without contrast. FINDINGS: No restricted diffusion. No acute intracranial hemorrhage. Susceptibility signal within the medial left occipital lobe/calcarine fissure. Prominent lateral ventricle system and third ventricle with normal morphology of the aqueduct and fourth ventricle. Prominence of the cerebellar folia and extra-axial CSF spaces in the posterior cranial fossa and to a lesser extent and supratentorial compartment. There is an extra-axial, 5 x 2.5 x 3.6 cm isointense T1 intermediate T2, slightly restricted diffusion and susceptibility signal mass centered in the right frontal medial convexity causing mass effect upon the right superior frontal and cingulate gyri and to the right lateral frontal horn and corpus callosum. Bilateral multifocal patchy confluent deep periventricular white matter hyperintense T2 FLAIR signal involving centrum semiovale and duque radiata. Patchy hyperintense T2 FLAIR signal within the brainstem and brachii pontis. Right parietal/posterior central gyrus encephalomalacia with associated susceptibility and white matter hyperintense T2 FLAIR signal. Multifocal old lacunar infarcts in the basal ganglia and duque radiata. Flow-void signal within the main cerebral vessels is normal with the exception of the left sigmoid and transverse sinuses suggesting slow flow. Sellar/suprasellar region demonstrated no gross masses. Craniocervical junction is intact. There is a pannus formation periodontal region without contacting the medulla oblongata.. MR/MR head/brain wo con IMPRESSION: No acute ischemia. Concerning normal pressure hydrocephalus in the correct clinical settings. Small vessel occlusive disease. Old hemorrhagic infarct, right parietal/posterior central gyrus. 5 cm meningioma, right frontal convexity. Probable cavernous angioma/cavernoma, left occipital. Electronically signed by: Sabino Leal MD 01/20/2024 08:25 AM EST
== END 2024-01-19 16:28 | disposition home or self-care (01) ==
LOC: HO.MRI 16:27
PROVIDERS: PCP Internal Medicine; Visit Provider Internal Medicine
DX: R53.1 Weakness (principal)
CPT/HCPCS: 70551

== ENCOUNTER 2024-03-28 14:23 | Outpatient (AMB) | payer OTHER, SELFPAY ==
[2024-03-28 14:24] VITALS: BP 122/82; PULSE 86; O2SAT 96; BMI 22.3
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
== END 2024-03-28 15:02 | disposition home or self-care (01) ==
PROVIDERS: PCP Internal Medicine; Visit Provider Internal Medicine
DX: E78.00 Pure hypercholesterolemia, unspecified (principal); I82.409 Acute embolism and thrombosis of unspecified deep veins of unspecified lower extremity; Z86.73 Personal history of transient ischemic attack (TIA), and cerebral infarction without residual deficits; R27.0 Ataxia, unspecified; F03.90 Unspecified dementia, unspecified severity, without behavioral disturbance, psychotic disturbance, mood disturbance, and anxiety; E11.65 Type 2 diabetes mellitus with hyperglycemia

== ENCOUNTER → 2024-03-28 14:23 | Outpatient (BNVA) | payer OTHER, SELFPAY | PROVIDERS: PCP Internal Medicine; Visit Provider Internal Medicine | DX: E11.65 Type 2 diabetes mellitus with hyperglycemia (principal); E78.00 Pure hypercholesterolemia, unspecified; R27.0 Ataxia, unspecified; F03.90 Unspecified dementia, unspecified severity, without behavioral disturbance, psychotic disturbance, mood disturbance, and anxiety; Z86.718 Personal history of other venous thrombosis and embolism; Z86.73 Personal history of transient ischemic attack (TIA), and cerebral infarction without residual deficits | CPT/HCPCS: 83036; 99212 ==

== ENCOUNTER 2024-05-15 14:56 | Outpatient (AMB) | payer OTHER, SELFPAY ==
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
--- OUTSIDE RECORDS SUMMARY | 2024-05-15 17:08 | XMS_ITS ---
Author Organization [facility] Address [address] [place] [phone] Care Team Providers Care Faro Dealer Name Role Phone Po Bri MADRID Primary Care Provider Gee Tan Jr [phone] Allergies No Known Allergies REASON FOR VISIT Patient presents today for vomiting, diarrhea Medications Medication SIG (Take, Route, Frequency, Duration) Notes Start Date End Date Status Mirtazapine 15 MG 1 tablet at bedtime Orally Once a day for 30 day(s) Active Pioglitazone HCl 45 MG 1 tablet Orally O nce a day for 30 day(s) Active Sertraline HCl 50 MG 1 tablet Orally Onc e a day for 30 day(s) Active SUMAtriptan Succinate 50 MG 1 tablet at least 2 hours between doses as needed Orally Twice a day Active Topiramate 25 MG 1 tablet Orally Once a day for 30 day(s) Active MiraLax (colon prep) 17 GM/SCOOP mixed with Gatorade or Crystal Light Orally begin at 5:00 p.m. the day before the procedure for 1 day 04/21/2021 Active metFORMIN HCl 1000 MG 1 tablet with a me al Orally twice a day Active Xarelto 10 MG 1 tablet Orally Once a day for 30 day(s) Active Trulicity 0.75 MG/0.5ML as directed Subcutaneous Active Omeprazole 20 MG 1 capsule 30 minutes before morning meal Orally Once a day for 30 day(s) 11/03/2023 Active Atorvastatin Calcium 10 MG 1 tablet Orally Once a day Active Alfuzosin HCl ER 10 MG 1 tablet immediat renetta after the same meal Orally Once a day for 30 day(s) Active Carbidopa-Levodopa 25-100 MG 1 tablet as needed Orally Two times a Week for 30 day(s) Active Farxiga 10 MG 1 tablet Orally Once a day for 30 day(s) Active Finasteride 5 MG 1 tablet Orally Once a day for 30 day(s) Active FreeStyle Lancets - as directed Active Freestyle Test Strips Active Social History Alcohol Screen Question Answer Notes Did you have a drink contain ing alcohol in the past year? Yes Points 1 Interpretation Negative How often did you have 6 or more drinks on one occasion in the past year? Never (0 point) How many drinks did you have on a typical day when you were drinking in the past year? 1 or 2 drinks (0 point) How often did you have a dri nk containing alcohol in the past year? Monthly or less (1 point) Problems Problem Type SNOMED Code ICD Code Onset Dates Problem Status W/U Status Risk Notes Problem 199320178938305 Vomiting without nausea, unspecified vomiting type (R11.11) Active confirmed Problem 27266846 Change in bowel movement (R19.8) Active confirmed Vital Signs Temperature 96.3 degrees Fahrenheit 11/03/19 24 Blood pressure systolic 000 mm Hg 11/03/19 24 Blood pressure diastolic 00 mm Hg 024 Height 64.75 in 11/03/2023 Weight 140 lbs 11/03/2023 BMI 23.47 kg/m2 11/03/2023 Encounters Encounter Location Date Provider Diagnosis [facility] [address] [facility] [address] [place] [phone] 11/03/2023 Gee Loya Jr Vomiting without nausea, unspecified vomiting type R11.11 and Change in bowel movement R19.8 Assessments Encounter Date Diagnosis (ICD Code) Assessment Notes Treatment Notes Treatment Clinical Notes Section Notes 11/03/2023 Vomiting without nausea, unspecified vomiting type (ICD-10 - R11.11) Gastroesophageal reflux disease material was printed We discussed the differential diagnosis for vomiting today. It is possible this could be related to reflux, and because of his dementia he is limited in his ability to describe symptoms. There has been no reported dysphagia or rachel hematemesis. We recommended a trial of omeprazole 20 mg daily. We discussed endoscopy which they would like to avoid if possible. There'll let us know how he's doing in the future. For his bowels, we discussed using MiraLax p.r.n. or holding it for diarrhea. He will adjust the dose appropriately. 11/03/2023 Change in bowel movement (ICD-10 - R19.8) We discussed the differential diagnosis for vomiting today. It is possible this could be related to reflux, and because of his dementia he is limited in his ability to describe symptoms. There has been no reported dysphagia or rachel hematemesis. We recommended a trial of omeprazole 20 mg daily. We discussed endoscopy which they would like to avoid if possible. There'll let us know how he's doing in the future. For his bowels, we discussed using MiraLax p.r.n. or holding it for diarrhea. He will adjust the dose appropriately. Plan Of Treatment Medication Medication Name Sig Start Date Stop Date Notes Omeprazole 20 MG 1 capsule 30 minutes before morning meal Orally Once a day for 30 day(s) 11/03/2023 Treatment Notes Assessment Notes Vomiting without nausea, uns pecified vomiting type Gastroesophageal reflux disease material was printed Next Appt Details Follow Up: 1 Year, Reason: Progress Notes * ALIVIA SHARATH WDOB:[birth year] (63 yo M)Acc No.[id number]:11/03/2023 Progress Notes Patient:?ALIVIA SHARATH W Provider:?Gee Loya MD :1960???Age:63 Y???Sex:Male Robert e:11/03/2023 Address:[address] [place], [place] [id number] Pcp:Bri Roger MD Subjective: * Chief Complaints: * ???1. Patient presents today for vomiting, diarrhea. * HPI: ???New symptom(s):? Sharath is a 63-year-old man seen today in followup. He was last seen for colonoscopy in May of 2021 with removal of several hyperplastic polyps. Five- year followup was recommended because of the preparation and his personal history of colon polyps. We reviewed this today. ?He was seen in the emergency department in july. At that time he was vomiting feculent dark material and underwent evaluation with laboratory studies and imaging. These are reviewed in detail. He was diagnosed with constipation and prescribed MiraLax. His significant other reports several episodes of this type of vomiting approximately one per month over the last several months. She denies coffee- ground emesis. There has been no reported heartburn. He has no dysphagia. He has occasional constipation with diarrhea and is using MiraLax regularly. * Medical History:?Diabetes me llitus, DVT with IVC filter placement, Hyperlipidemia, Colonoscopy 05/27, hyperplastic polyps, 5 year recall, Alzheimer's dementia, Meningioma, CVA x3, Hearing impairment. * Surgical History:?repair of right femur fracture , vasectomy and hydrocele 1994, Jaw fracture , Rectal perforation, traumatic with sigmoid loop colostomy and takedown 11/27 11/27. * Family History:?Father: dece ased.?Mother: .? denies any hx of colorectal cancer and or polyps. No family history of liver cancer. * Social History:?Tobacco Use:?Tobacco Use/Smoking?Are you a: nonsmoker.?Drugs/Alcohol:?Alcohol Screen?Did you have a drink containing alcohol in the past year??Yes,?How often did you have 6 or more drinks on one occasion in the past year??Never (0 point),?How many drinks did you have on a typical day when you were drinking in the past year??1 or 2 drinks (0 point),?How often did you have a drink containing alcohol in the past year??Monthly or less (1 point),?Points?1,?Interpretation?Negative.?Miscellaneous:?Marital status: single but has a significant other. 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 * Medications:?Taking Trulicit y 0.75 MG/0.5ML Solution Pen-injector as directed Subcutaneous , Taking Xarelto 10 MG Tablet 1 tablet Orally Once a day, Taking Topiramate 25 MG Tablet 1 tablet Orally Once a day, Taking SUMAtriptan Succinate 50 MG Tablet 1 tablet at least 2 hours between doses as needed Orally Twice a day, Taking Sertraline HCl 50 MG Tablet 1 tablet Orally Once a day, Taking Pioglitazone HCl 45 MG Tablet 1 tablet Orally Once a day, Taking Mirtazapine 15 MG Tablet 1 tablet at bedtime Orally Once a day, Taking Freestyle Test Strips , Taking FreeStyle Lancets - Miscellaneous as directed , Taking Finasteride 5 MG Tablet 1 tablet Orally Once a day, Taking Farxiga 10 MG Tablet 1 tablet Orally Once a day, Taking Carbidopa-Levodopa 25-100 MG Tablet 1 tablet as needed Orally Two times a Week, Taking Alfuzosin HCl ER 10 MG Tablet Extended Release 24 Hour 1 tablet immediately after the same meal Orally Once a day, Taking Atorvastatin Calcium 10 MG Tablet 1 tablet Orally Once a day, Taking metFORMIN HCl 1000 MG Tablet 1 tablet with a meal Orally twice a day, Taking MiraLax (colon prep) 17 GM/SCOOP Powder mixed with Gatorade or Crystal Light Orally begin at 5:00 p.m. the day before the procedure, Medication List reviewed and reconciled with the patient * Allergies:?N.K.D.A. Objective: * Vitals:?Wt: 140 lbs, Ht: 64. 75 in, BMI:23.47 Index, BP: 000/00 mm Hg, Temp: 96.3. * Examination: ???General Examination: ???On examination today, he is sitting in a wheelchair. Skin is anicteric. Lungs are clear. Heart shows a regular rate and rhythm. Abdomen is soft without focal masses or tenderness. Extremities are without edema. Assessment: * Assessment: 1.?Vomiting without nausea, unspecified vomiting type - R11.11 (Primary)?2.?Change in bowel movement - R19.8? We discussed the differentia l diagnosis for vomiting today. It is possible this could be related to reflux, and because of his dementia he is limited in his ability to describe symptoms. There has been no reported dysphagia or rachel hematemesis. We recommended a trial of omeprazole 20 mg daily. We discussed endoscopy which they would like to avoid if possible. There'll let us know how he's doing in the future. For his bowels, we discussed using MiraLax p.r.n. or holding it for diarrhea. He will adjust the dose appropriately. Plan: * Treatment: * Procedure Codes:?3017F COLOR ECTAL CA SCREEN DOC REV, G9903 Pt scrn tbco id as non user, G9745 DOC RSN FOR NOT SCREEN/REC F/U HBP * Follow Up:?1 Year * * Sign off status: Completed true * Provider:?Gee Loya MD Date:?0 11/03/2023 Generated for Hood lomas/Gabrielle/Peteitting on:?05/15/2024 05:07 PM EDT History and Physical Notes * HPI (History of Present Illness) Category Sub-Category Detail Notes Category Not es New symptom(s) Sharath is a 63-year-old man seen today in followup. He was last seen for colonoscopy in May of 2021 with removal of several hyperplastic polyps. Five-year followup was recommended because of the preparation and his personal history of colon polyps. We reviewed this today. He was seen in the emergency department in july. At that time he was vomiting feculent dark material and underwent evaluation with laboratory studies and imaging. These are reviewed in detail. He was diagnosed with constipation and prescribed MiraLax. His significant other reports several episodes of this type of vomiting approximately one per month over the last several months. She denies coffee-ground emesis. There has been no reported heartburn. He has no dysphagia. He has occasional constipation with diarrhea and is using MiraLax regularly. Examination Category Sub-Category Detail Notes Category Not es General Examination On exami nation today, he is sitting in a wheelchair. Skin is anicteric. Lungs are clear. Heart shows a regular rate and rhythm. Abdomen is soft without focal masses or tenderness. Extremities are without edema.
--- OUTSIDE RECORDS SUMMARY | 2024-05-15 17:08 | XMS_ITS | Patient Health Record ---
Author Organization [facility] Address [address] [place] [address] Care Team Providers Care Paperhanger Assistant Name Role Phone Po Bri MADRID Primary Care Provider Gee Tan Jr Allergies No Known Allergies Reason For Referral No Information Medications Medication SIG (Take, Route, Frequency, Duration) Notes Start Date End Date Status FreeStyle Lancets - as directed Active Freestyle Test Strips Active Mirtazapine 15 MG 1 tablet at bedtime Orally Once a day for 30 day(s) Active Omeprazole 20 MG TAKE 1 CAPSULE BY [facility] EVERY DAY 30 MINUTES BEFORE MORNING MEAL FOR 30 DAYS for 90 Active Pioglitazone HCl 45 MG 1 tablet Orally O nce a day for 30 day(s) Active Sertraline HCl 50 MG 1 tablet Orally Onc e a day for 30 day(s) Active MiraLax (colon prep) 17 GM/SCOOP mixed with Gatorade or Crystal Light Orally begin at 5:00 p.m. the day before the procedure for 1 day 04/21/2021 Active SUMAtriptan Succinate 50 MG 1 tablet at least 2 hours between doses as needed Orally Twice a day Active metFORMIN HCl 1000 MG 1 tablet with a me al Orally twice a day Active Topiramate 25 MG 1 tablet Orally Once a day for 30 day(s) Active Atorvastatin Calcium 10 MG 1 tablet Orally Once a day Active Xarelto 10 MG 1 tablet Orally Once a day for 30 day(s) Active Alfuzosin HCl ER 10 MG 1 tablet immediat renetta after the same meal Orally Once a day for 30 day(s) Active Trulicity 0.75 MG/0.5ML as directed Subcutaneous Active Carbidopa-Levodopa 25-100 MG 1 tablet as needed Orally Two times a Week for 30 day(s) Active Farxiga 10 MG 1 tablet Orally Once a day for 30 day(s) Active Finasteride 5 MG 1 tablet Orally Once a day for 30 day(s) Active Immunizations Vaccine Route Administration Date Status Comme nts Influenza Unknown 03/12/2021 Administered Influenza Unknown 03/12/2021 Administered Influenza Unknown 12/29/2022 Administered Problems Problem Type SNOMED Code ICD Code Onset Dates Problem Status W/U Status Risk Notes Problem 254954656 Colon cancer screening (Z12.11) Active confirmed Problem 251579618 Personal history of colonic polyps (Z86.010) Active confirmed Problem 411381295091037 long-term (current) use of oral hypoglycemic drugs (Z79.84) Active confirmed Problem 34470540 Change in bowel movement (R19.8) Active confirmed Problem 743374364202674 Vomiting without nausea, unspecified vomiting type (R11.11) Active confirmed Vital Signs Temperature 96.3 degrees Fahrenheit 11/03/2023 Blood pressure diastolic 00 mm Hg 11/03/2023 Height 64.75 in 11/03/2023 Blood pressure systolic 000 mm Hg 11/03/2023 Weight 140 lbs 11/03/2023 BMI 23.47 kg/m2 11/03/2023 Encounters Encounter Location Date Provider Diagnosis [facility] [address] [facility] [address] [place] [phone] 11/03/2023 Gee Loya Jr Vomiting without nausea, unspecified vomiting type R11.11 and Change in bowel movement R19.8 Assessments Encounter Date Diagnosis (ICD Code) Assessment Notes Treatment Notes Treatment Clinical Notes Section Notes 11/03/2023 Change in bowel movement (ICD-10 - [...] He will adjust the dose appropriately. 11/03/2023 Vomiting without nausea, unspecified vomiting type [...] adjust the dose appropriately. Plan Of Treatment Future Test Test Name Order Date COLONOSCOPY 12/28/2012 COLONOSCOPY 04/21/2021 Insurance Providers Payer Name Payer Address Payer Phone Subscriber Number Group Number Insured Name Patient Relationship to Insured Coverage Start Date Coverage End Date [facility] [address] [address] [place], [place] [id number] SHARATH BAKER Self - patient is the insured MEDICAID OF [facility] [address] [place] [address] [id number] SHARATH BAKER Self - patient is the insured Medical (General) History Medical History History ICD Code Diabetes mellitus DVT with IVC filter placement Hyperlipidemia Colonoscopy 05/27, hyperplastic polyps, 5 year recall Alzheimer's dementia Meningioma CVA x3 Hearing impairment Surgical History Surgery Date(Month/Year) repair of right femur fracture vasectomy and hydrocele 1994 Jaw fracture Rectal perforation, traumati c with sigmoid loop colostomy and takedown 11/27 11/27
== END 2024-05-15 16:03 | disposition home or self-care (01) ==
PROVIDERS: PCP Internal Medicine; Visit Provider Urology
DX: R35.0 Frequency of micturition (principal); N31.8 Other neuromuscular dysfunction of bladder; Z86.73 Personal history of transient ischemic attack (TIA), and cerebral infarction without residual deficits; Z12.5 Encounter for screening for malignant neoplasm of prostate
CPT/HCPCS: 99213; G2211

== ENCOUNTER → 2024-05-15 14:56 | Outpatient (BNVA) | payer OTHER, SELFPAY | PROVIDERS: PCP Internal Medicine; Visit Provider Urology | DX: N40.1 Benign prostatic hyperplasia with lower urinary tract symptoms (principal); R35.0 Frequency of micturition; N31.9 Neuromuscular dysfunction of bladder, unspecified; N31.8 Other neuromuscular dysfunction of bladder; Z86.73 Personal history of transient ischemic attack (TIA), and cerebral infarction without residual deficits; Z12.5 Encounter for screening for malignant neoplasm of prostate | CPT/HCPCS: 99212 ==

== ENCOUNTER 2024-06-02 09:55 | Outpatient (REF) | payer OTHER, SELFPAY ==
[2024-06-02 13:23] LABS: MANUAL DIFF FLAG NO
[2024-06-02 13:42] LABS: Basophils Percent Auto 0.3 % (0-2); Eosinophils Absolute Auto 0.3 X10*3/uL (0.0-0.4); Eosinophils Percent Auto 3.7 % (0-4); Hematocrit 47.4 % (42.0-52.0); Hemoglobin 15.5 g/dl (14.0-18.0); Imm Gran Abs Auto 0.02 X10*3/uL (0.00-0.03); Imm Gran Pct Auto 0.3 % (0.0-0.4); Lymphocytes Absolute Auto 1.5 X10*3/uL (1.2-4.9); Lymphocytes Percent Auto 21.8 % (20-40); Mean Corpuscular HGB Conc 32.7 g/dl (31.0-36.0); Mean Corpuscular Hemoglobin 31.9 pg (27.0-33.0); Mean Corpuscular Volume 97.5 fL (80.0-98.0); Mean Platelet Volume 11.1 fL (9.4-12.4); Monocytes Absolute Auto 0.5 X10*3/uL (0.1-1.2); Neutrophils Absolute Auto 4.5 x10*3/uL (2.0-8.3); Neutrophils Percent Auto 66.9 % (45-73); Platelet Count 178 X10*3/uL (160-400); Red Blood Count 4.86 X10*6/uL (4.60-5.80); White Blood Count 6.7 X10*3/uL (4.8-10.8)
[2024-06-02 13:59] LABS: D Dimer High Sensitivity < 150 NG/ML
[2024-06-02 14:02] LABS: Alanine Aminotransferase 28 U/L (0-40); Albumin Level 4.2 g/dL (3.5-5.0); Alkaline Phosphatase 101 U/L (39-117); Anion Gap 10 (12-20); Aspartate Amino Transferase 21 U/L (5-37); Bilirubin Total 0.7 mg/dL (0.0-1.0); Blood Urea Nitrogen 31 mg/dL (9-16); Calcium 9.8 mg/dL (8.4-10.2); Carbon Dioxide 26 mmol/L (22-29); Chloride 108 mmol/L (96-108); Cholesterol 157 mg/dL (<200); Estimated Glomerular Filt Rate > 60; Glucose Random 197 mg/dL (60-115); HDL Cholesterol 40 mg/dL (>40); LDL Cholesterol Calculated 91 mg/dL (<100); Potassium 4.6 mmol/L (3.3-5.1); Sodium 139 mmol/L (135-145); Total Protein 7.3 g/dL (6.5-8.0); Triglycerides 132 mg/dL (<150)
[2024-06-02 14:04] LABS: Estimated Average Glucose 146 mg/dL; Hemoglobin A1c % 6.7 % (<6.0); Total Hemoglobin (HGBA1C) 4030.0984 umol/L
[2024-06-02 14:17] LABS: Free T4 (Free Thyroxine) 1.05 ng/dL (0.71-1.85); Thyroid Stimulating Hormone 1.51 uIU/mL (0.32-4.0)
[2024-06-02 14:18] LABS: Folate 10.5 ng/mL (> or = 4.0); Prostate Specific Antigen Scr 0.59 ng/mL (<0.05-4.0); Vitamin B12 392 pg/mL (200-900)
[2024-06-05 19:19] LABS: TS Negative Control Passed; TS Panel A 0; TS Panel B 0; TS Positive Control Passed; TSpotTB Negative (Negative)
== END 2024-06-02 09:56 | disposition home or self-care (01) ==
LOC: HO.HMGCLDS 09:55
PROVIDERS: PCP Internal Medicine; Visit Provider Internal Medicine
DX: E78.00 Pure hypercholesterolemia, unspecified (principal)
CPT/HCPCS: 36415; 80053; 80061; 82607; 82746; 83036; 84153; 84439; 84443; 85025; 85379; 86481

== ENCOUNTER 2024-06-12 16:05 | Outpatient (AMB) | payer OTHER, SELFPAY ==
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
--- OUTSIDE RECORDS SUMMARY | 2024-06-12 18:37 | XMS_ITS ---
Author Organization [facility] Address [address] [place] [id number] Care Team Providers Care Web Site Specialist Name Role Phone Po Bri MADRID Primary Care Provider Gee Tan Jr Allergies No Known Allergies REASON FOR VISIT [...] Problem Status W/U Status Risk Notes Problem [id number] Vomiting without nausea, unspecified vomiting type (R11.11) Active confirmed Problem 37058342 Change in bowel movement (R19.8) Active confirmed Vital Signs Temperature 96.3 degrees Fahrenheit 11/03/19 24 Blood pressure systolic 000 mm Hg 11/03/19 24 Blood pressure diastolic 00 mm Hg 024 Height 64.75 in 11/03/2023 Weight 140 lbs 11/03/2023 BMI 23.47 kg/m2 11/03/2023 Encounters Encounter Location Date Provider Diagnosis [facility] [address] [facility] [address] [place] [phone] 11/03/2023 Gee Loya Jr Vomiting without nausea, [...] * ALIVIA SHARATH WDOB:[birth year] (63 yo M)Acc No.[id number]:11/03/2023 Progress Notes Patient:?ALIVIA SHARATH W Provider:?Gee Loya MD :1960???Age:63 Y???Sex:Male Robert e:11/03/2023 Address:[address] [place], [place] [id number] Pcp:Bri Roger MD Subjective: * Chief Complaints: [...] MD Date:?0 11/03/2023 Generated for Hood lomas/Gabrielle/Peteitting on:?06/12/2024 06:37 PM EDT History and Physical Notes * [...]
--- OUTSIDE RECORDS SUMMARY | 2024-06-12 18:37 | XMS_ITS | Patient Health Record ---
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) use of oral hypoglycemic drugs (Z79.84) Active confirmed Problem 47072705 Change in bowel movement (R19.8) Active confirmed Problem 482281689463824 Vomiting without nausea, unspecified vomiting type (R11.11) Active confirmed Vital Signs Temperature 96.3 degrees Fahrenheit 11/03/2023 Blood pressure diastolic 00 mm Hg 11/03/2023 Height 64.75 in 11/03/2023 Blood pressure systolic 000 mm Hg 11/03/2023 Weight 140 lbs 11/03/2023 BMI 23.47 kg/m2 11/03/2023 Encounters Encounter Location Date Provider Diagnosis [facility] [address] [facility] [address] [place] [phone] 11/03/2023 Gee Loay Jr Vomiting without nausea, unspecified vomiting type [...] Insured Coverage Start Date Coverage End Date [facility] [address] [address] [place], [place] [id number] SHARATH BAKER Self - patient is the insured MEDICAID OF [facility] [address] [place] [address] [id number] SHARATH BAKER Self - patient is the [...]
== END 2024-06-12 16:30 | disposition home or self-care (01) ==
LOC: HO.HUSH 16:05
PROVIDERS: PCP Internal Medicine; Visit Provider Urology
DX: R35.0 Frequency of micturition (principal); N31.8 Other neuromuscular dysfunction of bladder; Z86.73 Personal history of transient ischemic attack (TIA), and cerebral infarction without residual deficits
CPT/HCPCS: 99213

== ENCOUNTER → 2024-06-12 16:05 | Outpatient (BNVA) | payer OTHER, SELFPAY | PROVIDERS: PCP Internal Medicine; Visit Provider Urology ==

== ENCOUNTER 2024-06-26 15:18 | Outpatient (AMB) | payer OTHER, SELFPAY ==
--- OUTSIDE RECORDS SUMMARY | 2024-06-26 15:22 | XMS_ITS ---
Author Organization [facility] Address [address] [place] [phone] Care Team Providers Care Datacap Developer Name Role Phone Po Bri MADRID Primary Care Provider Gee Tan Jr [phone] Allergies No Known Allergies REASON FOR [...] Problem Status W/U Status Risk Notes Problem [id number] Vomiting without nausea, unspecified vomiting type (R11.11) Active confirmed Problem 09735477 Change in bowel movement (R19.8) Active confirmed Vital Signs Temperature 96.3 degrees Fahrenheit 11/03/19 24 Blood pressure systolic 000 mm Hg 11/03/19 24 Blood pressure diastolic 00 mm Hg 024 Height 64.75 in 11/03/2023 Weight 140 lbs 11/03/2023 BMI 23.47 kg/m2 11/03/2023 Encounters Encounter Location Date Provider Diagnosis [facility] [address] [facility] [address] [place] [phone] 11/03/2023 Gee Loya Jr Vomiting without nausea, [...] Up: 1 Year, Reason: Progress Notes * ALVIIA SHARATH WDOB:[birth year] (63 yo M)Acc No.[id number]:11/03/2023 Progress Notes Patient:?ALIVIA SHARATH W Provider:?Gee Loya MD :1960???Age:63 Y???Sex:Male Robert e:11/03/2023 Address:[address] [place], [place] [id number] Pcp:Bri Roger MD Subjective: * Chief Complaints: [...] MD Date:?0 11/03/2023 Generated for Hood lomas/Gabrielle/Peteitting on:?06/26/2024 03:21 PM EDT History and Physical Notes * [...]
--- OUTSIDE RECORDS SUMMARY | 2024-06-26 15:22 | XMS_ITS | Patient Health Record ---
Author Organization [facility] Address [address] [place] [address] Care Team Providers Care Fingerprint Classifier Name Role Phone Po Bri MADRID Primary [...] Omeprazole 20 MG TAKE 1 CAPSULE BY [facility] EVERY DAY 30 MINUTES BEFORE MORNING MEAL [...] Problem Status W/U Status Risk Notes Problem 133800015 Colon cancer screening (Z12.11) Active confirmed Problem 899127953 Personal history of colonic polyps (Z86.010) Active confirmed Problem 078754500957451 [facility] (current) use of oral hypoglycemic drugs (Z79.84) Active confirmed Problem 51879592 Change in bowel movement (R19.8) Active confirmed Problem 554220981755742 Vomiting without nausea, unspecified vomiting type (R11.11) Active confirmed Vital Signs Temperature 96.3 degrees Fahrenheit 11/03/2023 Blood pressure diastolic 00 mm Hg 11/03/2023 Height 64.75 in 11/03/2023 Blood pressure systolic 000 mm Hg 11/03/2023 Weight 140 lbs 11/03/2023 BMI 23.47 kg/m2 11/03/2023 Encounters Encounter Location Date Provider Diagnosis [facility] [address] [facility] [address] [place] [phone] 11/03/2023 Gee Loya Jr Vomiting without nausea, [...] Insured Coverage Start Date Coverage End Date [facility] [address] [address] [place], [place] [id number] SHARATH BAKER Self - patient is the insured MEDICAID OF [facility] [address] [place] [address] [id number] SHARATH BAKER Self - patient is the [...]
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
[2024-06-26 15:29] VITALS: BP 120/76; PULSE 78; TEMP 36.2; O2SAT 99; BMI 21.7
== END 2024-06-26 16:29 | disposition home or self-care (01) ==
LOC: HO.HMCH 15:19
PROVIDERS: PCP Internal Medicine; Visit Provider Internal Medicine
DX: F03.90 Unspecified dementia, unspecified severity, without behavioral disturbance, psychotic disturbance, mood disturbance, and anxiety (principal); Z86.73 Personal history of transient ischemic attack (TIA), and cerebral infarction without residual deficits; E11.65 Type 2 diabetes mellitus with hyperglycemia; E78.00 Pure hypercholesterolemia, unspecified; N31.8 Other neuromuscular dysfunction of bladder

== ENCOUNTER → 2024-06-26 15:18 | Outpatient (BNVA) | payer OTHER, SELFPAY | PROVIDERS: PCP Internal Medicine; Visit Provider Internal Medicine | DX: E11.65 Type 2 diabetes mellitus with hyperglycemia (principal); F03.90 Unspecified dementia, unspecified severity, without behavioral disturbance, psychotic disturbance, mood disturbance, and anxiety; I69.954 Hemiplegia and hemiparesis following unspecified cerebrovascular disease affecting left non-dominant side; E78.00 Pure hypercholesterolemia, unspecified; N31.8 Other neuromuscular dysfunction of bladder; Z79.01 Long term (current) use of anticoagulants; Z79.85 Long-term (current) use of injectable non-insulin antidiabetic drugs | CPT/HCPCS: 99212 ==

== ENCOUNTER 2024-08-03 15:59 | Outpatient (AMB) | payer OTHER, SELFPAY ==
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
--- OUTSIDE RECORDS SUMMARY | 2024-08-03 16:01 | XMS_ITS | Patient Health Record ---
Author Organization [facility] Address [address] [place] [address] Care Team Providers Care Assistant Branch Manager Name Role Phone Po Bri MADRID Primary Care Provider Gee Tan Jr [phone] Allergies No Known Allergies Reason For Referral No Information Medications Medication SIG (Take, Route, Frequency, Duration) Notes Start Date End Date Status FreeStyle Lancets - as directed Active Freestyle Test Strips Active Mirtazapine 15 MG 1 tablet at bedtime Orally Once a day for 30 day(s) Active Omeprazole 20 MG TAKE 1 CAPSULE BY [facility] EVERY DAY 30 MINUTES BEFORE MORNING [...] Problem Status W/U Status Risk Notes Problem 270224573 Colon cancer screening (Z12.11) Active confirmed Problem 501975945 Personal history of colonic polyps (Z86.010) Active confirmed Problem [id number] 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 drugs (Z79.84) Active confirmed Problem 84696178 Change in bowel movement (R19.8) Active confirmed Problem [id number] Vomiting without nausea, unspecified vomiting type (R11.11) Active confirmed Vital Signs Temperature 96.3 degrees Fahrenheit 11/03/2023 Blood pressure diastolic 00 mm Hg 11/03/2023 Height 64.75 in 11/03/2023 Blood pressure systolic 000 mm Hg 11/03/2023 Weight 140 lbs 11/03/2023 BMI 23.47 kg/m2 11/03/2023 Encounters Encounter Location Date Provider Diagnosis [facility] [address] [facility] [address] [place] [id number] 11/03/2023 Gee Loya Jr Vomiting without nausea, [...] Insured Coverage Start Date Coverage End Date [facility] [address] [address] [place], [place] [id number] SHARATH BAKER Self - patient is the insured MEDICAID OF [facility] [address] [place] [address] [id number] SHARATH BAKER Self - patient is the [...]
== END 2024-08-03 16:30 | disposition home or self-care (01) ==
LOC: HO.HUSH 15:59
PROVIDERS: PCP Internal Medicine; Visit Provider Urology
DX: R35.0 Frequency of micturition (principal); N31.8 Other neuromuscular dysfunction of bladder; Z86.73 Personal history of transient ischemic attack (TIA), and cerebral infarction without residual deficits
CPT/HCPCS: 99213; G2211

== ENCOUNTER → 2024-08-03 15:59 | Outpatient (BNVA) | payer OTHER, SELFPAY | PROVIDERS: PCP Internal Medicine; Visit Provider Urology ==

== ENCOUNTER 2024-08-18 12:23 | Outpatient (AMB) | payer OTHER, SELFPAY ==
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
[2024-08-18 12:47] VITALS: BP 138/68; PULSE 79; TEMP 36.3; O2SAT 97; BMI 21.6
--- OUTSIDE RECORDS SUMMARY | 2024-08-18 13:01 | XMS_ITS | Patient Health Record ---
Author Organization [facility] Address [address] [place] [address] Care Team Providers Care Toll Testboard Worker Name Role Phone Po Bri MADRID Primary Care Provider Gee Tan Jr [phone] Allergies No Known Allergies Reason For Referral No Information Medications Medication SIG (Take, Route, Frequency, Duration) Notes Start Date End Date Status FreeStyle Lancets - as directed Active Freestyle Test Strips Active Mirtazapine 15 MG 1 tablet at bedtime Orally Once a day for 30 day(s) Active Omeprazole 20 MG TAKE 1 CAPSULE BY [facility] EVERY DAY 30 MINUTES BEFORE MORNING MEAL [...] Problem Status W/U Status Risk Notes Problem 726338359 Colon cancer screening (Z12.11) Active confirmed Problem 952274033 Personal history of colonic polyps (Z86.010) Active confirmed Problem 831497022323493 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 [address] [place] [phone] 11/03/2023 Gee Loya Jr Vomiting without nausea, [...] Insured Coverage Start Date Coverage End Date [facility] [address] [address] [place], [place] [id number] SHARATH BAKER Self - patient is the insured MEDICAID OF [facility] [address] [place] [address] [id number] SHARATH BAKER Self - patient is the [...]
== END 2024-08-18 13:18 | disposition home or self-care (01) ==
LOC: HO.HMCH 12:24
PROVIDERS: PCP Internal Medicine; Visit Provider Internal Medicine
DX: E11.65 Type 2 diabetes mellitus with hyperglycemia (principal); I82.409 Acute embolism and thrombosis of unspecified deep veins of unspecified lower extremity; F03.90 Unspecified dementia, unspecified severity, without behavioral disturbance, psychotic disturbance, mood disturbance, and anxiety; E78.00 Pure hypercholesterolemia, unspecified; N31.8 Other neuromuscular dysfunction of bladder; Z86.73 Personal history of transient ischemic attack (TIA), and cerebral infarction without residual deficits; H91.92 Unspecified hearing loss, left ear; K59.00 Constipation, unspecified; H61.22 Impacted cerumen, left ear

== ENCOUNTER → 2024-08-18 12:23 | Outpatient (BNVA) | payer OTHER, SELFPAY | PROVIDERS: PCP Internal Medicine; Visit Provider Internal Medicine | DX: E11.65 Type 2 diabetes mellitus with hyperglycemia (principal); E11.40 Type 2 diabetes mellitus with diabetic neuropathy, unspecified; H61.22 Impacted cerumen, left ear; E78.00 Pure hypercholesterolemia, unspecified; I82.409 Acute embolism and thrombosis of unspecified deep veins of unspecified lower extremity; N31.8 Other neuromuscular dysfunction of bladder; F03.90 Unspecified dementia, unspecified severity, without behavioral disturbance, psychotic disturbance, mood disturbance, and anxiety; K59.00 Constipation, unspecified; N40.0 Benign prostatic hyperplasia without lower urinary tract symptoms; N31.9 Neuromuscular dysfunction of bladder, unspecified; Z86.73 Personal history of transient ischemic attack (TIA), and cerebral infarction without residual deficits; Z79.84 Long term (current) use of oral hypoglycemic drugs; Z79.899 Other long term (current) 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 | CPT/HCPCS: 69210; 83036; 99212 ==

== ENCOUNTER 2024-08-31 13:51 | Outpatient (REF) | payer OTHER, SELFPAY ==
--- OUTSIDE RECORDS SUMMARY | 2024-08-31 16:41 | XMS_ITS | Patient Health Record ---
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) use of oral hypoglycemic drugs (Z79.84) Active confirmed Problem 52647767 Change in bowel movement (R19.8) Active confirmed Problem 829154966726249 Vomiting without nausea, unspecified vomiting type (R11.11) Active confirmed Vital Signs Temperature 96.3 degrees Fahrenheit 11/03/2023 Blood pressure diastolic 00 mm Hg 11/03/2023 Height 64.75 in 11/03/2023 Blood pressure systolic 000 mm Hg 11/03/2023 Weight 140 lbs 11/03/2023 BMI 23.47 kg/m2 11/03/2023 Encounters Encounter Location Date Provider Diagnosis [facility] [address] [facility] [address] [place] [phone] 11/03/2023 Gee Loya Jr Vomiting without nausea, [...] Insured Coverage Start Date Coverage End Date [facility] [address] [address] [place], [place] [id number] SHARATH BAKER Self - patient is the insured MEDICAID OF [facility] [address] [place] [address] [id number] SHARATH BAKER Self - patient is the [...]
== END 2024-08-31 13:52 | disposition home or self-care (01) ==
LOC: HO.SH 13:51
PROVIDERS: Visit Provider Internal Medicine
DX: Z01.118 Encounter for examination of ears and hearing with other abnormal findings (principal); H90.3 Sensorineural hearing loss, bilateral
CPT/HCPCS: 92557; 92567

== ENCOUNTER 2024-09-27 13:59 | Outpatient (REF) | payer OTHER, SELFPAY ==
--- NOTE | ~2024-09-27 | US_ITS ---
CLINICAL HISTORY: N50.89 - Other specified disorders of the male genital organs --- Additional Notes or Special Instructions: right testicle lump US Scrotum with Doppler Comparison: None provided Findings: Right testicle normal echotexture, 3.8 x 1.7 x 2.2 cm. Left testicle normal echotexture, 3.8 x 1.6 x 2.3 cm. Left scrotal maribel measuring 2 mm. Heterogeneous masslike region of echogenicity within the posterior left scrotum with calcification measuring 19 mm x 7 mm x 8 mm. Similar-appearing focus within the left anterior sacrum measuring 22 mm x 5 mm x 9 mm. Normal color flow and arterial/venous spectral tracing of both testicles. Cluster of calcification within the left epididymal head measuring 3 mm. No varicoceles. Small left hydrocele. IMPRESSION: 1. No acute process. 2. Possible left scrotal masses as described above. 3. Small left hydrocele. This document has been electronically signed by: Angela Rose MD on 09/28/2024 14:48:01
--- OUTSIDE RECORDS SUMMARY | 2024-09-27 14:43 | XMS_ITS | Patient Health Record ---
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) use of oral hypoglycemic drugs (Z79.84) Active confirmed Problem 83090006 Change in bowel movement (R19.8) Active confirmed Problem 858615022434919 Vomiting without nausea, unspecified vomiting type (R11.11) Active confirmed Vital Signs Temperature 96.3 degrees Fahrenheit 11/03/2023 Blood pressure diastolic 00 mm Hg 11/03/2023 Height 64.75 in 11/03/2023 Blood pressure systolic 000 mm Hg 11/03/2023 Weight 140 lbs 11/03/2023 BMI 23.47 kg/m2 11/03/2023 Encounters Encounter Location Date Provider Diagnosis [facility] [address] [facility] [address] [place] [phone] 11/03/2023 Gee Loya Jr Vomiting without nausea, [...] Insured Coverage Start Date Coverage End Date [facility] [address] [address] [place], [place] [id number] SHARATH BAKER Self - patient is the insured MEDICAID OF [facility] [address] [place] [address] [id number] SHARATH BAKER Self - patient is the [...]
== END 2024-09-27 14:00 | disposition home or self-care (01) ==
LOC: HO.HMGCX 13:59
PROVIDERS: PCP Internal Medicine; Visit Provider Urology
DX: N50.89 Other specified disorders of the male genital organs (principal)
CPT/HCPCS: 76870

== ENCOUNTER → 2024-09-27 14:19 | Outpatient (BNV) | payer OTHER, SELFPAY | PROVIDERS: PCP Internal Medicine; Visit Provider Radiology Diagnostic Radiology | DX: N43.3 Hydrocele, unspecified (principal); N50.89 Other specified disorders of the male genital organs | CPT/HCPCS: 76870 ==

== ENCOUNTER 2024-10-24 14:43 | Outpatient (AMB) | payer OTHER, SELFPAY ==
[2024-10-24 14:46] VITALS: BP 118/68; PULSE 81; O2SAT 98; BMI 21.9
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
--- OUTSIDE RECORDS SUMMARY | 2024-10-24 16:04 | XMS_ITS | Patient Health Record ---
Author Organization [facility] Address [address] [place] [address] Care Team Providers Care Exhaust Worker Name Role Phone Po Bri MADRID Primary Care Provider Gee Tan Jr [phone] Allergies No Known Allergies Reason For Referral No Information Medications Medication SIG (Take, Route, Frequency, Duration) Notes Start Date End Date Status FreeStyle Lancets - as directed Active Freestyle Test Strips Active Mirtazapine 15 MG 1 tablet at bedtime Orally Once a day for 30 day(s) Active Omeprazole 20 MG TAKE 1 CAPSULE BY [facility] EVERY DAY 30 MINUTES BEFORE MORNING [...] Problem Status W/U Status Risk Notes Problem [id number] Colon cancer screening (Z12.11) Active confirmed Problem 686041984 Personal history of colonic polyps (Z86.010) Active confirmed Problem [id number] retirement (current) use of oral hypoglycemic drugs (Z79.84) Active confirmed Problem 43380336 Change in bowel movement (R19.8) Active confirmed Problem [id number] Vomiting without nausea, unspecified vomiting type (R11.11) Active confirmed Vital Signs Temperature 96.3 degrees Fahrenheit 11/03/2023 Blood pressure diastolic 00 mm Hg 11/03/2023 Height 64.75 in 11/03/2023 Blood pressure systolic 000 mm Hg 11/03/2023 Weight 140 lbs 11/03/2023 BMI 23.47 kg/m2 11/03/2023 Encounters Encounter Location Date Provider Diagnosis [facility] [address] [facility] [address] [place] [id number] 11/03/2023 Gee Loya Jr Vomiting without nausea, [...] Insured Coverage Start Date Coverage End Date [facility] [address] [address] [place], [place] [id number] SHARATH BAKER Self - patient is the insured MEDICAID OF [facility] [address] [place] [address] [id number] SHARATH BAKER Self - patient is the [...]
== END 2024-10-24 15:30 | disposition home or self-care (01) ==
LOC: HO.HMCH 14:44
PROVIDERS: PCP Internal Medicine; Visit Provider Internal Medicine
DX: E11.65 Type 2 diabetes mellitus with hyperglycemia (principal); E78.00 Pure hypercholesterolemia, unspecified; I82.409 Acute embolism and thrombosis of unspecified deep veins of unspecified lower extremity; Z86.73 Personal history of transient ischemic attack (TIA), and cerebral infarction without residual deficits; G47.10 Hypersomnia, unspecified

== ENCOUNTER → 2024-10-24 14:43 | Outpatient (BNVA) | payer OTHER, SELFPAY | PROVIDERS: PCP Internal Medicine; Visit Provider Internal Medicine | DX: E11.65 Type 2 diabetes mellitus with hyperglycemia (principal); E11.40 Type 2 diabetes mellitus with diabetic neuropathy, unspecified; E78.00 Pure hypercholesterolemia, unspecified; I82.409 Acute embolism and thrombosis of unspecified deep veins of unspecified lower extremity; G47.10 Hypersomnia, unspecified; Z86.73 Personal history of transient ischemic attack (TIA), and cerebral infarction without residual deficits; Z79.84 Long term (current) use of oral hypoglycemic drugs | CPT/HCPCS: 99212 ==

== ENCOUNTER 2024-11-02 13:57 | Outpatient (AMB) | payer OTHER, SELFPAY ==
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
--- OUTSIDE RECORDS SUMMARY | 2024-11-02 14:49 | XMS_ITS | Patient Health Record ---
Author Organization [facility] Address [address] [place] [address] Care Team Providers Care Process Engineering Intern Name Role Phone Po Bri MADRID Primary [...] Problem Status W/U Status Risk Notes Problem 318732409 Colon cancer screening (Z12.11) Active confirmed Problem 992356358 Personal history of colonic polyps (Z86.010) Active confirmed Problem [id number] group home (current) use of oral hypoglycemic drugs (Z79.84) Active confirmed Problem 58361214 Change in bowel movement (R19.8) Active confirmed Problem [id number] Vomiting without nausea, unspecified vomiting type (R11.11) Active confirmed Vital Signs Temperature 96.3 degrees Fahrenheit 11/03/2023 Blood pressure diastolic 00 mm Hg 11/03/2023 Height 64.75 in 11/03/2023 Blood pressure systolic 000 mm Hg 11/03/2023 Weight 140 lbs 11/03/2023 BMI 23.47 kg/m2 11/03/2023 Encounters Encounter Location Date Provider Diagnosis [facility] [address] [facility] [address] [place] [id number] 11/03/2023 Gee Loya Jr Vomiting without nausea, [...] Insured Coverage Start Date Coverage End Date [facility] [address] [address] [place], [place] [id number] SHARATH BAKER Self - patient is the insured MEDICAID OF [facility] [address] [place] [address] [id number] SHARATH BAKER Self - patient is the [...]
== END 2024-11-02 14:43 | disposition home or self-care (01) ==
LOC: HO.HSM 13:58
PROVIDERS: PCP Internal Medicine; Referring Provider Internal Medicine; Visit Provider Registered Nurse
DX: R26.89 Other abnormalities of gait and mobility (principal); G43.909 Migraine, unspecified, not intractable, without status migrainosus; F32.A Depression, unspecified; F03.90 Unspecified dementia, unspecified severity, without behavioral disturbance, psychotic disturbance, mood disturbance, and anxiety; F01.53 Vascular dementia, unspecified severity, with mood disturbance; G30.9 Alzheimer's disease, unspecified; F02.80 Dementia in other diseases classified elsewhere, unspecified severity, without behavioral disturbance, psychotic disturbance, mood disturbance, and anxiety; D32.9 Benign neoplasm of meninges, unspecified
CPT/HCPCS: 99214

== ENCOUNTER → 2024-11-02 13:57 | Outpatient (BNVA) | payer OTHER, SELFPAY | PROVIDERS: PCP Internal Medicine; Referring Provider Internal Medicine; Visit Provider Registered Nurse | DX: R26.89 Other abnormalities of gait and mobility (principal); G43.909 Migraine, unspecified, not intractable, without status migrainosus; F32.A Depression, unspecified; G30.9 Alzheimer's disease, unspecified; F01.53 Vascular dementia, unspecified severity, with mood disturbance; F02.80 Dementia in other diseases classified elsewhere, unspecified severity, without behavioral disturbance, psychotic disturbance, mood disturbance, and anxiety; D32.9 Benign neoplasm of meninges, unspecified; Z79.899 Other long term (current) 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 | CPT/HCPCS: 99212 ==

== ENCOUNTER 2024-11-03 14:29 | Outpatient (AMB) | payer OTHER, SELFPAY ==
--- OUTSIDE RECORDS SUMMARY | 2024-11-03 14:33 | XMS_ITS | Patient Health Record ---
Author Organization [facility] Address [address] [place] [address] Care Team Providers Care Building Official Name Role Phone Po Bri MADRID Primary [...] Omeprazole 20 MG TAKE 1 CAPSULE BY [facility] EVERY DAY 30 MINUTES BEFORE [...] Problem Status W/U Status Risk Notes Problem 297508238 Colon cancer screening (Z12.11) Active confirmed Problem 199615792 Personal history of colonic polyps (Z86.010) Active confirmed Problem 356470194020106 senior living (current) use of oral hypoglycemic drugs (Z79.84) Active confirmed Problem 88150391 Change in bowel movement (R19.8) Active confirmed Problem [id number] Vomiting without nausea, unspecified vomiting type (R11.11) Active confirmed Plan Of Treatment Future Test Test Name Order Date COLONOSCOPY 12/28/2012 COLONOSCOPY 04/21/2021 Insurance Providers Payer Name Payer Address Payer Phone Subscriber Number Group Number Insured Name Patient Relationship to Insured Coverage Start Date Coverage End Date [facility] [address] [address] [place], [place] [id number] SHARATH BAKER Self - patient is the insured MEDICAID OF [facility] [address] [place] [address] [id number] SHARATH BAKER Self - patient is the [...]
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
== END 2024-11-03 15:24 | disposition home or self-care (01) ==
LOC: HO.HUSH 14:30
PROVIDERS: PCP Internal Medicine; Visit Provider Urology
DX: R35.0 Frequency of micturition (principal); N31.8 Other neuromuscular dysfunction of bladder; Z86.73 Personal history of transient ischemic attack (TIA), and cerebral infarction without residual deficits
CPT/HCPCS: 99213

== ENCOUNTER 2024-12-21 06:13 | Emergency (ER) | payer OTHER, SELFPAY ==
--- NOTE | 2024-12-21 | ECG_ITS ---
Test Reason : WEAKNESS Blood Pressure : */* mmHG Vent. Rate : 73 BPM Atrial Rate : 73 BPM P-R Int : 174 ms QRS Dur : 82 ms QT Int : 406 ms P-R-T Axes : 53 34 61 degrees QTcB Int : 447 ms Normal sinus rhythm Nonspecific T wave abnormality Abnormal ECG When compared with ECG of 15-Jul-2023 11:52, Nonspecific T wave abnormality no longer evident in Inferior leads T wave inversion no longer evident in Lateral leads Referred By: Generic ED Physician Electronically Signed By: Justice De La O
[2024-12-21 06:22] VITALS: BP 158/88; BP 164/81; PULSE 76; PULSE 80; RESP 20; TEMP 37; O2SAT 98; O2SAT 99; BMI 22.1
[2024-12-21 06:37] LABS: MANUAL DIFF FLAG NO
[2024-12-21 06:39] LABS: Hematocrit 45.5 % (42.0-52.0); Hemoglobin 15.4 g/dl (14.0-18.0); Imm Gran Abs Auto 0.06 X10*3/uL (0.00-0.03); Imm Gran Pct Auto 0.6 % (0.0-0.4); Lymphocytes Absolute Auto 1.5 X10*3/uL (1.2-4.9); Mean Corpuscular HGB Conc 33.8 g/dl (31.0-36.0); Mean Corpuscular Hemoglobin 32.8 pg (27.0-33.0); Mean Corpuscular Volume 96.8 fL (80.0-98.0); NRBC Abs Auto 0.000 X10*3/uL (0.0-0.012); NRBC Pct Auto 0.0 /100WBC (0.0-0.2); Platelet Count 168 X10*3/uL (160-400); Red Blood Count 4.70 X10*6/uL (4.60-5.80); White Blood Count 10.9 X10*3/uL (4.8-10.8)
--- OUTSIDE RECORDS SUMMARY | 2024-12-21 06:42 | XMS_ITS | Patient Health Record ---
Author Organization [facility] Address [address] [place] [address] Care Team Providers Care Supervisor [employer] Name Role Phone Po Bri MADRID Primary Care Provider Gee Tan Jr Allergies No Known Allergies Reason For Referral No Information Medications Medication SIG (Take, Route, Frequency, Duration) Notes Start Date End Date Status FreeStyle Lancets - as directed Active Freestyle Test Strips Active Mirtazapine 15 MG 1 tablet at bedtime Orally Once a day; Duration: 30 day(s) Active Omeprazole 20 MG TAKE 1 CAPSULE BY [facility] EVERY DAY 30 MINUTES BEFORE MORNING MEAL FOR 30 DAYS; Duration: 90 Active Pioglitazone HCl 45 MG 1 tablet Orally O nce a day; Duration: 30 day(s) Active Sertraline HCl 50 MG 1 tablet Orally Onc e a day; Duration: 30 day(s) Active MiraLax (colon prep) 17 GM/SCOOP mixed with Gatorade or Crystal Light Orally begin at 5:00 p.m. the day before the procedure; Duration: 1 day 04/21/2021 Active SUMAtriptan Succinate 50 MG 1 tablet at least 2 hours between doses as needed Orally Twice a day Active metFORMIN HCl 1000 MG 1 tablet with a me al Orally twice a day Active Topiramate 25 MG 1 tablet Orally Once a day; Duration: 30 day(s) Active Atorvastatin Calcium 10 MG 1 tablet Orally Once a day Active Xarelto 10 MG 1 tablet Orally Once a day; Duration: 30 day(s) Active Alfuzosin HCl ER 10 MG 1 tablet immediat renetta after the same meal Orally Once a day; Duration: 30 day(s) Activ e Trulicity 0.75 MG/0.5ML as directed Subcutaneous Active Carbidopa-Levodopa 25-100 MG 1 tablet as needed Orally Two times a Week; Duration: 30 day(s) Active Farxiga 10 MG 1 tablet Orally Once a day; Duration: 30 day(s) Active Finasteride 5 MG 1 tablet Orally Once a day; Duration: 30 day(s) Active Immunizations Vaccine Route Administration Date Status Comme nts Influenza Unknown 03/12/2021 Administered Influenza Unknown 03/12/2021 Administered Influenza Unknown 12/29/2022 Administered Problems Problem Type SNOMED Code ICD Code Onset Dates Problem Status W/U Status Risk Notes Problem Colon cancer screening (259140244) Colon cancer screening (Z12.11) Active confirmed Problem History of polyp of colon (situation) (040413259) Personal history of colonic polyps (Z86.010) Active confirmed Problem Long-term current use of 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 (Z79.84) Active confirmed Problem Altered bowel function (70371598) Change in bowel movement (R19.8) Active confirmed Problem Vomiting without nausea (5860398832205 08) Vomiting without nausea, unspecified vomiting type (R11.11) Active confirmed Plan Of Treatment Future Test Test Name Order Date COLONOSCOPY 12/28/2012 COLONOSCOPY 04/21/2021 Insurance Providers Payer Name Payer Address Payer Phone Subscriber Number Group Number Insured Name Patient Relationship to Insured Coverage Start Date Coverage End Date [facility] [address] [address] [place], [place] [id number] SHARATH BAKER Self - patient is the insured MEDICAID OF [facility] [address] [place] [address] [id number] SHARATH BAKER Self - patient is the [...]
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
[2024-12-21] MEDS: Lactated Ringers 1,000 ML 999 ML IV (06:53)
[2024-12-21] MEDS: Sucralfate Oral Suspension 1 GM/10 ML ORAL.SUSP PO (06:54)
[2024-12-21] MEDS: Magnesium Hydrox/Alum Hydrox 30 ML ORAL.SUSP PO (06:54)
[2024-12-21 06:55] LABS: Alanine Aminotransferase 21 U/L (0-40); Albumin Level 3.9 g/dL (3.5-5.0); Alkaline Phosphatase 86 U/L (39-117); Anion Gap 12 (12-20); Aspartate Amino Transferase 18 U/L (5-37); Blood Urea Nitrogen 26 mg/dL (9-16); Calcium 9.2 mg/dL (8.4-10.2); Carbon Dioxide 23 mmol/L (22-29); Chloride 111 mmol/L (96-108); Creatinine Clr Calc Pharmacy 103.6; Estimated Glomerular Filt Rate > 60; Lipase 13 U/L (8-78); Potassium 4.3 mmol/L (3.3-5.1); Sodium 142 mmol/L (135-145); Total Protein 6.4 g/dL (6.5-8.0)
--- NOTE | 2024-12-21 06:57 | PC.NURSE ---
medicated per may, Report given to Stephy Rico
[2024-12-21 07:05] LABS: NT Pro B Type Natriuretic Pept 85.8 pg/mL (<300); Troponin-I High Sensitivity 3.6 ng/L (<3.5-35.0)
[2024-12-21 07:12] LABS: Resp Syncy Virus RNA Qual PCR NEGATIVE (Negative); SARS COV2 PCR INHOUSE NEGATIVE (Negative)
--- NOTE | 2024-12-21 07:16 | PC.NURSE ---
Care of Pt assumed at change of shift (0700.) Pt is resting quietly on stretcher with at bedside. IVF running. T[place]arez Cath bag emptied fo 300mls dark yellow urine. Urine spec sent to lab for testing. Awaiting dispo.
[2024-12-21 07:36] LABS: Appearance Urine Turbid; Glucose Urine UA 500 mg/dL (Negative); PH 8.5 (5.0-9.0); Specific Gravity - Urine >= 1.030 (1.005-1.025); UMIC TRIGGER UACC YES
[2024-12-21 07:42] LABS: Other Crystals Urine Present; UACC Culture Trigger YES
[2024-12-21 08:26] VITALS: BP 119/67; PULSE 77; RESP 14; TEMP 36.4; O2SAT 96
[2024-12-21 08:30] LABS: IDNOW Serial# 58CA691E; Strep A Nucleic Acid Negative (Negative)
--- NOTE | 2024-12-21 11:09 | PC.NURSE ---
PO challenge per ED Provider. Pt able to eat crackers and gingerale without the occurrence of GI upset, n/v, or diarrhea. ED provider made aware via [employer] connect.
[2024-12-21 12:18] VITALS: BP 119/67; PULSE 77; RESP 14; TEMP 36.4; O2SAT 96
== END 2024-12-21 12:18 | disposition home or self-care (01) ==
PROVIDERS: Emergency Provider Emergency Medicine; PCP Internal Medicine
DX: K52.9 Noninfective gastroenteritis and colitis, unspecified (principal); N39.0 Urinary tract infection, site not specified; I69.954 Hemiplegia and hemiparesis following unspecified cerebrovascular disease affecting left non-dominant side; F03.90 Unspecified dementia, unspecified severity, without behavioral disturbance, psychotic disturbance, mood disturbance, and anxiety; Z86.718 Personal history of other venous thrombosis and embolism; Z79.01 Long term (current) use of anticoagulants
CPT/HCPCS: 36415; 80053; 81001; 83690; 83880; 84484; 85025; 87086; 87637; 87651; 93005; 96361; 96374; 99284; 99285; J2405; J7120

== ENCOUNTER → 2024-12-21 06:48 | Outpatient (BNV) | payer OTHER, SELFPAY | PROVIDERS: Emergency Provider Emergency Medicine; PCP Internal Medicine; Visit Provider Internal Medicine Cardiovascular Disease | DX: R53.1 Weakness (principal) | CPT/HCPCS: 93010 ==

== ENCOUNTER 2024-12-29 16:01 | Emergency (ER) | payer OTHER, SELFPAY ==
--- NOTE | ~2024-12-29 | XR_ITS ---
CLINICAL HISTORY: syncopy 1 view chest x-ray. Comparison: Chest CT 07/15/2023 Findings: No consolidation or effusion. Cardiac and mediastinal contours appear unremarkable. Stable mild elevation of the right hemidiaphragm. Bones unremarkable. Impression: 1. No acute pulmonary disease. This document has been electronically signed by: Chris Tatum MD on 12/29/2024 19:07:32
--- NOTE | ~2024-12-29 | CT_ITS ---
CLINICAL HISTORY: 1st time sz, prior L hemisphere CVA CT head without contrast Comparison: 07/15/2023 Findings: There is a somewhat poorly defined right frontal hyperdense lesion or perhaps subacute hematoma measuring up to 4.7 x 3.4 cm AP and transverse dimension (2; 35, 48 Hounsfield units). This is new compared with the prior exam. There is surrounding vasogenic edema with resultant mass effect and [id number] shift measuring up to 6-7 mm (measured on 2; 29). No other intracranial mass, hydrocephalus, or other evidence of acute hemorrhage. No CT evidence of acute ischemia. Visualized paranasal sinuses and mastoid air cells normal. Orbits unremarkable. No skull fracture Impression: 1. Right frontal hyperdense lesion or subacute hemorrhage measuring up to 4.7 cm AP dimension, with surrounding edema, mass effect, and 6-7 mm [id number] shift. This document has been electronically signed by: Chris Tatum MD on 12/29/2024 18:53:31
[2024-12-29 16:31] VITALS: BP 132/82; O2SAT 98
[2024-12-29 16:46] VITALS: BP 127/78; PULSE 79; RESP 18; TEMP 36.7; O2SAT 99; BMI 24.3
--- NOTE | 2024-12-29 17:06 | ECG_ITS ---
Test Reason : SYNCOPE Blood Pressure : */* mmHG Vent. Rate : 74 BPM Atrial Rate : 74 BPM P-R Int : 180 ms QRS Dur : 94 ms QT Int : 408 ms P-R-T Axes : 47 33 59 degrees QTcB Int : 452 ms Normal sinus rhythm Normal ECG When compared with ECG of 21-Dec-2024 06:48, No significant change was found Referred By: Generic ED Physician Electronically Signed By: BERENICE COLEMAN MD
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
--- OUTSIDE RECORDS SUMMARY | 2024-12-29 17:23 | XMS_ITS | Patient Health Record ---
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 care registered nurse (current) use of oral hypoglycemic drugs (Z79.84) Active confirmed Problem Altered bowel function (75599326) Change in bowel movement (R19.8) Active confirmed Problem Vomiting without nausea ([id number] 08) Vomiting without nausea, unspecified vomiting type (R11.11) Active confirmed Plan Of Treatment Future Test Test Name Order Date COLONOSCOPY 12/28/2012 COLONOSCOPY 04/21/2021 Insurance Providers Payer Name Payer Address Payer Phone Subscriber Number Group Number Insured Name Patient Relationship to Insured Coverage Start Date Coverage End Date [facility] [address] [address] [place], [place] [id number] SHARATH BAKER Self - patient is the insured MEDICAID OF [facility] [address] [place] [address] [id number] SHARATH BAKER Self - patient is the [...]
[2024-12-29 18:14] LABS: Hematocrit 43.3 % (42.0-52.0); Hemoglobin 14.5 g/dl (14.0-18.0); Imm Gran Abs Auto 0.01 X10*3/uL (0.00-0.03); Imm Gran Pct Auto 0.1 % (0.0-0.4); Lymphocytes Absolute Auto 1.4 X10*3/uL (1.2-4.9); MANUAL DIFF FLAG NO; Mean Corpuscular HGB Conc 33.5 g/dl (31.0-36.0); Mean Corpuscular Hemoglobin 32.2 pg (27.0-33.0); Mean Corpuscular Volume 96.0 fL (80.0-98.0); NRBC Abs Auto 0.000 X10*3/uL (0.0-0.012); NRBC Pct Auto 0.0 /100WBC (0.0-0.2); Platelet Count 167 X10*3/uL (160-400); Red Blood Count 4.51 X10*6/uL (4.60-5.80); White Blood Count 7.0 X10*3/uL (4.8-10.8)
[2024-12-29 18:24] VITALS: BP 127/64; PULSE 72; RESP 20; O2SAT 97
--- NOTE | 2024-12-29 18:26 | PC.NURSE ---
pt is alert and oriented, skin pwd, respirations even and unlabored, ls clear, pt reports that he was getting a pedicure at home and everything went blank-reports that he izaguirre snot think he hit his head and only blocked out for a few minutes, pt does have a a hx of stroke ax3 times with left side deficits, pt is also wheelchair bound, vs stable and ns on the monitor
[2024-12-29 18:30] LABS: Alanine Aminotransferase 17 U/L (0-40); Albumin Level 3.8 g/dL (3.5-5.0); Alkaline Phosphatase 104 U/L (39-117); Anion Gap 13 (12-20); Aspartate Amino Transferase 25 U/L (5-37); Blood Urea Nitrogen 27 mg/dL (9-16); Calcium 9.4 mg/dL (8.4-10.2); Carbon Dioxide 25 mmol/L (22-29); Chloride 107 mmol/L (96-108); Creatinine Clr Calc Pharmacy 95.4; Estimated Glomerular Filt Rate > 60; Lipase 14 U/L (8-78); Magnesium 2.0 mg/dL (1.6-2.6); Potassium 5.4 mmol/L (3.3-5.1); Sodium 140 mmol/L (135-145); Total Protein 6.6 g/dL (6.5-8.0)
[2024-12-29 18:37] LABS: Troponin-I High Sensitivity 4.3 ng/L (<3.5-35.0)
[2024-12-29 20:03] VITALS: BP 116/71; PULSE 76; RESP 12; O2SAT 98
[2024-12-29 20:08] VITALS: BP 116/71; PULSE 76; RESP 12; TEMP 36.6; O2SAT 98
== END 2024-12-29 20:16 | disposition short-term general hospital (02) ==
PROVIDERS: Emergency Provider Emergency Medicine; PCP Internal Medicine
DX: D43.2 Neoplasm of uncertain behavior of brain, unspecified (principal); R55 Syncope and collapse; G30.9 Alzheimer's disease, unspecified; F02.80 Dementia in other diseases classified elsewhere, unspecified severity, without behavioral disturbance, psychotic disturbance, mood disturbance, and anxiety
CPT/HCPCS: 36415; 70450; 71045; 80048; 80076; 83690; 83735; 84484; 85025; 93005; 96374; 96375; 99284; 99285; J1100; J1953

== ENCOUNTER → 2024-12-29 17:06 | Outpatient (BNV) | payer OTHER, SELFPAY | PROVIDERS: Emergency Provider Emergency Medicine; PCP Internal Medicine; Visit Provider Internal Medicine Cardiovascular Disease | DX: R55 Syncope and collapse (principal) | CPT/HCPCS: 93010 ==

== ENCOUNTER → 2024-12-29 18:09 | Outpatient (BNV) | payer OTHER, SELFPAY | PROVIDERS: Emergency Provider Emergency Medicine; PCP Internal Medicine; Visit Provider Radiology Diagnostic Radiology | DX: R56.9 Unspecified convulsions (principal); Z86.73 Personal history of transient ischemic attack (TIA), and cerebral infarction without residual deficits; R55 Syncope and collapse | CPT/HCPCS: 70450; 71045 ==

== ENCOUNTER 2025-01-25 14:04 | Outpatient (AMB) | payer OTHER, SELFPAY ==
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
--- OUTSIDE RECORDS SUMMARY | 2025-01-25 19:28 | XMS_ITS | Patient Health Record ---
Author Organization [facility] Address [address] [place] [address] Care Team Providers Care Vendor Relationship Manager Name Role Phone Po Bri MADRID Primary Care Provider Gee Tan Jr Allergies No Known Allergies Reason For Referral No Information Medications Medication SIG (Take, Route, Frequency, Duration) Notes Start Date End Date Status FreeStyle Lancets - Miscellaneous as directed Active Freestyle Test Strips Active Mirtazapine 15 MG Tablet 1 tablet at bed time Orally Once a day; Duration: 30 day(s) Active Omeprazole 20 MG Capsule Delayed Release TAKE 1 CAPSULE BY MOUTH EVERY DAY 30 MINUTES BEFORE MORNING MEAL FOR 30 DAYS; Duration: 90 Active Pioglitazone HCl 45 MG Tablet 1 tablet Orally Once a day; Duration: 30 day(s) Active Sertraline HCl 50 MG Tablet 1 tablet Ora lly Once a day; Duration: 30 day(s) Active MiraLax (colon prep) 17 GM/SCOOP Powder mixed with Gatorade or Crystal Light Orally begin at 5:00 p.m. the day before the procedure; Duration: 1 day 04/21/2021 Active SUMAtriptan Succinate 50 MG Tablet 1 tablet at least 2 hours between doses as needed Orally Twice a day Active metFORMIN HCl 1000 MG Tablet 1 tablet with a meal Orally twice a day Active Topiramate 25 MG Tablet 1 tablet Orally Once a day; Duration: 30 day(s) Active Atorvastatin Calcium 10 MG Tablet 1 tablet Orally Once a day Active Xarelto 10 MG Tablet 1 tablet Orally Onc e a day; Duration: 30 day(s) Active Alfuzosin HCl ER 10 MG Tablet Extended Release 24 Hour 1 tablet immediately after the same meal Orally Once a day; Duration: 30 day(s) Active Trulicity 0.75 MG/0.5ML Solution Pen-injector as directed Subcutaneous Active Carbidopa-Levodopa 25-100 MG Tablet 1 tablet as needed Orally Two times a Week; Duration: 30 day(s) Active Farxiga 10 MG Tablet 1 tablet Orally Onc e a day; Duration: 30 day(s) Active Finasteride 5 MG Tablet 1 tablet Orally Once a day; Duration: 30 day(s) Active Immunizations Vaccine Route Administration Date Status Comme nts Influenza Unknown 03/12/2021 Administered Influenza Unknown 03/12/2021 Administered Influenza Unknown 12/29/2022 Administered Social History Social History Additional Details Category Social Info Options Details Miscellaneous: Marital status: single but has a significant other 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 Problems Problem Type SNOMED Code ICD Code Onset Dates Problem Status W/U Status Risk Notes Problem Colon cancer screening (031885208) Colon cancer screening (Z12.11) Active confirmed Problem History of polyp of colon (situation) (900301273) Personal history of colonic polyps (Z86.010) Active confirmed Problem Long-term current use of 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 (268710168) 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 drugs (Z79.84) Active confirmed Problem Altered bowel function (89606696) Change in bowel movement (R19.8) Active confirmed Problem Vomiting without nausea ([id number] 08) Vomiting without nausea, unspecified vomiting type (R11.11) Active confirmed Plan Of Treatment Future Test Test Name Order Date COLONOSCOPY 12/28/2012 COLONOSCOPY 04/21/2021 Insurance Providers Payer Name Payer Address Payer Phone Subscriber Number Group Number Insured Name Patient Relationship to Insured Coverage Start Date Coverage End Date [facility] [address] [address] [place], [place] [id number] SHARATH BAKER Self - patient is the insured MEDICAID OF [facility] [address] [place] [address] [phone] [id number] SHARATH BAKER Self - patient is the [...]
--- OUTSIDE RECORDS SUMMARY | 2025-01-25 19:28 | XMS_ITS ---
Author Name [facility] Organization Unknown Results Test Name/Text Value Interpretation Date Range Source POC Glucose 146.0 mg/dL Above high normal 01/05/2025 65 - HHCCT POC Glucose 237.0 mg/dL Above high normal 01/05/2025 - HHCCT POC Glucose 189.0 mg/dL Above high normal 01/05/2025 - HHCCT POC Glucose 192.0 mg/dL Above high normal 01/05/2025 65 - HHCCT POC Glucose 198.0 mg/dL Above high normal 01/04/2025 65 - HHCCT POC Glucose 218.0 mg/dL Above high normal 01/04/2025 65 - HHCCT POC Glucose 174.0 mg/dL Above high normal 01/04/2025 65 - HHCCT POC Glucose 149.0 mg/dL Above high normal 01/04/2025 65 - HHCCT POC Glucose 153.0 mg/dL Above high normal 01/03/2025 65 - 99 HHCCT POC Glucose 164.0 mg/dL Above high normal 01/03/2025 65 - 99 HHCCT POC Glucose 223.0 mg/dL Above high normal 01/03/2025 65 - 99 HHCCT Anion Gap Bld-sCnc 10.0 01/03/2025 7 - 17 HHCCT CO2 SerPl-sCnc 24.0 mmol/L 01/03/2025 22 - 33 HH CCT BUN/Creat SerPl 31.0 Ratio Above high normal 01/03/2025 10 - 25 HHCCT Potassium SerPl-sCnc 4.3 mmol/L 01/03/2025 3.4 - 5 .3 HHCCT Glucose SerPl-mCnc 160.0 mg/dL Above high normal 01/03/2025 65 - 99 HHCCT BUN SerPl-mCnc 17.0 mg/dL 01/03/2025 8 - [address] GFR/BSA.pred SerPlBld [id number] >90.0 01/03/2025 59 - HHCCT Creat SerPl-mCnc 0.55 mg/dL 01/03/2025 0.5 - 1.3 H HCCT Sodium SerPl-sCnc 136.0 mmol/L 01/03/2025 136 - 14 5 HHCCT Calcium SerPl-mCnc 8.6 mg/dL Below low normal 01/03/2025 8.7 - 10.5 HHCCT Chloride SerPl-sCnc 102.0 mmol/L 01/03/2025 98 - 1 07 HHCCT Magnesium SerPl-mCnc 1.7 mg/dL 01/03/2025 1.6 - 2. 7 HHCCT Phosphate SerPl-mCnc 2.4 mg/dL Below low normal 01/03/2025 2 .7 - 4.5 HHCCT Hct VFr Bld Auto 34.3 % Below low normal 01/03/2025 39 - 54 HHCCT RDW RBC Auto-Rto 13.1 % 01/03/2025 11.5 - 14.5 HHCCT Platelet num Bld Auto 172.0 Thou/uL 01/03/2025 150 - 450 HHCCT PMV Bld Auto 10.9 fL 01/03/2025 7.5 - 12.5 HHCCT MCHC RBC Auto-mCnc 33.2 g/dL 01/03/2025 30 - 36 HHCCT WBC num Bld Auto 9.2 Thou/uL 01/03/2025 4 - 11 HHCCT RBC num Bld Auto 3.48 Mil/uL Below low normal 01/03/2025 4.5 - 6.2 HHCCT Hgb Bld-mCnc 11.4 g/dL Below low normal 01/03/2025 13 - 17.7 HHCCT MCH RBC Qn Auto 32.8 pg Above high normal 01/03/2025 27 - 31 HHCCT MCV RBC Auto 99.0 fL 01/03/2025 80 - 100 HHCCT POC Glucose 195.0 mg/dL Above high normal 01/02/2025 65 - 99 HHCCT POC Glucose 204.0 mg/dL Above high normal 01/02/2025 65 - 99 HHCCT POC Glucose 189.0 mg/dL Above high normal 01/02/2025 65 - 99 HHCCT POC Glucose 184.0 mg/dL Above high normal 01/02/2025 65 - 99 HHCCT POC Glucose 158.0 mg/dL Above high normal 01/02/2025 65 - 99 HHCCT Sodium SerPl-sCnc 135.0 mmol/L Below low normal 01/02/2025 1 36 - 145 HHCCT POC Glucose 190.0 mg/dL Above high normal 01/01/2025 65 - 99 HHCCT Sodium SerPl-sCnc 137.0 mmol/L 01/01/2025 136 - 14 5 HHCCT POC Glucose 166.0 mg/dL Above high normal 01/01/2025 65 - 99 HHCCT Sodium SerPl-sCnc 137.0 mmol/L 01/01/2025 136 - 14 5 HHCCT POC Glucose 185.0 mg/dL Above high normal 01/01/2025 65 - 99 HHCCT POC Glucose 151.0 mg/dL Above high normal 01/01/2025 65 - 99 HHCCT Sodium SerPl-sCnc 134.0 mmol/L Below low normal 01/01/2025 1 36 - 145 HHCCT Magnesium SerPl-mCnc 1.8 mg/dL 01/01/2025 1.6 - 2. 7 HHCCT Sodium SerPl-sCnc 133.0 mmol/L Below low normal 01/01/2025 1 36 - 145 HHCCT Glucose SerPl-mCnc 173.0 mg/dL Above high normal 01/01/2025 65 - 99 HHCCT BUN SerPl-mCnc 25.0 mg/dL Above high normal 01/01/2025 8 - 2 1 HHCCT Creat SerPl-mCnc 0.54 mg/dL 01/01/2025 0.5 - 1.3 H HCCT Calcium SerPl-mCnc 8.5 mg/dL Below low normal 01/01/2025 8.7 - 10.5 HHCCT Anion Gap Bld-sCnc 10.0 01/01/2025 7 - 17 HHCCT GFR/BSA.pred SerPlBld [id number] >90.0 01/01/2025 59 - HHCCT Potassium SerPl-sCnc 4.4 mmol/L 01/01/2025 3.4 - 5 .3 HHCCT Chloride SerPl-sCnc 101.0 mmol/L 01/01/2025 98 - 1 07 HHCCT CO2 SerPl-sCnc 22.0 mmol/L 01/01/2025 22 - 33 HH CCT BUN/Creat SerPl 46.0 Ratio Above high normal 01/01/2025 10 - 25 HHCCT Phosphate SerPl-mCnc 3.0 mg/dL 01/01/2025 2.7 - 4. 5 HHCCT Hct VFr Bld Auto 37.5 % Below low normal 01/01/2025 39 - 54 HHCCT Hgb Bld-mCnc 12.0 g/dL Below low normal 01/01/2025 13 - 17.7 HHCCT PMV Bld Auto 10.2 fL 01/01/2025 7.5 - 12.5 HHCCT MCV RBC Auto 99.0 fL 01/01/2025 80 - 100 HHCCT MCHC RBC Auto-mCnc 32.0 g/dL 01/01/2025 30 - 36 HHCCT RBC num Bld Auto 3.78 Mil/uL Below low normal 01/01/2025 4.5 - 6.2 HHCCT MCH RBC Qn Auto 31.7 pg Above high normal 01/01/2025 27 - 31 HHCCT RDW RBC Auto-Rto 13.2 % 01/01/2025 11.5 - 14.5 HHCCT WBC num Bld Auto 11.3 Thou/uL Above high normal 01/01/2025 4 - 11 HHCCT Platelet num Bld Auto 176.0 Thou/uL 01/01/2025 150 - 450 HHCCT POC Glucose 184.0 mg/dL Above high normal 12/31/2024 65 - 99 HHCCT POC Glucose 181.0 mg/dL Above high normal 12/31/2024 65 - 99 HHCCT POC Glucose 181.0 mg/dL Above high normal 12/31/2024 65 - 99 HHCCT Anion Gap Bld-sCnc 10.0 12/31/2024 7 - 17 HHCCT Sodium SerPl-sCnc 140.0 mmol/L 12/31/2024 136 - 14 5 HHCCT Chloride SerPl-sCnc 105.0 mmol/L 12/31/2024 98 - 1 07 HHCCT GFR/BSA.pred SerPlBld [id number]-[id number] >90.0 12/31/2024 59 - HHCCT Creat SerPl-mCnc 0.58 mg/dL 12/31/2024 0.5 - 1.3 H HCCT BUN/Creat SerPl 43.0 Ratio Above high normal 12/31/2024 10 - 25 HHCCT Glucose SerPl-mCnc 157.0 mg/dL Above high normal 12/31/2024 65 - 99 HHCCT BUN SerPl-mCnc 25.0 mg/dL Above high normal 12/31/2024 8 - 2 1 HHCCT CO2 SerPl-sCnc 25.0 mmol/L 12/31/2024 22 - 33 HH CCT Calcium SerPl-mCnc 8.6 mg/dL Below low normal 12/31/2024 8.7 - 10.5 HHCCT Potassium SerPl-sCnc 4.1 mmol/L 12/31/2024 3.4 - 5 .3 HHCCT Phosphate SerPl-mCnc 4.5 mg/dL 12/31/2024 2.7 - 4. 5 HHCCT Magnesium SerPl-mCnc 1.7 mg/dL 12/31/2024 1.6 - 2. 7 HHCCT RBC num Bld Auto 4.01 Mil/uL Below low normal 12/31/2024 4.5 - 6.2 HHCCT MCHC RBC Auto-mCnc 32.9 g/dL 12/31/2024 30 - 36 HHCCT Platelet num Bld Auto 200.0 Thou/uL 12/31/2024 150 - 450 HHCCT MCV RBC Auto 97.0 fL 12/31/2024 80 - 100 HHCCT MCH RBC Qn Auto 31.9 pg Above high normal 12/31/2024 27 - 31 HHCCT Hgb Bld-mCnc 12.8 g/dL Below low normal 12/31/2024 13 - 17.7 HHCCT PMV Bld Auto 10.7 fL 12/31/2024 7.5 - 12.5 HHCCT WBC num Bld Auto 11.2 Thou/uL Above high normal 12/31/2024 4 - 11 HHCCT Hct VFr Bld Auto 38.9 % Below low normal 12/31/2024 39 - 54 HHCCT RDW RBC Auto-Rto 13.1 % 12/31/2024 11.5 - 14.5 HHCCT POC Glucose 143.0 mg/dL Above high normal 12/31/2024 65 - 99 HHCCT ISTAT Arterial HCO3 27.1 mmol/L Above high normal 12/31/2024 22 - 26 HHCCT ISTAT Base Excess -1 12/31/2024 H HCCT ISTAT Arterial pH 7.19 Below low normal 12/31/2024 7.35 - 7.45 HHCCT ISTAT Sample Type Arterial 12/31/2024 H HCCT ISTAT O2 Saturation 100.0 % Above high normal 12/31/2024 9 4 - 97 HHCCT ISTAT Arterial PO2 353.0 mmHg Above high normal 12/31/2024 7 5 - 95 HHCCT ISTAT Arterial PCO2 70.4 mmHg Above high normal 12/31/2024 3 2 - 45 HHCCT ISTAT Arterial Total CO2 29.0 mmol/L Above high normal 12/31/2024 22 - 28 HHCCT ISTAT Glucose 195.0 mg/dL Above high normal 12/31/2024 65 - 99 HHCCT ISTAT Potassium 3.5 mmol/L 12/31/2024 3.4 - 5.3 HH CCT ISTAT Hematocrit 36.0 % Below low normal 12/31/2024 39 - 54 HHCCT ISTAT Hemoglobin 12.2 gm/dL Below low normal 12/31/2024 13 - 17.7 HHCCT ISTAT Sodium 141.0 mmol/L 12/31/2024 136 - [address] ISTAT Ionized Calcium 1.27 mmol/L 12/31/2024 1.17 - 1.33 HHCCT ISTAT Hemoglobin 12.6 gm/dL Below low normal 12/31/2024 13 - 17.7 HHCCT ISTAT Potassium 3.4 mmol/L 12/31/2024 3.4 - 5.3 HH CCT ISTAT Glucose 216.0 mg/dL Above high normal 12/31/2024 65 - 99 HHCCT ISTAT Sodium 139.0 mmol/L 12/31/2024 136 - [address] ISTAT Ionized Calcium 1.24 mmol/L 12/31/2024 1.17 - 1.33 HHCCT ISTAT Base Excess -1 12/31/2024 H HCCT ISTAT Arterial pH 7.28 Below low normal 12/31/2024 7.35 - 7.45 HHCCT ISTAT O2 Saturation 100.0 % Above high normal 12/31/2024 9 4 - 97 HHCCT ISTAT Sample Type Arterial 12/31/2024 H HCCT ISTAT Arterial HCO3 26.1 mmol/L Above high normal 12/31/2024 22 - HHCCT ISTAT Arterial PCO2 55.3 mmHg Above high normal 12/31/2024 3 2 - 45 HHCCT ISTAT Arterial Total CO2 28.0 mmol/L 12/31/2024 22 - 28 HHCCT ISTAT Arterial PO2 265.0 mmHg Above high normal 12/31/2024 7 5 - 95 HHCCT ISTAT Hematocrit 37.0 % Below low normal 12/31/2024 39 - 54 HHCCT ISTAT Glucose 245.0 mg/dL Above high normal 12/31/2024 65 - 99 HHCCT ISTAT Glucose 220.0 mg/dL Above high normal 12/31/2024 65 - 99 HHCCT ISTAT Arterial HCO3 23.5 mmol/L 12/31/2024 22 - HHCCT ISTAT Arterial PO2 273.0 mmHg Above high normal 12/31/2024 7 5 - 95 HHCCT ISTAT Arterial PCO2 41.5 mmHg 12/31/2024 32 - 45 HHCCT ISTAT Arterial pH 7.36 12/31/2024 7.35 - 7.45 HHCCT ISTAT O2 Saturation 100.0 % Above high normal 12/31/2024 9 4 - 97 HHCCT ISTAT Sample Type Arterial 12/31/2024 H HCCT ISTAT Arterial Total CO2 25.0 mmol/L 12/31/2024 22 - 28 HHCCT ISTAT Base Excess -2 12/31/2024 H HCCT ISTAT Hemoglobin 12.6 gm/dL Below low normal 12/31/2024 13 - 17.7 HHCCT ISTAT Sodium 138.0 mmol/L 12/31/2024 136 - [address] ISTAT Ionized Calcium 1.18 mmol/L 12/31/2024 1.17 - 1.33 HHCCT ISTAT Potassium 3.4 mmol/L 12/31/2024 3.4 - 5.3 HH CCT ISTAT Hematocrit 37.0 % Below low normal 12/31/2024 39 - 54 HHCCT POC Glucose 134.0 mg/dL Above high normal 12/31/2024 65 - 99 HHCCT POC Glucose 165.0 mg/dL Above high normal 12/31/2024 65 - 99 HHCCT INR PPP 1.0 12/30/2024 HHCCT Prothrombin time 11.7 seconds 12/30/2024 10 - 13.5 HHCCT Anticoagulant RIVAROXABAN (XARELTO) 12/30/2024 HHCCT aPTT PPP 36.0 seconds 12/30/2024 25 - 36 HHCCT Anticoagulant RIVAROXABAN (XARELTO) 12/30/2024 HHCCT LMWH PPP [employer]-aCnc 0.1 IU/mL 12/30/2024 HHCCT Anticoagulant RIVAROXABAN (XARELTO) 12/30/2024 HHCCT POC Glucose 159.0 mg/dL Above high normal 12/30/2024 65 - 99 HHCCT Glucose SerPl-mCnc 142.0 mg/dL Above high normal 12/30/2024 65 - 99 HHCCT Potassium SerPl-sCnc 4.9 mmol/L 12/30/2024 3.4 - 5 .3 HHCCT Calcium SerPl-mCnc 9.4 mg/dL 12/30/2024 8.7 - 10.5 HHCCT GFR/BSA.pred SerPlBld [id number] >90.0 12/30/2024 59 - HHCCT Anion Gap Bld-sCnc 12.0 12/30/2024 7 - 17 HHCCT Chloride SerPl-sCnc 104.0 mmol/L 12/30/2024 98 - 1 07 HHCCT Sodium SerPl-sCnc 139.0 mmol/L 12/30/2024 136 - 14 5 HHCCT Creat SerPl-mCnc 0.6 mg/dL 12/30/2024 0.5 - 1.3 HH CCT BUN SerPl-mCnc 26.0 mg/dL Above high normal 12/30/2024 8 - 2 1 HHCCT BUN/Creat SerPl 43.0 Ratio Above high normal 12/30/2024 10 - HHCCT CO2 SerPl-sCnc 23.0 mmol/L 12/30/2024 22 - 33 HH CCT RBC num Bld Auto 4.35 Mil/uL Below low normal 12/30/2024 4.5 - 6.2 HHCCT MCV RBC Auto 96.0 fL 12/30/2024 80 - 100 HHCCT WBC num Bld Auto 7.9 Thou/uL 12/30/2024 4 - 11 HHCCT Platelet num Bld Auto 204.0 Thou/uL 12/30/2024 150 - 450 HHCCT RDW RBC Auto-Rto 13.1 % 12/30/2024 11.5 - 14.5 HHCCT PMV Bld Auto 10.3 fL 12/30/2024 7.5 - 12.5 HHCCT MCHC RBC Auto-mCnc 33.3 g/dL 12/30/2024 30 - 36 HHCCT MCH RBC Qn Auto 32.0 pg Above high normal 12/30/2024 27 - 31 HHCCT Hct VFr Bld Auto 41.7 % 12/30/2024 39 - 54 HH CCT Hgb Bld-mCnc 13.9 g/dL 12/30/2024 13 - 17.7 HHCCT POC Glucose 164.0 mg/dL Above high normal 12/30/2024 65 - 99 CCT Est. average glucose Bld gHb Est-mCnc 154.0 mg/dL 12/30/2024 HHCCT Hgb A1c MFr Bld 7.0 % Above high normal 12/30/2024 - 5.7 HHCCT POC Glucose 216.0 mg/dL Above high normal 12/30/2024 65 - 99 CCT POC Glucose 213.0 mg/dL Above high normal 12/30/2024 65 - 99 HHCCT GFR/BSA.pred SerPlBld VZD-[id number]-[id number] >90.0 12/30/2024 59 - HHCCT CO2 SerPl-sCnc 24.0 mmol/L 12/30/2024 22 - 33 HH CCT Calcium SerPl-mCnc 9.9 mg/dL 12/30/2024 8.7 - 10.5 HHCCT Creat SerPl-mCnc 0.67 mg/dL 12/30/2024 0.5 - 1.3 H HCCT Anion Gap Bld-sCnc 12.0 12/30/2024 7 - 17 HHCCT BUN/Creat SerPl 36.0 Ratio Above high normal 12/30/2024 10 - 25 HHCCT Glucose SerPl-mCnc 186.0 mg/dL Above high normal 12/30/2024 65 - 99 HHCCT BUN SerPl-mCnc 24.0 mg/dL Above high normal 12/30/2024 8 - 2 1 HHCCT Potassium SerPl-sCnc 5.1 mmol/L 12/30/2024 3.4 - 5 .3 HHCCT Sodium SerPl-sCnc 134.0 mmol/L Below low normal 12/30/2024 1 36 - 145 HHCCT Chloride SerPl-sCnc 98.0 mmol/L 12/30/2024 98 - 10 7 HHCCT Magnesium SerPl-mCnc 1.9 mg/dL 12/30/2024 1.6 - 2. 7 HHCCT Prothrombin time 17.4 seconds Above high normal 12/30/2024 1 0 - 13.5 HHCCT INR PPP 1.5 12/30/2024 HHCCT Anticoagulant OTHER AGENT OR UNKNOWN 12/30/2024 HHCCT Hct VFr Bld Auto 46.1 % 12/30/2024 39 - 54 HH CCT RBC num Bld Auto 4.67 Mil/uL 12/30/2024 4.5 - 6.2 HHCCT MCV RBC Auto 99.0 fL 12/30/2024 80 - 100 HHCCT MCH RBC Qn Auto 32.5 pg Above high normal 12/30/2024 27 - 31 HHCCT Platelet num Bld Auto 185.0 Thou/uL 12/30/2024 150 - 450 HHCCT Neutrophils/leuk NFr Bld Auto 81.8 % 12/30/2024 HHCCT Eosinophil/leuk NFr Bld Auto 1.2 % 12/30/2024 HHCCT Basophils num Bld Auto 0.02 Thou/uL 12/30/2024 0 - 0.2 HHCCT Neutrophils num Bld Auto 8.05 Thou/uL Above high normal 12/30/2024 2 - 7.5 HHCCT RDW RBC Auto-Rto 13.0 % 12/30/2024 11.5 - 14.5 HHCCT Basophils/leuk NFr Bld Auto 0.2 % 12/30/2024 HHCCT Imm Granulocytes num Bld Auto 0.04 Thou/uL 12/30/2024 0 - 0.1 HHCCT MCHC RBC Auto-mCnc 33.0 g/dL 12/30/2024 30 - 36 HHCCT WBC num Bld Auto 9.8 Thou/uL 12/30/2024 4 - 11 HHCCT Eosinophil num Bld Auto 0.12 Thou/uL 12/30/2024 0 - 0.7 HHCCT Monocytes/leuk NFr Bld Auto 3.4 % 12/30/2024 HHCCT PMV Bld Auto 10.5 fL 12/30/2024 7.5 - 12.5 HHCCT Lymphocytes num Bld Auto 1.28 Thou/uL Below low normal 12/30/2024 1.5 - 4.5 HHCCT Lymphocytes/leuk NFr Bld Auto 13.0 % 12/30/2024 HHCCT Imm Granulocytes/leuk NFr Bld Auto 0.4 % 12/30/2024 HHCCT Hgb Bld-mCnc 15.2 g/dL 12/30/2024 13 - 17.7 HHCCT Monocytes num Bld Auto 0.33 Thou/uL 12/30/2024 0.2 - 1.5 HHCCT POC Glucose 196.0 mg/dL Above high normal 12/30/2024 65 - 99 HHCCT History of Medication Use Medication Directions Dispensed Refills Start Date End Date Stat polyethylene glycol (miraLAx) 17 g packet Take 1 packet (17 g total) by mouth daily. Do not start before January 04, 2025. 01/04/2025 active acetaminophen (TYLENOL) 325 MG tablet Take 3 tablets (975 mg total) by mouth 4 times daily (every 6 hours) as needed for mild pain. 01/03/2025 active Heparin Sodium, Porcine, (heparin, porcine,) 5000 unit/mL injection Inject 1 mL (5,000 Units total) under the skin every 8 (eight) hours around the clock. 01/03/2025 active insulin lispro (HumaLOG/ADMELOG) 100 units/mL injection Inject 0.02-0.12 mL (2-12 Units total) under the skin 3 (three) times a day with meals. 01/03/2025 active lacosamide (VIMPAT) 100 MG Tab tablet Take 1 tablet (100 mg total) by mouth every 12 (twelve) hours around the clock. 01/03/2025 active oxyCODONE (ROXICODONE) 5 MG immediate release tablet Take 1 tablet (5 mg total) by mouth 4 times daily (every 6 hours) as needed for severe pain. Max Daily Amount: 20 mg 01/03/2025 active tamsulosin (FLOMAX) 0.4 MG capsule Take 1 capsule (0.4 mg total) by mouth every evening after dinner. 01/03/2025 active FreeStyle Lancets lancet Use as directed. 12/21/2024 active Trulicity 1.5 MG/0.5ML prefilled pen injection Inject 1.5 mg under the skin once a week. On Mondays12/18/2024 active finasteride (PROSCAR) 5 MG tablet Take 1 tablet (5 mg total) by mouth daily. 12/13/2024 active atorvastatin (LIPITOR) 20 MG tablet Take 1 tablet (20 mg total) by mouth every evening. 8 PM 12/12/2024 active carbidopa-levodopa ER (SINEMET CR) 25-100 MG per tablet Take 1 tablet by mouth nightly. 8 PM 12/12/2024 active Farxiga 10 MG tablet Take 1 tablet (10 mg total) by mouth every morning. 9 AM 12/12/2024 active metFORMIN (GLUCOPHAGE) 1000 MG tablet Take 1 tablet (1,000 mg total) by mouth every morning with breakfast. 9 AM 12/12/2024 active pioglitazone (ACTOS) 30 MG tablet Take 1 tablet (30 mg total) by mouth daily. 9 AM 12/12/2024 active Senna S 8.6-50 MG Take 2 tablets by mouth nightly. 8 PM 12/12/2024 active sertraline (ZOLOFT) 50 MG tablet Take 1 tablet (50 mg total) by mouth daily. 9 AM 12/12/2024 active SUMAtriptan (IMITREX) 50 MG tablet Take 1 tablet (50 mg total) by mouth once as needed for migraine. 12/12/2024 active topiramate (TOPAMAX) 25 MG tablet Take 1 tablet (25 mg total) by mouth nightly. 8 PM 12/12/2024 active Problems Problem Status Onset Date Problem Type Date of Resoluti on Source Diabetes active 2024-12-30 [facility]Act [facility] Seizure active 2024-12-31 ProblemAct [facility] CAD (coronary artery disease) active 2024-12-30 ProblemAct [facility] Primary hypertension active 2024-12-30 ProblemAct [facility] Meningioma active 2024-12-31 ProblemAct [facility] History of DVT (deep vein thrombosis) active 2024-12-30 ProblemAct [facility] Mass of brain active 2024-12-30 ProblemAct [facility] T HLD (hyperlipidemia) active 2024-12-31 ProblemAct [facility] Restless leg syndrome active 2024-12-30 ProblemAct [facility] Dementia active 2024-12-30 ProblemAct [facility] Restless leg syndrome active 2024-12-30 ProblemAct [facility] History of stroke active 2024-12-30 ProblemAct [facility] Encounters Encounter Type Encounter Reason Primary Diagnosis Location Date Inpatient 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
--- OUTSIDE RECORDS SUMMARY | 2025-01-25 19:28 | XMS_ITS | Clinical Summary ---
Author Organization [facility] Ed Address [address] [place] [address] Care Team Providers Care Cesspool Cleaner Name Role Phone Bri Roger MD Primary Care Provider [phone] Bradly Valladares RN Unavailable [phone] Allergies No known active allergies Medications atorvastatin (LIPITOR) 20 MG tablet Take 1 tablet (20 mg total) by mouth every evening. 8 PM 5 Active carbidopa-levodop a ER (SINEMET CR) 25-100 MG per tablet Take 1 tablet by mouth nightly. 8 PM 5 Active Farxiga 10 MG tablet Take 1 tablet (10 mg total) by mouth every morning. 9 AM 5 Active Trulicity 1.5 MG/0.5ML prefilled pen injection Inject 1.5 mg under the skin once a week. On Mondays 5 Active finasteride (PROSCAR) 5 MG tablet Take 1 tablet (5 mg total) by mouth daily. 5 Active FreeStyle Lancets lancet Use as directed. 5 Active metFORMIN (GLUCOPHAGE) 1000 MG tablet Take 1 tablet (1,000 mg total) by mouth every morning with breakfast. 9 AM 5 Active pioglitazone (ACTOS) 30 MG tablet Take 1 tablet (30 mg total) by mouth daily. 9 AM 5 Active Senna S 8.6-50 MG Take 2 tablets by mouth nightly. 8 PM 5 Active sertraline (ZOLOFT) 50 MG tablet Take 1 tablet (50 mg total) by mouth daily. 9 AM 5 Active SUMAtriptan (IMITREX) 50 MG tablet Take 1 tablet (50 mg total) by mouth once as needed for migraine. Active topiramate (TOPAMAX) 25 MG tablet Take 1 tablet (25 mg total) by mouth nightly. 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 360 tablet 5 02/03/20 Active insulin lispro (HumaLOG/ADMELOG) 100 units/mL injectionIndicati ons:Type 2 diabetes mellitus without complication in remission Inject 0.02-0.12 mL (2-12 Units total) under the skin 3 (three) times a day with meals. Active Heparin Sodium, Porcine, (heparin, porcine,) 5000 unit/mL injectionIndicati ons:History of DVT (deep vein thrombosis) Inject 1 mL (5,000 Units total) under the skin every 8 (eight) hours around the clock. Active lacosamide (VIMPAT) 100 MG Tab tabletIndications :Seizure (HCC) Take 1 tablet (100 mg total) by mouth every 12 (twelve) hours around the clock. 5 02/03/20 Active tamsulosin (FLOMAX) 0.4 MG capsuleIndication s:Benign prostatic hyperplasia, unspecified whether lower urinary tract symptoms present Take 1 capsule (0.4 mg total) by mouth every evening after dinner. 5 02/03/20 Active polyethylene glycol (miraLAx) 17 g packetIndications :Constipation, unspecified constipation type Take 1 packet (17 g total) by mouth daily. Do not start before January 04, 2025. 5 02/04/20 Active oxyCODONE (ROXICODONE) 5 MG immediate release tabletIndications :Mass of brain Take 1 tablet (5 mg total) by mouth 4 times daily (every 6 hours) as needed for severe pain. Max Daily Amount: 20 mg 0 Active alfuzosin (UROXATRAL) 10 MG 24 hr tablet Take 1 tablet (10 mg total) by mouth daily. 9 AM 01/06/20 Discontinu ed(Stop Taking at Discharge) cefUROXime (CEFTIN) 250 mg tablet Take 1 tablet (250 mg total) by mouth 2 (two) times a day. 01/06/20 Discontinu ed(Stop Taking at Discharge) FREESTYLE LITE strip Use as directed. 01/06/20 Discontinu ed(Stop Taking at Discharge) OMEprazole (PriLOSEC) 20 MG capsule TAKE 1 CAPSULE BY MOUTH EVERY DAY 30 MINUTES BEFORE MORNING MEAL 12/31/19 Discontinu ed(Med List Clean-up/O ld Med - No E-Cancel/N o AVS) QUEtiapine (SEROquel) 25 MG tablet Take 1 tablet (25 mg total) by mouth 3 (three) times a day. 01/06/20 Discontinu ed(Stop Taking at Discharge) Xarelto 10 MG tablet Take 1 tablet (10 mg total) by mouth every morning with breakfast. 9 AM 01/06/20 Discontinu ed(Stop Taking at Discharge) Active Problems Problem Noted Date Diagnosed Date Meningioma 12/31/2024 Assessment & Plan (12/31/2024 8:30 AM EDT): -Scented with seizure-like activity to outside hospital -MRI brain which showed increased size right frontal lobe dural based mass most suggestive of meningioma with moderate surrounding edema with mass effect and 0.6 cm left midline shift. - Continue lacosamide 100 mg twice daily -Neurosurgery following he is planned for right frontal craniotomy for meningioma resection on 12/31/2024 -Perioperative risk assessment as per previous hospitalist note Seizure 12/31/2024 Assessment & Plan (12/31/2024 8:30 AM EDT): -Scented with seizure-like activity to outside hospital -MRI brain which showed increased size right frontal lobe dural based mass most suggestive of meningioma with moderate surrounding edema with mass effect and 0.6 cm left midline shift. - Continue lacosamide 100 mg twice daily -Neurosurgery following he is planned for right frontal craniotomy for meningioma resection on 12/31/2024 -Perioperative risk assessment as per previous hospitalist note HLD (hyperlipidemia) 12/31/2024 Assessment & Plan (12/31/2024 8:30 AM EDT): - Continue atorvastatin 20 mg daily Mass of brain 12/30/2024 Assessment & Plan (12/31/2024 8:30 AM EDT): -Scented with seizure-like activity to outside hospital -MRI brain which showed increased size right frontal lobe dural based mass most suggestive of meningioma with moderate surrounding edema with mass effect and 0.6 cm left midline shift. - Continue lacosamide 100 mg twice daily -Neurosurgery following he is planned for right frontal craniotomy for meningioma resection on 12/31/2024 -Perioperative risk assessment as per previous hospitalist note Assessment & Plan (12/30/2024 5:45 AM EDT): Patient was evaluated by neurosurgery, no emergent neurosurgical intervention indicated at that time Rec to order MRI and CT chest abdomen pelvis for malignancy workup , both tests ordered Patient also was evaluated by neurology for seizure Rec to start the patient on Keppra 750 twice daily, that was ordered also History of stroke 12/30/2024 Assessment & Plan (12/31/2024 8:30 AM EDT): - Continue home medications Seroquel 25 mg nightly, Sinemet 25-100 mg nightly, topiramate 25 mg nightly. Assessment & Plan (12/30/2024 4:15 AM EDT): Will continue quetiapine 25 mg at night Will continue with Sinemet extended release 25-100 Culture atorvastatin 20 daily Will continue topiramate 20 5 at night Diabetes 12/30/2024 Assessment & Plan (12/31/2024 8:30 AM EDT): - Keep on sliding scale of insulin Assessment & Plan (12/30/2024 4:15 AM EDT): Home regimen metformin 1000 pioglitazone 30 mg Farxiga 10 mg on hold Will do insulin sliding scale Dementia 12/30/2024 Assessment & Plan (12/31/2024 8:30 AM EDT): - Continue home medications Seroquel 25 mg nightly, Sinemet 25-100 mg nightly, topiramate 25 mg nightly. Assessment & Plan (12/30/2024 4:15 AM EDT): Will continue quetiapine 25 mg at night Will continue with Sinemet extended release 25-100 Culture atorvastatin 20 daily Will continue topiramate 20 5 at night CAD (coronary artery disease) 12/30/2024 Assessment & Plan (12/30/2024 4:15 AM EDT): Atorvastatin 20 daily History of DVT (deep vein thrombosis) 12/30/2024 Assessment & Plan (12/31/2024 8:30 AM EDT): - Currently Xarelto is on hold in anticipation of surgery Assessment & Plan (12/30/2024 4:15 AM EDT): Xarelto on hold due to concern of brain mass with hemorrhage Restless leg syndrome 12/30/2024 Assessment & Plan (12/31/2024 8:30 AM EDT): - Continue home medications Seroquel 25 mg nightly, Sinemet 25-100 mg nightly, topiramate 25 mg nightly. Assessment & Plan (12/30/2024 4:15 AM EDT): Will continue quetiapine 25 mg at night Will continue with Sinemet extended release 25-100 Culture atorvastatin 20 daily Will continue topiramate 20 5 at night Primary hypertension 12/30/2024 Encounters Date Type Department Care Team Description 12/31/2024 8:10 AM EDT Anesthesia Event [facility] [address] [place] [phone] Sony Muniz DO Rychik, Kevin, MD 12/31/2024 8:00 AM EDT - 12/31/2024 2:01 PM EDT Surgery [facility] [address] [place] [phone] Bhavin Fenton MD frontal craniotomy for meningioma resection 12/29/2024 9:40 PM EDT Ancillary Procedure [facility] [address] [place] [address] Provider, File Room 12/29/2024 9:19 PM EDT - 01/05/2025 2:17 PM EDT Hospital Encounter [facility] [address] [place] [address] Porsha Ashby MD Marseille Mathieu, MD Gracie Steward Kamal, MD El Iskandarani, Mahmoud, MD Schwartz, Paul J, MD Neoplasm of brain causing mass effect on adjacent structures (HCC) (Primary Dx); Mass of brain; Type 2 diabetes mellitus without complication in remission; Seizure (HCC); History of DVT (deep vein thrombosis); Benign prostatic hyperplasia, unspecified whether lower urinary tract symptoms present; Constipation, unspecified constipation type Discharge Disposition: Group Home Facility 12/29/2024 Travel from Last 3 Months Social History Tobacco Use Types Packs/Day Years Used Date Smoking Tobacco: Never Smokeless Tobacco: Never Tobacco Cessation:Counseling Given: Not Answered Alcohol Use Standard Drinks/Week Comments Yes 1 (1 standard drink = 0.6 oz pur e alcohol) AUDIT-C Answer Date Recorded Q1: How often do you have a drink containing alc ohol? 2-4 times a month 12/30/2024 Q2: How many drinks containi ng alcohol do you have on a typical day when you are drinking? 1 or 2 12/30/2024 Q3: How often do you have si x or more drinks on one occasion? Never 12/30/2024 Overall Financial Resource Strain (CARDIA) Answe r Date Recorded How hard is it for you to pa y for the very basics like food, housing, medical care, and heating? Not hard at all 12/30/2024 Hunger Vital Sign Answer Date Recorded Within the past 12 months, y ou worried that your food would run out before you got the money to buy more. Never true 12/31/19 Within the past 12 months, t he food you bought just didn't last and you didn't have money to get more. Never true 12/30/2024 PRAPARE - Transportation Answer Date Re corded In the past 12 months, has l ack of transportation kept you from medical appointments or from getting medications? No 12/07 In the past 12 months, has l ack of transportation kept you from meetings, work, or from getting things needed for daily living? No 12/30/2024 Housing Stability Vital Sign Answer Robert e Recorded In the last 12 months, was t here a time when you were not able to pay the mortgage or rent on time? No 12/30/2024 In the past 12 months, how m any times have you moved where you were living? 0 12/30/2024 At any time in the past 12 m [facility], were you homeless or living in a senior care (including now)? No 12/30/2024 [facility] Utilities Answer Date Recorded In the past 12 months has th e electric, gas, oil, or water company threatened to shut off services in your home? No 12/30/2024 Sex and Gender Information Value Date Recorded Sex Assigned at Male 12/29/2024 9:52 PM EDT Legal Sex Male 7:19 PM EDT Gender Identity Male 12/29/2024 9:52 PM EDT Sexual Orientation Heterosexual (straight) 12/29 9:52 PM EDT Last Filed Vital Signs Vital Sign Reading Time Taken Comments Blood Pressure 132/77 01/05/2025 8:03 AM EDT Pulse 105 01/05/2025 8:03 AM EDT Temperature 37.5 C (99.5 F) 01/05/2025 8:03 AM EDT Respiratory Rate 18 01/05/2025 8:03 AM EDT Oxygen Saturation 94% 01/05/2025 8:03 AM EDT Inhaled Oxygen Concentration - - Weight 68.2 kg (150 lb 5.7 oz) 12/30/2024 4:13 P M EDT Height 170.2 cm (5' 7 ) 12/30/2024 4:13 PM EDT Body Mass Index 23.55 12/30/2024 4:13 PM EDT Plan of Treatment Health Maintenance Due Date Last Done Comments Hepatitis C Virus Screening 1962 Foot Exam 1972 Lipid Panel 1972 Ophthalmology Exam 1972 HIV Screening 07/23/1975 Microalbumin/Creatinine Ratio Urine 1980 DTaP/Tdap/Td Vaccines (1 - Tdap) 1981 Pneumococcal Vaccines 50+ (1 of 2 - PCV) 1981 Colonoscopy 07/23/2007 RSV Vaccine 50 years and older and Patients (1 - Risk 50-74 years 1-dose series) 2012 Zoster (Shingles) Vaccine (1 of 2) 2012 Influenza Vaccine 10/06/2024 12/29/2022, 03/12/2021 COVID-19 Vaccine (1 - season) 2024 Hemoglobin A1C 06/30/2025 12/30/2024 Creatinine with GFR 01/03/2026 01/03/2025, 01/01/2025, 12/31/2024, Additional history exists Hepatitis B Vaccines Aged Out No long er eligible based on patient's age to complete this topic Medical Devices Implanted Type Area Director Software Quality Assurance Device Identifier Shelf Expiration Date Model / Serial / Lot 91-6703 Screw Bone Crnmxf Thinflap 3.5mm 1.5mm Self Drill Xdr - [id number] Implanted:Qty : 19 on 12/31/2024 by Charanjit Niño PA-C at [facility] Maxillofacial Right: Cranial [employer] [id number] / / [id number] Screw Bone Crnmxf Steriletrac Thinflap Steve 4mm Ti 1.8mm - [id number] Implanted:Qty : 1 on 12/31/2024 by Charanjit Niño PA-C at [facility] Maxillofacial Right: Brain [employer] [id number] / / [id number] Cover [place] Hole .3mm 18.5mm Thinflap Bent Cranial Nonst - [id number] Implanted:Qty : 4 on 12/31/2024 by Charanjit Niño PA-C at [facility] Plate Right: Cranial [employer] 19-1020 B / / [id number] Patch Dural 5x4in Thk3.5mm Crnmxf Drmtrx-[place] Plus Npor - [id number] Implanted:Qty : 1 on 12/31/2024 by Bhavin Fenton MD at [facility] Tissue Right: Brain STEPHANI ZEN[employer] [id number] 06/06/2027 [id number] / / [id number] Dbx Putty 2.5cc - [id number] Implanted:Qty : 1 on 12/31/2024 by Bhavin Fenton MD at [facility] Void Filler Right: Brain [employer] 07/13/2026 [id number] / Procedures Procedure Name Priority Date/Time Associated Diagnosis Comments POCT GLUCOSE, FINGERSTICK (CHARGE) Routine 01/05/2025 12:17 PM EDT POCT GLUCOSE, FINGERSTICK (CHARGE) Routine 01/05/2025 9:32 AM EDT POCT GLUCOSE, FINGERSTICK (CHARGE) Routine 01/05/2025 8:05 AM EDT POCT GLUCOSE, FINGERSTICK (CHARGE) Routine 01/04/2025 9:00 PM EDT POCT GLUCOSE, FINGERSTICK (CHARGE) Routine 01/04/2025 3:53 PM EDT POCT GLUCOSE, FINGERSTICK (CHARGE) Routine 01/04/2025 11:50 AM EDT POCT GLUCOSE, FINGERSTICK (CHARGE) Routine 01/04/2025 7:49 AM EDT POCT GLUCOSE, FINGERSTICK (CHARGE) Routine 01/04/2025 2:32 AM EDT POCT GLUCOSE, FINGERSTICK (CHARGE) Routine 01/03/2025 5:25 PM EDT POCT GLUCOSE, FINGERSTICK (CHARGE) Routine 01/03/2025 12:36 PM EDT POCT GLUCOSE, FINGERSTICK (CHARGE) Routine 01/03/2025 9:14 AM EDT PHOSPHORUS Timed 01/03/2025 12:11 AM EDT MAGNESIUM Timed 01/03/2025 12:11 AM EDT BASIC METABOLIC PANEL Timed 01/03/2025 12:11 AM EDT COMPLETE BLOOD COUNT, WITHOUT DIFFERENTIAL Timed 01/03/2025 12:11 AM EDT POCT GLUCOSE, FINGERSTICK (CHARGE) Routine 01/02/2025 7:34 PM EDT POCT GLUCOSE, FINGERSTICK (CHARGE) Routine 01/02/2025 5:23 PM EDT POCT GLUCOSE, FINGERSTICK (CHARGE) Routine 01/02/2025 3:19 PM EDT POCT GLUCOSE, FINGERSTICK (CHARGE) Routine 01/02/2025 11:38 AM EDT POCT GLUCOSE, FINGERSTICK (CHARGE) Routine 01/02/2025 8:39 AM EDT SODIUM Routine 01/02/2025 12:26 AM EDT POCT GLUCOSE, FINGERSTICK (CHARGE) Routine 01/01/2025 7:55 PM EDT SODIUM Routine 01/01/2025 6:20 PM EDT POCT GLUCOSE, FINGERSTICK (CHARGE) Routine 01/01/2025 3:53 PM EDT SODIUM Routine 01/01/2025 12:11 PM EDT POCT GLUCOSE, FINGERSTICK (CHARGE) Routine 01/01/2025 11:29 AM EDT POCT GLUCOSE, FINGERSTICK (CHARGE) Routine 01/01/2025 7:53 AM EDT SODIUM Routine 01/01/2025 6:00 AM EDT MRI BRAIN W W/O CONTRAST Routine 01/01/2025 5:15 AM EDT PHOSPHORUS Routine 01/01/2025 12:06 AM EDT MAGNESIUM Routine 01/01/2025 12:06 AM EDT BASIC METABOLIC PANEL Routine 01/01/2025 12:06 AM EDT COMPLETE BLOOD COUNT, WITHOUT DIFFERENTIAL Routine 01/01/2025 12:06 AM EDT POCT GLUCOSE, FINGERSTICK (CHARGE) Routine 12/31/2024 7:51 PM EDT POCT GLUCOSE, FINGERSTICK (CHARGE) Routine 12/31/2024 6:19 PM EDT POCT GLUCOSE, FINGERSTICK (CHARGE) Routine 12/31/2024 4:14 PM EDT PHOSPHORUS Routine 12/31/2024 2:35 PM EDT MAGNESIUM Routine 12/31/2024 2:35 PM EDT BASIC METABOLIC PANEL Routine 12/31/2024 2:35 PM EDT COMPLETE BLOOD COUNT, WITHOUT DIFFERENTIAL Routine 12/31/2024 2:35 PM EDT POCT GLUCOSE, FINGERSTICK (CHARGE) Routine 12/31/2024 2:20 PM EDT ISTAT HEMOGLOBIN (ACTIVE) (NO CHARGE) Routine 12/31/2024 1:05 PM EDT ISTAT HEMATOCRIT (ACTIVE) (NO CHARGE) Routine 12/31/2024 1:05 PM EDT ISTAT GLUCOSE (NO CHARGE) Routine 12/31/2024 1:05 PM EDT ISTAT ARTERIAL BLOOD GAS (ABG) (NO CHARGE) Routine 12/31/2024 1:05 PM EDT ISTAT CALCIUM, IONIZED (ICA) (NO CHARGE) Routine 12/31/2024 1:05 PM EDT ISTAT POTASSIUM (K) (NO CHARGE) Routine 12/31/2024 1:05 PM EDT ISTAT SODIUM (NA) (NO CHARGE) Routine 12/31/2024 1:05 PM EDT ISTAT HEMOGLOBIN (ACTIVE) (NO CHARGE) Routine 12/31/2024 12:23 PM EDT ISTAT HEMATOCRIT (ACTIVE) (NO CHARGE) Routine 12/31/2024 12:23 PM EDT ISTAT GLUCOSE (NO CHARGE) Routine 12/31/2024 12:23 PM EDT ISTAT ARTERIAL BLOOD GAS (ABG) (NO CHARGE) Routine 12/31/2024 12:23 PM EDT ISTAT CALCIUM, IONIZED (ICA) (NO CHARGE) Routine 12/31/2024 12:23 PM EDT ISTAT POTASSIUM (K) (NO CHARGE) Routine 12/31/2024 12:23 PM EDT ISTAT SODIUM (NA) (NO CHARGE) Routine 12/31/2024 12:23 PM EDT ISTAT GLUCOSE (NO CHARGE) Routine 12/31/2024 11:28 AM EDT PATHOLOGY REPORT Routine 12/31/2024 11:09 AM EDT ISTAT HEMOGLOBIN (ACTIVE) (NO CHARGE) Routine 12/31/2024 10:18 AM EDT ISTAT HEMATOCRIT (ACTIVE) (NO CHARGE) Routine 12/31/2024 10:18 AM EDT ISTAT GLUCOSE (NO CHARGE) Routine 12/31/2024 10:18 AM EDT ISTAT ARTERIAL BLOOD GAS (ABG) (NO CHARGE) Routine 12/31/2024 10:18 AM EDT ISTAT CALCIUM, IONIZED (ICA) (NO CHARGE) Routine 12/31/2024 10:18 AM EDT ISTAT POTASSIUM (K) (NO CHARGE) Routine 12/31/2024 10:18 AM EDT ISTAT SODIUM (NA) (NO CHARGE) Routine 12/31/2024 10:18 AM EDT ANES LINE - ARTERIAL Routine 12/31/2024 9:50 AM EDT ANES LINE - PERIPHERAL, SINGLE LUMEN Routine 12/31/2024 9:50 AM EDT ANES LINE - PERIPHERAL, SINGLE LUMEN Routine 12/31/2024 9:50 AM EDT ANES INTUBATION Routine 12/31/2024 9:49 AM EDT CRANIOTOMY EXCISION TUMOR 12/31/2024 7:39 AM EDT Mass of brain Special Needs Stealth, Microscope, [place] clarity, Myriad as backup, Midas w 14mm aviation engineer & footplate, A line & temp aguillon, 8mg decadron on room entry, 1gTXA & abx on pinning. Telfa lobes. ICU post op. 4cc vistaseal, 3x3 and 4x5 dura matrix available. Large tachoseal POCT GLUCOSE, FINGERSTICK (CHARGE) Routine 12/31/2024 2:25 AM EDT POCT GLUCOSE, FINGERSTICK (CHARGE) Routine 12/30/2024 9:[address] HEAD W/O CONTRAST STAT 12/30/2024 8:25 PM EDT PROTIME-INR Routine 12/30/2024 6:18 PM EDT PARTIAL THROMBOPLASTIN TIME (PTT) Routine 12/30/2024 6:18 PM EDT HEPARIN ASSAY (ANTI-XA) Routine 12/30/2024 6:18 PM EDT PREPARE RBC'S Routine 12/30/2024 5:02 PM EDT POCT GLUCOSE, FINGERSTICK (CHARGE) Routine 12/30/2024 5:01 PM EDT BASIC METABOLIC PANEL STAT 12/30/2024 4:25 PM EDT COMPLETE BLOOD COUNT, WITHOUT DIFFERENTIAL STAT 12/30/2024 4:25 PM EDT MRI BRAIN TUMOR PROTOCOL W W/O CONTRAST STAT 12/30/2024 4:00 PM EDT XR CHEST 1 VIEW-PORTABLE Routine 12/30/2024 1:40 PM EDT POCT GLUCOSE, FINGERSTICK (CHARGE) Routine 12/30/2024 11:[address] CHEST/ABDOMEN+PELVIS W/CONTRAST Routine 12/30/2024 8:19 AM EDT HEMOGLOBIN A1C WITH ESTIMATED AVERAGE GLUCOSE STAT 12/30/2024 7:22 AM EDT POCT GLUCOSE, FINGERSTICK (CHARGE) Routine 12/30/2024 7:16 AM EDT POCT GLUCOSE, FINGERSTICK (CHARGE) Routine 12/30/2024 4:13 AM EDT TYPE AND SCREEN STAT 12/30/2024 12:34 AM EDT CTA HEAD AND NECK WITH CONTRAST STAT 12/30/2024 12:14 AM EDT ECG 12-LEAD STAT 12/29/2024 10:[address] HEAD ARCHIVE FOR REFERENCE ONLY Routine 12/29/2024 9:38 PM EDT POCT GLUCOSE, FINGERSTICK (CHARGE) Routine 12/29/2024 9:25 PM EDT PROTIME-INR STAT 12/29/2024 9:25 PM EDT BASIC METABOLIC PANEL STAT 12/29/2024 9:25 PM EDT MAGNESIUM STAT 12/29/2024 9:25 PM EDT COMPLETE BLOOD COUNT, WITH DIFFERENTIAL STAT 12/29/2024 9:25 PM EDT from Last 3 Months Results * (ABNORMAL) POCT Glucose, Fingerstick (01/05/2025 12:17 PM EDT) Only the most recent of31 resultswithin the time period is included. Pathologist [facility] POC Glucose 146(H) 65 - 99 mg/dL 01/05/2025 1:22 PM EDT Blood specimen / Unknown 01/05/2025 12:17 PM EDT 01/05/2025 1:22 PM EDT us Porsha Ashby MD POINT OF CARE TEST ORDERABLES Fi nal Result HOSPITAL LAB See Below * (ABNORMAL) COMPLETE BLOOD COUNT, WITHOUT DIFFERENTIAL (01/03/2025 12:11 AM EDT) Only the most recent of4 resultswithin the time period is included. Pathologist [facility] White Blood Cell Count 9.2 4.0 - 11.0 Thou/uL 01/03/2025 3:[facility] AM [facility] Platelet Count 172 150 - 450 Thou/uL 01/03/2025 3:24 AM [facility] Hemoglobin 11.4(L) 13.0 - 17.7 g/dL 01/03/2025 3:24 AM [facility] Hematocrit 34.3(L) 39.0 - 54.0 % 01/03/2025 3:24 AM [facility] Red Blood Cell Count 3.48(L) 4.50 - 6.20 Mil/uL 01/03/2025 3:24 AM [facility] MCV 99 80 - 100 fL 01/03/2025 3:24 AM [facility] MCH 32.8(H) 27.0 - 31.0 pg 01/03/2025 3:24 AM [facility] MCHC 33.2 30.0 - 36.0 g/dL 01/03/2025 3:24 AM [facility] RDW 13.1 11.5 - 14.5 % 01/03/2025 3:24 AM [facility] MPV 10.9 7.5 - 12.5 fL 01/03/2025 3:24 AM [facility] Blood Blood specimen / Unknown 01/03/2025 12:11 AM EDT 01/03/2025 3:16 AM EDT Ashlie Gilliland APRN LAB BLOOD ORDERABLES [place] [address], [place] [address] * (ABNORMAL) Phosphorus (01/03/2025 12:11 AM EDT) Only the most recent of3 resultswithin the time period is included. Phosphorus 2.4(L) 2.7 - 4.5 mg/dL 01/03/2025 3:39 AM EDT [facility] Blood Blood specimen / Unknown 01/03/2025 12:11 AM EDT 01/03/2025 3:16 AM EDT Ashlie Gilliland APRN LAB BLOOD ORDERABLES Final Re sult Performing Organization Address City/[facility] [place] [address], [address] [address] * Magnesium (01/03/2025 12:11 AM EDT) Only the most recent of4 resultswithin the time period is included. Magnesium 1.7 1.6 - 2.7 mg/dL 01/03/2025 3:39 AM EDT [facility] Blood Blood specimen / Unknown 01/03/2025 12:11 AM EDT 01/03/2025 3:16 AM EDT Ashlie Gilliland APRN LAB BLOOD ORDERABLES Final Re sult Performing Organization Address [facility] [place] [address], [address] [address] * (ABNORMAL) Basic Metabolic Panel (01/03/2025 12:11 AM EDT) Only the most recent of5 resultswithin the time period is included. Glucose 160(H) 65 - 99 mg/dL 01/03/2025 3:39 AM EDT [facility] Comment:Fasting: <100 mg/dL, Non-Fasting: <200 mg/dL (ADA 2005) Blood Urea Nitrogen (BUN) 17 8 - 21 mg/dL 01/03/2025 3:39 AM EDT [facility] Creatinine 0.55 0.50 - 1.30 mg/dL 01/03/2025 3:39 AM EDT [facility] eGFR >90 >59 01/03/2025 3:39 AM T [facility] Comment:CKD-EPI (2020) in mL /min/1.73 sq meters. Sodium 136 136 - 145 mmol/L 01/03/2025 3:39 AM EDT [facility] Potassium 4.3 3.4 - 5.3 mmol/L 01/03/2025 3:39 AM EDT [facility] Chloride 102 98 - 107 mmol/L 01/03/2025 3:39 AM EDT [facility] CO2 24 22 - 33 mmol/L 01/03/2025 3:39 AM EDT [facility] Anion Gap 10 7 - 17 01/03/2025 3:39 AM EDT [facility] Calcium 8.6(L) 8.7 - 10.5 mg/dL 01/03/2025 3:39 AM EDT [facility] BUN/Creatinine Ratio 31(H) 10.0 - 25.0 Ratio 01/03/2025 3:39 AM EDT [facility] Blood Blood specimen / Unknown 01/03/2025 12:11 AM EDT 01/03/2025 3:16 AM EDT Ashlie Gilliland EMT INTERMEDIATE LAB BLOOD ORDERABLES Final Re sult Performing Organization Address City/[facility]/[place]IP [place] [address], [place] [address] * (ABNORMAL) Sodium (01/02/2025 12:26 AM EDT) Only the most recent of4 resultswithin the time period is included. Sodium 135(L) 136 - 145 mmol/L 01/02/2025 1:05 AM EDT [facility] Blood Blood specimen / Unknown 01/02/2025 12:26 AM EDT 01/02/2025 12:43 AM EDT Analia Lagunas EMT INTERMEDIATE LAB BLOOD ORDERABLES Final Result Performing Organization Address [facility]/[place] [address], [place] [address] * MRI Brain w w/o contrast (01/01/2025 5:15 AM EDT) Anatomical Region Laterality Modality Head Magnetic Resonan ce 01/01/2025 4:20 AM EDT Impressions 01/02/2025 5:32 PM EDT Status post gross total resection of right frontal meningioma with expected postsurgical changes. Mild dural enhancement and thickening along the anterior falx, likely postsurgical in nature. Attention on follow-up. Narrative 01/02/2025 5:32 PM EDT EXAMINATION: MRI BRAIN WITH AND WITHOUT CONTRAST. INDICATION: 64 years old, Male s/p craniotomy for right meningioma resection TECHNIQUE: Multiplanar multisequence magnetic resonance images of the brain with and without intravenous contrast . COMPARISON: MRI brain 12/30/2024 FINDINGS: POSTOPERATIVE CHANGES AND INTRACRANIAL LESIONS: Status post right frontal craniotomy for resection of right frontal meningioma. There is hemosiderin deposition and gas within the resection cavity. Small extra-axial fluid collection subjacent to the craniotomy measuring 5 mm in thickness. No evidence of residual mass. Mild cytotoxic edema along the margins of the surgical cavity. Dural enhancement and thickening along the anterior falx measuring 3.5 mm in thickness (10: 148), presumably postsurgical in nature. ACUTE INTRACRANIAL ABNORMALITIES: No acute infarct. VENTRICULAR SYSTEM: Decreased mass effect on the frontal horn of the right lateral ventricle. Stable dilation of the ventricular system, likely due to parenchymal volume loss. WHITE MATTER: Decreasing vasogenic edema in the right frontal lobe. Superimposed confluent periventricular and subcortical white matter FLAIR hyperintensity as well as within the olesya, likely sequela of moderate chronic microangiopathy. VASCULATURE: Patent major intracranial flow-voids. CALVARIUM: Subgaleal scalp effusion measuring 1.2 cm in thickness. ORBITS/SINUSES/MASTOIDS: Bilateral lens replacement. Mild paranasal mucosal thickening. Mastoids are well-aerated. Procedure Note Tanisha Briceño MD - 01/02/2025 EXAMINATION: MRI BRAIN WITH AND WITHOUT CONTRAST. INDICATION: 64 years old, Male s/p craniotomy for right meningioma resection TECHNIQUE: Multiplanar multisequence magnetic resonance images of the brain with and without intravenous contrast . COMPARISON: MRI brain 12/30/2024 FINDINGS: POSTOPERATIVE CHANGES AND INTRACRANIAL LESIONS: Status post right frontal craniotomy for resection of right frontal meningioma. There is hemosiderin deposition and gas within the resection cavity. Small extra-axial fluid collection subjacent to the craniotomy measuring 5 mm in thickness. No evidence of residual mass. Mild cytotoxic edema along the margins of the surgical cavity. Dural enhancement and thickening along the anterior falx measuring 3.5 mm in thickness (10: 148), presumably postsurgical in nature. ACUTE INTRACRANIAL ABNORMALITIES: No acute infarct. VENTRICULAR SYSTEM: Decreased mass effect on the frontal horn of the right lateral ventricle. Stable dilation of the ventricular system, likely due to parenchymal volume loss. WHITE MATTER: Decreasing vasogenic edema in the right frontal lobe. Superimposed confluent periventricular and subcortical white matter FLAIR hyperintensity as well as within the olesya, likely sequela of moderate chronic microangiopathy. VASCULATURE: Patent major intracranial flow-voids. CALVARIUM: Subgaleal scalp effusion measuring 1.2 cm in thickness. ORBITS/SINUSES/MASTOIDS: Bilateral lens replacement. Mild paranasal mucosal thickening. Mastoids are well-aerated. IMPRESSION: Status post gross total resection of right frontal meningioma with expected postsurgical changes. Mild dural enhancement and thickening along the anterior falx, likely postsurgical in nature. Attention on follow-up. us Dedrick Alexander PA-C IMG MRI ORDERABLES Final Res ult * (ABNORMAL) ISTAT Hemoglobin (12/31/2024 1:05 PM EDT) Only the most recent of3 resultswithin the time period is included. Hemoglobin, I-STAT 12.2(L) 13.0 - 17.7 gm/dL 12/31/2024 1:11 PM EDT Blood specimen / Unknown 12/31/2024 1:05 PM EDT 12/31/2024 1:11 PM EDT us Bhavin Fenton MD POCT ORDERABLES - DEVICE Abi l Result HOSPITAL LAB See Below * (ABNORMAL) ISTAT Hematocrit (12/31/2024 1:05 PM EDT) Only the most recent of3 resultswithin the time period is included. Hematocrit, I-STAT 36.0(L) 39.0 - 54.0 % 12/31/2024 1:11 PM EDT Blood specimen / Unknown 12/31/2024 1:05 PM EDT 12/31/2024 1:11 PM EDT Result Ramila Fenton MD POCT ORDERABLES - DEVICE Aib l Result Performing Organization Address [facility] LAB See Below * ISTAT Calcium, Ionized (ICA) (12/31/2024 1:05 PM EDT) Only the most recent of3 resultswithin the time period is included. Ionized Calcium, I-STAT 1.27 1.17 - 1.33 mmol/L 12/31/2024 1:11 PM EDT Blood specimen / Unknown 12/31/2024 1:05 PM EDT 12/31/2024 1:11 PM EDT Result Ramila Fenton MD POINT OF CARE TEST ORDERABLES Final Result Performing Organization Address [facility] LAB See Below * ISTAT Potassium (K) (12/31/2024 1:05 PM EDT) Only the most recent of3 resultswithin the time period is included. Potassium, I-STAT 3.5 3.4 - 5.3 mmol/L 12/31/2024 1:11 PM EDT Blood specimen / Unknown 12/31/2024 1:05 PM EDT 12/31/2024 1:11 PM EDT Result Ramila Fenton MD POINT OF CARE TEST ORDERABLES Final Result Performing Organization Address [facility] LAB See Below * ISTAT Sodium (Na) (12/31/2024 1:05 PM EDT) Only the most recent of3 resultswithin the time period is included. Sodium, I-STAT 141 136 - 145 mmol/L 12/31/2024 1:11 PM EDT Blood specimen / Unknown 12/31/2024 1:05 PM EDT 12/31/2024 1:11 PM EDT us Bhavin Fenton MD POINT OF CARE TEST ORDERABLES Final Result Performing Organization Address [facility] Phone Number HOSPITAL LAB See Below * (ABNORMAL) ISTAT Glucose (12/31/2024 1:05 PM EDT) Only the most recent of4 resultswithin the time period is included. Glucose, I-STAT 195(H) 65 - 99 mg/dL 12/31/2024 1:11 PM EDT Blood specimen / Unknown 12/31/2024 1:05 PM EDT 12/31/2024 1:11 PM EDT us Bhavin Fenton MD POCT ORDERABLES - DEVICE Abi l Result Performing Organization Address [facility] Number [facility] LAB See Below * (ABNORMAL) ISTAT Arterial Blood Gas (ABG) (12/31/2024 1:05 PM EDT) Only the most recent of3 resultswithin the time period is included. PH Arterial, I-STAT 7.19(L) 7.35 - 7.45 12/31/2024 1:11 PM EDT PCO2 Arterial, I-STAT 70.4(H) 32.0 - 45.0 mmHg 12/31/2024 1:11 PM EDT PO2 Arterial, I-STAT 353(H) 75 - 95 mmHg 12/31/2024 1:11 PM EDT HCO3 Arterial, I-STAT 27.1(H) 22.0 - 26.0 mmol/L 12/31/2024 1:11 PM EDT TCO2 Arterial Calc, I-STAT 29(H) 22 - 28 mmol/L 12/31/2024 1:11 PM EDT Base Excess, I-STAT -1 mmol/L 12/31/2024 1:11 PM EDT Comment:Reference Range: Neg ative 2 to Positive 3 SO2, I-STAT 100.0(H) 94.0 - 97.0 % 12/31/2024 1:11 PM EDT Sample Type, I-STAT Arterial 12/31/2024 1:11 PM EDT Blood specimen / Unknown 12/31/2024 1:05 PM EDT 12/31/2024 1:11 PM EDT us Bhavin Fenton MD POCT ORDERABLES - DEVICE Abi lanier Result HOSPITAL LAB See Below * Pathology (12/31/2024 11:09 AM EDT) Report [facility] [id number] CLIA ID [id number] [address] [place] [id number] [phone] Surgical Pathology Report PATIENT NAME: SHARATH ZAYAS REC NUMBER: [id number] (AGE): 1960 (Age: 64) SPECIMEN NUMBER: [id number] DATE OBTAINED: 12/31/2024 DIAGNOSIS BRAIN (A-B TUMOR, C TUMOR MYRIAD DEVICE, D FALCINE TUMOR AND E DURA ATTACHMENT): MENINGIOMA, WHO GRADE 2 (ATYPICAL); SEE COMMENT. wv/01/02/2025 Electronically Signed Out JAYNA BRADEN MD Signout Facility: [address] CLIA #: [id number] COMMENT Sections show a dura-based epithelioid tumor with areas of recognizable whorls and syncytial growth, characteristic of meningioma. Atypical features are present, including brain invasion (best seen in B7), prominent tumor necrosis (seen in part C and B1), hypercellularity, small cell changes, sheeting, and significant amount of the tumor showing chordoid feature (cords of epithelioid cells with myxoid stroma, less than 50%). Mitosis is not very easy to find (up to around 3/10HPF). Immunohistochemical studies are performed on B1. Tumor is positive for LAURA and SSTR2 and negative for AE1/AE3, further supporting the diagnosis. [id number] and BAP1 show retained nuclear staining. PHH3 is used to help searching for mitosis. MIB1 labeling is around 10%. Findings support the diagnosis. Tumor blocks for future studies: B1-B8, A2, A3. NGS can be performed upon request. [id number] x 5, 55356, 32123, [id number], [id number] The tests used in the work-up of this specimen may include Analyte-Specific Reagents (ASRs). The Immunopathology/[facility] at [facility] have established the performance characteristics of these reagents. They have not been cleared or approved by the [place] Food and Drug Administration (FDA); however, the FDA has determined that such clearance or approval is not necessary for their use. All controls show appropriate reactivity. Pre-analytic variables such as prolonged/shortened ischemic, fixation, or decalcification times may limit assay performance. Clinical Information and History: Mass of brain TRT 10:35 Tissue(s) Submitted: A: TUMOR B: TUMOR TRT 1050 TIF 1410 C: TUMOR MYRIAD DEVICE TRT 11 AM TIF 14:11 D: FALCINE TUMOR TRT 11:32 TIF 12:24 E: DURA ATTACHMENT TRT 11:50 TIF 12:40 Gross Description: Specimen A is received fresh for intraoperative consultation then placed into formalin labeled tumor and consists of a 1.5 cm in greatest dimension aggregate of canela pink irregular soft tissue fragments. A smear preparation slide is made. Approximately one-third of the tissue is submitted for frozen section diagnosis as FSA1. The specimen is entirely submitted as follows: A1: frozen section residue FSA1 A2-A3: remaining tissue Specimen B is received in formalin labeled tumor and consists of a 6.8 x 6.1 x 1.5 cm aggregate of canela pink irregular soft tissue fragments admixed with blood clot (approximately 15% blood clot). Lath Tier sections (approximately 30% of the tissue) are submitted in B1-B8. Specimen C is received in formalin labeled tumor Myriad device and consists of a mesh and plastic suction device containing a 2.3 x 1.8 x 1.0 cm aggregate of canela pink irregular soft tissue admixed with blood clot. The specimen is entirely submitted in C1-C7. Specimen D is received in formalin labeled falcine tumor and consists of a 0.4 cm in greatest dimension portion of bone with a small amount of attached hemorrhagic soft tissue. The soft tissue is from the bone. The specimen is entirely submitted as follows: D1: bony tissue, following EDTA decalcification D2: attached soft tissue Specimen E is received in formalin labeled dura attachment and consists of a 6.2 x 3.3 cm portion of membranous to rubbery flat tissue consistent with dura matter. The thickness averages less than 0.1 cm. One aspect of the dura is canela, smooth and vascular. The opposite is smooth to slightly shaggy with minimal attached soft tissue. The specimen is sectioned and entirely submitted in E1-E11. SD Intraoperative Consult Diagnosis: A1/SMDX/FSDX: LESIONAL TISSUE, EPITHELIOID NEOPLASM, FAVOR MENINGIOMA, DEFER. IVORY TA MD [facility] LAB 12/31/2024 11:0 9 AM EDT 12/31/2024 11:19 AM EDT Comment:tumor Bhavin Fenton MD PATHOLOGY/CYTOLOGY ORDERABLES Final Result HOSPITAL LAB See Below * ANES LINE - ARTERIAL (12/31/2024 9:50 AM EDT) Sony Portillo DO - 12/31/2024 9:50 AM EDT Sony Muniz DO 12/31/2024 9:51 AM Anesthesia Procedure Note - Arterial Line Insertion- L brachial Patient Name: Sharath Zayas : 1960 Patient location: OR Indications: Vascular access Procedure diagnosis: Anesthesia Performed by: Anesthesiologist Sony Muniz DO Procedure Preparation Skin prep: 2% chlorhexidine - completely dried prior to procedure Hand hygeine performed prior to needle/catheter insertion Sterile barriers in place: cap, gloves, large sterile sheet and mask Procedure Details Needle: 20 g Seldinger technique used Number of attempts: 1 Ultrasound guidance utilized, sterile gel and probe cover used Post Procedure Post-procedure: dressing applied Sony Muniz DO CA ANESTHESIA Final Result * ANES LINE - PERIPHERAL, SINGLE LUMEN (12/31/2024 9:50 AM EDT) Only the most recent of2 resultswithin the time period is included. Sony Portillo DO - 12/31/2024 9:50 AM EDT Sony Muniz DO 12/31/2024 9:50 AM Anesthesia Procedure Note - Peripheral IV Placement Patient Name: Sharath Zayas : 1960 Patient location: OR Indication(s): surgery, IV medication, vascular access and fluid administration Performed by: Anesthesiologist Sony Cristy, DO Procedure Preparation Skin prep: alcohol - completely dried prior to procedure Hand hygeine performed prior to needle/catheter insertion Sterile barriers in place: cap, gloves and mask Patient pre-procedure mental status: awake Single lumen [id number] catheter system, 18 g, 1 in length, in left forearm Insertion attempts: 1 Sony Muniz DO CA ANESTHESIA Final Result * ANES INTUBATION (12/31/2024 9:49 AM EDT) Sony Portillo DO - 12/31/2024 9:49 AM EDT Sony Muniz DO 12/31/2024 9:49 AM Anesthesia Procedure Note - Elective intubation Patient Name: Sharath Zayas : 1960 Patient location: OR Procedure indications: airway protection Procedure diagnosis: Anesthesia Performed by: Anesthesiologist Sony Muniz DO Chart Verification Airway: airway not difficult Preanesthetic Checklist monitors and equipment checked. Patient's pre-procedure mental status: anesthetized The patient was sedated prior to procedure. Current level of sedation: general anesthesia Airway not difficult - NPO status: > 8 hours Procedure Details Intubation route: oral Intubation method: video laryngoscopy GS 3 Number of attempts: 1 Patient status for intubation: paralyzed and sedated Patient position: supine Preoxygenation: BVM Quality of BVM: 1 person and easy Tube size: 8.0 mm Tube: EVAC - cuffed and cuff inflated Cricoid pressure not applied or not required Cord visualization: Grade I Placement confirmation method: chest rise and ETCO2 monitor Breath sounds: equal bilaterally ETT to lip: 22 cm Dentition: same as baseline Complications: no complications Sony Muniz DO CA ANESTHESIA Final Result * CT Head w/o contrast (12/30/2024 8:25 PM EDT) Anatomical Region Laterality Modality Head Computed Tomogra phy 12/30/2024 8:04 PM EDT Impressions 12/30/2024 9:[address] for surgical planning. Redemonstrated right frontal lobe mass. Narrative 12/30/2024 9:31 PM EDT EXAMINATION: CT HEAD WITHOUT CONTRAST CLINICAL INFORMATION: Preoperative planning. Please include stealth protocol and the ENTIRE nose COMPARISON: MRI brain performed earlier same day TECHNIQUE: Imaging was performed from the skull base to vertex without intravenous administration of contrast. Sagittal and coronal reformatted images were obtained on the technologist's workstation. This CT examination was performed using dose optimization techniques as appropriate, variously including the following: *Automated exposure control *Adjustment of mA and/or kV according to patient size (this includes techniques or standardized protocols for targeted exams where dose is matched to indication/reason for exam; i.e. extremities or head) *Use of iterative reconstruction technique Total exam dose length product: 1529.2 mGy-cm FINDINGS: Intracranial: Large right frontal lobe mass with surrounding edema, mass effect, midline shift. No interval change from earlier same day. Similar generalized parenchymal volume loss and chronic microvascular disease. No acute territorial infarct. Similar moderate ventriculomegaly. No extra-axial collections. Scalp/Skull: No significant soft tissue or osseous abnormalities. Sinuses: The visualized paranasal sinuses and mastoid air cells are predominantly clear. Orbits: No significant abnormalities in the visualized orbital structures. Procedure Note Andrez Melo MD - 12/30/2024 EXAMINATION: CT HEAD WITHOUT CONTRAST CLINICAL INFORMATION: Preoperative planning. Please include stealth protocol and the ENTIRE nose COMPARISON: MRI brain performed earlier same day TECHNIQUE: Imaging was performed from the skull base to vertex without intravenous administration of contrast. Sagittal and coronal reformatted images were obtained on the technologist's workstation. This CT examination was performed using dose optimization techniques as appropriate, variously including the following: *Automated exposure control *Adjustment of mA and/or kV according to patient size (this includes techniques or standardized protocols for targeted exams where dose is matched to indication/reason for exam; i.e. extremities or head) *Use of iterative reconstruction technique Total exam dose length product: 1529.2 mGy-cm FINDINGS: Intracranial: Large right frontal lobe mass with surrounding edema, mass effect, midline shift. No interval change from earlier same day. Similar generalized parenchymal volume loss and chronic microvascular disease. No acute territorial infarct. Similar moderate ventriculomegaly. No extra-axial collections. Scalp/Skull: No significant soft tissue or osseous abnormalities. Sinuses: The visualized paranasal sinuses and mastoid air cells are predominantly clear. Orbits: No significant abnormalities in the visualized orbital structures. IMPRESSION: CT for surgical planning. Redemonstrated right frontal lobe mass. us Anayeli Valverde PA-C IMG CT ORDERABLES Final Resul t * Partial Thromboplastin Time (PTT) (12/30/2024 6:18 PM EDT) Anticoagulant RIVAROXABAN (XARELTO) 12/30/2024 5:33 PM EDT [facility] Partial Thromboplastin Time (PTT) 36 25 - 36 seconds 12/30/2024 6:50 PM EDT [facility] Blood Blood specimen / Unknown 12/30/2024 6:18 PM EDT 12/30/2024 6:34 PM EDT us Anayeli Valverde PA-C LAB BLOOD ORDERABLES Final Re sult Performing Organization Address [facility] [place] [address], [place] [address] * Protime-INR (12/30/2024 6:18 PM EDT) Only the most recent of2 resultswithin the time period is included. Anticoagulant RIVAROXABAN (XARELTO) 12/30/2024 5:33 PM EDT [facility] Prothrombin Time (PT) 11.7 10.0 - 13.5 seconds 12/30/2024 6:50 PM EDT [facility] INR 1.0 12/30/2024 6:50 PM EDT [facility] Comment:INR Therapeutic Rang es: Standard dose anticoagulant 2.0 to 3.0, High dose anticoagulant 2.5-3.5. Blood Blood specimen / Unknown 12/30/2024 6:18 PM EDT 12/30/2024 6:34 PM EDT us Anayeli Valverde PA-C LAB BLOOD ORDERABLES Final Re sult Performing Organization Address [facility]/[place] [address], [place] [address] * Heparin Assay (Anti Xa) (12/30/2024 6:18 PM EDT) Anti Xa 0.10 IU/mL 12/30/2024 6:50 PM EDT [facility] Comment: (NOTE) Heparin Thromboembolic/Standard/Full Dose Protocol: Therapeutic Range: Age 18+: 0.30 - 0.70 IU/mL Age 0 - 17: 0.35 - 0.70 IU/mL Heparin Cardiac/Low Dose Protocol: Therapeutic Range: 0.30 - 0.50 IU/mL Low Molecular Weight Heparin: Therapeutic Range: Age 18+: 0.50 - 1.09 IU/mL for twice daily dosing (or adjusted to daily for poor renal function) Age 18+: 1.00 - 2.00 IU/mL for once daily dosing Age 0-17: 0.50 - 1.00 IU/mL Anticoagulant RIVAROXABAN (XARELTO) 12/30/2024 5:33 PM EDT [facility] Blood Blood specimen / Unknown 12/30/2024 6:18 PM EDT 12/30/2024 6:34 PM EDT us Anayeli Valverde PA-C LAB BLOOD ORDERABLES [place] [address], [place] [address] * Prepare RBC's:Prepare in: Units; Number of Units: 2; Transfusion Indications: Hemoglobin less than 7 gm/dl or HCT less than 21% (12/30/2024 5:02 PM EDT) Units Ordered 2 12/30/2024 5:01 PM EDT [facility] 12/30/2024 5:02 PM EDT 12/30/2024 5:07 PM EDT us Anayeli Valverde PA-C BLOOD BANK PRODUCT ORDERABLES Final Result Performing Organization Address City/[facility]/[place] [address], [place] [address] * MRI Brain Tumor Protocol w w/o Contrast (12/30/2024 4:00 PM EDT) Anatomical Region Laterality Modality Head Magnetic Resonan ce 12/30/2024 2:56 PM EDT Impressions 12/30/2024 4:44 PM EDT Within the limitations of the study, -Interval increased size of right frontal lobe extra-axial dural based mass with imaging characteristics most suggestive of a meningioma. Moderate surrounding edema with worsening regional mass effect causing new 0.6 cm leftward midline shift. Mass effect on the right A2 and distal RISHI branches with suggestion of significant luminal narrowing involving the right callosomarginal branches. -ASL imaging demonstrates asymmetrically decreased cerebral blood flow through the right cerebral and cerebellar hemispheres. -Global cerebral atrophy and chronic microangiopathy. Narrative 12/30/2024 4:44 PM EDT EXAMINATION: MR BRAIN WITHOUT AND WITH CONTRAST CLINICAL INFORMATION: Patient found to have hemorrhagic metastasis vs calcification on CT head. Will need further delineation. COMPARISON: MRI brain on 01/19/2024 TECHNIQUE: Multiplanar, multisequence MRI of the brain was obtained before and after the intravenous administration of 7 mL Gadavist. FINDINGS: Motion artifact is present. Interval increased size of extra-axial dural based mass in the right frontal lobe now measuring 7.1 x 4.0 x 6.1 cm (AP x TV x CC). The mass is heterogeneously enhancing with internal susceptibility artifact and foci of intrinsic T1 hyperintensity. This mass demonstrates a dural tail. Moderate edema is seen surrounding this mass, extending to involve the right frontal and parietal periventricular white matter, the anterior portion of the right corpus callosum body and the right corpus callosum rostrum. Regional mass effect causes 0.6 cm leftward midline shift at the level of the lateral ventricle frontal horns with complete effacement of the right lateral ventricle frontal horn. There is mass effect on the right A2 and distal RISHI branches with suggestion of luminal narrowing involving the right callosomarginal branches. No evidence of invasion of the superior sagittal sinus. On ASL imaging, there is asymmetrically decreased blood flow through the right cerebral and cerebellar hemispheres. No acute intracranial hemorrhage or infarct. Scattered and confluent periventricular and deep white matter T2/FLAIR hyperintensities, nonspecific however commonly seen with small vessel ischemic disease. Diffuse prominence of the sulci with associated ex vacuo dilation of the ventricles compatible with global cerebral atrophy. No acute extra-axial fluid collections. The osseous structures are unremarkable. The pituitary gland, pineal gland and remaining midline structures are unremarkable. Sequelae of bilateral lens replacement. Mild mucosal thickening of the paranasal sinuses. The mastoid air cells are clear. Procedure Note Good Madison MD - 12/30/2024 EXAMINATION: MR BRAIN WITHOUT AND WITH CONTRAST CLINICAL INFORMATION: Patient found to have hemorrhagic metastasis vs calcification on CT head. Will need further delineation. COMPARISON: MRI brain on 01/19/2024 TECHNIQUE: Multiplanar, multisequence MRI of the brain was obtained before and after the intravenous administration of 7 mL Gadavist. FINDINGS: Motion artifact is present. Interval increased size of extra-axial dural based mass in the right frontal lobe now measuring 7.1 x 4.0 x 6.1 cm (AP x TV x CC). The mass is heterogeneously enhancing with internal susceptibility artifact and foci of intrinsic T1 hyperintensity. This mass demonstrates a dural tail. Moderate edema is seen surrounding this mass, extending to involve the right frontal and parietal periventricular white matter, the anterior portion of the right corpus callosum body and the right corpus callosum rostrum. Regional mass effect causes 0.6 cm leftward midline shift at the level of the lateral ventricle frontal horns with complete effacement of the right lateral ventricle frontal horn. There is mass effect on the right A2 and distal RISHI branches with suggestion of luminal narrowing involving the right callosomarginal branches. No evidence of invasion of the superior sagittal sinus. On ASL imaging, there is asymmetrically decreased blood flow through the right cerebral and cerebellar hemispheres. No acute intracranial hemorrhage or infarct. Scattered and confluent periventricular and deep white matter T2/FLAIR hyperintensities, nonspecific however commonly seen with small vessel ischemic disease. Diffuse prominence of the sulci with associated ex vacuo dilation of the ventricles compatible with global cerebral atrophy. No acute extra-axial fluid collections. The osseous structures are unremarkable. The pituitary gland, pineal gland and remaining midline structures are unremarkable. Sequelae of bilateral lens replacement. Mild mucosal thickening of the paranasal sinuses. The mastoid air cells are clear. IMPRESSION: Within the limitations of the study, -Interval increased size of right frontal lobe extra-axial dural based mass with imaging characteristics most suggestive of a meningioma. Moderate surrounding edema with worsening regional mass effect causing new 0.6 cm leftward midline shift. Mass effect on the right A2 and distal RISHI branches with suggestion of significant luminal narrowing involving the right callosomarginal branches. -ASL imaging demonstrates asymmetrically decreased cerebral blood flow through the right cerebral and cerebellar hemispheres. -Global cerebral atrophy and chronic microangiopathy. Naresh Horan MD IMG MRI ORDERA BLES Final Result * XR Chest 1 view-Portable (12/30/2024 1:40 PM EDT) Anatomical Region Laterality Modality Chest Computed Radiogr aphy 12/30/2024 1:29 PM EDT Impressions 01/01/2025 10:10 AM EDT No acute pulmonary disease. Narrative 01/01/2025 10:10 AM EDT EXAMINATION: XR CHEST CLINICAL INFORMATION: pre op COMPARISON: CT chest abdomen pelvis from the same day TECHNIQUE: Frontal view of the chest was obtained. FINDINGS: Lungs are clear. No focal consolidation or mass. Normal pulmonary vascularity. No pleural effusion or pneumothorax. Normal cardiomediastinal silhouette. Procedure Note Sony Carreon MD - 01/01/2025 EXAMINATION: XR CHEST CLINICAL INFORMATION: pre op COMPARISON: CT chest abdomen pelvis from the same day TECHNIQUE: Frontal view of the chest was obtained. FINDINGS: Lungs are clear. No focal consolidation or mass. Normal pulmonary vascularity. No pleural effusion or pneumothorax. Normal cardiomediastinal silhouette. IMPRESSION: No acute pulmonary disease. Dedrick Alexander PA-C IM DIAGNOSTIC IMAGING ORDER ZORAIDA Final Result * CT Chest Abdomen Pelvis with IV Contrast (12/30/2024 8:19 AM EDT) Anatomical Region Laterality Modality Chest, Abdomen, Pelvis Computed Tomography 12/30/2024 7:51 AM EDT Impressions 12/30/2024 7:59 PM EDT Impression: 1. No evidence of malignancy in the chest, abdomen, or pelvis by CT. 2. Multinodular thyroid gland with visualized nodules measuring below 1.5 cm, below ACR follow-up guidelines. 3. Urinary bladder diverticulum measuring up to 2.5 cm. Fleischner criteria were utilized. Narrative 12/30/2024 7:59 PM EDT Study: CT CHEST ABDOMEN PELVIS WITH IV CONTRAST Comparison: None Indication: Malignancy workup Technique: CT of the chest, abdomen, and pelvis was performed with intravenous contrast. Axial MIP reconstructions of the chest were provided for review. This CT examination was performed using dose optimization techniques as appropriate, variously including the following: *Automated exposure control *Adjustment of mA and/or kV according to patient size (this includes techniques or standardized protocols for targeted exams where dose is matched to indication/reason for exam; i.e. extremities or head) *Use of iterative reconstruction technique DLP: 279.13 mGy*cm Findings: Chest: Airways: The central airways are patent. Lungs: The lungs are clear bilaterally. No consolidation. Pleura: No pleural effusion. No pneumothorax. Heart: The heart is unremarkable. No pericardial effusion. Coronary artery calcifications are noted. Vasculature: Scattered atherosclerotic calcifications are noted. No thoracic aortic aneurysm.The visualized pulmonary artery is unremarkable. Mediastinum: Partially visualized multinodular thyroid gland, with a left thyroid lobe inferior nodule measuring up to 1.4 cm. Lymph nodes: No lymphadenopathy. Soft tissues/Osseous: No aggressive osseous lesions are detected on CT. Healed bilateral rib fractures are noted. Abdomen/Pelvis: Liver: The liver is unremarkable. No biliary ductal dilation. The portal vein is patent. Gallbladder: The gallbladder is unremarkable. Spleen: The spleen is unremarkable. Pancreas: The pancreas unremarkable. Adrenals: The adrenal glands are unremarkable. Kidneys/Ureters: Small volume nonspecific perinephric stranding/fluid. The kidneys are unremarkable. No hydronephrosis. Pelvis: No pelvic mass. Urinary bladder diverticulum arising from the left posterolateral aspect of the urinary bladder measuring 2.5 x 2.0 cm (series 303 image [id number]). Bowel: Status post partial colonic resection with a left lower quadrant suture line noted along the sigmoid colon. Moderate volume colonic stool. Normal appendix. The stomach is distended with ingested material. Peritoneum: No ascites. No free air. Lymph Nodes: No lymphadenopathy. Vascular: Scattered atherosclerotic calcifications are noted. IVC filter is present. In the absence of a documented management plan, consider referring the patient when appropriate specialist for nonurgent evaluation. Soft Tissues/Osseous: No aggressive osseous lesions are detected on CT. A ghost track is seen within the right proximal femur from prior orthopedic hardware. Procedure Note Taiwo Leija MD - 12/30/2024 Study: CT CHEST ABDOMEN PELVIS WITH IV CONTRAST Comparison: None Indication: Malignancy workup Technique: CT of the chest, abdomen, and pelvis was performed with intravenous contrast. Axial MIP reconstructions of the chest were provided for review. This CT examination was performed using dose optimization techniques as appropriate, variously including the following: *Automated exposure control *Adjustment of mA and/or kV according to patient size (this includes techniques or standardized protocols for targeted exams where dose is matched to indication/reason for exam; i.e. extremities or head) *Use of iterative reconstruction technique DLP: 279.13 mGy*cm Findings: Chest: Airways: The central airways are patent. Lungs: The lungs are clear bilaterally. No consolidation. Pleura: No pleural effusion. No pneumothorax. Heart: The heart is unremarkable. No pericardial effusion. Coronary artery calcifications are noted. Vasculature: Scattered atherosclerotic calcifications are noted. No thoracic aortic aneurysm.The visualized pulmonary artery is unremarkable. Mediastinum: Partially visualized multinodular thyroid gland, with a left thyroid lobe inferior nodule measuring up to 1.4 cm. Lymph nodes: No lymphadenopathy. Soft tissues/Osseous: No aggressive osseous lesions are detected on CT. Healed bilateral rib fractures are noted. Abdomen/Pelvis: Liver: The liver is unremarkable. No biliary ductal dilation. The portal vein is patent. Gallbladder: The gallbladder is unremarkable. Spleen: The spleen is unremarkable. Pancreas: The pancreas unremarkable. Adrenals: The adrenal glands are unremarkable. Kidneys/Ureters: Small volume nonspecific perinephric stranding/fluid. The kidneys are unremarkable. No hydronephrosis. Pelvis: No pelvic mass. Urinary bladder diverticulum arising from the left posterolateral aspect of the urinary bladder measuring 2.5 x 2.0 cm (series 303 image [id number]). Bowel: Status post partial colonic resection with a left lower quadrant suture line noted along the sigmoid colon. Moderate volume colonic stool. Normal appendix. The stomach is distended with ingested material. Peritoneum: No ascites. No free air. Lymph Nodes: No lymphadenopathy. Vascular: Scattered atherosclerotic calcifications are noted. IVC filter is present. In the absence of a documented management plan, consider referring the patient when appropriate specialist for nonurgent evaluation. Soft Tissues/Osseous: No aggressive osseous lesions are detected on CT. A ghost track is seen within the right proximal femur from prior orthopedic hardware. IMPRESSION: Impression: 1. No evidence of malignancy in the chest, abdomen, or pelvis by CT. 2. Multinodular thyroid gland with visualized nodules measuring below 1.5 cm, below ACR follow-up guidelines. 3. Urinary bladder diverticulum measuring up to 2.5 cm. Fleischner criteria were utilized. Naresh Horan MD IMG CT ORDERAB LES Final Result * (ABNORMAL) Hemoglobin A1c with Estimated Average Glucose (12/30/2024 7:22 AM EDT) Hemoglobin A1C 7.0(H) <5.7 % 12/30/2024 8:38 AM EDT [facility] Comment: A1c% Interpretation 5.7 - 6.0 Increase risk of diabetes 6.1 - 6.4 Higher risk of diabetes > or = 6.5 Consistent with diabetes Diabetes Care, 33(Supp 1):S1-S61, 2010 Estimated Average Glucose 154 mg/dL 12/30/2024 8:38 AM T [facility] Blood Blood specimen / Unknown 12/30/2024 7:22 AM EDT 12/30/2024 8:06 AM EDT Naresh Horan MD LAB BLOOD [place] [address], [place] [address] * Type and Screen (12/30/2024 12:34 AM EDT) ABO/Rh A POSITIVE 12/30/2024 1:53 AM EDT [facility] Antibody Screen NEGATIVE 1:53 AM EDT [facility] Specimen Expiration 01/02/2025 12/30/2024 1:53 AM T [facility] Blood Bank Comment Specimen collected using [employer] Watchman 12/30/2024 1:53 AM EDT [facility] Unit Number [id number] 12/30/2024 5:10 PM EDT [facility] Blood Component Type LEUKOREDUCED RED CELLS 12/30/2024 5:10 PM EDT [facility] Unit Division 00 12/30/2024 5:10 PM EDT [facility] Unit Status REL FROM ALLOC 7:56 PM EDT [facility] Transfusion Status OK TO TRANSFUSE 12/30/2024 5:10 PM EDT [facility] Crossmatch Result COMPATIBLE 12/30/2024 5:10 PM EDT [facility] Unit Number [id number] 12/30/2024 5:10 PM EDT [facility] Blood Component Type LEUKOREDUCED RED CELLS 12/30/2024 5:10 PM EDT [facility] Unit Division 00 12/30/2024 5:10 PM EDT [facility] Unit Status REL FROM ALLOC 7:56 PM EDT [facility] Transfusion Status OK TO TRANSFUSE 12/30/2024 5:10 PM EDT [facility] Crossmatch Result COMPATIBLE 12/30/2024 5:10 PM EDT [facility] Blood Blood specimen / Unknown 12/30/2024 12:34 AM EDT 12/30/2024 12:59 AM EDT Comment:Blood us Porsha Ashby MD BLOOD BANK TEST ORDERABLES Final Result [facility] See Below [address] [address] * CTA Head and Neck With IV Contrast (12/30/2024 12:14 AM EDT) Anatomical Region Laterality Modality CTA Head and Neck Computed Tomog estela 12/29/2024 11:5 1 PM EDT Impressions 12/30/2024 1:35 AM EDT 1. Redemonstration of the large right anterior frontal convexity enhancing extra-axial mass, demonstrating interval growth when compared to the prior CT from 07/15/2023. Similar surrounding vasogenic edema and mass effect on the frontal horn of the right lateral ventricle when compared to the study from same day. Findings remain most compatible with a meningioma as described on the prior MRI from 01/19/2024. 2. No edematous territorial infarction. No definite intracranial hemorrhage although difficult to exclude hemorrhage associated with the above described meningioma. 3. No large vessel occlusion or significant stenosis in the intracranial circulation. 4. Mixed calcific atherosclerotic disease of the left carotid bulb and proximal internal carotid artery resulting in approximately 50% stenosis. 5. A 1.8 cm left thyroid nodule for which no dedicated imaging follow-up is required. Interpreted by: Aylin Meraz MD Financial Services Consultant I personally reviewed the images and the resident's preliminary report and AGREE with the report as it is now presented ([id number]). Narrative 12/30/2024 1:35 AM EDT EXAMINATION: CT ANGIOGRAM HEAD CT ANGIOGRAM NECK CLINICAL INFORMATION: 64 years old Male with fall, seizure activity, found to have frontal mass vs hemorraghe COMPARISON: CT head from same day MRI brain 01/19/2024 TECHNIQUE: Initial noncontrast life skills instructor imaging of the head and neck was performed. Noncontrast head CT was also performed. Test bolus sequences followed by intravenous administration 50 mL of Omnipaque 350. Helical imaging was performed in the axial plane from the aortic arch to the skull vertex. Delayed postcontrast imaging of the head was also performed. The data was processed at the nuclear technologist's workstation for generation of MIP sequences. Angled MIPs and volume rendered reformatted images were also generated at an offline 3D workstation. Stenoses are assessed in accordance with NASCET criteria unless otherwise indicated. This CT examination was performed using dose optimization techniques as appropriate, variously including the following: *Automated exposure control. *Adjustment of mA and/or kV according to patient size (this includes techniques or standardized protocols for targeted exams where dose is matched to indication/reason for exam; i.e. extremities or head). *Use of iterative reconstruction technique. DLP: 2480.5 mGy-cm FINDINGS: CT HEAD: Redemonstration of the hyperattenuating extra-axial mass along the right anterior frontal convexity measuring 6.3 x 4.0 x 6.5 cm (AP by TV by CC), unchanged from the most recent study performed earlier today. However, there is interval growth when compared to the prior CT from 07/15/2023, previously measuring up to 2.7 cm. Similar surrounding vasogenic edema within the right anterior frontal lobe and similar partial effacement of the frontal horn of the right lateral ventricle. Ventricular caliber remains stable. There is minimal right to left midline shift at the level of the anterior falx. No edematous territorial infarction. Jones-white matter differentiation is preserved. Scattered and partially confluent hypoattenuation in the periventricular and deep white matter are consistent with moderate microangiopathy. No acute soft tissue or osseous abnormalities. The mastoid air cells and paranasal sinuses are clear. The above described extra-axial mass does demonstrate homogeneous enhancement, with some central hypoattenuation. No abnormal intraparenchymal enhancement. CT NECK: A 1.8 cm nodule in the left thyroid lobe for which no dedicated imaging follow-up is required given size. The superior mediastinum is unremarkable. Degenerative changes at the atlantooccipital and atlantoaxial articulations, normal alignment is maintained. Straightening of the normal cervical lordosis. Intervertebral discs are narrowed at multiple levels with associated endplate and uncovertebral osteophytes. Degenerative facet arthropathy is present at multiple levels. CT UPPER CHEST: Mild dependent atelectasis. The visualized lung apices are otherwise clear with no evidence of inflammation or nodules. NECK CTA: AORTIC ARCH: Normal contour and caliber. Classic 3 vessel branching pattern of the aortic arch. GREAT VESSEL ORIGINS: No significant stenosis of the branch origins. RIGHT COMMON CAROTID ARTERY: No focal stenosis or occlusion. CERVICAL RIGHT ICA: Calcific atherosclerotic disease of the carotid bulb and proximal internal carotid artery causing less than 50% stenosis. LEFT COMMON CAROTID ARTERY: No focal stenosis or occlusion. CERVICAL LEFT ICA: Mixed calcific atherosclerotic disease of the carotid bulb and proximal internal carotid artery causing approximately 50%stenosis. CERVICAL RIGHT VERTEBRAL ARTERY: Co-dominant. No focal stenosis or occlusion. CERVICAL LEFT VERTEBRAL ARTERY: Co-dominant. No focal stenosis or occlusion. BRAIN CTA: INTRACRANIAL INTERNAL CAROTID ARTERIES: Calcific atherosclerotic disease of the intracranial internal carotid arteries without occlusion or flow-limiting stenosis. RIGHT ANTERIOR CEREBRAL ARTERY: Normal A1 segment. Normal opacification of the distal RISHI segments. LEFT ANTERIOR CEREBRAL ARTERY: Normal A1 segment. Normal opacification of the distal RISHI segments. ANTERIOR COMMUNICATING ARTERY: Normal. RIGHT MIDDLE CEREBRAL ARTERY: Normal M1 segment of the MCA without focal stenosis or occlusion. Normal arborization of the distal segments. LEFT MIDDLE CEREBRAL ARTERY: Normal M1 segment of the MCA without focal stenosis or occlusion. Normal arborization of the distal segments. RIGHT VERTEBRAL ARTERY: Normal V4 segment. LEFT VERTEBRAL ARTERY: Normal V4 segment. BASILAR ARTERY: Normal without focal stenosis or occlusion. Normal appearance of the proximal superior cerebellar arteries. RIGHT POSTERIOR CEREBRAL ARTERY: Normal P1 segment. Normal opacification of the distal CASE FINISHING MACHINE ADJUSTER segments. LEFT POSTERIOR CEREBRAL ARTERY: Normal P1 segment. Normal opacification of the distal CASE FINISHING MACHINE ADJUSTER segments. Normal opacification of the superior sagittal, straight, transverse, and sigmoid sinuses. Procedure Note Heri Negron, DO - 12/30/2024 EXAMINATION: CT ANGIOGRAM HEAD CT ANGIOGRAM NECK CLINICAL INFORMATION: 64 years old Male with fall, seizure activity, found to have frontal mass vs hemorraghe COMPARISON: CT head from same day MRI brain 01/19/2024 TECHNIQUE: Initial noncontrast life skills instructor imaging of the head and neck was performed. Noncontrast head CT was also performed. Test bolus sequences followed by intravenous administration 50 mL of Omnipaque 350. Helical imaging was performed in the axial plane from the aortic arch to the skull vertex. Delayed postcontrast imaging of the head was also performed. The data was processed at the nuclear technologist's workstation for generation of MIP sequences. Angled MIPs and volume rendered reformatted images were also generated at an offline 3D workstation. Stenoses are assessed in accordance with NASCET criteria unless otherwise indicated. This CT examination was performed using dose optimization techniques as appropriate, variously including the following: *Automated exposure control. *Adjustment of mA and/or kV according to patient size (this includes techniques or standardized protocols for targeted exams where dose is matched to indication/reason for exam; i.e. extremities or head). *Use of iterative reconstruction technique. DLP: 2480.5 mGy-cm FINDINGS: CT HEAD: Redemonstration of the hyperattenuating extra-axial mass along the right anterior frontal convexity measuring 6.3 x 4.0 x 6.5 cm (AP by TV by CC), unchanged from the most recent study performed earlier today. However, there is interval growth when compared to the prior CT from 07/15/2023, previously measuring up to 2.7 cm. Similar surrounding vasogenic edema within the right anterior frontal lobe and similar partial effacement of the frontal horn of the right lateral ventricle. Ventricular caliber remains stable. There is minimal right to left midline shift at the level of the anterior falx. No edematous territorial infarction. Jones-white matter differentiation is preserved. Scattered and partially confluent hypoattenuation in the periventricular and deep white matter are consistent with moderate microangiopathy. No acute soft tissue or osseous abnormalities. The mastoid air cells and paranasal sinuses are clear. The above described extra-axial mass does demonstrate homogeneous enhancement, with some central hypoattenuation. No abnormal intraparenchymal enhancement. CT NECK: A 1.8 cm nodule in the left thyroid lobe for which no dedicated imaging follow-up is required given size. The superior mediastinum is unremarkable. Degenerative changes at the atlantooccipital and atlantoaxial articulations, normal alignment is maintained. Straightening of the normal cervical lordosis. Intervertebral discs are narrowed at multiple levels with associated endplate and uncovertebral osteophytes. Degenerative facet arthropathy is present at multiple levels. CT UPPER CHEST: Mild dependent atelectasis. The visualized lung apices are otherwise clear with no evidence of inflammation or nodules. NECK CTA: AORTIC ARCH: Normal contour and caliber. Classic 3 vessel branching pattern of the aortic arch. GREAT VESSEL ORIGINS: No significant stenosis of the branch origins. RIGHT COMMON CAROTID ARTERY: No focal stenosis or occlusion. CERVICAL RIGHT ICA: Calcific atherosclerotic disease of the carotid bulb and proximal internal carotid artery causing less than 50% stenosis. LEFT COMMON CAROTID ARTERY: No focal stenosis or occlusion. CERVICAL LEFT ICA: Mixed calcific atherosclerotic disease of the carotid bulb and proximal internal carotid artery causing approximately 50%stenosis. CERVICAL RIGHT VERTEBRAL ARTERY: Co-dominant. No focal stenosis or occlusion. CERVICAL LEFT VERTEBRAL ARTERY: Co-dominant. No focal stenosis or occlusion. BRAIN CTA: INTRACRANIAL INTERNAL CAROTID ARTERIES: Calcific atherosclerotic disease of the intracranial internal carotid arteries without occlusion or flow-limiting stenosis. RIGHT ANTERIOR CEREBRAL ARTERY: Normal A1 segment. Normal opacification of the distal RISHI segments. LEFT ANTERIOR CEREBRAL ARTERY: Normal A1 segment. Normal opacification of the distal RISHI segments. ANTERIOR COMMUNICATING ARTERY: Normal. RIGHT MIDDLE CEREBRAL ARTERY: Normal M1 segment of the MCA without focal stenosis or occlusion. Normal arborization of the distal segments. LEFT MIDDLE CEREBRAL ARTERY: Normal M1 segment of the MCA without focal stenosis or occlusion. Normal arborization of the distal segments. RIGHT VERTEBRAL ARTERY: Normal V4 segment. LEFT VERTEBRAL ARTERY: Normal V4 segment. BASILAR ARTERY: Normal without focal stenosis or occlusion. Normal appearance of the proximal superior cerebellar arteries. RIGHT POSTERIOR CEREBRAL ARTERY: Normal P1 segment. Normal opacification of the distal CASE FINISHING MACHINE ADJUSTER segments. LEFT POSTERIOR CEREBRAL ARTERY: Normal P1 segment. Normal opacification of the distal CASE FINISHING MACHINE ADJUSTER segments. Normal opacification of the superior sagittal, straight, transverse, and sigmoid sinuses. IMPRESSION: 1. Redemonstration of the large right anterior frontal convexity enhancing extra-axial mass, demonstrating interval growth when compared to the prior CT from 07/15/2023. Similar surrounding vasogenic edema and mass effect on the frontal horn of the right lateral ventricle when compared to the study from same day. Findings remain most compatible with a meningioma as described on the prior MRI from 01/19/2024. 2. No edematous territorial infarction. No definite intracranial hemorrhage although difficult to exclude hemorrhage associated with the above described meningioma. 3. No large vessel occlusion or significant stenosis in the intracranial circulation. 4. Mixed calcific atherosclerotic disease of the left carotid bulb and proximal internal carotid artery resulting in approximately 50% stenosis. 5. A 1.8 cm left thyroid nodule for which no dedicated imaging follow-up is required. Interpreted by: Aylin Meraz MD Financial Services Consultant I personally reviewed the images and the resident's preliminary report and AGREE with the report as it is now presented ([email or web address]). Porsha Ashby MD IMG CT ORDERABLES Final Result * ECG 12 lead (12/29/2024 10:17 PM EDT) Ventricular rate 83 BPM EKG [facility] Atrial rate 83 BPM EKG [facility] P-R interval 182 ms [facility] QRS duration 94 ms EKG [facility] Q[facility]T interval 402 [facility] ([place]) 473 ms EKG [facility] P axis 53 degrees EKG [facility] R axis 41 [facility] T [facility] 67 [facility] 12/29/2024 10:1 7 PM EDT Narrative EKG [facility] - 12/29/2024 10:20 PM EDT Normal sinus rhythm Nonspecific T wave abnormality Prolonged QT Abnormal ECG No previous ECGs available Confirmed by DO Liang Kyla ([id number]) on 12/29/2024 10:20:21 PM Procedure Note Sheeba Liang DO - 12/29/2024 Normal sinus rhythm Nonspecific T wave abnormality Prolonged QT Abnormal ECG No previous ECGs available Confirmed by DO Liang Kyla ([id number]) on 12/29/2024 10:20:21 PM us Porsha Ashby MD ECG ORDERABLES Edited Result - Final Performing Organization Address City/[facility]/ZIP Co de Phone Number EKG [facility] * CT Head Archive for Reference Only (12/29/2024 9:38 PM EDT) Narrative [facility] - 12/29/2024 9:38 PM EDT This study has been auto finalized and does not contain a result. us File Room Provider IMG DIGITIZE FILMS Final Resu lt [facility]IAN [phone] * (ABNORMAL) Complete Blood Count, with Differential (12/29/2024 9:25 PM EDT) White Blood Cell Count 9.8 4.0 - 11.0 Thou/uL 12/29/2024 10:02 PM [facility] Platelet Count 185 150 - 450 Thou/uL 12/29/2024 10:02 PM [facility] Hemoglobin 15.2 13.0 - 17.7 g/dL 12/29/2024 10:02 PM [facility] Hematocrit 46.1 39.0 - 54.0 % 12/29/2024 10:02 PM [facility] Red Blood Cell Count 4.67 4.50 - 6.20 Mil/uL 12/29/2024 10:02 PM [facility] MCV 99 80 - 100 fL 12/29/2024 10:02 PM [facility] MCH 32.5(H) 27.0 - 31.0 pg 12/29/2024 10:02 PM [facility] MCHC 33.0 30.0 - 36.0 g/dL 12/29/2024 10:02 PM [facility] RDW 13.0 11.5 - 14.5 % 12/29/2024 10:02 PM [facility] MPV 10.5 7.5 - 12.5 fL 12/29/2024 10:02 PM [facility] Neutrophils Auto 81.8 % 12/30/19 10:02 PM [facility] Immature Granulocytes 0.4 % 12/29/2024 10:02 PM [facility] Lymphocytes Auto 13.0 % 12/30/19 10:02 PM [facility] Monocytes Auto 3.4 % 12/29/2024 10:02 PM [facility] Eosinophils Auto 1.2 % 12/30/19 10:02 PM [facility] Basophils Auto 0.2 % 12/29/2024 10:02 PM [facility] Abs Neutrophils Auto 8.05(H) 2.00 - 7.50 Thou/uL 12/29/2024 10:02 PM [facility] Abs Immature Granulocytes 0.04 0.00 - 0.10 Thou/uL 12/29/2024 10:02 PM [facility] Abs Lymphocytes Auto 1.28(L) 1.50 - 4.50 Thou/uL 12/29/2024 10:02 PM [facility] Abs Monocytes Auto 0.33 0.20 - 1.50 Thou/uL 12/29/2024 10:02 PM [facility] Abs Eosinophils Auto 0.12 0.00 - 0.70 Thou/uL 12/29/2024 10:02 PM [facility] Abs Basophils Auto 0.02 0.00 - 0.20 Thou/uL 12/29/2024 10:02 PM [facility] Blood Blood specimen / Unknown 12/29/2024 9:25 PM EDT 12/29/2024 9:51 PM EDT us Porsha Ashby MD LAB BLOOD ORDERABLES Final Resul t [address] [address], [address] [id number] from Last 3 Months Insurance MEDICAID OUT OF STATE [facility] Advance Directives * DNR (Latest Code Status on File) Date Activated Date Inactivated Comments 01/01/2025 3:13 PM Question Answer Comments Decision thoroughly discussed with: Legally Auth orized Lath Tier Name of Legally Authorized Lath Tier: rudy goode * Full Code Date Activated Date Inactivated Comments 12/31/2024 1:57 PM 01/01/2025 3:13 PM * Full Code Date Activated Date Inactivated Comments 12/31/2024 6:11 AM 12/31/2024 1:57 PM Luly-oper atively, discussed with patient's HCR Question Answer Comments Decision Thoroughly Discussed with: Legally Auth orized Lath Tier Name of Legally Authorized Lath Tier: Rudy Goode * DNR Date Activated Date Inactivated Comments 12/30/2024 3:55 AM 12/31/2024 6:11 AM Question Answer Comments Decision thoroughly discussed with: Marilee entPatient arrived with valid MOLST indicating DO NOT perform CPR Care Teams Cesspool Cleaner Relationship Specialty Start Date End Date Bri Roger MD [address] [place] [address] [place] [address] PCP - General Internal Medicine 12/29/24 Bradly Valladares, HERIBERTO [address] [place] [address] Registered Nurse Surgery, Neurosurgery 01/01/25
== END 2025-01-25 15:40 | disposition home or self-care (01) ==
LOC: HO.HMCH 14:04
PROVIDERS: PCP Internal Medicine; Visit Provider Internal Medicine
DX: D32.9 Benign neoplasm of meninges, unspecified (principal); E11.65 Type 2 diabetes mellitus with hyperglycemia; I82.409 Acute embolism and thrombosis of unspecified deep veins of unspecified lower extremity; E78.00 Pure hypercholesterolemia, unspecified; Z86.73 Personal history of transient ischemic attack (TIA), and cerebral infarction without residual deficits